=== PATIENT | male | born 1940 | race Caucasian/White ===

== ENCOUNTER → 2018-04-11 11:00 | Outpatient (CLI) | payer MEDICARE, MEDICAID, SELFPAY ==
[2018-04-11 12:51] LABS: Anion Gap 7 (5-15); BUN 15 mg/dL (7-18); BUN/Creat Ratio 15.1 RATIO (10-20); Calcium,Total 8.6 mg/dL (8.5-10.1); Chloride 108 mmol/L (98-107); Cholesterol 126 mg/dL (200); EST Glomerular Filtration Rate 78 mL/min (>60); Est Glom Filt Rate - Afr Amer 94 mL/min (>60); Glucose 84 mg/dL (74-106); High Density Lipoprotein 56 mg/dL; Potassium 4.3 mmol/L (3.5-5.1); Sodium Level 142 mmol/L (136-145); Triglycerides 62 mg/dL; Very Low Density Lipoprotein 12 mg/dL (5-40)
== END ==
PROVIDERS: Family Provider Family Medicine; PCP Family Medicine; Visit Provider Family Medicine
DX: E78.5 Hyperlipidemia, unspecified (principal)
CPT/HCPCS: 36415; 80048; 80061

== ENCOUNTER 2018-06-04 06:25 | Day surgery (SDC) | payer MEDICARE, MEDICAID, SELFPAY ==
[2018-05-08 08:59] VITALS: BMI 29.0
[2018-05-17 10:41] VITALS: BP 176/83; PULSE 53; RESP 16; TEMP 36.8; O2SAT 97; BMI 29.6
--- NOTE | 2018-06-03 17:28 | HP.PCM_ITS ---
History and Physical Date of Admission: 06/04/18 HISTORY OF PRESENT ILLNESS 78 year old man presents for evaluation for TBSE. He has concerns about a lesion on his nasal glabella that has increased in size over the last several months and has become more raised in configuration and has developed irregular borders. It intermittently scabs over and bleeds. 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 He denies any trauma. He denies any fever. He presents at this time for further evaluation and treatment. PAST MEDICAL HISTORY Diabetes mellitus type II, controlled Hyperlipidemia Stable angina Encounter for long-term current use of high risk medication Acute NH, subendocardial, subsequent episode of care Essential (primary) hypertension Atherosclerosis of coronary artery bypass graft(s) without angina pectoris Bradycardia Chest discomfort Dizziness and giddiness GERD (gastroesophageal reflux disease) Shortness of breath PAST SURGICAL HISTORY CABG Inguinal hernia percutaneous transluminal coronary angioplasty tonsillectomy ALLERGIES No Known Allergies MEDICATIONS isosorbide lisinopril amlodipine aspirin atorvastatin cascara sagrada nitroglycerin ascorbic acid (vitamin C) clopidogrel famotidine FAMILY HISTORY Brother - CAD (coronary artery disease) Brother - Hypertension Mother - Hypertension Father - Heart disease SOCIAL HISTORY Smoking Status: Never smoker alcohol intake: never substance use type: does not use REVIEW OF SYSTEMS General - Denies fever, fatigue, and weight loss. Eyes - Denies cataracts and glaucoma. ENT - Denies nasal congestion and sore throat. Endocrine - Denies excessive thirst and urination. Has diabetes mellitus. Skin - Has enlarging lesion nasal glabella. Had previous excision basal cell carcinoma right occipital scalp in 2012. Musculoskeletal - Denies joint pain, joint stiffness, weakness of muscles and joints, back pain, and arthritis. Neuro - Denies headaches. Cardiovascular - Denies chest pain, fatigue, and shortness of breath with exertion. Has CAD with CABG. Psych - Denies anxiety and depression. Respiratory - Denies chronic cough and shortness of breath. Gastrointestinal - Denies nausea, vomiting, diarrhea, and constipation. Hematologic - Denies abnormal bruising and bleeding. Genitourinary - Denies hematuria and urinary frequency. PHYSICAL EXAMINATION General - Alert and Oriented. HEENT - PERRL. EOMI. Throat is clear. On the nasal glabella is a lesion that is erythematous and measures 11 mm. Is raised in configuration with nodularity. Has irregular borders. Some scabbing. No ulceration. Lesion is nontender. Skin graft right occipital scalp well healed. Neck - Supple and nontender. No cervical adenopathy. No suspicious lesions noted. Lungs - Clear to auscultation. Heart - Regular rate and rhythm. Abdomen - Soft and nondistended. Extremities - FROM. No axillary adenopathy. Radial pulses are palpable. No suspicious lesions noted. Neuro - CN II-XII grossly intact. Psych - Normal mood and affect. ASSESSMENT 1. 11 mm lesion nasal glabella. 2. Personal history of skin cancer. PLAN The lesion nasal glabella is clinically consistent with a basal cell carcinoma. Recommend excision of this lesion and send it to Pathology for analysis to rule out carcinoma. If carcinoma is present, then further excision will be necessary with skin flap or skin graft reconstruction. Surgery can be done on an outpatient basis under local anesthesia and IV sedation. Patient was informed of the risks and complications of the procedure including alternatives to surgery. These were discussed with the patient personally. Patient voices understanding and wishes to proceed. Some of the risks and complications were included in a form from the [employer].
--- NOTE | 2018-06-04 | LES_PTH ---
PATIENT: HANANE DIGGS LOC: [facility] [place][id number] AGE/SX: 78/M ROOM: RE06/04/[address]: Dr. Tavares Mary MD : 1940 BED: DIS: 06/04/2018 SPEC #: [id number] RECD: 06/04/18 08:28 STATUS: DEEPAK MEAGHAN #: [id number] CECY: 06/04/18 00:[address]: Tavares Mary DEPT: SURGICAL PATHOLOGY RECD BY: Alicia Ariza ENTERED: 06/04/18 09:09 SP TYPE: Lesion OTHR DR: Dr. Zack Ceballos MD Tissues: A - Skin of nose, NOS B - Skin of nose, NOS Procedures: Frozen Section (charge) Surgery Specimen Level IV HEADER OPERATION: Excision lesion, skin flap, nasal glabella, frozen section PRE-OP DIAGNOSIS: 11 mm lesion nasal glabella TISSUE SUBMITTED: A - 11 mm lesion nasal glabella, frozen section, B - Basal cell CA of nasal glabella - suture at 12 o'clock, sent for permanent FROZEN SECTION DIAGNOSIS A. 11 mm lesion nasal glabella, shave biopsy: Basal cell carcinoma. MIUGEL:rohan 06/04/18 MICROSCOPIC DIAGNOSIS A. 11 mm lesion, nasal glabella, shave biopsy: Basal cell carcinoma with focal ulceration and associated inflammation (0.3 cm in greatest dimension). Solar elastosis. B. Basal cell carcinoma, nose, excisional biopsy: Negative for carcinoma. Focal ulceration, consistent with site of specimen A. Solar elastosis. MIGUEL:rohan 06/05/18 MICROSCOPIC DESCRIPTION Slides are reviewed. GROSS DESCRIPTION A - Received fresh for frozen section diagnosis labeled with the patient's name is a specimen designated 11 mm lesion nasal glabella. The specimen consists of a round piece of tran-white skin measuring 0.5 x 0.5 x 0.2 cm. The specimen is inked, bisected and submitted entirely for frozen section diagnosis in one cassette. / MIGUEL:rohan 06/04/18 B - Received in fixative is one container labeled with the patient's name and designated basal cell carcinoma, suture at 12 o'clock, nose. The specimen consists of a round piece of tran-white skin measuring 1 x 1 cm and up to 0.4 cm in thickness. A focal area of ulceration is noted measuring 0.6 x 0.6 cm consistent with site of specimen A. A suture is noted identifying 12 o'clock position. The specimen is inked as follows: 12 to 3 o'clock - black, 3 to 6 o'clock - blue, 6 to 9 o'clock - green and 9 to 12 o'clock - yellow. The specimen is serially sectioned and submitted entirely in two cassettes. Cassette 1 contains the 3 and 9 o'clock position. / MIGUEL:rohan 06/04/18 TC:0 CPT: 67603 x2, 60683
[2018-06-04 07:28] VITALS: BP 157/72; PULSE 52; RESP 16; TEMP 36.3; O2SAT 100; BMI 28.3
[2018-06-04] MEDS: Mupirocin Ointment 22gm Tube 1 APPLIC (08:42)
--- NOTE | 2018-06-04 09:25 | OP.PCM_ITS ---
Report of Operation Date of Procedure: 06/04/18 Pre-Operative Diagnosis: 1. 11 mm lesion nasal glabella. 2. Personal history of skin cancer. Post-Operative Diagnosis: 1. 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 2. Personal history of skin cancer. Surgery/Procedure Performed:: Excision 11 mm ulcerated basal cell carcinoma nasal glabella with forehead transposition skin flap reconstruction (8.8 cm2). Description of Surgical Findings:: 78 year old man presents for evaluation for TBSE. He has concerns about a lesion on his nasal glabella that has increased in size over the last several months and has become more raised in configuration and has developed irregular borders. It intermittently scabs over and bleeds. He had a previous basal cell carcinoma excised from his right occipital scalp in 2011. He denies any trauma. He denies any fever. Patient was informed of the risks and complications of the procedure including alternatives to surgery. These were discussed with the patient personally. Patient voices understanding and wishes to proceed. Some of the risks and complications were included in a form from the [employer]. Frozen section nasal glabella - ulcerated basal cell carcinoma. 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 Lesion nasal glabella to Pathology as a frozen section. 2. Ulcerated basal cell carcinoma nasal glabella to Pathology. Drains: None. Estimated Blood Loss (mL): 5 ml. Description of Procedure: Patient was taken to OR in supine position and was placed under general anesthesia. The face was prepped and draped in the usual fashion. SCD's were placed for DVT prophylaxis. Perioperative antibiotics were given intravenously. Using xylocaine with epinephrine, the lesion nasal glabella was infiltrated. After waiting 5 minutes for the anesthetic to take effect, the lesion nasal glabella was excised in an intradermal fashion and sent to Pathology as a frozen section. Frozen section .showed an ulcerated basal cell carcinoma. So further excision was done with a full thickness excision in a circular fashion with a 5 mm margin in all directions thus fashioning a 2.1 cm excision. A suture was marked at 12 oclock position for pathology orientation. The lesion was sent to Pathology for analysis to rule out carcinoma at the margins. Hemostasis was obtained with electrocautery. I designed a mini forehead flap in the central forehead and infiltrated the markings with xylocaine with epinephrine. Incisions were made and the flap was elevated on a subcutaneous pedicle at the level of the underlying muscle. It was easily transposed into the nasal glabellar defect with minimal tension and minimal distortion. Hemostasis was obtained with electrocautery. The flap was then transposed into the defect and closed in a layered fashion with 5-0 Monocryl interrupted sutures for the deep dermis and subcutaneous tissue. The skin was approximated with 6-0 Prolene simple interrupted sutures. Steri-strips were applied followed by antibiotic ointment. The size of the defect and the size of the flap needed to close the defect was 8.8 cm2. Patient tolerated the procedure well and was sent to PACU in satisfactory condition. Patient will be sent home on antibiotics and pain medication. He will keep his head elevated during the initial postop period. Patient will followup in a week for a wound check and for discussion of the pathology report and for removal of the sutures. Grafts/Implants Used: None. - Complications None. - Admit VTE Documentation VTE Present on Admission: No VTE Mechan Device Prophylaxis: SCD's VTE Pharm Prophylaxis ordered?: No Code Visit Surgery Charges CPT - 80320 ICD-10 - C44.311, Z85.828
[2018-06-04 09:28] VITALS: BP 150/73; BP 157/72; PULSE 57; RESP 16; TEMP 36.2; O2SAT 94
[2018-06-04 09:30] VITALS: BP 145/72; BP 157/72; PULSE 57; RESP 16; O2SAT 96
--- NOTE | 2018-06-04 09:37 | PCM.DC ---
You will use the following diet at home:: No restrictions Discharge Activity: May not drive while taking narcotic pain medications., May Shower - in two days., - - keep head elevated. no heavy lifting. May shower in (days): 2 May resume sexual activity in: No Restrictions Ice area for (Minutes): 5 - as needed for facial swelling. Weight Bearing Status: Weight bearing as tolerated Lifting Restrictions: 20 lbs. Keep extremity elevated above heart level: - - elevate head. Call your doctor if your incision/area has: Continuous Slow Oozing, Sudden Increased Bleeding, Increased Pain/ Swelling, Increased Redness, Foul Smelling Discharge, Swelling at the incision site Call your doctor if you observe: Fever of 101 or Higher, Coldness, Increased Pain, Shortness of breath, Chest pain, Calf discomfort Suture Line Care: - - apply antibiotic ointment to suture line daily. Cleanse incision/area with: - - may get incision wet in the shower in two days. Additional Instructions: May resume the Plavix tomorrow 06/05/18. Allergies/Adverse Reactions: Allergies No Known Allergies Allergy (Verified 06/04/18 07:23) Medications to take at Discharge isosorbide mononitrate ER 30 mg tablet,extended release 24 hr 30 mg PO QAM #90 tab 04/05/17 lisinopril 20 mg tablet 20 mg PO QDAY #90 tab 04/05/17 amlodipine 10 mg tablet 10 mg PO QDAY #90 tab 05/22/17 aspirin 81 mg tablet,delayed release 81 mg PO QDAY 06/21/17 atorvastatin 80 mg tablet 80 mg PO QHS 06/21/17 cascara sagrada 450 mg capsule 450 mg PO .QOD cap 06/21/17 nitroglycerin 0.4 mg sublingual tablet 0.4 mg SUBLINGUAL Q5M PRN 06/21/17 ascorbic acid (vitamin C) 500 mg capsule 500 mg PO QHS cap 06/26/17 clopidogrel 75 mg tablet 75 mg PO QDAY #90 tab 03/04/18 famotidine 20 mg tablet 20 mg PO QDAY #90 tab 03/07/18 Clindamycin HCl [Cleocin] 300 mg PO TID #12 cap 06/04/18 Lactobacillus Acidophilus [Acidophilus Probiotic] 0.5 mg PO BID #10 tab 06/04/18 Oxycodone HCl/Acetaminophen [Percocet 5/325] 1 tab PO 4X/DAY PRN PRN 5 Days #20 tab 06/04/18 The following prescriptions were given: Oxycodone HCl/Acetaminophen [Percocet 5/325] 1 tab PO 4X/DAY PRN PRN 5 Days #20 tab PRN Reason: Pain Lactobacillus Acidophilus [Acidophilus Probiotic] 0.5 mg PO BID #10 tab Clindamycin HCl [Cleocin] 300 mg PO TID #12 cap Primary Care Physician: Zack Ceballos MD [Primary Care Provider] - Test Results: Test results from this visit will be discussed in further detail at your follow-up appointment, if applicable. Please Follow Up With: Tavares Mary MD When: one week. call [phone] for appt. Proposed Discharge Date: 06/04/18
--- NOTE | 2018-06-04 09:40 | DCINST_ITS ---
You will use the following diet at home:: No restrictions Discharge Activity: May not drive while taking narcotic pain medications., May Shower - in two days., - - keep head elevated. no heavy lifting. May shower in (days): 2 May resume sexual activity in: No Restrictions Ice area for (Minutes): 5 - as needed for facial swelling. Weight Bearing Status: Weight bearing as tolerated Lifting Restrictions: 20 lbs. Keep extremity elevated above heart level: - - elevate head. Call your doctor if your incision/area has: Continuous Slow Oozing, Sudden Increased Bleeding, Increased Pain/ Swelling, Increased Redness, Foul Smelling Discharge, Swelling at the incision site Call your doctor if you observe: Fever of 101 or Higher, Coldness, Increased Pain, Shortness of breath, Chest pain, Calf discomfort Suture Line Care: - - apply antibiotic ointment to suture line daily. Cleanse incision/area with: - - may get incision wet in the shower in two days. Additional Instructions: May resume the Plavix tomorrow 06/05/18. Allergies/Adverse Reactions: Allergies No Known Allergies Allergy (Verified 06/04/18 07:23) Medications to take at Discharge isosorbide mononitrate ER 30 mg tablet,extended release 24 hr 30 mg PO QAM #90 tab 04/05/17 lisinopril 20 mg tablet 20 mg PO QDAY #90 tab 04/05/17 amlodipine 10 mg tablet 10 mg PO QDAY #90 tab 05/22/17 aspirin 81 mg tablet,delayed release 81 mg PO QDAY 06/21/17 atorvastatin 80 mg tablet 80 mg PO QHS 06/21/17 cascara sagrada 450 mg capsule 450 mg PO .QOD cap 06/21/17 nitroglycerin 0.4 mg sublingual tablet 0.4 mg SUBLINGUAL Q5M PRN 06/21/17 ascorbic acid (vitamin C) 500 mg capsule 500 mg PO QHS cap 06/26/17 clopidogrel 75 mg tablet 75 mg PO QDAY #90 tab 03/04/18 famotidine 20 mg tablet 20 mg PO QDAY #90 tab 03/07/18 Clindamycin HCl [Cleocin] 300 mg PO TID #12 cap 06/04/18 Lactobacillus Acidophilus [Acidophilus Probiotic] 0.5 mg PO BID #10 tab 06/04/18 Oxycodone HCl/Acetaminophen [Percocet 5/325] 1 tab PO 4X/DAY PRN PRN 5 Days #20 tab 06/04/18 The following prescriptions were given: Oxycodone HCl/Acetaminophen [Percocet 5/325] 1 tab PO 4X/DAY PRN PRN 5 Days #20 tab PRN Reason: Pain Lactobacillus Acidophilus [Acidophilus Probiotic] 0.5 mg PO BID #10 tab Clindamycin HCl [Cleocin] 300 mg PO TID #12 cap Primary Care Physician: Zack Ceballos MD [Primary Care Provider] - Test Results: Test results from this visit will be discussed in further detail at your follow- up appointment, if applicable. Please Follow Up With: Tavares Mary MD When: one week. call [phone] for appt. Proposed Discharge Date: 06/04/18
[2018-06-04 09:45] VITALS: BP 148/79; BP 157/72; PULSE 55; RESP 16; O2SAT 97
[2018-06-04 09:58] VITALS: BP 135/75; BP 157/72; PULSE 54; RESP 16; TEMP 36.5; O2SAT 95
[2018-06-04 11:10] VITALS: BP 138/62; BP 157/72; PULSE 56; RESP 16; TEMP 36.4; O2SAT 98
== END 2018-06-04 11:30 | disposition home or self-care (01) ==
LOC: SDC 06:26 → AC 06:29
PROVIDERS: Family Provider Family Medicine; PCP Family Medicine; Referring Provider Surgery; Visit Provider Surgery
PROC: (CPT 14060; principal; 2018-06-04 07:45)
DX: C44.311 Basal cell carcinoma of skin of nose (principal); L57.8 Other skin changes due to chronic exposure to nonionizing radiation; W89.9XXA Exposure to unspecified man-made visible and ultraviolet light, initial encounter; Y93.9 Activity, unspecified; Y92.9 Unspecified place or not applicable; Y99.9 Unspecified external cause status; I25.10 Atherosclerotic heart disease of native coronary artery without angina pectoris; E11.9 Type 2 diabetes mellitus without complications; I10 Essential (primary) hypertension; E78.00 Pure hypercholesterolemia, unspecified; E78.5 Hyperlipidemia, unspecified; K21.9 Gastro-esophageal reflux disease without esophagitis; I25.2 Old myocardial infarction; Z79.02 Long term (current) use of antithrombotics/antiplatelets; Z79.82 Long term (current) use of aspirin; Z79.899 Other long term (current) drug therapy; Z86.718 Personal history of other venous thrombosis and embolism; Z85.828 Personal history of other malignant neoplasm of skin; Z95.1 Presence of aortocoronary bypass graft
CPT/HCPCS: 00300; 14060; 88305; 88331; J7120

== ENCOUNTER → 2018-10-10 10:49 | Outpatient (CLI) | payer MEDICARE, MEDICAID, SELFPAY ==
[2018-07-01 11:45] VITALS: BMI 29.0
[2018-10-10 12:48] LABS: Anion Gap 7 (5-15); BUN 23 mg/dL (7-18); BUN/Creat Ratio 19.8 RATIO (10-20); Calcium,Total 9.1 mg/dL (8.5-10.1); Chloride 110 mmol/L (98-107); Creatinine, Serum 1.16 mg/dL (0.70-1.30); EST Glomerular Filtration Rate 65 mL/min (>60); Est Glom Filt Rate - Afr Amer 79 mL/min (>60); Glucose 84 mg/dL (74-106); Sodium Level 141 mmol/L (136-145)
== END ==
PROVIDERS: Family Provider Family Medicine; PCP Family Medicine; Referring Provider Family Medicine; Visit Provider Family Medicine
DX: I10 Essential (primary) hypertension (principal)
CPT/HCPCS: 36415; 80048

== ENCOUNTER → 2019-02-27 11:05 | Outpatient (CLI) | payer MEDICARE, MEDICAID, SELFPAY ==
[2018-07-01 11:45] VITALS: BMI 29.0
== END ==
PROVIDERS: Family Provider Family Medicine; PCP Family Medicine; Visit Provider Family Medicine
DX: N52.9 Male erectile dysfunction, unspecified (principal)
CPT/HCPCS: 36415; 84403

== ENCOUNTER → 2019-10-13 11:37 | Outpatient (CLI) | payer OTHER, SELFPAY ==
[2019-07-07 12:39] VITALS: BMI 26.5
[2019-10-13 15:04] LABS: Anion Gap 6 (5-15); BUN 20 mg/dL (7-18); BUN/Creat Ratio 17.4 RATIO (10-20); Calcium,Total 8.8 mg/dL (8.5-10.1); Chloride 108 mmol/L (98-107); Creatinine, Serum 1.15 mg/dL (0.70-1.30); EST Glomerular Filtration Rate 65 mL/min (>60); Est Glom Filt Rate - Afr Amer 79 mL/min (>60); Glucose 84 mg/dL (74-106); Potassium 4.3 mmol/L (3.5-5.1); Sodium Level 142 mmol/L (136-145)
[2019-10-13 15:08] LABS: Hemoglobin A1c 5.2 % (3.8-5.6)
== END ==
PROVIDERS: PCP Family Medicine; Visit Provider Family Medicine
DX: E11.9 Type 2 diabetes mellitus without complications (principal)
CPT/HCPCS: 36415; 80048; 83036

== ENCOUNTER → 2020-09-15 10:57 | Outpatient (CLI) | payer MEDICARE, SELFPAY ==
[2020-09-15 12:17] LABS: ALB/GLOB Ratio 1.4 RATIO (0.9-2.4); AST(SGOT) 24 U/L (15-37); Alanine Aminotransfer ALT/SGPT 29 U/L (16-61); Albumin, Serum 4.1 g/dL (3.2-5.0); Alkaline Phosphatase 83 U/L (45-117); Anion Gap 6 (5-15); BUN 22 mg/dL (7-18); BUN/Creat Ratio 16.8 RATIO (10-20); Calcium,Total 8.7 mg/dL (8.5-10.1); Chloride 109 mmol/L (98-107); Cholesterol 142 mg/dL (200); Creatinine, Serum 1.31 mg/dL (0.70-1.30); EST Glomerular Filtration Rate 56 mL/min (>60); Est Glom Filt Rate - Afr Amer 68 mL/min (>60); Glucose 91 mg/dL (74-106); High Density Lipoprotein 54 mg/dL; Potassium 4.5 mmol/L (3.5-5.1); Protein, Total 7.1 g/dL (6.4-8.2); Sodium Level 141 mmol/L (136-145); Triglycerides 66 mg/dL; Very Low Density Lipoprotein 13 mg/dL (5-40)
== END ==
PROVIDERS: PCP Family Medicine; Visit Provider Nurse Practitioner Gerontology
DX: E78.00 Pure hypercholesterolemia, unspecified (principal); I10 Essential (primary) hypertension
CPT/HCPCS: 36415; 80053; 80061

== ENCOUNTER → 2020-09-22 10:54 | Outpatient (CLI) | payer MEDICARE, SELFPAY ==
--- NOTE | 2020-09-22 10:55 | ECHOCS_ITS ---
Reason For Study: DYSPNEA/SOB Procedure This was a 2D Doppler, Color Flow transthoracic echocardiogram. The study was technically difficult. Contrast injection was performed. Exam performed in department. Left Ventricle Normal LV size. Segmental dysfunction with preserved ejection fraction (see wall motion). The estimated ejection fraction is 60 %. No evidence for diastolic dysfunction. Infero-Basal: Hypokinetic. Right Ventricle Normal RV size. Normal systolic function. Atria The left atrium is mildly enlarged. Normal right atrium. No doppler evidence for ASD. Mitral Valve There is no mitral annular calcification. Normal mitral valve. Trivial mitral valve insufficiency. Tricuspid Valve Normal tricuspid valve. Mild to moderate (1-2+) tricuspid valve insufficiency. Right ventricular systolic pressure estimated to be 39 mmHg. Aortic Valve Trisinus/trileaflet aortic valve. Mild diffuse aortic valve thickening. Mild focal aortic valve calcification. Mild aortic stenosis. Pulmonic Valve The pulmonic valve is not well visualized. Mild (1+) pulmonic valve insufficiency. Great Vessels Normal sized aortic root. Calcified aortic root. Pericardium/Pleural No pericardial effusion. Medication 22 gauge I.V. with prn adaptor inserted into right arm. Diluted definity 3ml given slow IV push to enhance endocardial definition. MMode/2D Measurements & Calculations LVIDd: 5.0 cm IVSd: 0.92 cm LVOT diam: 2.0 cm LVIDs: 3.3 cm LVPWd: 0.96 cm RVDd: 3.9 cm FS: 34.3 % LVOT area: 3.2 cm2 Ao root diam: 3.2 cm LAV(MOD-bp): 48.5 ml LVAd ap4: 30.9 cm2 LAV(MOD-bp) Indexed: 26.9 ml/m2 LVLd ap4: 8.2 cm LAV(MOD-sp2): 45.7 ml EDV(MOD-sp4): 96.2 ml LAV(MOD-sp4): 51.2 ml EDV(sp4-el): 98.1 ml LVAs ap4: 17.5 cm2 LVLs ap4: 7.0 cm ESV(MOD-sp4): 36.1 ml ESV(sp4-el): 37.0 ml EF(MOD-sp4): 62.5 % EF(sp4-el): 62.3 % SV(MOD-sp4): 60.1 ml SV(sp4-el): 61.1 ml LA A4 area: 18.8 cm2 LA dimension(2D): 4.4 cm RA A4 area: 16.5 cm2 Time Measurements MV dec time: 0.24 sec Doppler Measurements & Calculations MV E max renato: 93.4 cm/sec Lat Peak E' Renato: 12.2 cm/sec Med Peak E' Renato: 7.8 cm/sec MV A max renato: 95.0 cm/sec E/E' lat: 7.7 E/E' med: 12.0 MV E/A: 0.98 Ao V2 max: 188.1 cm/sec AI max renato: 443.4 cm/sec LV V1 max: 97.7 cm/sec Ao max P.2 mmHg AI max P.6 mmHg LV V1 max P.8 mmHg DIXIE(V,D): 1.7 cm2 AI dec slope: 165.7 cm/sec2 AI P1/2t: 783.7 msec PA V2 max: 113.4 cm/sec PI end-d renato: 119.7 cm/sec TR max renato: 298.8 cm/sec TR max P.7 mmHg ECHO/Echo Complete W/ Contrast Interpretation Summary The study was technically difficult. Contrast injection was performed. Segmental dysfunction with preserved ejection fraction (see wall motion). The estimated ejection fraction is 60 %. The left atrium is mildly enlarged. Trivial mitral valve insufficiency. Mild to moderate (1-2+) tricuspid valve insufficiency. Mild diffuse aortic valve thickening. Mild focal aortic valve calcification. Mild aortic stenosis. Mild (1+) pulmonic valve insufficiency. Calcified aortic root. Right ventricular systolic pressure estimated to be 39 mmHg. No evidence for diastolic dysfunction. Ordering Physician: AMY NAGY/DR BEACH Referring Physician: ZACK SIMMONS Performed By: Isa Martínez, BAR
== END ==
PROVIDERS: PCP Family Medicine; Referring Provider Nurse Practitioner Gerontology; Visit Provider Nurse Practitioner Gerontology
DX: I25.810 Atherosclerosis of coronary artery bypass graft(s) without angina pectoris (principal)
CPT/HCPCS: 93306; Q9957; A4216; C8929; J3490

== ENCOUNTER → 2020-10-12 10:27 | Outpatient (CLI) | payer MEDICARE, SELFPAY | PROVIDERS: PCP Family Medicine; Referring Provider Physician Assistant Medical; Visit Provider Physician Assistant Medical | DX: I49.9 Cardiac arrhythmia, unspecified (principal); R42 Dizziness and giddiness | CPT/HCPCS: 93225; 93226 ==

== ENCOUNTER 2021-01-14 15:40 | Emergency (ER) | payer MEDICARE, SELFPAY ==
[2021-01-14 15:42] VITALS: BP 146/81; PULSE 58; RESP 16; TEMP 35.8; O2SAT 99; BMI 26.9
--- NOTE | 2021-01-14 16:21 | CT_ITS ---
EXAM: CT CERVICAL SPINE WITHOUT INTRAVENOUS CONTRAST : 1940 CLINICAL INDICATION: trauma TECHNIQUE: Helically acquired images were obtained of the cervical spine without intravenous contrast. 2D reformatted images were reviewed. This CT exam was performed using one or more of the following dose reduction techniques: automated exposure control, adjustment of the mA and/or kV according to patient size, and/or use of iterative reconstruction technique. This report was created using [employer] report generation technology. COMPARISON: None. FINDINGS: VERTEBRAE: Unremarkable. No fracture. No traumatic subluxation. No discrete lytic or blastic abnormality. Normal alignment. Normal craniocervical junction and cervicothoracic junction. DISCS/SPINAL CANAL/NEURAL FORAMINA: Multilevel disc degeneration and facet arthropathy. Neural foraminal narrowing noted bilaterally at C4-5, C5-6 and C6-7. SOFT TISSUES: Posterior soft tissue calcification noted related to remote trauma. No prevertebral soft tissue swelling. LYMPH NODES: Unremarkable. No cervical adenopathy. LUNG APICES: Unremarkable as visualized. Clear. CT/Spine Cervical without Contras IMPRESSION: 1. No acute fracture or subluxation. 2. Diffuse spondylosis. Individualized dose optimization techniques were used for this CT. at 1653 Reported and signed by: Miles Mcnair MD Electronically Signed: Miles Mcnair MD at 16:52 EST Tel , Service support ,
--- NOTE | 2021-01-14 16:21 | CT_ITS ---
EXAM: CT HEAD WITHOUT INTRAVENOUS CONTRAST : 1940 CLINICAL INDICATION: trauma TECHNIQUE: Multiple axial images were obtained of the head without intravenous contrast. This CT exam was performed using one or more of the following dose reduction techniques: automated exposure control, adjustment of the mA and/or kV according to patient size, and/or use of iterative reconstruction technique. This report was created using [employer] report generation technology. COMPARISON: November 06, 2013 FINDINGS: BRAIN AND EXTRA-AXIAL SPACES: Diminished white matter density cosistent with chronic microvascular disese. No intra- or extra-axial hemorrhage. No evidence of acute infarct. No intracranial mass or mass effect. There is preservation of the campos/white matter interface. Posterior fossa structures are unremarkable. Ventricles are appropriate for age. No hydrocephalus. Basal cisterns are patent. BONES/JOINTS: Unremarkable. No discrete lytic or blastic abnormalities. SOFT TISSUES: Right periorbital soft tissue swelling. SINUSES: Mucosal thickening noted within the paranasal sinuses. MASTOID AIR CELLS: Unremarkable. Clear. ORBITS: Visualized globes, extraocular muscles, optic nerves and retrobulbar fat appear unremarkable. CT/Brain/Head without Contrast IMPRESSION: 1. No acute intracranial abnormality. 2. Stable mild senescent changes. Individualized dose optimization techniques were used for this CT. at 1651 Reported and signed by: Miles Mcnair MD Electronically Signed: Miles Mcnair MD at 16:49 EST Tel , Service support ,
--- NOTE | 2021-01-14 17:22 | EX.ED.GENINJ ---
HPI History of Present Illness Chief Complaint: Head Injury Informant: patient Narrative Narrative: 80-year-old male on Plavix fell into a ditch when the wind caught his trash can. He struck his right forehead on a rock. No loss of consciousness. He denies any lacerations. No arm or leg complaints. Denies any back pain. 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, 2nd degree Bradycardia Chest discomfort Diabetes mellitus type II, controlled Dizziness Dizziness and giddiness Encounter for long-term current use of high risk medication Essential (primary) hypertension GERD (gastroesophageal reflux disease) Hyperlipidemia Presence of stent in coronary artery (~10/08/09) Pure hypercholesterolemia Shortness of breath Sinus bradycardia Stable angina Home Medications aspirin 81 mg tablet,delayed release 81 mg PO QDAY 06/21/17 [History Last Taken Unknown] atorvastatin 80 mg tablet 80 mg PO QHS 06/21/17 [History Last Taken Unknown] ascorbic acid (vitamin C) 500 mg capsule 500 mg PO QHS cap 06/26/17 [History Last Taken Unknown] famotidine 20 mg tablet 20 mg PO QDAY #90 tab 03/17/20 [Rx Last Taken Unknown] amlodipine 10 mg tablet 10 mg PO QDAY #90 tab 05/19/20 [Rx Last Taken Unknown] clopidogrel 75 mg tablet 75 mg PO QDAY #90 tab 05/19/20 [Rx Last Taken Unknown] lisinopril 20 mg tablet 20 mg PO QDAY #90 tab 07/12/20 [Rx Last Taken Unknown] nitroglycerin 0.4 mg sublingual tablet 0.4 mg SUBLINGUAL Q5M PRN #25 tab 09/15/20 [Rx Last Taken Unknown] cholecalciferol (vitamin D3) 25 mcg (1,000 unit) tablet 25 mcg PO DAILY 10/19/20 [History Last Taken Unknown] isosorbide mononitrate 30 mg tablet,extended release 24 hr 30 mg PO QAM #90 tab 11/22/20 [Rx Last Taken Unknown] Allergy/AdvReac Type Severity Reaction Status Date / Time No Known Allergies Allergy Verified 01/14/21 15:41 Family History Brother CAD (coronary artery disease) Brother Hypertension Mother Hypertension Father Heart disease Surgical History H/O percutaneous transluminal coronary angioplasty History of coronary artery bypass graft x 3 (~07/29/09) History of tonsillectomy Hx of CABG Inguinal hernia Presence of coronary angioplasty implant and graft (~10/08/09) Social History Smoking Status: Never smoker alcohol intake: never substance use type: does not use caffeine: Yes eating out: rarely or never what type of physical activity do you participate in: other seatbelt use: always do you feel safe at home: Yes ROS ROS ED Constitutional Constitutional ED: Denies chills, fever(s) or weight loss Eyes Eyes: Denies change in vision or diplopia ENT ENT ED: Denies ear pain, rhinorrhea or sore throat Cardiovascular Cardiovascular: Denies chest pain, orthopnea, palpitations or racing heartbeat Respiratory/Chest Respiratory/Chest: Denies cough, dyspnea or orthopnea Gastrointestinal Gastrointestinal: Denies abdominal pain, diarrhea, nausea or vomiting Genitourinary Genitourinary ED: Denies dysuria, hematuria or urinary frequency Musculoskeletal Musculoskeletal: Denies arthralgias or myalgias Integumentary Reports other Details: Hematoma right forehead ; Denies abscess or rash Neurologic Neurologic: Reports headache(s); Denies weakness Psychiatric Psychiatric: Denies anxiety, depression, suicidal ideation or suicidal thoughts Endocrine Endocrinology: Denies polydipsia, polyphagia or polyuria Allergic/Immunologic Allergic/Immunologic ED: Denies mouth swelling, tongue swelling or urticaria EXAM Physical Exam Const Vital Signs: 01/14/21 15:42 01/14/21 17:10 Temperature 96.5 F L Temperature Source Temporal Pulse Rate 58 L Respiratory Rate 16 Respiratory Effort Normal Respiratory Depth Normal Respiratory Pattern Normal Blood Pressure 146/81 H Blood Pressure Mean 102 Pulse Ox 99 Oxygen Delivery Method Room Air Positive well nourished and well developed General Appearance ED: well developed HEENT Reports normocephalic, head/scalp atraumatic, TM's clear and moist mucous membranes HEENT Narrative: There is a large right forehead hematoma beginning at the level of the eyebrow. There is not appear to be any eye injury. Midface is stable. No intraoral injuries noted trauma Tympanic Membrane ED: Yes TM's clear Eyes PERRL and EOMs intact bilaterally Neck full ROM, no lymphadenopathy, supple and no JVD General: Negative for tenderness Resp normal respiratory effort and clear to auscultation bilaterally Cardio regular rate, regular rhythm and no murmurs Rate: regular rate GI normal to inspection, nondistended, normoactive bowel sounds and non-tender Palpation: soft Back/Spine no CVA tenderness and normal ROM Extremity normal to inspection General Extremety ED: Negative for edema General Extremity: Negative for edema Neuro oriented x3 and CN's II-XII intact bilaterally Sensorium / Orientation: alert Motor Exam: strength 5/5 throughout Psych mental status grossly normal Mood & Affect: Negative for depressed or tearful Skin no rashes or lesions noted and no wounds MDM MDM MDM Narrative Medical decision making narrative: CT of the brain and cervical spine were negative for acute injury. Patient will be discharged home with supportive care. He understands return instructions and we talked about the potential of delayed bleeding. Radiography Diagnostic Testing: Clinical Impression(s) from Imaging Studies Brain CT 01/14/21 16:21 IMPRESSION: 1. No acute intracranial abnormality. 2. Stable mild senescent changes. Individualized dose optimization techniques were used for this CT. at 1651 Reported and signed by: Miles Mcnair MD Electronically Signed: Miles Mcnair MD at 16:49 EST Tel , Service support , Cervical Spine CT 01/14/21 16:21 IMPRESSION: 1. No acute fracture or subluxation. 2. Diffuse spondylosis. Individualized dose optimization techniques were used for this CT. at 1653 Reported and signed by: Miles Mcnair MD Electronically Signed: Miles Mcnair MD at 16:52 EST Tel , Service support , Discharge Plan Triage Chief Complaint: Head Injury ED Provider: Ramón Verdugo Dx/Rx/DC Orders Clinical Impression: Traumatic hematoma of forehead Instructions: ED Head Injury (Adult) Prescriptions: No Action ascorbic acid (vitamin C) 500 mg capsule 500 mg PO QHS RF: 0 aspirin [Adult Low Dose Aspirin] 81 mg tablet,delayed release (DR/EC) 81 mg PO QDAY RF: 0 atorvastatin 80 mg tablet 80 mg PO QHS RF: 0 nitroglycerin [Nitrostat] 0.4 mg tablet, sublingual 0.4 mg SUBLINGUAL Q5M PRN (Reason: CHEST PAIN) Qty: 25 RF: 3 cholecalciferol (vitamin D3) 25 mcg (1,000 unit) tablet 25 mcg PO DAILY RF: 0 famotidine 20 mg tablet 20 mg PO QDAY Qty: 90 RF: 3 amlodipine [Norvasc] 10 mg tablet 10 mg PO QDAY Qty: 90 RF: 4 clopidogrel [Plavix] 75 mg tablet 75 mg PO QDAY Qty: 90 RF: 4 lisinopril 20 mg tablet 20 mg PO QDAY Qty: 90 RF: 3 isosorbide mononitrate 30 mg tablet extended release 24 hr 30 mg PO QAM Qty: 90 RF: 3 Primary Care Provider: Zack Ceballos Referrals: Zack Ceballos MD [Primary Care Provider] - As Needed Disposition Disposition: Home, Self Care
== END 2021-01-14 17:25 | disposition home or self-care (01) ==
PROVIDERS: Emergency Provider Emergency Medicine; PCP Family Medicine
DX: S00.83XA Contusion of other part of head, initial encounter (principal); W17.2XXA Fall into hole, initial encounter; Y93.89 Activity, other specified; Y92.9 Unspecified place or not applicable; Y99.8 Other external cause status; I25.708 Atherosclerosis of coronary artery bypass graft(s), unspecified, with other forms of angina pectoris; I10 Essential (primary) hypertension; I25.2 Old myocardial infarction; E78.00 Pure hypercholesterolemia, unspecified; Z95.1 Presence of aortocoronary bypass graft; Z95.5 Presence of coronary angioplasty implant and graft; Z79.82 Long term (current) use of aspirin; Z79.02 Long term (current) use of antithrombotics/antiplatelets; Z79.899 Other long term (current) drug therapy
CPT/HCPCS: 70450; 72125; 99282

== ENCOUNTER → 2021-02-22 10:40 | Outpatient (CLI) | payer MEDICARE, SELFPAY ==
--- NOTE | 2021-02-22 10:50 | STEWCON_ITS ---
Reason For Study: Arrhythmia Stress Results Protocol: Wayne Protocol WITH DEFINITY Maximum Predicted HR: 142 bpm Target HR: 121 bpm % Maximum Predicted HR: 64 % DurationHeart Rate Stage (mm:ss) (bpm) BP Comment Baseline 46 124/62No Chest Pain; 4 ML Diluted Definity Wayne Protocol Stage I 3:00 65 122/60No Chest Pain Wayne Protocol Stage II 3:00 75 118/62No Chest Pain Wayne Protocol Stage III 2:00 91 112/64No Chest Pain Recovery 70 118/66No Chest Pain; BP 104/62 Two Min After Exercise Stress Duration: 8:00 mm:ss Maximum Stress HR: 91 bpm METS: 9 Baseline Echocardiogram Findings Stress Echo Wall motion Data Resting WM Intermediate WM Stress WM Resting Wall Motion Wall Motion Stress Anterio-Basal: Normal. Anterio-Basal: Hyperkinetic. Lateral-Basal: Normal. Lateral-Basal: Hyperkinetic. Posterior-Basal: Normal. Posterior-Basal: Hyperkinetic. Infero-Basal: Normal. Infero-Basal: Hyperkinetic. Basal inferoseptal: Normal. Basal inferoseptal: Hyperkinetic. Basal anteroseptal: Normal. Basal anteroseptal: Hyperkinetic. Mid-Anterior : Normal. Mid-Anterior : Hyperkinetic. Mid-Lateral : Normal. Mid-Lateral : Hyperkinetic. Mid-Posterior: Normal. Mid-Posterior: Hyperkinetic. Mid-Inferior: Normal. Mid-Inferior: Hyperkinetic. Mid-inferoseptal : Hypokinetic. Mid-inferoseptal : Hypokinetic. Mid-anteroseptal : Hypokinetic. Mid-anteroseptal : Hypokinetic. Anterior [place] : Normal. Anterior [place] : Hyperkinetic. Inferior [place] : Normal. Inferior [place] : Hyperkinetic. Lateral [place] : Normal. Lateral [place] : Hyperkinetic. Septall [place] : Normal. Septall [place] : Hyperkinetic. Ejection Fraction 55 %. Ejection Fraction 65 %. Stress Results Heart rate response: Inadequate Blood pressure response: Normal resting blood pressure-hypotensive response Arrhythmias: Pretest: Sinus rhythm with accelerated idioventricular rhythm; exercise: Sinus rhythm with occasional PVCs; recovery: Sinus rhythm with occasional PVCs; of note: The patient has been noted to have findings compatible with sinus rhythm with second-degree AV block Mob[place] 1 Functional capacity: Good Stopped secondary to: Decreased blood pressure. EKG Data Baseline ECG: Sinus bradycardia. Peak exercise ECG: Somatic/motion artifact with the appearance of underlying sinus rhythm with occasional PVCs. Symptoms with Stress No complaint of chest discomfort during exercise or recovery. ECHO/Stress Test Echo W/Contrast Interpretation Summary Contrast injection performed Abnormal (technically inadequate: Percent predicted maximal heart rate less renzo n 85%) stress echocardiogram A:. Heart rate response: Concerning for chronotropic incompetence B: Blood pressure response: Abnormal C: Occasional PVCs D: Accelerated idioventricular rhythm E: Left ventricular wall motion noting hypokinesis of the mid inferior septal a nd mid anteroseptal segments at rest and with stress potentially compatible with an area of previou s myocardial injury/infarction Ordering Physician: Zack Welch Referring Physician: Zack Ceballos Performed By: Hiral Melgar, RDCS, RVT
== END ==
PROVIDERS: PCP Family Medicine; Referring Provider Internal Medicine Cardiovascular Disease; Visit Provider Internal Medicine Cardiovascular Disease
DX: R42 Dizziness and giddiness (principal); R00.1 Bradycardia, unspecified; I44.1 Atrioventricular block, second degree; I25.810 Atherosclerosis of coronary artery bypass graft(s) without angina pectoris; I10 Essential (primary) hypertension; E78.00 Pure hypercholesterolemia, unspecified; Z95.1 Presence of aortocoronary bypass graft; Z95.5 Presence of coronary angioplasty implant and graft
CPT/HCPCS: 93017; 93350; Q9957; A4216; C8928

== ENCOUNTER 2021-03-10 13:41 | Outpatient (CLI) | payer MEDICARE, SELFPAY ==
[2021-03-10 15:48] LABS: Absolute Lymphocyte Count 1.08 X10^3/uL (0.83-4.51); Absolute Neutrophil Count 2.5 X10^3/uL (2.0-7.7); Basophil# 0.04 X10^3/uL; Eosinophil# 0.08 X10^3/uL; Eosinophils% 1.9 % (0-5); Hematocrit 35.3 % (40-54); Lymphocyte # 1.08 X10^3/ul (0.83-4.51); Lymphocyte % 25.8 % (19-41); Mean Corpuscular Hgb 31.1 pg (27.0-32.0); Mean Corpuscular Volume 91.5 fL (80-94); Mean Platelet Vol. 10.3 fl (6.2-12.0); Monocyte# 0.51 X10^3/uL; Monocyte% 12.2 % (0-10); NRBC Flagged by Analyzer 0 % (0-5); Neutrophil # 2.46 X10^3/uL (2.7-7.7); Neutrophil % 58.9 % (47-70); Platelet Count 188 K/mm3 (150-450); RBC Distribution Width CV 14.7 % (11.6-14.6); RBC Distribution Width SD 49.7 fl (35.1-43.9); Red Blood Count 3.86 M/mm3 (4.6-6.2); White Blood Count 4.2 K/mm3 (4.4-11.0)
[2021-03-10 16:02] LABS: International Normalized Ratio 1.1; Prothrombin Time (Protime)PT. 13.7 SECONDS (11.7-14.9)
[2021-03-10 16:14] LABS: AST(SGOT) 27 U/L (15-37); Alanine Aminotransfer ALT/SGPT 38 U/L (16-61); Alkaline Phosphatase 99 U/L (45-117); Bilirubin, Direct 0.14 mg/dL (0.00-0.30); Cholesterol 105 mg/dL (200); High Density Lipoprotein 56 mg/dL; Triglycerides 68 mg/dL; Very Low Density Lipoprotein 14 mg/dL (5-40)
[2021-03-10 16:15] LABS: Anion Gap 7 (5-15); BUN 24 mg/dL (7-18); BUN/Creat Ratio 24.1 RATIO (10-20); Calcium,Total 9.5 mg/dL (8.5-10.1); Chloride 111 mmol/L (98-107); EST Glomerular Filtration Rate 77 mL/min (>60); Est Glom Filt Rate - Afr Amer 93 mL/min (>60); Glucose 96 mg/dL (74-106); Potassium 3.6 mmol/L (3.5-5.1); Sodium Level 143 mmol/L (136-145)
== END 2021-03-10 23:59 | disposition short-term general hospital (02) ==
PROVIDERS: Nurse Practitioner Gerontology; PCP Family Medicine; Referring Provider Physician Assistant Medical; Visit Provider Physician Assistant Medical
DX: R94.39 Abnormal result of other cardiovascular function study (principal); I44.1 Atrioventricular block, second degree; I25.810 Atherosclerosis of coronary artery bypass graft(s) without angina pectoris; I25.2 Old myocardial infarction; E78.00 Pure hypercholesterolemia, unspecified
CPT/HCPCS: 36415; 80048; 80061; 80076; 85025; 85610; 85730

== ENCOUNTER 2021-03-23 06:50 | Day surgery (SDC) | payer MEDICARE, SELFPAY ==
--- NOTE | 2021-03-10 14:07 | RAD_ITS ---
STUDY: X-RAY CHEST REASON FOR EXAM: Male, 81 years old. Fro PPM implant with Dr. Osuna TECHNIQUE: Frontal and lateral views COMPARISON: 11/06/2013 FINDINGS: Stable sternotomy wires. The lungs are clear and expanded. There is no demonstrated pleural abnormality. Normal size heart. Normal mediastinum and yohana. Normal visualized pulmonary arteries. Normal visualized aortic arch and descending thoracic aorta. Normal visualized thoracic spine. Normal visualized ribs, clavicles, and shoulders. There is no demonstrated abnormality of the visualized soft tissue structures of the upper abdomen. RAD/Chest PA and Lateral IMPRESSION: Normal x-ray examination of the chest. Electronically Signed: Kwame Villar DO at 17:01 EST Tel [phone], Service support ,
[2021-03-22 08:10] VITALS: BMI 26.9
--- NOTE | 2021-03-22 14:44 | PCM.HP.BLA ---
History and Physical Date of Admission: 03/23/21 [facility] [id number] [place], [place] [phone] OFFICE VISITDate of Service: 03/10/21 MR#:[id number]: HANANE DIGGS #:[id number]:1940 Provider: SUSANNAH Welch/Sex: 81/M [facility] HPI History of Present Illness Surgical H&P: Yes Details: This is a 81-year-old gentleman that presents here today for an updated HPI for an upcoming heart catheterization for an abnormal stress test. He does have a history of marked sinus bradycardia but concerns of second-degree AV block Mobitz 1 with associated dizziness, superimposed upon his history of underlying CAD, previous PCI, previous CABG, hyperlipidemia, and hypertension. During an OV in September he was noted to have lightheadedness/dizziness. He was agreeable to proceed with a stress test, however the day he presented he was noted marked sinus bradycardia with sinus arrhythmia but also evidence of what appeared to be an underlying marked second-degree AV block Mobitz 1 with associated symptoms of being dizzy and lightheaded. He did not proceed with the stress echocardiogram at that time. He subsequently underwent evaluation with a 24-hour Holter monitor which demonstrated his sinus rhythm/sinus bradycardia with an average heart rate of approximately 44 bpm as well as evidence of what appeared to be a second-degree AV block Mobitz 1. He did have associated dizziness during his Holter monitor. He was asked to consider further evaluation of his cardiovascular status and the possibility of a permanent pacemaker based upon his aforementioned findings. He wanted to wait and think about the possibility of a permanent pacemaker. Pt was agreeable to proceed with a stress echo again, however he was hospitalized at [facility] with COVID and a bowel blockage. He did require surgery for his bowel blockage. He underwent surgery without issues. He underwent a stress echocardiogram in February which was abnormal. He is here today to further discuss a heart catheterization that is scheduled for March 23, 2021. He does occasionally have chest twinges. These do not last long. He does occasionally have dizziness, he has not had any recently. He does not have any worsening SOB. He is able to walk almost a mile daily with out issues. He has not had any syncopal events. He does not have any edema. He does not have a current list but sts nothing changed. Intake Vital Signs 03/10/21 13:26 Height 5 ft 3 in Weight: 152 lb BMI 26.9 BP 136/62 H Pulse 48 L Intake Visit Reasons: UPDATE H & P Allergies No Known Allergies Allergy (Verified 01/14/21 15:41) Medications aspirin 81 mg tablet,delayed release 81 mg PO QDAY 06/21/17 [History Confirmed 03/10/21] atorvastatin 80 mg tablet 80 mg PO QHS 06/21/17 [History Confirmed 03/10/21] ascorbic acid (vitamin C) 500 mg capsule 500 mg PO QHS cap 06/26/17 [History Confirmed 03/10/21] famotidine 20 mg tablet 20 mg PO QDAY #90 tab 03/17/20 [Rx Confirmed 03/10/21] amlodipine 10 mg tablet 10 mg PO QDAY #90 tab 05/19/20 [Rx Confirmed 03/10/21] clopidogrel 75 mg tablet 75 mg PO QDAY #90 tab 05/19/20 [Rx Confirmed 03/10/21] lisinopril 20 mg tablet 20 mg PO QDAY #90 tab 07/12/20 [Rx Confirmed 03/10/21] nitroglycerin 0.4 mg sublingual tablet 0.4 mg SUBLINGUAL Q5M PRN #25 tab 09/15/20 [Rx Confirmed 03/10/21] cholecalciferol (vitamin D3) 25 mcg (1,000 unit) tablet 25 mcg PO DAILY 10/19/20 [History Confirmed 03/10/21] isosorbide mononitrate 30 mg tablet,extended release 24 hr 30 mg PO QAM #90 tab 11/22/20 [Rx Confirmed 03/10/21] saw palmetto 160 mg capsule 160 mg PO BID 03/10/21 [History Confirmed 03/10/21] zinc acetate 25 mg (zinc) capsule 25 mg PO DAILY 03/10/21 [History Confirmed 03/10/21] [facility] Medical History Acute NM, subendocardial, subsequent episode of care Atherosclerosis of coronary artery bypass graft(s) without angina pectoris AV block, 2nd degree Bradycardia Chest discomfort Diabetes mellitus type II, controlled Dizziness Dizziness and giddiness Encounter for long-term current use of high risk medication Essential (primary) hypertension GERD (gastroesophageal reflux disease) Hyperlipidemia Presence of stent in coronary artery (~10/08/09) Pure hypercholesterolemia Shortness of breath Sinus bradycardia Stable angina Surgical History H/O percutaneous transluminal coronary angioplasty History of coronary artery bypass graft x 3 (~07/29/09) History of tonsillectomy Hx of CABG Inguinal hernia Presence of coronary angioplasty implant and graft (~10/08/09) Family History Brother CAD (coronary artery disease) Brother Hypertension Mother Hypertension Father Heart disease Social History Smoking Status: Never smoker alcohol intake: never substance use type: does not use caffeine: Yes eating out: rarely or never what type of physical activity do you participate in: other seatbelt use: always do you feel safe at home: Yes ROS Const Const: Negative for fatigue, weakness, headache(s), frequent falls, excessive sweating, weight gain or weight loss Eyes Eyes: Negative for blind spots, loss of peripheral vision, transient loss of vision, blurry vision, change in vision or double vision ENT ENT: Negative for headache(s), dizziness, tinnitus, Nosebleed/epistaxis or balance problems Cardio Chest Pain: No Palpitations: No Edema: None Muscle aches with walking: None Resp Respiratory: Negative for SOB with activity, SOB at rest, SOB orthopnea\SOB lying down or Cough GI GI: Negative nausea, vomiting, heartburn, bloating, vomiting blood/hematemesis, bright, red blood in stools or black,tarry stools : Negative for hematuria Musc Musc: Negative for muscle aches/ myalgia, muscle weakness, joint pain or balance problems Skin Skin: Negative rash or wounds Neuro Neuro: Negative for dizziness, lightheadedness, near syncope, syncope, orthostatic symptoms, frequent falls, headache(s), weakness, confusion, memory loss, restless legs, blurry vision or double vision [place] Hematologic/Lymphatic: Negative for easy bleeding or easy bruising Endo Endo: Negative for fatigue, cold intolerance, heat intolerance or excessive sweating Psych Psych: Negative for anxiety or depression Allergy Allergy/Immunology: Negative for rash Cardiology Exam Const Appearance: cooperative, healthy appearing, comfortable, no acute distress, well developed and well groomed Nutritional Appearance: overweight Orientation: alert, awake and oriented x3 Head Head: normal to inspection, normocephalic and atraumatic Ears: hearing grossly normal bilaterally Nose: external nose normal Face and Sinus: face symmetric Eyes Eyelids: eyelids normal Conjunctivae: conjunctivae normal Pupils: PERRL EOM: EOM intact bilaterally Neck Neck: normal visual inspection and full ROM Carotids: normal carotid upstroke Chest Chest inspection: normal inspection of the chest, symmetric chest movement and normal respiratory effort Auscultation: Bilateral: Clear to Auscultation Cardio Palpation: normal PMI Rate: bradycardic Rhythm: regular rhythm and ectopic beats Heart sounds: S1 normal and S2 normal GI GI: normal to inspection, soft and bowel sounds present Neuro General: patient alert, patient awake, patient oriented x3 and moves all extremities Skin Skin: no rashes or lesions noted Extremities Pulses: Normal: Right Radial Pulse and Left Radial Pulse Psych Psychological: normal affect Supplemental Info Supplemental Information Stress echo 02/2021: Abnormal (technically inadequate: Percent predicted maximal heart rate less than 85%) stress echocardiogram A:. Heart rate response: Concerning for chronotropic incompetence B: Blood pressure response: Abnormal C: Occasional PVCs D: Accelerated idioventricular rhythm E: Left ventricular wall motion noting hypokinesis of the mid inferior septal and mid anteroseptal segments at rest and with stress potentially compatible with an area of previous myocardial injury/infarction Transthoracic echocardiogram: 08-02-12 Interpretation Summary The study was technically difficult. Segmental dysfunction with preserved ejection fraction (see wall motion). The estimated ejection fraction is 60 %. Trivial mitral valve insufficiency. Mild to moderate (1-2+) eccentric tricuspid valve insufficiency. Mild focal aortic valve thickening. Trivial aortic valve insufficiency. Right ventricular systolic pressure estimated to be 33 mmHg. Echocardiogram: 09/22/2020 Interpretation Summary The study was technically difficult. Contrast injection was performed. Segmental dysfunction with preserved ejection fraction (see wall motion). The estimated ejection fraction is 60 %. The left atrium is mildly enlarged. Trivial mitral valve insufficiency. Mild to moderate (1-2+) tricuspid valve insufficiency. Mild diffuse aortic valve thickening. Mild focal aortic valve calcification. Mild aortic stenosis. Mild (1+) pulmonic valve insufficiency. Calcified aortic root. Right ventricular systolic pressure estimated to be 39 mmHg. No evidence for diastolic dysfunction. Stress test: 05-22-14 The patient exercised on a Wayne protocol for 9 minutes and 15 seconds completing stage 3 and 15 seconds of stage 4 achieving a peak heart rate of 127 beats per minute (85% predicted maximum heart rate) with a peak blood pressure of 164/72 mmHg and a peak MET capacity of 10 METS. The baseline ECG demonstrated sinus bradycardia. The peak exercise ECG demonstrated no obvious ECG changes. There was an occasional PVC during exercise. There was intermittent ventricular bigeminy during exercise. There was an occasional PAC during recovery and an isolated ventricular couplet during recovery. The functional capacity was considered good. The patient had no complaint of chest discomfort during exercise or recovery. The examination was discontinued secondary to dyspnea. IMPRESSION: 1. Technically adequate (percent predicted maximum heart rate greater than 85%) exercise tolerance test. 2. Peak exercise ECG no obvious ECG changes. 3. Occasional PVC during exercise. 4. Intermittent ventricular bigeminy during exercise. 5. Occasional PAC during recovery and an isolated ventricular couplet during recovery. 6. Nuclear images pending. MYOCARDIAL PERFUSION IMAGING STUDY: TECHNIQUE: The patient was injected with 11.1 mCi of Tc99m Cardiolite and subsequently rest SPECT Cardiolite nuclear imaging was obtained in the horizontal long, vertical long, and short axes views. The patient exercised on a Wayne protocol for 9 minutes and 15 seconds achieving a peak heart rate of 127 beats per minute (85% predicted maximum heart rate) with a peak blood pressure of 164/72 mmHg and a peak MET capacity of 10 METS. The patient was injected with 31.4 mCi of Tc99m Cardiolite and subsequently stress SPECT Cardiolite nuclear imaging was obtained in the horizontal long, vertical long, and short axes views. A gated Cardiolite study at peak stress was obtained. INTERPRETATION: Rest SPECT Cardiolite nuclear imaging demonstrates extracardiac/hepatic and gastrointestinal tracer uptake near the inferior segments, which is not well appreciated following stress. At rest there is notation of diminished tracer uptake in portions of the basal inferoseptal and basal inferior segments, which appears to be improved following stress. Otherwise there appears to be relative uniform tracer uptake. There are similar type changes on the resting and stress polar map images. There is end systolic thickening and brightening. The gated Cardiolite study demonstrates myocardial thickening and inward wall motion. The reported LVEF was 61%. The aforementioned changes appear compatible with shifting soft tissue/diaphragmatic attenuation being more prominent at rest as opposed to stress and/or the effects of gastrointestinal tracer uptake/ detraction at rest as opposed to stress with no myocardial perfusion changes considered diagnostic for stress induced myocardial ischemia or previous myocardial injury/infarction. IMPRESSION: 1. Rest and stress SPECT Cardiolite nuclear imaging demonstrate myocardial perfusion changes appearing compatible with the effects of shifting soft tissue attenuation/artifact and/or gastrointestinal tracer uptake/detraction being more prominent at rest as opposed to stress with no myocardial perfusion changes considered diagnostic for stress induced myocardial ischemia or previous myocardial injury/infarction. 2. The gated Cardiolite study reports an LVEF of 61%. Cardiac catheterization: 10-07-09: [facility] Severe three vessel coronary artery disease, 70% stenosis of the left anterior descending artery distal to the graft insertion site.. 60% stenosis of the first obtuse marginal artery distal to the graft insertion site.. 85% stenosis of the first diagonal artery of the LAD distal to the graft insertion site.. Occluded mid LAD. 80% stenosis of the proximal LAD. 90% stenosis of the mid first diagonal artery. Occluded proximal first obtuse marginal artery. 60% stenosis of the mid LCx. 70% stenosis of the mid posterior descending artery. 95% stenosis of the mid first obtuse marginal artery. 80% stenosis of the proximal first acute marginal artery. Normal left ventricular size and contractility. The left ventricular ejection fraction was> 60%. PCI: 10-08-09: [facility] Successful angioplasty and successful stenting of the 70% stenosis of the distal LAD. Successful angioplasty and successful stenting of the 85% stenosis of the mid/distal first diagonal artery. Holter monitor: 11-11-2013 THIS IS A 24 HOUR HOLTER SCAN. SINUS RHYTHM, MINIMUM HEART RATE 42 8PM AT 4:08 AM. AVERAGE HEART RATE 608PM. MAXIMUM HEART RATE 95 8PM AT 3:44 PM. PT. REPORTS WALKING JUST PRIOR TO THIS APPROXIMATE TIME IN HIS DIARY. RARE PREMATURE ATRIAL COMPLEXES. 9 ATRIAL COUPLETS. 3 BEATS IN ATRIAL TRIGEMINY. ONE 4 BEAT RUN OF ECTOPIC ATRIAL TACHYCARDIA, 101 8PM AT 9:58 PM. OCCASIONAL PREMATURE VENTRICULAR COMPLEXES. ONE VENTRICULAR COUPLET. 976 BEATS IN VENTRICULAR BIGEMINY. NO RUNS. NO SYMPTOMS RECORDED IN PT. DIARY. CAB07-24-09: [facility] HUANG to the LAD SVG to the diagonal branch SVG to the LCx/OM Labs: LDL Cholesterol 75 mg/dL (0-130) HDL Cholesterol 54 mg/dL (40-) Triglycerides 66 mg/dL (-199) VLDL Cholesterol 13 mg/dL (5-40) Diagnostics: Echocardiogram Stress Echocardiogram Pulmonary: No Data to Display Assessment and Plan Assessment and Plan (1) Abnormal stress echo: Status: Acute Orders: Orders: Left Heart Cath w/Grafts Today Basic Metabolic Profile (BMP) Today Partial Thromboplast Time Today Prothrombin Time w/INR Today CBC W/Diff, Automated Today Chest PA and Lateral Today Plan: With patient's abnormal stress test with his arrhythmias would like to pursue a diagnostic heart catheterization. Patient is agreeable to pursue this. Instructions were given to patient. Patient Instructions: Nothing to eat or drink after midnight You need a mobile lounge driver In the morning take all of your morning medications with a small sip of water Your heart cath is 03/23 at 0830, you need to arrive at 0700 (2) AV block, 2nd degree: Status: Acute Orders: Orders: Left Heart Cath w/Grafts Today Basic Metabolic Profile (BMP) Today Partial Thromboplast Time Today Prothrombin Time w/INR Today CBC W/Diff, Automated Today Chest PA and Lateral Today Plan: Based on findings on heart catheterization patient may need to be considered for a pacemaker placement. Currently he is not symptomatic. (3) Atherosclerosis of coronary artery bypass graft(s) without angina pectoris: Status: Chronic Qualifiers: [place] vs. transplanted heart: [place] heart Qualified Code(s): I25.810 - Atherosclerosis of coronary artery bypass graft(s) without angina pectoris Comment: S/P CABG x3 with HUANG to LAD, SVG to diagonal, and SVG to OM branch of LCx in July 2009; drug-eluting stent to LAD and diagonal branch in October 2009; Orders: Orders: Left Heart Cath w/Grafts Today Basic Metabolic Profile (BMP) Today Partial Thromboplast Time Today Prothrombin Time w/INR Today CBC W/Diff, Automated Today Chest PA and Lateral Today Plan: Patient does have an abnormal stress test. He will be undergoing heart catheterization in the near future. He will continue with current aggressive medical management. (4) Essential (primary) hypertension: Status: Chronic Plan: Blood pressure is well controlled on current medications, we do not recommend any changes at this time. (5) Sinus bradycardia: Status: Chronic Plan: Patient is not on any rate limiting medication.He is not symptomatic. (6) Pure hypercholesterolemia: Status: Chronic Plan: Patient will continue with his high intensity statin. Plan Details Other Orders: Orders: Partial Thromboplast Time Today I21.4 Follow Up: 03/10/21 (keep as is) COVID (Procedure Consent) Procedure Criteria Procedure Criteria: Yes Elective The surgeon/proceduralist and patient have discussed in detail the risk of exposure to and/or potential harm posed by the COVID-19 virus with having a surgery/procedure at this time versus the risk of delaying the surgery/procedure. It is not possible to know either the risk of delaying the surgery or procedure or chance of getting an infection with perfect accuracy, but a joint decision was made between the patient and the surgeon/proceduralist to proceed at this time with the scheduled surgery/procedure as indicated on the consent form. Coding Level of Care Code Off vis,est,level 3 Diagnoses Abnormal stress echo R94.39 AV block, 2nd degree I44.1 Atherosclerosis of coronary artery bypass graft(s) without angina pectoris I25.810 [place] vs. transplanted heart: [place] heart Essential (primary) hypertension I10 Sinus bradycardia R00.1 Pure hypercholesterolemia E78.00 Coding Level of Care Code Off vis,est,level 3 Diagnoses Abnormal stress echo R94.39 AV block, 2nd degree I44.1 Atherosclerosis of coronary artery bypass graft(s) without angina pectoris I25.810 [place] vs. transplanted heart: [place] heart Essential (primary) hypertension I10 Sinus bradycardia R00.1 Pure hypercholesterolemia E78.00 03/10/21 1341<Electronically signed by Stephanie DAVALOS>Date Stephanie DAVALOS Cosigner Signature:Date (if applicable) CC: Dr. Zack Ceballos MD ~ Assessment & Plan Addt'l Comments I have re-examined the patient. There are no clinical changes since date of exam
--- NOTE | 2021-03-23 10:28 | CL.D_ITS ---
Patient Name: HANANE DIGGS Study Date: 03/23/2021 Performing: Zack Welch MD Ht: 62.99 inches 160 cm : 1940 Wt: 152.12 lbs 69 kg Age: 81 Gender: male BSA: 1.72 PROCEDURE(S) PERFORMED [id number])LHC/COR/CABG CLINICAL PROFILE AND INDICATIONS Indications: Cardiac Arrythmia, Suspected CAD Heart Failure: None Stress/Imaging Date: 02/22/2022tress Echocardiogram: Positive Intermediate Risk Angina Classification Anginal Classification w/in 2 Weeks: CCS II CAD Presentations: Other: dizziness; chest discomfort CONCLUSIONS [place] Multivessel CAD HUANG to LAD: patent SVG to DX1: patent SVG to OM1: patent Abdominal aorta / iliac artery system / femoral artery system: Tortuous: Atherosclerotic/calcified ap pearing RECOMMENDATIONS Risk factor modification Medical therapy Comment: If the patient requires future diagnostic cardiac cath would consider attempting the procedu re via the left upper extremity approach Case discussed / reviewed with Dr. Devries of Interventional Cardiology DESCRIPTION OF PROCEDURE The patient arrived to the procedure lab. The risks and benefits of the procedure as well as a full d escription of our services here and current unavailability of surgical backup were fully explained to the patient and/or their significant other prior to the catheterization. The Timeout was completed, verifying the correct patient and procedure. The patient's procedural site was prepped and draped in the usual fashion. Local anesthetic was given subcutaneously to right groin region with Lidocaine 2%. Using a modified Seldinger technique, arterial access was obtained via the right femoral artery, a 4 Fr sheath was inserted Saphenous Vein graft to the DIAG 1 selective angiography was performed in mul tiple views using a 4 Fr. 3DRC catheter. Saphenous Vein graft to the OM 1 selective angiography was p erformed in multiple views using a 4 Fr. 3DRC catheter. Right Coronary Artery selective angiography w as then performed in multiple views using a 4 Fr. 3DRC catheter. Left internal mammary artery graft to the LAD selective angiography was performed in multiple views using a 4 Fr. IM cathet er. Left Coronary Artery selective angiography was performed in multiple views using a 4 Fr. JL5 cath eter.The arterial sheath was pulled and manual compression applied until hemostasis is achieved. CORONARY ANGIOGRAPHY DOMINANCE: Left Dominant LEFT HEART ASSESSMENT Left Ventricular Ejection Fraction: Not assessed LEFT MAIN: Angiographically normal LEFT ANTERIOR DESCENDING ARTERY: PROX LAD: to mid: subtotally occluded with the mid to distal LAD filling from antegrade flow but pred ominantly from HUANG graft flow with no angiographically significant disease distal to the graft attac hment DIAGONAL 1: Proximal - is occluded with the remainder of the vessel filling from the SVG graft with n o angiographically significant appearing disease distal to the graft attachment CIRCUMFLEX ARTERY: diffuse: eccentric: 25 % Stenosis OM 1: Proximal - fills from the SVG graft: distal to the graft there is 50 - 75 % stenosis RIGHT AV SEGMENT: small caliber vessel: proximal - mid: somewhat lon % Stenosis GRAFTS: HUANG graft to the Mid LAD is patent Saphenous Vein graft to the 1st Diagonal is patent Saphenous Vein graft to the 1st OM is patent COMPLICATIONS No Complications PROCEDURE MEDICATIONS Versed 1 mg IV Oxygen: 2 L/min via nasal cannula SUMMARY OF HEMODYNAMIC DATA Time AIR REST ECG 07:19:39 ECG 08:12:01 Art 139/52 (79) 08:33:31 AO 136/67 (95) SA 09:20:06 Signed By Zack Welch MD On 03/23/2021 10:27:02 Zack Welch MD
== END 2021-03-23 23:59 | disposition home or self-care (01) ==
LOC: CLSP 06:53
PROVIDERS: PCP Family Medicine; Referring Provider Internal Medicine Cardiovascular Disease; Visit Provider Internal Medicine Cardiovascular Disease
DX: I25.10 Atherosclerotic heart disease of native coronary artery without angina pectoris (principal); I47.1 Supraventricular tachycardia; E11.9 Type 2 diabetes mellitus without complications; I25.810 Atherosclerosis of coronary artery bypass graft(s) without angina pectoris; E78.00 Pure hypercholesterolemia, unspecified; I44.1 Atrioventricular block, second degree; I10 Essential (primary) hypertension; E66.3 Overweight; I25.2 Old myocardial infarction; K21.9 Gastro-esophageal reflux disease without esophagitis; R94.39 Abnormal result of other cardiovascular function study; Z68.26 Body mass index [BMI] 26.0-26.9, adult; Z95.1 Presence of aortocoronary bypass graft; Z95.5 Presence of coronary angioplasty implant and graft; Z79.02 Long term (current) use of antithrombotics/antiplatelets; Z79.82 Long term (current) use of aspirin; Z79.899 Other long term (current) drug therapy
CPT/HCPCS: 71046; 93455; 99152; 99153; J7040; Q9967; C1769; C1894

== ENCOUNTER 2021-04-11 14:03 | Observation (INO) | payer MEDICARE, SELFPAY ==
[2021-03-28 11:18] LABS: Bacteria 0 SEEN /hpf (None Seen); Mucous, Urine 0 SEEN /hpf (<or=2+); Squamous Epithelial Cells - UA 0 SEEN /hpf (0-5)
[2021-03-28 11:48] LABS: Color, Urine Yellow (Yellow); Glucose, Dipstick Normal (Normal); Ketone-Dipstick Negative (Negative); Leukocyte Esterase-Dipstick 500 /ul (Negative); Nitrite-Dipstick Negative (Negative); Occult Blood-Urine 250 /ul (Negative); Protein-Dipstick 100 mg/dl (Negative); Specific Gravity, Urine 1.025 (1.002-1.030); Urine Bilirubin Dipstick Negative (Negative); Urine Clarity Sl. Cloudy (Clear); Urine Urobilinogen Normal (Normal)
[2021-03-28 11:54] LABS: Calcium Oxalate Crystals Ur 2+ /hpf (<or=2+); Red Blood Cells-Urine 50-100 SEEN /hpf (0-5); White Blood Cells 5-10 SEEN /hpf (0-5)
[2021-03-28 11:57] LABS: International Normalized Ratio 1.1; Prothrombin Time (Protime)PT. 13.3 SECONDS (11.7-14.9)
[2021-03-28 12:01] LABS: Hematocrit 37.5 % (40-54); Hemoglobin 12.9 g/dL (13.0-16.5); Mean Corp Hgb Conc 34.4 g/dL (32-36); Mean Corpuscular Hgb 31.9 pg (27.0-32.0); Mean Corpuscular Volume 92.6 fL (80-94); Mean Platelet Vol. 10.4 fl (6.2-12.0); Platelet Count 207 K/mm3 (150-450); RBC Distribution Width CV 14.6 % (11.6-14.6); RBC Distribution Width SD 50.2 fl (35.1-43.9); Red Blood Count 4.05 M/mm3 (4.6-6.2); White Blood Count 4.1 K/mm3 (4.4-11.0)
[2021-03-28 12:33] LABS: Anion Gap 4 (5-15); BUN 21 mg/dL (7-18); BUN/Creat Ratio 21.5 RATIO (10-20); Calcium,Total 9.3 mg/dL (8.5-10.1); Chloride 112 mmol/L (98-107); Creatinine, Serum 0.98 mg/dL (0.70-1.30); EST Glomerular Filtration Rate 79 mL/min (>60); Est Glom Filt Rate - Afr Amer 95 mL/min (>60); Glucose 92 mg/dL (74-106); Potassium 3.9 mmol/L (3.5-5.1); Sodium Level 143 mmol/L (136-145)
[2021-04-08 08:49] VITALS: BMI 26.9
[2021-04-11] VITALS (10 sets, daily range): BP systolic 141–161; BP diastolic 65–113; PULSE 50–55; RESP 14–16; TEMP 36.5–36.9; O2SAT 97–99
--- NOTE | 2021-04-11 14:00 | CL.IE_ITS ---
Patient: HANANE DIGGS Study Date: 04/11/2021 Performing: Irving Osuna MD : 1940 Age: 81 Gender: male PROCEDURES PERFORMED LP04-([id number])INITIAL PACER INSERT+DUAL LEADS INDICATIONS Other second degree AV block PROCEDURE DETAILS The patient was brought to the Catheterization Lab in the postabsorptive nonsedated state. Infor med consent was obtained prior to the procedure. Local anesthetic was given subcutaneously to the le ft upper chest area with Lidocaine 2%. Access was achieved and a guidewire was advanced into the left subclavian vein. Incision was made to the left subclavicular area. A peel-away sheath was inserted i nto the left subclavian vein. PPM ventricular lead was inserted / positioned to right ventricular sep arti wall. PPM ventricular lead testing performed. PPM ventricular lead testing performed. PPM atrial lead testing performed. Device pocket was irrigated with antibiotic. PPM generator was attached to th e lead(s) and inserted into the pocket. PPM generator was then interrogated by the lead java programmer. The PP M generator was sutured in place with 2-0 Silk. Subcutaneous closure was completed with 3-0 Vicryl. S kin closure was completed with 4-0 Vicryl. Steri-strips applied to Lt chest area. Pressure dressing applied to left chest. Instrument, sponge, and needle counts were noted to be normal. The pa tient tolerated the procedure well. 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: [employer], Model # [id number]-58 , Serial # [id number] PPM Atrial lead - Pole Peeling Machine Operator Helper: [employer], Model # [id number]-52 , Serial # [id number] PPM Generator - Pole Peeling Machine Operator Helper: [employer], Model # [id number] , Serial # [id number] DEVICE PARAMETERS ATRIAL LEAD PARAMETERS: P wave- 2 (mV) Current- 1.8 (mA) threshold- 0.7 (V) impedence- 484 (OHMS) VENTRICULAR LEAD PARAMETERS: R wave- 16 (mV) Current- 0.8 (mA) threshold- 0.5 (V) impedence- 606 (OHMS) DEVICE PARAMETERS: Mode- ddd Lower rate- 50 Upper rate- 120 CONCLUSIONS / RECOMMENDATIONS Device Conclusions: Successful implantation of a dual chamber pacemaker Device Recommendations: Follow up with Primary Care Physician PROCEDURE MEDICATIONS Fentanyl 50 mcg IV Versed 1 mg IV Versed 1 mg IV Oxygen: 2 L/min via nasal cannula Antibiotic given in appropriate timeframe. Ancef 2 Gm IV @ 04/11/2021 12:46:03 Signed By Irving Osuna MD On 04/11/2021 13:59:10 Irving Osuna MD
[2021-04-11] MEDS: Acetaminophen 325 MG Tablet PO ×2 (16:30→22:31)
[2021-04-11] MEDS: Ascorbic Acid 500 MG Tablet PO (22:31)
[2021-04-11] MEDS: Atorvastatin Calcium 80 MG Tablet PO (22:31)
[2021-04-12] VITALS (13 sets, daily range): BP systolic 76–154; BP diastolic 62–77; PULSE 50–57; RESP 12–18; TEMP 36–36.8; O2SAT 98–99
[2021-04-12] MEDS: Acetaminophen 325 MG Tablet PO ×2 (04:30→11:41)
--- NOTE | 2021-04-12 05:55 | RAD_ITS ---
EXAM: XR CHEST, 3 VIEWS : 1940 CLINICAL INDICATION: Post permanant ICD/Pacemaker -- inspiration/expiration. Arms Down. Wet read to MD TECHNIQUE: Inspiration and expiration AP views and a lateral view of the chest are provided. This report was created using [employer] report generation technology. COMPARISON: None. FINDINGS: LUNGS AND PLEURAL SPACES: Unremarkable. No consolidation or edema. No pneumothorax. No effusion. HEART: Status post CABG. MEDIASTINUM: Central airways and mediastinal contour are unremarkable. BONES/JOINTS: Degenerative changes of the spine. SOFT TISSUES: Unremarkable. TUBES, LINES AND DEVICES: Left chest pacer with leads in the right atrium and right ventricle. RAD/Chest 3 View IMPRESSION: Left chest pacer with leads in the right atrium and right ventricle. No pneumothorax or other complication. at 0524 Reported and signed by: Gaudencio Hitchcock MD Electronically Signed: Gaudencio Hitchcock MD at 5:23 EST ,
--- NOTE | 2021-04-12 08:26 | PN.CARD_ITS ---
Subjective Subjective Patient seen and evaluated. Appears to be doing well. Objective Data Vital Signs: Vital Signs Temp Pulse Resp BP Pulse Ox 98.2 F 50 L 18 138/74 H 98 04/12/21 04:11 04/12/21 07:00 04/12/21 04:11 04/12/21 04:11 04/12/21 04:11 Oxygen Delivery Method Room Air Weight: 152 lb Body Mass Index (BMI) 26.9 Intake & Output: Intake and Output for Last 24 Hours 04/10/21 04/11/21 04/12/21 23:59 23:59 23:59 Intake Total 420 / 545 365 / 365 Output Total 275 / 275 Balance 420 / 270 90 / 90 Lab / Micro Data Result Diagrams: 03/28/21 11:17 03/28/21 11:17 Cardiology Labs/Tests Rhythm: EKG: ECHO: Stress Test: Cardiac Cath: PCI: CT Surgery: Holter monitor: EPS: PPM: CXR: Chest CT Scan: Radiography Diagnostic Testing: Radiology Impression Chest X-Ray 04/12/21 05:55 IMPRESSION: Left chest pacer with leads in the right atrium and right ventricle. No pneumothorax or other complication. at 0524 Reported and signed by: Gaudencio Hitchcock MD Electronically Signed: Guadencio Hitchcock MD at 5:23 EST , Physical Exam Const alert, oriented x3 and no apparent distress General Appearance: cooperative HEENT hearing grossly normal bilaterally Head and Scalp: atraumatic Eyes EOMs intact bilaterally Neck General: normal visual inspection Chest inspection of chest normal and palpation of chest normal Resp normal respiratory effort Auscultation: clear to auscultation bilaterally Cardio regular rate, regular rhythm, S1 normal heart sound and S2 normal heart sound Jugular Venous Distention: JVD GI normal to inspection, nondistended, normoactive bowel sounds Extremity normal capillary refill and no pedal edema Peripheral Pulses: Yes pulses 2+ throughout and femoral pulses present Skin no rashes or lesions noted Neuro oriented x3 and CN's II-XII intact bilaterally Psych Appearance: grossly normal and appropriate Assessment & Plan Assessment/Plan (1) Presence of permanent cardiac pacemaker: PLAN: Patient is status post permanent pacemaker implantation. Chest x- ray does not demonstrate any abnormalities. Wound site is stable. Pacer check is noted to be adequate. Will arange follow up.
--- NOTE | 2021-04-12 08:43 | PCM.DC ---
Discharge Instructions Diet Discharge Diet: No restrictions (as you feel able. No excessive stretching. No lifting your arm over your head (keep elbow below shoulder level) until seen for your pacemaker check. Do not lift your elbow away from your side until you are seen for your first visit. Keep the arm sling on if it helps remind you not to lift your arm.) Activity Discharge Activity: May Not Drive Dressing / Incision Call your doctor if your incision/area has: Continuous Slow Oozing, Sudden Increased Bleeding, Increased Pain/ Swelling, Increased Redness, Foul Smelling Discharge and Swelling at the incision site Call your doctor if you observe: Fever of 101 or Higher, Shortness of breath, Dizziness, Fainting spells, Swelling in the ankles, Chest pain, Prolonged hiccupping and Increased palpitations (irregular heartbeat) Additional Dressing/Incision Instructions:: When dressing is removed, wash and dry incision. Keep covered with a light bandage if it is rubbing against your clothing. Do not cover the incision with an airtight bandage. Change the bandage daily. Do not remove steri strips. The strips will fall off on their own. Follow Up Care Please Follow Up With: Irving Osuna MD When: Call [phone] for follow up. Patient is to follow-up in the pacer clinic on April 18 at 10:30 AM Test Results: Test results from this visit will be discussed in further detail at your follow-up appointment, if applicable. Discharge Plan Admission Admit Date/Time: 04/11/21 14:03 Attending Provider: Irving Osuna Primary Care Provider: Zack Ceballos Discharge Orders/Prescriptions Prescriptions: Continued ascorbic acid (vitamin C) 500 mg capsule 500 mg PO QHS RF: 0 aspirin [Adult Low Dose Aspirin] 81 mg tablet,delayed release (DR/EC) 81 mg PO QDAY RF: 0 atorvastatin 80 mg tablet 80 mg PO QHS RF: 0 nitroglycerin [Nitrostat] 0.4 mg tablet, sublingual 0.4 mg SUBLINGUAL Q5M PRN (Reason: CHEST PAIN) Qty: 25 RF: 3 cholecalciferol (vitamin D3) 25 mcg (1,000 unit) tablet 25 mcg PO DAILY RF: 0 saw palmetto 160 mg capsule 160 mg PO BID RF: 0 Galzin 25 mg (zinc) capsule 25 mg PO DAILY RF: 0 famotidine 20 mg tablet 20 mg PO QDAY Qty: 90 RF: 3 amlodipine [Norvasc] 10 mg tablet 10 mg PO QDAY Qty: 90 RF: 4 lisinopril 20 mg tablet 20 mg PO QDAY Qty: 90 RF: 3 isosorbide mononitrate 30 mg tablet extended release 24 hr 30 mg PO QAM Qty: 90 RF: 3 Referrals / Follow Up: Zack Ceballos MD [Primary Care Provider] - Disposition Disposition (needs filled in before D/C Order can be placed): Home, Self Care
[2021-04-12] MEDS: amLODIPine 10 MG Tablet PO (10:07)
[2021-04-12] MEDS: Famotidine 20 MG Tablet PO (10:07)
[2021-04-12] MEDS: Isosorbide Mononitrate 30 MG Tablet PO (10:07)
[2021-04-12] MEDS: Lisinopril 20 MG Tablet PO (10:07)
[2021-04-12] MEDS: Aspirin E.C. 81 MG Tablet PO (10:07)
[2021-04-12] MEDS: Cholecalciferol (VIT D3) 25 MCG TABLET (1,000 UNITS) PO (10:07)
--- NOTE | 2021-04-12 11:28 | NURSING ---
This RN into room to give pt prn pain medication prior to pt discharge. Observed pt sitting on side of bed, diaphoretic, pale, and c/o dizziness. Pt also c/o pain in armpit. Pt laid down in bed, states dizziness is going away. Dr Osuna notified. Walked pt per Dr Osuna recommendation, pt dizzy with ambulation. Assisted back to bed, advised pt to not get up without help from staff. See charted VS.
== END 2021-04-12 08:42 | disposition home or self-care (01) ==
LOC: PCU 16:42
PROVIDERS: Internal Medicine Cardiovascular Disease; Admitting Provider Internal Medicine Cardiovascular Disease; PCP Family Medicine; Referring Provider Internal Medicine Cardiovascular Disease; Visit Provider Internal Medicine Cardiovascular Disease
DX: I44.1 Atrioventricular block, second degree (principal); E11.9 Type 2 diabetes mellitus without complications; R00.1 Bradycardia, unspecified; R42 Dizziness and giddiness; Z79.82 Long term (current) use of aspirin; Z79.02 Long term (current) use of antithrombotics/antiplatelets; Z79.899 Other long term (current) drug therapy; I25.2 Old myocardial infarction; I25.10 Atherosclerotic heart disease of native coronary artery without angina pectoris; K21.9 Gastro-esophageal reflux disease without esophagitis; E78.5 Hyperlipidemia, unspecified; Z95.1 Presence of aortocoronary bypass graft; I10 Essential (primary) hypertension; Z82.49 Family history of ischemic heart disease and other diseases of the circulatory system; R94.39 Abnormal result of other cardiovascular function study
CPT/HCPCS: 33208; 36415; 71047; 80048; 81001; 85027; 85610; 96360; 99152; 99153; 99218; J7040; J7050; Q9967; A4216; C1894; G0378

== ENCOUNTER → 2022-08-31 | Outpatient (CLI) | payer MEDICARE, SELFPAY ==
[2022-08-31 12:54] LABS: Anion Gap 5 (5-15); BUN 26 mg/dL (7-18); BUN/Creat Ratio 19.5 RATIO (10-20); Calcium,Total 9.2 mg/dL (8.5-10.1); Chloride 111 mmol/L (98-107); Cholesterol 116 mg/dL (200); Creatinine, Serum 1.33 mg/dL (0.70-1.30); EST Glomerular Filtration Rate 55 mL/min (>60); Est Glom Filt Rate - Afr Amer 66 mL/min (>60); Glucose 91 mg/dL (74-106); High Density Lipoprotein 59 mg/dL; Potassium 4.2 mmol/L (3.5-5.1); Sodium Level 142 mmol/L (136-145); Triglycerides 51 mg/dL; Very Low Density Lipoprotein 10 mg/dL (5-40)
== END | disposition home or self-care (01) ==
LOC: MFPLAB 09:49
PROVIDERS: PCP Family Medicine; Visit Provider Family Medicine
DX: Z00.00 Encounter for general adult medical examination without abnormal findings (principal); Z12.5 Encounter for screening for malignant neoplasm of prostate; Z13.6 Encounter for screening for cardiovascular disorders
CPT/HCPCS: 36415; 80048; 80061; 84153; G0103

== ENCOUNTER → 2023-01-01 | Outpatient (CLI) | payer MEDICARE, SELFPAY ==
--- NOTE | 2023-01-01 13:02 | ECHOD_ITS ---
Reason For Study: ASHD Procedure This was a 2D Doppler, Color Flow transthoracic echocardiogram. Exam performed in department. Left Ventricle Normal LV size. The estimated ejection fraction is 60 %. Mild segmental systolic dysfunction (see wall motion). Stage 1 diastolic dysfunction. Infero-Basal: Akinetic. The rest of the wall segments are normal. Right Ventricle Normal RV size. ICD or pacer leads identified within the right ventricle. Normal systolic function. Atria Normal left atrium. Normal right atrium. Mitral Valve Normal mitral valve. Tricuspid Valve Normal tricuspid valve. Mild (1+) tricuspid valve insufficiency. Pulmonary artery systolic pressure is 33 mmHg. Aortic Valve Normal aortic valve. Trisinus/trileaflet aortic valve. Pulmonic Valve Normal pulmonic valve. Great Vessels Normal aortic root. The pulmonary artery is normal size. Normal inferior vena cava. Pericardium/Pleural No pericardial effusion. MMode/2D Measurements & Calculations LVIDd: 5.3 cm IVSd: 1.1 cm LVOT diam: 2.2 cm LVIDs: 4.0 cm LVPWd: 1.0 cm LVOT area: 3.8 cm2 FS: 25.4 % LAV(MOD-bp): 61.8 ml LVAd ap4: 33.2 cm2 SV(MOD-sp4): 63.7 ml LAV(MOD-bp) Indexed: 36.1 ml/m2 LVLd ap4: 8.8 cm LAV(MOD-sp2): 62.9 ml EDV(MOD-sp4): 103.3 ml LAV(MOD-sp4): 55.9 ml EDV(sp4-el): 106.5 ml LVAs ap4: 19.1 cm2 LVLs ap4: 7.6 cm ESV(MOD-sp4): 39.5 ml ESV(sp4-el): 40.8 ml EF(MOD-sp4): 61.7 % EF(sp4-el): 61.7 % SV(sp4-el): 65.7 ml LA A4 area: 19.5 cm2 LA dimension(2D): 4.0 cm RA A4 area: 17.0 cm2 TAPSE: 1.9 cm Time Measurements MV dec time: 0.38 sec Doppler Measurements & Calculations MV E max renato: 67.6 cm/sec Lat Peak E' Renato: 10.6 cm/sec Med Peak E' Renato: 5.3 cm/sec MV A max renato: 85.3 cm/sec E/E' lat: 6.4 E/E' med: 12.8 MV E/A: 0.79 MV V2 max: 93.3 cm/sec Ao V2 max: 154.6 cm/sec MV max P.5 mmHg MV dec slope: 196.5 cm/sec2 Ao max P.6 mmHg MV V2 mean: 59.8 cm/sec Ao V2 mean: 99.5 cm/sec MV mean P.6 mmHg Ao mean P.7 mmHg MV V2 VTI: 50.2 cm Ao V2 VTI: 33.6 cm AV (velocity ratio): 0.77 MVA(VTI): 2.0 cm2 DIXIE(I,D): 2.9 cm2 DIXIE(V,D): 3.0 cm2 LV V1 max: 121.9 cm/sec SV(LVOT): 98.7 ml PA V2 max: 106.0 cm/sec LV V1 max P.9 mmHg PA V2 mean: 70.8 cm/sec LV V1 mean P.3 mmHg LV V1 mean: 85.1 cm/sec LV V1 VTI: 25.9 cm TR max renato: 269.7 cm/sec TR max P.1 mmHg ECHO/Echo Complete Interpretation Summary Normal LV size. The estimated ejection fraction is 60 %. Infero-Basal: Akinetic. Mild segmental systolic dysfunction (see wall motion). Pulmonary artery systolic pressure is 33 mmHg. Stage 1 diastolic dysfunction. ICD or pacer leads identified within the right ventricle. Ordering Physician: Stephanie Rivera Referring Physician: Stephanie Rivera Performed By: Dominique Chavez RCS
== END | disposition home or self-care (01) ==
LOC: CVS 13:00
PROVIDERS: PCP Family Medicine; Referring Provider Physician Assistant Medical; Visit Provider Physician Assistant Medical
DX: I25.810 Atherosclerosis of coronary artery bypass graft(s) without angina pectoris (principal)
CPT/HCPCS: 93306

== ENCOUNTER → 2023-04-13 | Outpatient (CLI) | payer MEDICARE, SELFPAY ==
[2023-04-13 12:57] LABS: Anion Gap 6 (5-15); BUN 21 mg/dL (7-18); BUN/Creat Ratio 18.1 RATIO (10-20); Calcium,Total 9.5 mg/dL (8.5-10.1); Chloride 111 mmol/L (98-107); Cholesterol 126 mg/dL (200); Creatinine, Serum 1.16 mg/dL (0.70-1.30); EST Glomerular Filtration Rate 64 mL/min (>60); Est Glom Filt Rate - Afr Amer 78 mL/min (>60); Glucose 93 mg/dL (74-106); High Density Lipoprotein 59 mg/dL; Potassium 4.1 mmol/L (3.5-5.1); Sodium Level 143 mmol/L (136-145); Triglycerides 70 mg/dL; Very Low Density Lipoprotein 14 mg/dL (5-40)
== END | disposition home or self-care (01) ==
LOC: MFPLAB 09:38
PROVIDERS: PCP Family Medicine; Visit Provider Family Medicine
DX: I10 Essential (primary) hypertension (principal)
CPT/HCPCS: 36415; 80048; 80061

== ENCOUNTER 2023-07-24 23:00 | Emergency (ER) | payer MEDICARE, SELFPAY ==
[2023-07-24 23:00] VITALS: BP 144/79; PULSE 63; RESP 16; TEMP 36.1; O2SAT 99; BMI 27.6
--- NOTE | 2023-07-25 00:05 | EDS_ITS ---
HPI History of Present Illness Chief Complaint: Upper Extremity Injury Informant: patient Narrative Narrative: Spontaneous pain, swelling left index finger around the nail over the past few days. He states it started getting worse so yesterday he took a razor and heated it over a fire and then use it to try to abraham the area at the radial aspect of the fingertip but did not get any pus just some blood, and now it is worse. He has an appointment in 2 days with his PCP but did not feel like he should wait. He has had no spontaneous drainage. He has not bit his nails, no injury that he knows of but when asked if he had a piece of skin he tore off a hangnail, etc., he said maybe, but I do not remember if I did. He denies any systemic symptoms or fevers. He is right-hand dominant. [facility] Medical History Dizziness AV block, 2nd degree Pure hypercholesterolemia Sinus bradycardia Presence of stent in coronary artery (~10/08/09) GERD (gastroesophageal reflux disease) Dizziness and giddiness Shortness of breath Chest discomfort Diabetes mellitus type II, controlled Hyperlipidemia Stable angina Encounter for long-term current use of high risk medication Acute CT, subendocardial, subsequent episode of care Essential (primary) hypertension Atherosclerosis of coronary artery bypass graft(s) without angina pectoris Bradycardia Home Medications ?Medication ?Instructions ?Recorded ?Last Taken ?Type aspirin 81 mg tablet,delayed 81 mg PO QDAY 06/21/17 03/23/21 History release (Adult Low Dose Aspirin) atorvastatin 80 mg tablet 80 mg PO QHS 06/21/17 Unknown History ascorbic acid (vitamin C) 500 mg 500 mg PO QHS 06/26/17 Unknown History capsule nitroglycerin 0.4 mg sublingual 0.4 mg sublingual Q5M PRN CHEST 09/15/20 Unknown Rx tablet (Nitrostat) PAIN #25 tabs cholecalciferol (vitamin D3) 25 25 mcg PO DAILY 10/19/20 Unknown History mcg (1,000 unit) tablet saw palmetto 160 mg capsule 160 mg PO BID 03/10/21 Unknown History zinc acetate 25 mg (zinc) capsule 25 mg PO DAILY 03/10/21 Unknown History (Galzin) famotidine 20 mg tablet 20 mg PO QDAY #90 tabs 04/18/22 Unknown Rx lisinopril 20 mg tablet See Rx Instructions .Route 08/03/22 Unknown Rx .COMPLEX #90 tabs amlodipine 10 mg tablet See Rx Instructions .Route 09/04/22 Unknown Rx .COMPLEX #90 tabs isosorbide mononitrate 30 mg 30 mg PO QAM #90 tabs 04/04/23 Unknown Rx tablet,extended release 24 hr apixaban 5 mg tablet (Eliquis) 5 mg PO BID #60 tabs 06/29/23 Unknown Rx cephalexin 500 mg capsule 500 mg PO Q6 #28 CAPSULES 07/25/23 Unknown Rx hydrocodone-acetaminophen 5-325mg 1 tab PO Q6H PRN PRN Pain 2 days 07/25/23 Unknown Rx 5mg-325mg #6 TABLETS Allergy/AdvReac Type Severity Reaction Status Date / Time No Known Allergies Allergy Verified 07/24/23 23:02 Family History Brother CAD (coronary artery disease) Brother Hypertension Mother Hypertension Father Heart disease Surgical History Presence of permanent cardiac pacemaker (~04/11/21) History of left heart catheterization (LHC) (~03/23/21) Presence of coronary angioplasty implant and graft (~10/08/09) History of coronary artery bypass graft x 3 (~07/29/09) Hx of CABG History of tonsillectomy Inguinal hernia H/O percutaneous transluminal coronary angioplasty Social History Smoking Status: Never smoker alcohol intake: never substance use type: does not use caffeine: Yes eating out: rarely or never what type of physical activity do you participate in: other seatbelt use: always do you feel safe at home: Yes ROS ROS ED Constitutional Constitutional ED: Denies chills or fever(s) Musculoskeletal Musculoskeletal: Reports extremity pain; Denies neck pain Integumentary Denies Abrasions, rash or wounds Neurologic Neurologic: Denies paresthesias or weakness EXAM Physical Exam Const Vital Signs: 07/24/23 23:00 Temperature 97 F L Temperature Source Temporal Pulse Rate 63 Respiratory Rate 16 Blood Pressure 144/79 H Blood Pressure Mean 100 Pulse Ox 99 Positive well nourished and well developed General Appearance ED: well developed and NAD Neck full ROM and supple Back/Spine normal ROM and normal to inspection Extremity Extremity Narrative: Appears to have a paronychia around the base of the nail on the left index fing er. The whole area is very tender and diffusely swollen, it may be a little worse on the ulnar aspect but hard to tell. The sides where it looks like he has a healing wound from where he tried to incise it are less swollen and tender. The pad of the finger is mildly tender but soft and fairly benign, much less tender than the dorsal aspect. The nail is normal and not loosened or from its bed. Able to range at the DIPJ but limited. Neuro oriented x3, no focal motor deficits and no sensory deficits noted Sensorium / Orientation: alert Psych mental status grossly normal and thought process normal Skin no wounds Rashes: no rashes MDM MDM MDM Narrative Medical decision making narrative: I think putting him on antibiotics for this is reasonable, however it is fairly swollen and I advised trying to do a needle aspiration/drainage but near the base of the nail in an area where it would be more likely to be successful. See the procedure note this was not successful, there is no pus. Placed him on cephalexin advised to follow-up with his doctor as scheduled. Procedures Other Procedures Procedure(s): Incision and drainage left index finger paronychia: After sterile prep with Betadine swab, and local partial anesthesia with freeze spray, I used a 21-gauge needle to enter the ulnar aspect of the dorsum of the base of the nail, and probed toward the radial aspect, there is no purulent discharge in any of this and I did try to aspirate some but was unsuccessful, just a small mount of bleeding. He is on apixaban this was well-controlled with topical treatment. Tolerated well no complications. Discharge Plan Triage Chief Complaint: Upper Extremity Injury ED Provider: Benjamin Salmeron Dx/Rx/DC Orders Clinical Impression: Paronychia of left index finger Instructions: ED Paronychia of the Finger or Toe Prescriptions: New cephalexin 500 mg capsule 500 mg PO Q6 Qty: 28 0RF hydrocodone-acetaminophen 5-325 mg tablet 1 tab PO Q6H PRN PRN (Reason: Pain) 2 Days Qty: 6 0RF No Action ascorbic acid (vitamin C) 500 mg capsule 500 mg PO QHS aspirin [Adult Low Dose Aspirin] 81 mg tablet,delayed release (DR/EC) 81 mg PO QDAY atorvastatin 80 mg tablet 80 mg PO QHS nitroglycerin [Nitrostat] 0.4 mg tablet, sublingual 0.4 mg SUBLINGUAL Q5M PRN (Reason: CHEST PAIN) Qty: 25 3RF cholecalciferol (vitamin D3) 25 mcg (1,000 unit) tablet 25 mcg PO DAILY saw palmetto 160 mg capsule 160 mg PO BID Rx Instructions: give with meal/snack Galzin 25 mg (zinc) capsule 25 mg PO DAILY famotidine 20 mg tablet 20 mg PO QDAY Qty: 90 3RF lisinopril 20 mg tablet See Rx Instructions .ROUTE .COMPLEX Qty: 90 3RF Dose Instruction: Take 1 tablet by mouth once daily Rx Instructions: Take 1 tablet by mouth once daily amlodipine 10 mg tablet See Rx Instructions .ROUTE .COMPLEX Qty: 90 3RF Dose Instruction: Take 1 tablet by mouth once daily Rx Instructions: Take 1 tablet by mouth once daily isosorbide mononitrate 30 mg tablet extended release 24 hr 30 mg PO QAM Qty: 90 3RF Rx Instructions: swallow whole with glass of water; do not crush/chew /dissolve /cut/break Eliquis 5 mg tablet 5 mg PO BID Qty: 60 11RF Primary Care Provider: Zack Ceballos Referrals: Zack Ceballos MD [Primary Care Provider] - Keep [place] appointment Print Language: Bulgarian Disposition Disposition: Home, Self Care
[2023-07-25] MEDS: HYDROcodone Bitartrate/Apap 5/325 Tablet PO (00:39)
[2023-07-25] MEDS: Cephalexin 250 MG Capsule 500 MG PO (01:07)
--- NOTE | 2023-07-25 02:15 | EX.ED.UPPERE ---
HPI History of Present Illness Chief Complaint: Upper Extremity Injury [facility] Medical History Dizziness AV block, 2nd degree Pure hypercholesterolemia Sinus bradycardia Presence of stent in coronary artery (~10/08/09) GERD (gastroesophageal reflux disease) Dizziness and giddiness Shortness of breath Chest discomfort Diabetes mellitus type II, controlled Hyperlipidemia Stable angina Encounter for long-term current use of high risk medication Acute NM, subendocardial, subsequent episode of care Essential (primary) hypertension Atherosclerosis of coronary artery bypass graft(s) without angina pectoris Bradycardia Home Medications ?Medication ?Instructions ?Recorded ?Last Taken ?Type aspirin 81 mg tablet,delayed 81 mg PO QDAY 06/21/17 03/23/21 History release (Adult Low Dose Aspirin) atorvastatin 80 mg tablet 80 mg PO QHS 06/21/17 Unknown History ascorbic acid (vitamin C) 500 mg 500 mg PO QHS 06/26/17 Unknown History capsule nitroglycerin 0.4 mg sublingual 0.4 mg sublingual Q5M PRN CHEST 09/15/20 Unknown Rx tablet (Nitrostat) PAIN #25 tabs cholecalciferol (vitamin D3) 25 25 mcg PO DAILY 10/19/20 Unknown History mcg (1,000 unit) tablet saw palmetto 160 mg capsule 160 mg PO BID 03/10/21 Unknown History zinc acetate 25 mg (zinc) capsule 25 mg PO DAILY 03/10/21 Unknown History (Galzin) famotidine 20 mg tablet 20 mg PO QDAY #90 tabs 04/18/22 Unknown Rx lisinopril 20 mg tablet See Rx Instructions .Route 08/03/22 Unknown Rx .COMPLEX #90 tabs amlodipine 10 mg tablet See Rx Instructions .Route 09/04/22 Unknown Rx .COMPLEX #90 tabs isosorbide mononitrate 30 mg 30 mg PO QAM #90 tabs 04/04/23 Unknown Rx tablet,extended release 24 hr apixaban 5 mg tablet (Eliquis) 5 mg PO BID #60 tabs 06/29/23 Unknown Rx cephalexin 500 mg capsule 500 mg PO Q6 #28 CAPSULES 07/25/23 Unknown Rx hydrocodone-acetaminophen 5-325mg 1 tab PO Q6H PRN PRN Pain 2 days 07/25/23 Unknown Rx 5mg-325mg #6 TABLETS Allergy/AdvReac Type Severity Reaction Status Date / Time No Known Allergies Allergy Verified 07/24/23 23:02 Family History Brother CAD (coronary artery disease) Brother Hypertension Mother Hypertension Father Heart disease Surgical History Presence of permanent cardiac pacemaker (~04/11/21) History of left heart catheterization (LHC) (~03/23/21) Presence of coronary angioplasty implant and graft (~10/08/09) History of coronary artery bypass graft x 3 (~07/29/09) Hx of CABG History of tonsillectomy Inguinal hernia H/O percutaneous transluminal coronary angioplasty Social History Smoking Status: Never smoker alcohol intake: never substance use type: does not use caffeine: Yes eating out: rarely or never what type of physical activity do you participate in: other seatbelt use: always do you feel safe at home: Yes EXAM Physical Exam Const Vital Signs: 07/24/23 23:00 Temperature 97 F L Temperature Source Temporal Pulse Rate 63 Respiratory Rate 16 Blood Pressure 144/79 H Blood Pressure Mean 100 Pulse Ox 99 Discharge Plan Triage Chief Complaint: Upper Extremity Injury ED Provider: Benjamin Salmeron Dx/Rx/DC Orders Clinical Impression: Paronychia of left index finger Instructions: ED Paronychia of the Finger or Toe Prescriptions: New cephalexin 500 mg capsule 500 mg PO Q6 Qty: 28 0RF hydrocodone-acetaminophen 5-325 mg tablet 1 tab PO Q6H PRN PRN (Reason: Pain) 2 Days Qty: 6 0RF No Action ascorbic acid (vitamin C) 500 mg capsule 500 mg PO QHS aspirin [Adult Low Dose Aspirin] 81 mg tablet,delayed release (DR/EC) 81 mg PO QDAY atorvastatin 80 mg tablet 80 mg PO QHS nitroglycerin [Nitrostat] 0.4 mg tablet, sublingual 0.4 mg SUBLINGUAL Q5M PRN (Reason: CHEST PAIN) Qty: 25 3RF cholecalciferol (vitamin D3) 25 mcg (1,000 unit) tablet 25 mcg PO DAILY saw palmetto 160 mg capsule 160 mg PO BID Rx Instructions: give with meal/snack Galzin 25 mg (zinc) capsule 25 mg PO DAILY famotidine 20 mg tablet 20 mg PO QDAY Qty: 90 3RF lisinopril 20 mg tablet See Rx Instructions .ROUTE .COMPLEX Qty: 90 3RF Dose Instruction: Take 1 tablet by mouth once daily Rx Instructions: Take 1 tablet by mouth once daily amlodipine 10 mg tablet See Rx Instructions .ROUTE .COMPLEX Qty: 90 3RF Dose Instruction: Take 1 tablet by mouth once daily Rx Instructions: Take 1 tablet by mouth once daily isosorbide mononitrate 30 mg tablet extended release 24 hr 30 mg PO QAM Qty: 90 3RF Rx Instructions: swallow whole with glass of water; do not crush/chew /dissolve /cut/break Eliquis 5 mg tablet 5 mg PO BID Qty: 60 11RF Primary Care Provider: Zack Ceballos Referrals: Zack Ceballos MD [Primary Care Provider] - Keep [place] appointment Print Language: Malian Disposition Disposition: Home, Self Care Discharge Date/Time: 07/25/23 00:43
== END 2023-07-25 00:43 | disposition home or self-care (01) ==
LOC: ED 07-25 00:21
PROVIDERS: Emergency Provider Emergency Medicine; PCP Family Medicine; Visit Provider Emergency Medicine
DX: L03.012 Cellulitis of left finger (principal); I25.2 Old myocardial infarction; Z95.5 Presence of coronary angioplasty implant and graft; Z95.0 Presence of cardiac pacemaker; Z95.1 Presence of aortocoronary bypass graft
CPT/HCPCS: 99282

== ENCOUNTER → 2023-09-04 | Outpatient (CLI) | payer MEDICARE, SELFPAY ==
--- NOTE | 2023-09-04 10:54 | RAD_ITS ---
STUDY: X-RAY - LEFT HAND, ATTENTION SECOND FINGER REASON FOR EXAM: Male, 83 years old. Swelling, redness. TECHNIQUE: 3 views of the left second finger were obtained. COMPARISON: None. FINDINGS: There is soft tissue swelling of the second digit. There is tiny calcific density adjacent to the distal tuft of the second distal phalanx, which could be due to infection versus post trauma. There is a 2 mm erosion along the dorsomedial condyle of the second middle phalanx. Normal metacarpal head. Normal metacarpophalangeal joint. Normal second proximal phalanx. Normal proximal interphalangeal joint of the second finger. RAD/Finger(s) Min 2 Views IMPRESSION: Soft tissue swelling of the second digit. Tiny calcific density adjacent to the distal tuft of the second distal phalanx, which could be due to infection versus post trauma. 2 mm erosion along the dorsomedial condyle of the second middle phalanx. Electronically Signed: Anival Randhawa MD at 14:03 EDT ,
== END | disposition home or self-care (01) ==
LOC: MTRAD 10:54
PROVIDERS: PCP Family Medicine; Referring Provider Family Medicine; Visit Provider Family Medicine
DX: L08.9 Local infection of the skin and subcutaneous tissue, unspecified (principal)
CPT/HCPCS: 73140

== ENCOUNTER 2023-12-08 05:24 | Emergency (ER) | payer MEDICARE, SELFPAY ==
[2023-12-08 05:25] VITALS: BP 157/77; PULSE 66; RESP 20; TEMP 37; O2SAT 99
--- NOTE | 2023-12-08 06:08 | EDS_ITS ---
HPI History of Present Illness Chief Complaint: Complaint Narrative Narrative: Chief complaint and HPI: Urinary retention and dysuria. 83-year-old male with history of BPH on saw palmetto presents for evaluation of urinary retention and dysuria. Patient states that he has known BPH in which he follows with Dr. Lara, urology. He states he had an elevated PSA and received an MRI. At that time it was inconclusive of whether he had prostate cancer. Patient did not want further workup. PSA has been downtrending. Patient states this morning he woke up with suprapubic pain. He states he could not urinate. He states he took his saw palmetto without any improvement. On arrival to the ED, patient was able to urinate. No blood. His pain has resolved. He states he does have some mild dysuria. Denies any fever, chills, nausea, vomiting, abdominal pain, back pain, rectal pain. Review of systems: See HPI Medications: As listed on the chart Allergies: As listed on the chart PFSH: Per chart Vital signs: As listed on the chart. Reviewed. Physical exam: Gen: A&O x3, NAD Head: Normocephalic, atraumatic Eyes: No sclera icterus, conjunctiva clear ENT: Moist mucous membranes Neck: Trachea midline, No JVD CV: RRR, no murmurs, no peripheral edema Resp: Lungs CTA BL, no w/r/c GI: Abd soft, non-distended, non-tender, no r/r/g Musc: Full ROM, no deformity Skin: Warm, dry Neuro: Alert, oriented, grossly intact, sensation intact Psych: Cooperative, appropriate mood and affect [facility] Medical History (Updated 12/08/23 @ 07:[address] Lion Vega, DO) Cellulitis of left index finger Dizziness AV block, 2nd degree Pure hypercholesterolemia Sinus bradycardia Presence of stent in coronary artery (~10/08/09) GERD (gastroesophageal reflux disease) Dizziness and giddiness Shortness of breath Chest discomfort Diabetes mellitus type II, controlled Hyperlipidemia Stable angina Encounter for long-term current use of high risk medication Acute MO, subendocardial, subsequent episode of care Essential (primary) hypertension Atherosclerosis of coronary artery bypass graft(s) without angina pectoris Bradycardia Home Medications ?Medication ?Instructions ?Recorded ?Last Taken ?Type aspirin 81 mg tablet,delayed 81 mg PO QDAY 06/21/17 03/23/21 History release (Adult Low Dose Aspirin) atorvastatin 80 mg tablet 80 mg PO QHS 06/21/17 Unknown History cholecalciferol (vitamin D3) 25 25 mcg PO DAILY 10/19/20 Unknown History mcg (1,000 unit) tablet saw palmetto 160 mg capsule 160 mg PO BID 03/10/21 Unknown History isosorbide mononitrate 30 mg 30 mg PO QAM #90 tabs 04/04/23 Unknown Rx tablet,extended release 24 hr apixaban 5 mg tablet (Eliquis) 5 mg PO BID #60 tabs 06/29/23 Unknown Rx omega 8-rea-ufo-fish oil 300 1 cap PO DAILY 09/11/23 Unknown History mg-1,000 mg capsule (Fish Oil) pyridoxine (vitamin B6) 100 mg 100 mg PO BID 09/11/23 Unknown History tablet amlodipine 10 mg tablet 10 mg PO DAILY #90 TABLETS 10/16/23 Unknown Rx lisinopril 20 mg tablet See Rx Instructions .Route 10/16/23 Unknown Rx .COMPLEX #90 tabs Allergy/AdvReac Type Severity Reaction Status Date / Time No Known Allergies Allergy Verified 12/08/23 05:30 Family History Brother CAD (coronary artery disease) Brother Hypertension Mother Hypertension Father Heart disease Surgical History Presence of permanent cardiac pacemaker (~04/11/21) History of left heart catheterization (LHC) (~03/23/21) Presence of coronary angioplasty implant and graft (~10/08/09) History of coronary artery bypass graft x 3 (~07/29/09) Hx of CABG History of tonsillectomy Inguinal hernia H/O percutaneous transluminal coronary angioplasty Social History Smoking Status: Never smoker alcohol intake: never substance use type: does not use caffeine: Yes eating out: rarely or never what type of physical activity do you participate in: other seatbelt use: always do you feel safe at home: Yes EXAM Physical Exam Const Vital Signs: 12/08/23 05:25 12/08/23 06:58 Temperature 98.6 F 97.7 F L Temperature Source Oral Oral Pulse Rate 66 55 L Respiratory Rate 20 H 16 Blood Pressure 157/77 H 161/71 H Blood Pressure Mean 103 101 Pulse Ox 99 98 Oxygen Delivery Method Room Air Room Air MDM MDM MDM Narrative Medical decision making narrative: 83-year-old male with history of BPH presents for evaluation of urinary retention and mild dysuria. Patient states he woke up this morning with urinary retention. He endorses suprapubic abdominal pain. On presentation to the emergency department patient was able to urinate. He states his abdominal pain has resolved. His urine is clear without gross hematuria. He still endorses some mild dysuria. Differential diagnosis includes but is not limited to urinary retention from BPH, UTI. Patient was bladder scanned and is not retaining. He has urinated 2 other times in the emergency department. UA obtained and negative for UTI. Patient does have blood in his urine however this has been seen on previous urine specimens. At this point in time, I suspect that his urinary retention was secondary to BPH. He was told to follow- up with his PCP and urologist. He is stable to discharge home. He was educated that if this happens again he needs to return back to the ED for likely catheter placement. He confirmed understanding. Is made aware that he has blood in his urine but he agrees that he has been told this before by his urologist. Impression: 1. Urinary retention, resolved 2. History of BPH Lab Data Labs: Laboratory Results - last 24 hr 12/08/23 06:15 Urine Color Straw Urine Clarity Clear Urine pH 7.0 Ur Specific [place] 1.010 Urine Protein 30 H Urine Glucose (UA) Normal Urine Ketones Negative Urine Occult Blood 50 H Urine Nitrite Negative Urine Bilirubin Negative Urine Urobilinogen Normal Ur Leukocyte Esterase Negative Urine RBC 5-10 SEEN Urine WBC 0-5 SEEN Ur Squamous Epith Cells 0-5 SEEN Urine Bacteria RARE Urine Mucus 0 SEEN Discharge Plan Triage Chief Complaint: Complaint ED Provider: Lion Vega Dx/Rx/DC Orders Clinical Impression: Acute urinary retention Instructions: ED Urinary Retention, Male Prescriptions: No Action aspirin [Adult Low Dose Aspirin] 81 mg tablet,delayed release (DR/EC) 81 mg PO QDAY atorvastatin 80 mg tablet 80 mg PO QHS cholecalciferol (vitamin D3) 25 mcg (1,000 unit) tablet 25 mcg PO DAILY saw palmetto 160 mg capsule 160 mg PO BID Rx Instructions: give with meal/snack pyridoxine (vitamin B6) 100 mg tablet 100 mg PO BID omega [id number]-fish oil [Fish Oil] 300-1,000 mg capsule 1 cap PO DAILY isosorbide mononitrate 30 mg tablet extended release 24 hr 30 mg PO QAM Qty: 90 3RF Rx Instructions: swallow whole with glass of water; do not crush/chew /dissolve /cut/break Eliquis 5 mg tablet 5 mg PO BID Qty: 60 11RF lisinopril 20 mg tablet See Rx Instructions .ROUTE .COMPLEX Qty: 90 3RF Dose Instruction: Take 1 tablet by mouth once daily Rx Instructions: Take 1 tablet by mouth once daily amlodipine 10 mg tablet 10 mg PO DAILY Qty: 90 3RF Primary Care Provider: Zack Ceballos Referrals: Zack Ceballos MD [Primary Care Provider] - 3-5 Days Activity Restrictions/Additional Instructions: Follow-up with your urologist. Return back to the ED if symptoms recur or change. Print Language: Scottish Disposition Disposition: Home, Self Care Discharge Date/Time: 12/08/23 07:39
[2023-12-08 06:23] LABS: Mucous, Urine 0 SEEN /hpf (<or=2+)
[2023-12-08 06:24] LABS: Color, Urine Straw (Yellow); Glucose, Dipstick Normal (Normal); Ketone-Dipstick Negative (Negative); Leukocyte Esterase-Dipstick Negative /ul (Negative); Nitrite-Dipstick Negative (Negative); Occult Blood-Urine 50 /ul (Negative); Protein-Dipstick 30 mg/dl (Negative); Urine Bilirubin Dipstick Negative (Negative); Urine Clarity Clear (Clear); Urine Urobilinogen Normal (Normal)
[2023-12-08 06:58] VITALS: BP 161/71; PULSE 55; RESP 16; TEMP 36.5; O2SAT 98
[2023-12-08 07:22] VITALS: BMI 25.6
[2023-12-08 07:23] LABS: Bacteria RARE /hpf (None Seen); Red Blood Cells-Urine 5-10 SEEN /hpf (0-5); Squamous Epithelial Cells - UA 0-5 SEEN /hpf (0-5); White Blood Cells 0-5 SEEN /hpf (0-5)
== END 2023-12-08 07:39 | disposition home or self-care (01) ==
PROVIDERS: Emergency Provider Surgery; PCP Family Medicine; Visit Provider Surgery
DX: N40.1 Benign prostatic hyperplasia with lower urinary tract symptoms (principal); R33.8 Other retention of urine; I25.10 Atherosclerotic heart disease of native coronary artery without angina pectoris; I25.2 Old myocardial infarction; I10 Essential (primary) hypertension; E78.00 Pure hypercholesterolemia, unspecified; Z95.1 Presence of aortocoronary bypass graft; Z95.5 Presence of coronary angioplasty implant and graft; Z79.01 Long term (current) use of anticoagulants; Z79.82 Long term (current) use of aspirin; Z79.899 Other long term (current) drug therapy
CPT/HCPCS: 81001; 99282

== ENCOUNTER → 2024-01-11 | Outpatient (CLI) | payer MEDICARE, SELFPAY ==
[2024-01-11 13:16] LABS: ALB/GLOB Ratio 1.4 RATIO (0.9-2.4); AST(SGOT) 28 U/L (15-37); Alanine Aminotransfer ALT/SGPT 31 U/L (16-61); Albumin, Serum 4.1 g/dL (3.2-5.0); Alkaline Phosphatase 88 U/L (45-117); Anion Gap 4 (5-15); BUN 18 mg/dL (7-18); BUN/Creat Ratio 15.3 RATIO (10-20); Calcium,Total 9.1 mg/dL (8.5-10.1); Chloride 112 mmol/L (98-107); Cholesterol 110 mg/dL (200); Creatinine, Serum 1.18 mg/dL (0.70-1.30); EST Glomerular Filtration Rate 63 mL/min (>60); Est Glom Filt Rate - Afr Amer 76 mL/min (>60); Glucose 93 mg/dL (74-106); High Density Lipoprotein 67 mg/dL; Potassium 3.8 mmol/L (3.5-5.1); Protein, Total 7.1 g/dL (6.4-8.2); Sodium Level 141 mmol/L (136-145); Triglycerides 50 mg/dL; Very Low Density Lipoprotein 10 mg/dL (5-40)
== END | disposition home or self-care (01) ==
LOC: MFPLAB 09:48
PROVIDERS: PCP Family Medicine; Visit Provider Family Medicine
DX: E78.5 Hyperlipidemia, unspecified (principal)
CPT/HCPCS: 36415; 80053; 80061

== ENCOUNTER → 2024-09-25 | Outpatient (CLI) | payer MEDICARE, SELFPAY ==
[2024-09-25 10:09] LABS: Hematocrit 32.9 % (40-54); Hemoglobin 11.7 g/dL (13.0-16.5); Immature Granulocytes Count 0.020 X10^3/uL (0.0-0.0); Mean Corp Hgb Conc 35.6 g/dL (32-36); Mean Corpuscular Volume 100.6 fL (80-94); Mean Platelet Vol. 10.3 fl (6.2-12.0); NRBC Flagged by Analyzer 0 % (0-5); POSITIVE DIFFERENTIAL YES; Platelet Count 152 K/mm3 (150-450); RBC Distribution Width CV 14.3 % (11.6-14.6); RBC Distribution Width SD 52.9 fl (35.1-43.9); Red Blood Count 3.27 M/mm3 (4.6-6.2); White Blood Count 2.4 K/mm3 (4.4-11.0)
[2024-09-25 10:14] LABS: Differential Indicated SCAN CRITERIA MET
[2024-09-25 11:36] LABS: AST(SGOT) 24 U/L (<=37); Alanine Aminotransfer ALT/SGPT 16 U/L (<=46); Albumin, Serum 4.2 g/dL (3.4-4.8); Alkaline Phosphatase 130 U/L (40-129); Anion Gap 10 (5-15); BUN 23 mg/dL (4-19); BUN/Creat Ratio 17.7 RATIO (10-20); Calcium,Total 9.4 mg/dL (7.6-11.0); Carbon Dioxide 23.9 mmol/L (21.0-32.0); Chloride 108 mmol/L (98-108); Globulin 2.4 g/dL (2.2-4.2); Glucose 100 mg/dL (70-99); Magnesium 2.2 mg/dL (1.5-2.2); Potassium 4.0 mmol/L (3.3-5.1)
== END | disposition home or self-care (01) ==
LOC: LAB 09:31
PROVIDERS: PCP Family Medicine; Referring Provider Nurse Practitioner Family; Visit Provider Nurse Practitioner Family
DX: I25.810 Atherosclerosis of coronary artery bypass graft(s) without angina pectoris (principal); E11.9 Type 2 diabetes mellitus without complications; I10 Essential (primary) hypertension; Z95.1 Presence of aortocoronary bypass graft; Z95.5 Presence of coronary angioplasty implant and graft
CPT/HCPCS: 36415; 80053; 83735; 84443; 85025

== ENCOUNTER → 2024-10-22 | Outpatient (CLI) | payer MEDICARE, SELFPAY ==
--- OUTSIDE RECORDS SUMMARY | 2024-10-22 06:53 | XMS RPT_ITS | CCD ---
Author Organization [facility] Care Team Providers Care Glove Pairer Name Role Phone Fabi Price Unavailable Unavailable Fabi Price Unavailable Unavailable Zack Welch MD Unavailable [phone] Fabi Price Unavailable Unavailable ZACK MEDINA Primary Care Unavailable OJ, DR HANANE Cerna Attending Unavailcelestine MCWILLIAMS, DR HANANE Cerna Consulting Unavailcelestine MCWILLIAMS, DR HANANE Cerna Admitting UnavailRICO Douglas Consulting Unavailable KAYKAY INTERIANO PA-C Consulting Unavaila DAILY Torrez DO Consulting Unavailable Samartine [phone], Sam [phone] Consulting Unavailable Ahdoot [phone], Destiny [phone] Cons ulting Unavailable ZACK MEDINA Consulting Unavailable OJ, DR HANANE Cerna Admitting UnavailZACK Babin Primary Care Unavailable AFSHAN MEDINA V Attending Reji SALVADOR M.D. Consulting Unavailable Boone [phone], Lance [phone] Consu lting Unavailable Daniel [phone], Judd [phone] Consul ting Unavailable Rangel [phone], Vinaya [phone] Cons ulting Unavailable SALMA CARRERA Consulting Unavailable ONDINA BARTLETT APRN Consulting Unavailable ROSSY VILLALOBOS Consulting Unavailable AFSHAN MEDINA V Consulting Unavailable OJ, DR AHNANE Cerna Consulting UnavailRICO Douglas Consulting Unavailable KAYKAY INTERIANO PA-C Consulting Unavaila DAILY Torrez DO Consulting Unavailable María Elena [phone], Rico [phone] C onsulting Unavailable Samartine [phone], Sam [phone] Consulting Unavailable Ahdoot [phone], Destiny [phone] Cons stefania Unavailable DAFNE CASAS, KEAGAN Flowers Consulting Unavailcelestine e SUNITA DO, POONAM L Consulting Unavailable Schsandeep [phone], Esteban [phone] Co nsulting Unavailable AGUDELO ABDIEL SALGADO Consulting Unavailable Filippdanna [phone], Zack [phone] Consulting ZACK Luke Consulting Unavailable Dr. Zack Ceballos Primary Care Provider [phone] Zack Ceballos Referring Provider Renata Waite Attending Provider Unavailable Lin CASAS, Zack Natarajan Primary Care Provider [phone] ZACK CEBALLOS Primary Care Unavailable KAYKAY DO Attending Unavailable KAYKAY DO Referring Unavailable LIN, ZACK NATARAJAN Primary Care Unavailable KAYKAY DO Attending Unavailable LUKAS SALVADOR Referring Unavailable Lin, Dr. Dixon Primary Care Provider Dr. Zack Ceballos Referring Provider 1([facility])[phone] Miguel DAVALOS, PA Stephanie Levy Attending Provider Dr. Irving Osuna Attending Provider Dr. Zack Ceballos Primary Care Provider Dr. Irving Osuna Attending Provider ZACK CEBALLOS Primary Care Unavailable ZACK CEBALLOS Primary Care Unavailable KAYKAY DO Referring Unavailable LIN, ZACK NATARAJAN Primary Care Unavailable LIN, ZACK NATARAJAN Primary Care Unavailable LIN, ZACK NATARAJAN Primary Care Unavailable KAYKAY DO Attending Unavailable Dr. Zack Ceballos MD Primary Care Provider [phone] Dr. Irving Osuna MD Attending Provider Dr. Zack Ceballos MD Referring Provider Amish PATTERN WEAVER-C, Alden Etienne Attending Provider Roof PATTERN WEAVER-C, Alden Etienne Referring Provider Zack Ceballos Referring Unavailable Roof PATTERN WEAVER, Alden Etienne Attending Unavailable Lin, Zack Primary Care Unavailable Roof PATTERN WEAVER, Alden Etienne Referring Unavailable Roof PATTERN WEAVER, Alden Etienne Attending Unavailable Lin, Zack Primary Care Unavailable Lin, Zack Attending Unavailable Lin, Zack Primary Care Unavailable Roof PATTERN WEAVER, Alden Etienne Referring Unavailable Roof PATTERN WEAVER, Alden Etienne Attending Unavailable Ceballos, Zack Primary Care Unavailable Ceballso, Zack Primary Care Unavailable Lion Vega Attending Unavailabl e Thao, [place] Attending Unavailable Ceballos, Zack Primary Care Unavailable Thao, Irving Attending Unavailable Ceballos, Zack Primary Care Unavailable Thao, Irving Attending Unavailable Ceballos, Zack Primary Care Unavailable Thao, [place] Attending Unavailable Ceballos, Zack Primary Care Unavailable Ceballos, Zack Referring Unavailable Ceballos, Zack Primary Care Unavailable Thao, [place] Attending Unavailable Ceballos, Zack Referring Unavailable Ceballos, Zack Primary Care Unavailable Stephanie Delgadillo Attending Unavail able Ceballos, Zack Primary Care Unavailable Thao, Irving Attending Unavailable Ceballos, Zack Primary Care Unavailable Thao, Irving Attending Unavailable Ceballos, Zack Primary Care Unavailable Thao, Irving Attending Unavailable Medications Current Medications Medication Drug Class(es) Dates Sig (Normalized) Sig (Original) aspirin 81 mg delayed release oral tablet (20 sources) Platelet Aggregation Inhibitor, Nonsteroidal Anti-inflammatory Drug Start: 02-09-2016 Aspirin (Adult Low Dose Aspirin) 81 mg tablet,delayed release (DR/EC) Active 81 mg PO daily June 21, 2017 12:00am take 1 tablet by mouth once [place] ASPIRIN 81 MG TABS One tablet by mouth daily ASPIRIN [id number] Irma Cabrera take 1 tablet by mouth once [place] ASPIRIN 81 MG TABS One tablet by mouth daily ASPIRIN [id number] Irma Cabrera atorvastatin 40 mg oral tablet (20 sources) HMG-CoA Reductase Inhibitor Start: 09-25-2024 take 1 tablet by mouth once daily Atorvastatin 40 mg tablet Active 40 mg PO daily September 25, 2024 12:00am Start: 03-04-2024 End: 09-25-2024 Atorvastatin 80 mg tablet Discontinued 40 mg PO AT BEDTIME March 04, 2024 10:01am September 25, 2024 8:46am Start: 06-21-2017 End: 03-04-2024 take 1 tablet by mouth at bedtime Atorvastatin 80 mg tablet Discontinued 80 mg PO AT BEDTIME June 21, 2017 12:00am March 04, 2024 10:02am Start: 10-11-2009 End: 10-11-2009 take 1 tablet by mouth once daily LIPITOR 80 MG TABS One tablet by mouth daily. ATORVASTATIN CALCIUM [id number] Zack Welch MD cholecalciferol 0.025 mg oral tablet (12 sources) Vitamin D Start: 10-19-2020 cholecalcifero l, vitamin D3, 1,000 unit tablet Take 25 mcg by mouth . 10/19/2020 Active Start: 10-19-2020 take 1 tablet by tori once daily Cholecalciferol (Vitamin D3) 25 mcg (1,000 unit) tablet Active 25 ug PO DAILY October 19, 2020 12:00am [place] 4-Olu-Jnr-Fish Oil (4 sources) Start: 09-11-2023 [place] 5-Xxa-Tuc-Fish Oil (Fish Oil) 300-1,000 mg capsule Active 1 NMA PO DAILY September 11, 2023 12:00am Garlic (3 sources) Non-Standardized Food Allergenic Extract Start: 09-25-2024 take 1 capsule by mouth once daily Garlic 500 mg capsule Active 500 mg PO daily September 25, 2024 12:00am levOCARNitine (5 sources) Carnitine Analog levocarnitine tartrate (CARNITINE, TARTRATE, ORAL) Take by mouth . Active levocarnitine ta rtrate (CARNITINE, TARTRATE, ORAL) Take by mouth . 0 Active min17/nettle/pumpkin/saw pal me (PROSTATE THERAPY ORAL) (5 sources) min17/nettle/pum pkin/saw palme (PROSTATE THERAPY ORAL) Take by mouth . Active min17/nettle/pum pkin/saw palme (PROSTATE THERAPY ORAL) Take by mouth . 0 Active saw palmetto 160 mg cap (5 sources) Start: 03-10-2021 saw palmetto 1 60 mg cap Take 160 mg by mouth . 03/10/2021 Active Start: 03-10-2021 saw palmetto 1 60 mg cap Take 160 mg by mouth . 0 03/10/2021 Active Saw [place] (7 sources) Start: 03-10-2021 take 1 capsule by mo uth twice daily [place] 160 mg capsule Active 160 mg PO TWICE A DAY March 10, 2021 1:00am give with meal/snack Start: 03-10-2021 take 160 mg by mouth twice daily [place] Active 160 MG PO TWICE A DAY March 10, 2021 12:00am give with meal/snack Start: 03-10-2021 take 160 mg by mouth twice daily Christiano Gill Active 160 MG PO TWICE A DAY March 10, 2021 1:00am give with meal/snack ubidecarenone 200 mg oral capsule (5 sources) take 10 capsules by mouth once daily coenzyme Q10 200 mg capsule Take 200 mg by mouth daily . Active vitamin b6 100 mg oral tablet (9 sources) Start: 09-11-2023 take 1 tablet by mouth twice daily Pyridoxine (Vitamin B6) 100 mg tablet Active 100 mg PO TWICE A DAY September 11, 2023 12:00am take 1 tablet by mouth once [place] pyridoxine, vitamin B6, (vitamin B-6) 100 MG tablet Take 1 (one) tablet (100 mg total) by mouth daily . Active zinc gluconate 50 mg oral tablet (3 sources) Start: 09-25-2024 take 1 tablet by mouth once daily Zinc Gluconate 50 mg tablet Active 50 mg PO daily September 25, 2024 12:00am Completed/Discontinued Medications Medication Drug Class(es) Dates Sig (Normalized) Sig (Original) acetaminophen 325 mg / HYDROcodone bitartrate 5 mg oral tablet (12 sources) Opioid Agonist Start: 07-25-2023 End: 09-11-2023 Hydrocodone-Acetami nophen 5-325 mg tablet Discontinued 1 {tbl} PO EVERY 6 HOURS NEEDED as needed for Pain 6 2 0 July 25, 2023 September 11, 2023 8:26am Paronychia of left index finger Cellulitis of left finger Start: 04-26-2011 End: 05-30-2011 take 1-2 tablets by mouth four times daily as needed for pain VICODIN 5-500 MG TABS one to two tablets by mouth four times daily as needed for pain HYDROCODONE-ACETAMINOPHEN [id number] Tavares Mary MD Start: 04-26-2011 take 1-2 tablets by mouth four times daily as needed for pain VICODIN 5-500 MG TABS one to two tablets by mouth four times daily as needed for pain HYDROCODONE-ACETAMINOPHEN [id number] Tavares Mary MD acetaminophen 325 mg / oxyCODONE hydrochloride 5 mg oral tablet (7 sources) Opioid Agonist Start: 06-04-2018 End: 06-09-2018 Oxycodone-Acetaminophen 1 TABLET tablet Discontinued 1 {tbl} PO 4 TIMES DAILY NEEDED as needed for Pain 20 5 0 June 04, 2018 9:34am June 08, 2018 12:00am June 09, 2018 12:08am Other acute postprocedural pain 20 tabs (twenty) Start: 06-04-2018 End: 06-09-2018 take 1 tablet by mouth four times daily as needed Oxycodone-Acetaminophen Discontinued 1 TABLET PO 4 TIMES DAILY NEEDED 20 5 June 04, 2018 8:34am June 08, 2018 11:08pm 20 tabs (twenty) amiodarone hydrochloride 200 mg oral tablet (8 sources) Antiarrhythmic End: 11-29-2009 take 1 tablet by mouth once daily AMIODARONE HCL 200 MG TABS One tablet by mouth daily AMIODARONE HCL [id number] Irmanick Cabrera amLODIPine 10 mg oral tablet (20 sources) Dihydropyridine Calcium Channel Alejandra Start: 04-05-2017 End: 08-21-2024 take 1 tablet by mouth once daily Amlodipine 10 mg tablet Discontinued 10 mg PO DAILY 90 October 16, 2023 12:09pm August 21, 2024 9:54am Start: 05-16-2011 take 1 tablet by tori th once daily NORVASC 10 MG TABS One tablet by mouth daily AMLODIPINE BESYLATE [id number] Zack Welch MD Start: 03-15-2010 take 1 tablet by tori th once daily NORVASC 5 MG TABS One tablet by mouth daily. AMLODIPINE BESYLATE [id number] Nga Brown RN Start: 11-29-2009 End: 03-15-2010 take 1 tablet by mouth once daily NORVASC 2.5 MG TABS One tablet by mouth daily. AMLODIPINE BESYLATE [id number] Kwabena York MD apixaban 5 mg oral tablet (20 sources) Factor Xa Inhibitor Start: 11-22-2021 End: 03-06-2024 take 1 tablet by mouth twice daily Apixaban (Eliquis) 5 mg tablet Discontinued 5 mg PO TWICE A DAY 60 June 29, 2023 10:37am March 06, 2024 3:42pm ascorbic acid 500 mg oral capsule (16 sources) Vitamin C Start: 01-18-2012 End: 09-11-2023 take 1 capsule by mouth at bedtime Ascorbic Acid (Vitamin C) 500 mg capsule Discontinued 500 mg PO AT BEDTIME 0 June 26, 2017 12:00am September 11, 2023 8:24am Start: 01-18-2012 take 1 tablet by tori th once daily VITAMIN C 500 MG TABS One tablet by mouth daily ASCORBIC ACID [id number] Zack Welch MD cascara sagrada 450 mg oral capsule (19 sources) Start: 06-21-2017 End: 11-29-2020 take 1 capsule by mouth every other day Cascara Sagr[place] 450 mg capsule Discontinued 450 mg PO .QOD 0 June 21, 2017 12:00am November 29, 2020 3:21pm Start: 01-18-2012 take 1 tablet by tori th every other day CASCARA SAGRADA 450 MG CAPS One tablet by mouth every other day CASCARA SAGRADA [id number] Zack Welch MD Start: 01-18-2012 take 1 tablet by tori th once daily CASCARA SAGRADA 450 MG CAPS One tablet by mouth daily CASCARA SAGRADA [id number] Zack Welch MD cephalexin 500 mg oral capsule (4 sources) Cephalosporin Antibacterial Start: 07-25-2023 End: 09-11-2023 take 1 capsule by mouth every six hours Cephalexin 500 mg capsule Discontinued 500 mg PO EVERY 6 HOURS July 25, 2023 12:00am September 11, 2023 8:25am clindamycin 300 mg oral capsule (15 sources) Lincosamide Antibacterial Start: 06-04-2018 End: 07-01-2018 take 1 capsule by mouth three times daily Clindamycin Hcl 300 MG capsule Discontinued 300 mg PO THREE TIMES A DAY 12 June 04, 2018 12:00am July 01, 2018 11:46am Start: 04-26-2011 End: 05-30-2011 take 1 tablet by mouth three times daily CLEOCIN 300 MG CAPS One tablet by mouth three times daily CLINDAMYCIN HCL [id number] Tavares Mary MD clopidogrel 75 mg oral tablet (20 sources) [id number] Platelet Inhibitor Start: 04-18-2021 End: 11-22-2021 take 1 tablet by mouth once daily Clopidogrel (Plavix) 75 mg tablet Discontinued 75 mg PO daily 90 4 May 24, 2021 9:21am November 22, 2021 9:29am Start: 04-05-2017 End: 03-23-2021 take 1 tablet by mouth once daily Clopidogrel (Plavix) 75 mg tablet Discontinued 75 mg PO daily 90 4 May 19, 2020 9:57am March 23, 2021 1:53pm Start: 11-29-2009 take 1 tablet by tori th once daily PLAVIX 75 MG TABS One tablet by mouth daily. CLOPIDOGREL BISULFATE [id number] Zack Welch MD Coenzyme Q10 (H2q Coq10) 200 mg/gram powder (4 sources) Start: 09-11-2023 End: 12-08-2023 take 1 mg by mouth once Coenzyme Q10 (H2q Coq10) 200 mg/gram powder Discontinued mg PO September 11, 2023 12:00am December 08, 2023 5:31am famotidine 20 mg oral tablet (20 sources) Histamine-2 Receptor Antagonist Start: 03-17-2020 End: 09-11-2023 take 1 tablet by mouth once daily Famotidine 20 mg tablet Discontinued 20 mg PO daily 90 3 April 18, 2022 1:37pm September 11, 2023 8:26am Start: 04-05-2017 End: 07-07-2019 take 1 tablet by mouth once daily Famotidine 20 mg tablet Discontinued 20 mg PO daily 90 3 February 24, 2019 12:08pm July 07, 2019 3:06pm Start: 11-29-2009 take 1 tablet by tori th once daily PEPCID 20 MG TABS One tablet by mouth daily. FAMOTIDINE [id number] Irving Osuna MD furosemide 40 mg oral tablet (8 sources) Loop Diuretic End: 11-29-2009 take 1 tablet by mouth once daily LASIX 40 MG TABS One tablet by mouth daily FUROSEMIDE [id number] Irma Cabrera glimepiride 1 mg oral tablet (8 sources) Sulfonylurea End: 11-29-2009 take 1 tablet by mouth once daily AMARYL 1 MG TABS One tablet by mouth daily GLIMEPIRIDE [id number] Kwabena York MD GLUCOSE TEST STRIPS (1 source) Start: 03-24-2010 GLUCOSE TEST STRIPS to check blood glucose once a day before breakfast GLUCOSE TEST STRIPS Kwabena York MD hydrALAZINE hydrochloride 25 mg oral tablet (8 sources) Arteriolar Vasodilator End: 11-29-2009 HYDRALAZINE HCL 25 MG TABS bid HYDRALAZINE HCL [id number] Kwabena York MD 24 hr isosorbide mononitrate 30 mg extended release oral tablet (20 sources) Nitrate Vasodilator Start: 06-16-2019 End: 02-11-2024 take 1 tablet by mouth once daily in the morning, then take 1 tablet by mouth every twenty-four hours Isosorbide Mononitrate 30 mg tablet extended release 24 hr Discontinued 30 mg PO EVERY MORNING 90 3 April 04, 2023 12:14pm February 11, 2024 10:45am swallow whole with glass of water; do not crush/chew /dissolve /cut/break Start: 04-05-2017 End: 03-25-2019 take 1 tablet by mouth once daily in the morning, then take 1 tablet by mouth every twenty-four hours Isosorbide Mononitrate 30 mg tablet extended release 24 hr Discontinued 30 mg PO EVERY MORNING 90 3 June 05, 2018 4:22pm March 25, 2019 3:20pm swallow whole with glass of water; do not crush/chew /dissolve /cut/break Start: 11-29-2009 take 1 tablet by mouth once da dmitri ISOSORBIDE MONONITRATE ER 30 MG [id number] One tablet by mouth daily ISOSORBIDE MONONITRATE [id number] Zack Welch MD Start: 11-29-2009 take 1 tablet by mouth once da dmitri IMDUR 30 MG [id number] One tablet by mouth daily. ISOSORBIDE MONONITRATE Zack Welch MD lactobacillus acidophilus 1 mg oral tablet (7 sources) Start: 06-04-2018 End: 07-01-2018 take 1 tablet by mouth twice daily Lactobacillus Acidophilus 0.5 MG tablet Discontinued 0.5 mg PO TWICE A DAY 10 June 04, 2018 12:00am July 01, 2018 11:47am lisinopril 20 mg oral tablet (20 sources) Angiotensin Converting Enzyme Inhibitor Start: 06-16-2019 End: 09-25-2024 take 1 tablet by mouth once daily Lisinopril 20 mg tablet Discontinued 0 .ROUTE .COMPLEX 90 3 October 16, 2023 8:04am September 25, 2024 8:48am Take 1 tablet by mouth once daily Start: 04-03-2019 End: 06-16-2019 take 1 tablet by mouth once daily Lisinopril 10 mg tablet Discontinued 10 mg PO daily 30 April 03, 2019 12:41pm June 16, 2019 2:16pm Start: 04-05-2017 End: 04-03-2019 take 1 tablet by mouth once daily Lisinopril 20 mg tablet Discontinued 20 mg PO daily 90 June 05, 2018 4:22pm April 03, 2019 12:42pm Start: 04-10-2011 take 1 tablet by tori th once daily LISINOPRIL 20 MG TABS One tablet by mouth daily LISINOPRIL [id number] Zack Welch MD Start: 11-29-2009 End: 05-15-2011 take 1 tablet by mouth once daily LISINOPRIL 10 MG TABS One tablet by mouth daily. LISINOPRIL [id number] Kwabena York MD meclizine hydrochloride 25 mg oral tablet (7 sources) Antiemetic Start: 11-06-2013 End: 06-26-2017 take 1 tablet by mouth every eight hours as needed Meclizine 25 MG tablet Discontinued 25 mg PO EVERY 8 HOURS NEEDED as needed for Vertigo 20 0 November 06, 2013 12:00am June 26, 2017 11:38am metFORMIN hydrochloride 500 mg oral tablet (12 sources) Biguanide Start: 06-29-2010 End: 01-18-2012 METFORMIN HCL 500 MG TABS One half tablet by mouth twice daily METFORMIN HCL [id number] Kwabena York MD 24 hr metoprolol succinate 25 mg extended release oral tablet (16 sources) beta-Adrenergic Alejandra Start: 06-29-2010 End: 11-06-2013 METOPROLOL SUCCINATE ER 25 MG [id number] One half tablet by mouth daily METOPROLOL SUCCINATE [id number] Nga Brown RN MISC. DEVICES (1 source) Start: 09-17-2009 BD ASSURE BPM/AUTO ARM [facility] [place] [facility] [place]. DEVICES [id number] Kwabena York MD [facility] [place]. DEVICES (3 sources) Start: 09-17-2009 BD ASSURE BPM/AUTO ARM [facility] [place] [facility] [place]. DEVICES [id number] Kwabena York MD nitroglycerin 0.4 mg sublingual tablet (20 sources) Nitrate Vasodilator Start: 06-21-2017 End: 09-11-2023 Nitroglycerin (Nitrostat) 0.4 mg tablet, sublingual Discontinued 0.4 mg SL Q5M as needed for CHEST PAIN 27 05September 15, 2020 10:43am September 11, 2023 8:26am Start: 06-21-2017 End: 09-15-2020 Nitroglycerin (Nitrostat) 0. 4 mg tablet, sublingual Discontinued 0.4 MG SL Q5M July 07, 2019 2:08pm September 15, 2020 9:44am Start: 03-06-2014 NITROSTAT 0.4 MG SUBL 1 tablet under the tongue every 5 minutes times 3 as needed for chest pain. NITROGLYCERIN [id number] Stephanie Smallwood RN NITROSTAT 0.4 MG SUBL 1 spray under tongue q 5 min up to 3 x NITROGLYCERIN [id number] Stephanie Rivera PANadjaC potassium chloride 20 meq extended release oral tablet (8 sources) End: 11-29-2009 take 1 tablet by mouth once daily POTASSIUM CHLORIDE LELE ER 20 MEQ CR-TABS 1 tab po qd POTASSIUM CHLORIDE LELE CR [id number] Kwabena York MD sildenafil 50 mg oral tablet (7 sources) Phosphodiesterase 5 Inhibitor Start: 03-25-2019 End: 06-16-2019 Sildenafil 50 mg tablet Discontinued 50 mg PO DAILY as needed for sexual activity March 25, 2019 1:00am June 16, 2019 2:17pm administer 30 minutes to 4 hours before activity SITagliptin 50 mg oral tablet (8 sources) Dipeptidyl Peptidase 4 Inhibitor End: 09-09-2009 take 1 tablet by mouth once daily JANUVIA 50 MG TABS One tablet by mouth daily SITAGLIPTIN PHOSPHATE [id number] Irma Cabrera zinc acetate 25 mg oral capsule (12 sources) Start: 03-10-2021 End: 09-11-2023 take 1 capsule by mouth once daily Zinc Acetate (Galzin) 25 mg (zinc) capsule Discontinued 25 mg PO DAILY March 10, 2021 1:00am September 11, 2023 8:27am Problems Active Problems Problem Classification Problem Date Documented Date Episodic/Chronic Abdominal hernia (12 sources) Inguinal hernia; Translations: [Unilateral inguinal hernia, without obstruction or gangrene, not specified as recurrent] Onset: 10-19-2022 06-06-2018 Episodic Acute myocardial infarction (16 sources) Non-ST elevation (NSTEMI) myocardial infarction; Translations: [Acute subendocardial infarction] Onset: 06-29-2010 06-29-2010 Chronic Cardiac dysrhythmias (20 sources) Bradycardia; Translations: [Atrial flutter] Onset: 12-11-2014 12-11-2014 Chronic Cardiac dysrhythmias (20 sources) Sinus bradycardia; Translations: [Bradycardia, unspecified] Onset: 12-11-2014 07-07-2019 Episodic Complication of device; implant or graft (20 sources) Arteriosclerosis of coronary artery bypass graft; Translations: [Atherosclerosis of coronary artery bypass graft(s) without angina pectoris] Onset: 06-29-2010 Resolved: 11-29-2009 08-25-2009 Chronic Comment on above: S/P CABG x3 with ETIENNE A to LAD, SVG to diagonal, and SVG to OM branch of LCx in July 2009; drug-eluting stent to LAD and diagonal branch in October 2009; Conditions associated with dizziness or vertigo (11 sources) Dizziness and giddiness; Translations: [Dizziness] Onset: 09-07-2011 09-07-2011 Episodic Conduction disorders (20 sources) Cardiac pacemaker in situ; Translations: [Presence of cardiac pacemaker] Onset: 04-05-2021 11-21-2021 Chronic Comment on above: PPM Ventricular lead - Travel Assistant: [employer], Model # 2088TC- 58 , Serial # [id number] Atrial lead - Travel Assistant: [employer], Model # 2088TC-52 , Serial # [id number] Generator - Travel Assistant: [employer], Model # [id number] , Serial # [id number] Coronary atherosclerosis and other heart disease (20 sources) Coronary arteriosclerosis; Translations: [Stable angina] Onset: 11-29-2009 06-29-2010 Chronic Coronary atherosclerosis and other heart disease (18 sources) Coronary angioplasty status; Translations: [Stented coronary artery] Onset: 10-03-2009 06-29-2010 Episodic Comment on above: PTCA/JANET to distal L AD and Diag 1 10/08/09 Diabetes mellitus without complication (16 sources) Type 2 diabetes mellitus well controlled; Translations: [Type 2 diabetes mellitus] Onset: 08-03-2009 08-25-2009 Chronic Disorders of lipid metabolism (20 sources) Hyperlipidemia; Translations: [Pure hypercholesterolemia] Onset: 08-03-2009 08-25-2009 Chronic Essential hypertension (20 sources) Hypertensive disorder; Translations: [Essential hypertension] Onset: 08-03-2009 08-25-2009 Chronic Genitourinary symptoms and ill-defined conditions (9 sources) Urge incontinence of urine; Translations: [Urge incontinence] Onset: 06-25-2023 10-19-2022 Chronic Genitourinary symptoms and ill-defined conditions (20 sources) Urgent desire to urinate; Translations: [Urgency of urination] Onset: 06-25-2023 10-19-2022 Episodic Hyperplasia of prostate (10 sources) Benign prostatic hypertrophy with outflow obstruction; Translations: [Benign prostatic hyperplasia with lower urinary tract symptoms] Onset: 06-25-2023 10-19-2022 Chronic Intestinal obstruction without hernia (2 sources) Unspecified intestinal obstruction, unspecified as to partial versus complete obstruction; Translations: [UNS INTEST OBS UNS PART VS CMPL OBS] Onset: 10-26-2020 Episodic Neoplasms of unspecified nature or uncertain behavior (15 sources) Neoplasm of unspecified behavior of bone, soft tissue, and skin; Translations: [Neoplasm of skin of nose] Onset: 09-12-2010 10-13-2010 Episodic Comment on above: 11 mm lesion nasal g labella Other aftercare (3 sources) Patient encounter status; Translations: [Other [facility] (current) drug therapy] 06-06-2018 Episodic Other aftercare (4 sources) Long-term current use of drug therapy; Translations: [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 inspector (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) drug therapy] 06-26-2017 Episodic Other diseases of kidney and ureters (2 sources) Other obstructive and reflux uropathy; Translations: [Other obstructive and reflux uropathy] Onset: 06-25-2023 Episodic Other injuries and conditions due to external causes (2 sources) Foreign body on external eye, part unspecified, unspecified eye, initial encounter; Translations: [Foreign body on external eye, part unspecified, unspecified eye, initial encounter] Onset: 12-12-2022 Episodic Other lower respiratory disease (12 sources) Dyspnea on exertion; Translations: [Shortness of breath] Onset: 07-26-2012 09-15-2020 Episodic Other non-epithelial cancer of skin (20 sources) Malignant neoplasm of skin; Translations: [Basal cell carcinoma of skin of scalp and neck] Onset: 09-12-2010 09-12-2010 Episodic Comment on above: 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 Other nutritional; endocrine; and metabolic disorders (10 sources) Body mass index (BMI) 32.0-32.9, adult; Translations: [Body mass index (BMI) 31.0-31.9, adult] Onset: 09-03-2013 Resolved: 12-11-2014 11-19-2013 Chronic Other nutritional; endocrine; and metabolic disorders (6 sources) Body mass index (BMI) 31.0-31.9, adult; Translations: [Body mass index (BMI) 31.0-31.9, adult] Onset: 09-03-2013 09-03-2013 Chronic Other screening for suspected conditions (not mental disorders or infectious disease) (20 sources) Echocardiogram abnormal; Translations: [Abnormal result of other cardiovascular function study] Onset: 10-19-2022 03-10-2021 Episodic Skin and subcutaneous tissue infections (8 sources) Cellulitis of left finger; Translations: [Cellulitis of left index finger] 09-11-2023 Episodic Superficial injury; contusion (12 sources) Injury of forehead; Translations: [Contusion of other part of head, initial encounter] Onset: 10-19-2022 01-22-2021 Episodic Unclassified (1 source) Coronary artery bypass graft; Translations: [Presence of coronary angioplasty implant and graft] 08-25-2009 Unclassified (3 sources) Long-term drug therapy; Translations: [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 inspector (current) drug therapy] Onset: 06-29-2010 06-29-2010 Urinary tract infections (6 sources) Acute cystitis; Translations: [Acute cystitis with hematuria] Onset: 07-01-2024 10-19-2022 Episodic Past or Other Problems Problem Classification Problem Date Documented Da te Episodic/Chronic Nonspecific chest pain (9 sources) Chest discomfort; Translations: [Other chest pain] Onset: 07-26-2012 07-26-2012 Episodic Other aftercare (1 source) Other mcfp (current) drug therapy; Translations: [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 inspector (current) drug therapy] Onset: 06-29-2010 06-29-2010 Episodic Other lower respiratory disease (4 sources) Dyspnea; Translations: [Shortness of breath] Onset: 07-26-2012 07-26-2012 Episodic Residual codes; unclassified (4 sources) FH: Hypertension; Translations: [Family history of ischemic heart disease and other diseases of the circulatory system] 03-06-2014 Episodic Results Test Name Value Interpretation Reference Range Facility Absolute lymphocyte countOrd ered By: Alden Wellington on 09-25-2024 Lymphocytes Auto (Unsp spec) [#/Vol] 0.52 10*3/uL Low 0.83-4.51 [facility] Absolute neutrophil countOrd ered By: Alden Wellington on 09-25-2024 Neutrophils (Bld) [#/Vol] 1.5 10*3/uL Low 2.0-7.7 [facility] Anion gap in Serum or Plasma Ordered By: Alden Wellington on 09-25-2024 Anion gap [Moles/Vol] 10 mmol/L 5-15 [facility] Automated lymphocyte count a s percentage of total leukocytesOrdered By: Alden Wellington on 09-25-2024 Lymphocytes/100 WBC Auto (Unsp spec) 21.4 % 19-41 [facility] BUN/creatinine ratioOrdered By: Alden Wellington on 09-25-2024 Urea nitrogen/Creatinine [Mass ratio] 17.7 mg/mg 10-20 [facility] Basophil percentageOrdered B y: Alden Wellington on 09-25-2024 Basophils/100 WBC (Bld) 2.5 % High 0-1 [facility] Bilirubin, totalOrdered By: Alden Wellington on 09-25-2024 Bilirubin [Mass/Vol] 0.69 mg/dL 0.00-1.30 [facility] CBC W/Diff, Automatedon 09-03 PLT EST A Normal ADEQ [facility] Comment on above: Performed By: #### L 100.0100, L501.9520, L500.4050, L501.5200 #### [facility] Laboratory [address] [place], [address] Carbon dioxide, total [Moles /volume] in Central venous bloodOrdered By: Alden Wellington on 09-25-2024 CO2 [Moles/Vol] 23.9 mmol/L 21.0-32.0 [facility] Cardiology Visit Reporton Cardiology Visit Report [facility] [address] [place], [place] [id number] OFFICE VISIT Date of Service: 09/25/24 MR#: [id number] Acct: [id number] Name: HANANE DIGGS Rep #: [id number] : 1940 Provider: KAT flanagan Age/Sex: 84/M [place] [facility] [place] Status: Signed HPI HPI History of Present Illness Details: Hanane Diggs is an 84-year-old gentleman who presents here today for a cardiovascular follow-up. He does have a history of marked sinus bradycardia with concerns of second-degree AV block Mobitz 1 with associated dizziness, superimposed upon his history of underlying CAD, previous PCI, previous CABG, hyperlipidemia, and hypertension. In September 2020 patient was agreeable to proceed with a stress test for lightheadedness and dizziness however the day of his stress test he presented with marked sinus bradycardia, sinus arrhythmia with second-degree AV block Mobitz type I. Stress test was not proceeded with. He did undergo a 24-hour Holter monitor which demonstrated sinus rhythm/sinus bradycardia with an average heart rate of approximately 44 bpm as well as evidence of what appeared to be a second-degree AV block Mobitz 1. He did have associated dizziness during his Holter monitor. It was recommended that he undergo a pacemaker placement however patient wished to think about this for a while. He did undergo a stress echocardiogram in February 2021 which was abnormal. He then underwent a diagnostic heart catheterization in March 2021. Results are noted below. He did not require any interventions at that time. He did undergo a pacemaker placement on April 13, 2021. He denies chest, arm, jaw, or neck discomfort. He states occasional palpitations during times of stress that he describes as a fast. He denies bilateral lower extremity edema. He denies claudication. He denies shortness of breath with activity, shortness of breath at rest, orthopnea, or PND. He denies chronic cough. He denies significant, sudden weight gain. He acknowledges occasional lightheadedness. He denies dizziness, near-syncope, or syncope. He denies blood in urine, blood in stool, or epistaxis. He denies fever with chills. He denies myalgia. He denies fatigue. His exercise level has remained stable. 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 Accompanied by: Is patient in pain?: No Allergies No Known Allergies Allergy (Verified 09/25/24 08:45) Medications ???Medication ???Instructions ???Recorded ???Confirmed ???Type aspirin 81 mg tablet,delayed 81 mg PO QDAY 06/21/17 09/25/24 Hi story release (Adult Low Dose Aspirin) cholecalciferol (vitamin D3) 25 25 mcg PO DAILY 10/19/20 09/25/24 History mcg (1,000 unit) tablet saw palmetto 160 mg capsule 160 mg PO BID 03/10/21 09/25/24 Hi story omega 9-jxx-osd-fish oil 300 1 cap PO DAILY 09/11/23 09/25/24 H istory mg-1,000 mg capsule (Fish Oil) pyridoxine (vitamin B6) 100 mg 100 mg PO BID 09/11/23 09/25/24 Hi story tablet isosorbide mononitrate 30 mg 30 mg PO QAM #90 tabs 02/11/24 Rx tablet,extended release 24 hr apixaban 5 mg tablet (Eliquis) 5 mg PO BID #180 tabs 03/06/24 Rx amlodipine 10 mg tablet 10 mg PO DAILY #90 TABLETS 5 09/25/24 Rx atorvastatin 40 mg tablet 40 mg PO QDAY 09/25/24 09/25/24 Hi story garlic 500 mg capsule 500 mg PO QDAY 09/25/24 09/25/24 H istory lisinopril 20 mg tablet 20 mg PO QDAY 09/25/24 09/25/24 Hi story zinc gluconate 50 mg tablet 50 mg PO QDAY 09/25/24 09/25/24 Hi story Ejection fraction %: 60 Have you fallen in the past year?: No PFSH Medical History Cellulitis of left index finger Dizziness AV block, 2nd degree Pure hypercholesterolemia Sinus bradycardia Presence of stent in coronary artery ( 10/08/09) GERD (gastroesophageal reflux disease) Dizziness and giddiness Shortness of breath Chest discomfort Diabetes mellitus type II, controlled Hyperlipidemia Stable angina Encounter for long-term current use of high risk medication Acute ID, subendocardial, subsequent episode of care Essential (primary) hypertension Atherosclerosis of coronary artery bypass graft(s) without angina pectoris Bradycardia Surgical History 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) History of left heart catheterization (LHC) ( 03/23/21) Presence of coronary angioplasty implant and graft ( 10/08/09) History of coronary artery bypass gra (more content not included)... Normal [facility] Chloride assayOrdered By: Florinda Wellington on 09-25-2024 Chloride [Moles/Vol] 108 mmol/L 98-108 [facility] Comprehensive Metabolic Prof ilon 09-25-2024 Albumin [Mass/Vol] 4.2 g/dL Normal 3.4-4.8 [facility] Comment on above: Performed By: #### L 100.0100, L501.9520, L500.4050, L501.5200 #### [facility] [address] [place], [address] Albumin/Globulin [Mass ratio] 1.7 {ratio} Normal 0.9-2.4 [facility] Comment on above: Performed By: #### L 100.0100, L501.9520, L500.4050, L501.5200 #### [facility] [address] [place], [address] ALK PHOS 130 U/L High 40-129 [facility] Comment on above: Performed By: #### L 100.0100, L501.9520, L500.4050, L501.5200 #### [facility] [address], [address] ALT [Catalytic activity/Vol] 16 U/L Normal <=46 [facility] Comment on above: Performed By: #### L 100.0100, L501.9520, L500.4050, L501.5200 #### [facility] [address] [place], [address] AST [Catalytic activity/Vol] 24 U/L Normal <=37 [facility] Comment on above: Performed By: #### L 100.0100, L501.9520, L500.4050, L501.5200 #### [facility] [address] [place], [address] Bilirubin [Mass/Vol] 0.69 mg/dL Normal 0.00-1.30 [facility] Comment on above: Performed By: #### L 100.0100, L501.9520, L500.4050, L501.5200 #### [facility] [address] [place], [address] BUN/CRE 17.7 RATIO Normal 10-20 [facility] Comment on above: Performed By: #### L 100.0100, L501.9520, L500.4050, L501.5200 #### [facility] [address] [place], [address] Calcium [Mass/Vol] 9.4 mg/dL Normal 7.6-11.0 [facility] Comment on above: Performed By: #### L 100.0100, L501.9520, L500.4050, L501.5200 #### [facility] [address] [place], [address] Chloride [Moles/Vol] 108 mmol/L Normal 98-108 [facility] Comment on above: Performed By: #### L 100.0100, L501.9520, L500.4050, L501.5200 #### [facility] [address] [place], [address] CO2 [Moles/Vol] 23.9 mmol/L Normal 21.0-32.0 [facility] Comment on above: Performed By: #### L 100.0100, L501.9520, L500.4050, L501.5200 #### [facility] [address] [place], [address] Creatinine [Mass/Vol] 1.28 mg/dL High 0.70-1.20 [facility] Comment on above: Performed By: #### L 100.0100, L501.9520, L500.4050, L501.5200 #### [facility] [address] [place], [address] GAP 10 Normal 5-15 [facility] Comment on above: Performed By: #### L 100.0100, L501.9520, L500.4050, L501.5200 #### [facility] [address] [place], [address] GFR/1.73 sq M.predicted among non-blacks MDRD (S/P/Bld) [Vol rate/Area] 56 mL/min/{1.73_m2} Low >60 [facility] Comment on above: Result Comment: mL/m in/1.73m2 CKD-EPI Creatinine Equation (2020) Performed By: #### L 100.0100, L501.9520, L500.4050, L501.5200 #### [facility] [address] [place], [address] Globulin (S) [Mass/Vol] 2.4 g/dL Normal 2.2-4.2 [facility] Comment on above: Performed By: #### L 100.0100, L501.9520, L500.4050, L501.5200 #### [facility] [address] [place], [address] Glucose [Mass/Vol] 100 mg/dL High 70-99 [facility] Comment on above: Performed By: #### L 100.0100, L501.9520, L500.4050, L501.5200 #### [facility] [address] [place], [address] Potassium [Moles/Vol] 4.0 mmol/L Normal 3.3-5.1 [facility] Comment on above: Performed By: #### L 100.0100, L501.9520, L500.4050, L501.5200 #### [facility] [address] [place], [address] Sodium [Moles/Vol] 141 mmol/L Normal 133-145 [facility] Comment on above: Performed By: #### L 100.0100, L501.9520, L500.4050, L501.5200 #### [facility] [address] [place], [address] T PROT 6.7 g/dL Normal 5.9-8.4 [facility] Comment on above: Performed By: #### L 100.0100, L501.9520, L500.4050, L501.5200 #### [facility] [address] [place], [address] Urea nitrogen [Mass/Vol] 23 mg/dL High 4-19 [facility] Comment on above: Performed By: #### L 100.0100, L501.9520, L500.4050, L501.5200 #### [facility] [place], [address] Eosinophil percentageOrdered By: Alden Wellington on 09-25-2024 Eosinophils/100 WBC (Bld) 4.5 % 0-5 [facility] Erythrocyte distribution wid th ratioOrdered By: Alden Wellington on 09-25-2024 Erythrocyte distribution width (RBC) [Ratio] 14.3 % 11.6-14.6 [facility] Erythrocyte distribution wid th standard deviationOrdered By: Alden Wellington on 09-25-2024 Erythrocyte distribution width (RBC) [Ratio] 52.9 fl High 35.1-43.9 [facility] Glomerular filtration rate ( GFR) estimation/1.73 sq m using serum, plasma, or whole bOrdered By: Alden Wellington on 09-25-2024 GFR/1.73 sq M.predicted among non-blacks MDRD (S/P/Bld) [Vol rate/Area] 56 mL/min/{1.73_m2} Low >60 [facility] Comment on above: mL/min/1.73m2 CKD-EP I Creatinine Equation (2020) Hematocrit Auto (Bld) [Volum e fraction]Ordered By: Alden Wellington on 09-25-2024 Hematocrit (Bld) [Volume fraction] 32.9 % Low 40-54 [facility] Hemoglobin measurementOrdere d By: Alden Wellington on 09-25-2024 Hemoglobin (Bld) [Mass/Vol] 11.7 g/dL Low 13.0-16.5 [facility] Immature granulocytes/100 WB C Auto (Bld)Ordered By: Alden Wellington on 09-25-2024 Immature granulocytes/100 WBC (Bld) 0.800 % 0.0-0.9 [facility] Comment on above: IG% - Immature Granu locytes (promyelocytes, myelocytes and metamyelocytes) > 1% indicates that a LEFT SHIFT is Present. Laboratory - Chemistry and C hemistry - challengeOrdered By: Alden Wellington on 09-25-2024 AST [Catalytic activity/Vol] 24 U/L <38 [facility] MCV (mean corpuscular volume ) determinationOrdered By: Alden Wellington on 09-25-2024 MCV (RBC) [Entitic vol] 100.6 fL High 80-94 [facility] Magnesiumon 09-25-2024 Magnesium [Mass/Vol] 2.2 mg/dL Normal 1.5-2.2 [facility] Comment on above: Performed By: #### L 100.0100, L501.9520, L500.4050, L501.5200 #### [facility] [address] [place], [address] Magnesium measurement (mass/ volume)Ordered By: Alden Wellington on 09-25-2024 Magnesium (Unsp spec) [Mass/Vol] 2.2 mg/dL 1.5-2.2 [facility] Mean corpuscular hemoglobin (MCH) determinationOrdered By: Alden Wellington on 09-25-2024 MCH (RBC) [Entitic mass] 35.8 pg High 27.0-32.0 [facility] Mean corpuscular hemoglobin concentration (MCHC) determinationOrdered By: Alden Wellington on 09-25-2024 MCHC (RBC) [Mass/Vol] 35.6 g/dL 32-36 [facility] Mean platelet volume determi nationOrdered By: Alden Wellington on 09-25-2024 Platelet mean volume (Bld) [Entitic vol] 10.3 fL 6.2-12.0 [facility] Monocyte percentageOrdered B y: Alden Wellington on 09-25-2024 Monocytes/100 WBC (Bld) 11.1 % High 0-10 [facility] Neutrophil percentageOrdered By: Alden Wellington on 09-25-2024 Neutrophils/100 WBC (Bld) 59.7 % 47-70 [facility] Nucleated red blood cell per centageOrdered By: Alden Wellington on 09-25-2024 Nucleated RBC/100 WBC (Bld) [Ratio] 0 % 0-5 [facility] Platelet countOrdered By: Florinda Wellington on 09-25-2024 Platelets (Bld) [#/Vol] 152 10*3/uL 150-450 [facility] Platelet estimateOrdered By: Alden Wellington on 09-25-2024 Platelets LM Ql (Bld) A ADEQ [facility] Potassium measurement (mass/ volume)Ordered By: Alden Wellington on 09-25-2024 Potassium (Unsp spec) [Mass/Vol] 4.0 mmol/L 3.3-5.1 [facility] RBC Auto (Bld) [#/Vol]Ordere d By: Alden Wellington on 09-25-2024 RBC (Bld) [#/Vol] 3.27 10*6/uL Low 4.6-6.2 [facility] Serum creatinine measurement (mass/volume)Ordered By: Alden Wellington on 09-25-2024 Creatinine [Mass/Vol] 1.28 mg/dL High 0.70-1.20 [facility] Serum globulin measurementOr dered By: Alden Wellington on 09-25-2024 Globulin (S) [Mass/Vol] 2.4 g/dL 2.2-4.2 [facility] Serum glucose measurement (m ass/volume)Ordered By: Alden Wellington on 09-25-2024 Glucose [Mass/Vol] 100 mg/dL High 70-99 [facility] Serum or plasma alanine dunbar otransferase (ALT) measurementOrdered By: Alden Wellington on 09-25-2024 ALT [Catalytic activity/Vol] 16 U/L <47 [facility] Serum or plasma albumin roro urement (mass/volume)Ordered By: Alden Wellington on 09-25-2024 Albumin [Mass/Vol] 4.2 g/dL 3.4-4.8 [facility] Serum or plasma albumin/glob ulin mass ratioOrdered By: Alden Wellington on 09-25-2024 Albumin/Globulin [Mass ratio] 1.7 {ratio} 0.9-2.4 [facility] Serum or plasma alkaline jerry sphatase measurementOrdered By: Alden Wellington on 09-25-2024 ALP [Catalytic activity/Vol] 130 U/L High 40-129 [facility] Serum or plasma calcium roro urement (mass/volume)Ordered By: Alden Wellington on 09-25-2024 Calcium [Mass/Vol] 9.4 mg/dL 7.6-11.0 [facility] Serum or plasma urea nitroge n measurement (mass/volume)Ordered By: Alden Wellington on 09-25-2024 Urea nitrogen [Mass/Vol] 23 mg/dL High 4-19 [facility] Sodium levelOrdered By: Alden Wellington on 09-25-2024 Sodium [Moles/Vol] 141 mmol/L 133-145 [facility] TSH DL <= 0.005 mIU/L QnOrde red By: Alden Wellington on 09-25-2024 TSH Qn 4.750 uIU/mL High 0.300-4.20 0 [facility] Thyroid Stim Hormone (TSH)on 09-25-2024 TSH 4.750 uIU/mL High 0.300-4.20 0 [facility] Comment on above: Performed By: #### L 100.0100, L501.9520, L500.4050, L501.5200 #### [facility] [address] [place], [address] Total proteinOrdered By: Moris Wellington on 09-25-2024 Protein [Mass/Vol] 6.7 g/dL 5.9-8.4 [facility] White blood cell (WBC) count Ordered By: Alden Wellington on 09-25-2024 WBC (Bld) [#/Vol] 2.4 10*3/uL Low 4.4-11.0 [facility] Bacteria identified Aer cx N om (Unsp spec)on 07-03-2024 Bacteria identified Cx Nom (U) SEE NOTE [facility] Comment on above: CULTURE, URINE, ROUTINE Micro Number: [id number] Test Status: Final Specimen Source: Urine Specimen Quality: Adequate Result: No Growth [facility] CULTURE, URINE, ROUTINEon CULTURE, URINE, ROUTINE SEE NOTE Normal [facility] Comment on above: Result Comment: CULTURE, URINE, ROUTINE Micro Number: [id number] Test Status: Final Specimen Source: Urine Specimen Quality: Adequate Result: No Growth Performed By: #### 3 95 #### [facility] [address], [address] [place] [address] Medical Technologist Microbiology: Shade Kinney MD Measure post void residualon 07-01-2024 Interpretation and review of laboratory results Normal [facility] Measure Post Void Residual 0 [facility] POC Urinalysis Dipstick, Aut oOrdered By: Marshall Juarez on 07-01-2024 Bilirubin Ql (U) Negative Negative [facility] Glucose Ql (U) Negative Normal, Negative mg/dL [facility] Hemoglobin Ql (U) Moderate Abnormal Negative [facility] Interpretation and review of laboratory results Abnormal [facility] Ketones Ql (U) Trace Abnormal Negative mg/dL [facility] Leukocyte esterase Test strip Ql (U) Trace Abnormal Negative [facility] Nitrite Ql (U) Negative Negative [facility] pH (U) 5.5 [pH] 5.0 - 7.0 [facility] Protein Ql (U) 100 mg/dL Abnormal Negative [facility] Specific gravity (U) [Rel density] 1.025 1.005 - 1.025 [facility] Urobilinogen Qn (U) 0.2 mg/dL <2.0, 0. 2, Normal, Negative, 1.0, 2.0, <1.0 [facility] URINE AEROBIC CULTUREon 06-04 URINE AEROBIC CULTURE EXT HECTOR - CULTU RE, URINE, ROUTINE SEE NOTE CULTURE, URINE, ROUTINE Micro Number: [id number] Test Status: Final Specimen Source: Urine Specimen Quality: Adequate Result: No Growth Normal [facility] Ambulatory Pacemaker Checkon 04-03-2024 Pacemaker Check [facility] [place] [address] Pacemaker Check Date of Service: 04/03/24 160 MR#: [id number] Acct: [id number] Name: HANANE DIGGS Rep #: [id number] : 1940 From: Renata Waite Age/Sex: 84/M [place] [facility] [place]: Signed Billing Codes PM Device Codes: 73534 PM Dev Prog Eval, Dual Assessment and Plan Assessment and Plan (1) Presence of permanent cardiac pacemaker: Status: Chronic Comment: PPM Ventricular lead - Travel Assistant: [employer], Model # 2088TC-58 , Serial # [id number] PPM Atrial lead - Travel Assistant: [employer], Model # 2088TC-52 , Serial # [id number] PPM Generator - Travel Assistant: [employer], Model # [id number] , Serial # [id number] (2) Atrial flutter: Status: Acute (3) AV block, 2nd degree: Status: Acute 04/03/24 1604 Date Renata Courtney Signature: Date (if applicable) CC: Normal [facility] Cardiology Visit Reporton Cardiology Visit Report [facility] [address] [place] [address] OFFICE VISIT Date of Service: 03/04/24 MR#: [id number] Acct: [id number] Name: HANANE DIGGS Rep #: [id number] : 1940 Provider: SUSANNAH Alonzo Age/Sex: 84/M [place] [facility] [place]: Signed HPI HPI History of Present Illness Details: Hanane Diggs is an 84-year-old gentleman who presents here today for a cardiovascular follow-up. He does have a history of marked sinus bradycardia with concerns of second-degree AV block Mobitz 1 with associated dizziness, superimposed upon his history of underlying CAD, previous PCI, previous CABG, hyperlipidemia, and hypertension. In September 2020 patient was agreeable to proceed with a stress test for lightheadedness and dizziness however the day of his stress test he presented with marked sinus bradycardia, sinus arrhythmia with second-degree AV block Mobitz type I. Stress test was not proceeded with. He did undergo a 24-hour Holter monitor which demonstrated sinus rhythm/sinus bradycardia with an average heart rate of approximately 44 bpm as well as evidence of what appeared to be a second-degree AV block Mobitz 1. He did have associated dizziness during his Holter monitor. It was recommended that he undergo a pacemaker placement however patient wished to think about this for a while. He did undergo a stress echocardiogram in February 2021 which was abnormal. He then underwent a diagnostic heart catheterization in March 2021. Results are noted below. He did not require any interventions at that time. He did undergo a pacemaker placement on April 13, 2021. From a cardiac standpoint, patient is doing well. He does not have any chest discomfort/heaviness/tight ness. His exercise tolerance is stable for his age. He does not have any worsening symptoms of shortness of breath. He denies any PND. He does not have any orthopnea. He does not have any symptoms of congestive heart failure. He does not have any palpitations that he is aware of. He does not have any lightheadedness or dizziness. He does not have any near-syncope or syncope. He does not have any lower extremity edema. He does not have any symptoms of claudication. He is having issues at times with bruising. Intake Vital Signs 12/08/23 05:25 03/04/24 08:58 Height 5 ft 4 in 5 ft 4 in Weight: 140 lb BMI 24.0 BP 125/70 H Blood Pressure Location Lt brachial Position Sitting Respiration 18 Pulse 74 Pulse Source Monitor Pulse Oximetry (%) 99 Intake Visit Reasons: 1 Y FU/PREV PFM [employer] Required: No Allergies No Known Allergies Allergy (Verified 03/04/24 09:01) Medications ???Medication ???Instructions ???Recorded ???Confirmed ???Type aspirin 81 mg tablet,delayed 81 mg PO QDAY 06/21/17 03/04/24 History release (Adult Low Dose Aspirin) cholecalciferol (vitamin D3) 25 25 mcg PO DAILY 10/19/20 03/04/24 History mcg (1,000 unit) tablet saw palmetto 160 mg capsule 160 mg PO BID 03/10/21 03/04/24 History apixaban 5 mg tablet (Eliquis) 5 mg PO BID #60 tabs 06/29/23 03/04/24 Rx omega 3-fnq-jml-fish oil 300 1 cap PO DAILY 09/11/23 03/04/24 History mg-1,000 mg capsule (Fish Oil) pyridoxine (vitamin B6) 100 mg 100 mg PO BID 09/11/23 03/04/24 History tablet amlodipine 10 mg tablet 10 mg PO DAILY #90 TABLETS 10/16/23 03/04/24 Rx lisinopril 20 mg tablet See Rx Instructions .Route 10/16/23 03/04/24 Rx .COMPLEX #90 tabs isosorbide mononitrate 30 mg 30 mg PO QAM #90 tabs 02/11/24 03/04/24 Rx tablet,extended release 24 hr atorvastatin 80 mg tablet 40 mg PO QHS 03/04/24 03/04/24 History Have you fallen in the past year?: No [facility] Medical History Cellulitis of left index finger Dizziness AV block, 2nd degree Pure hypercholesterolemia Sinus bradycardia Presence of stent in coronary artery ( 10/08/09) GERD (gastroesophageal reflux disease) Dizziness and giddiness Shortness of breath Chest discomfort Diabetes mellitus type II, controlled Hyperlipidemia Stable angina Encounter for long-term current use of high risk medication Acute ID, subendocardial, subsequent episode of care Essential (primary) hypertension Atherosclerosis of coronary artery bypass graft(s) without angina pectoris Bradycardia Surgical History 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) History of left heart catheterization (LHC) ( 03/23/21) Presence of coronary angioplasty implant and graft ( 10/08/09) History of coronary artery bypass graft x 3 ( 07/29/09) Hx of CABG History of tonsillectomy Inguinal hernia H/O percutaneous transluminal coronary angioplasty Family History (Reviewed 03/04/24 @ 09:19 (more content not included)... Normal [facility] Comprehensive Metabolic Prof ilon 01-11-2024 Albumin [Mass/Vol] 4.1 g/dL Normal 3.2-5.0 [facility] Comment on above: Performed By: #### L 500.4050, L500.4100 #### [facility] [address] [place], [address] Albumin/Globulin [Mass ratio] 1.4 {ratio} Normal 0.9-2.4 [facility] Comment on above: Performed By: #### L 500.4050, L500.4100 #### [facility] [address] [place], [address] ALK P 88 U/L Normal 45-117 [facility] Comment on above: Performed By: #### L 500.4050, L500.4100 #### [facility] [address] [place], [address] ALT [Catalytic activity/Vol] 31 U/L Normal 16-61 [facility] Comment on above: Performed By: #### L 500.4050, L500.4100 #### [facility] [address] [place], [address] AST [Catalytic activity/Vol] 28 U/L Normal 15-37 [facility] Comment on above: Performed By: #### L 500.4050, L500.4100 #### [facility] [address] [place], [address] Bilirubin [Mass/Vol] 0.90 mg/dL Normal 0.20-1.00 [facility] Comment on above: Result Comment: For patients on eltrombopag therapy, use of Dimension [place] TBIL is not recommended. Performed By: #### L 500.4050, L500.4100 #### [facility] [address] [place], [address] BUN/CRE 15.3 RATIO Normal 10-20 [facility] Comment on above: Performed By: #### L 500.4050, L500.4100 #### [facility] [address] [place], [address] CA,Total 9.1 mg/dL Normal 8.5-10.1 [facility] Comment on above: Performed By: #### L 500.4050, L500.4100 #### [facility] [address] [place], [address] Chloride [Moles/Vol] 112 mmol/L High 98-107 [facility] Comment on above: Performed By: #### L 500.4050, L500.4100 #### [facility] [address] [place], [address] CO2 [Moles/Vol] 25.0 mmol/L Normal 21.0-32.0 [facility] Comment on above: Performed By: #### L [id number], L500.4100 #### [facility] [address] [place], [address] Creatinine [Mass/Vol] 1.18 mg/dL Normal 0.70-1.30 [facility] Comment on above: Result Comment: The validity of the calculated GFR GFRAA in patients over 70 years has not been determined. Clinical correlation is essential. Performed By: #### L 500.4050, L500.4100 #### [facility] [address] [place], [address] EST GFR - AA 76 mL/min Normal >60 [facility] Comment on above: Result Comment: Afri can [facility] GFR Calc Performed By: #### L 500.4050, L500.4100 #### [facility] [address] [place], [address] GAP 4 Low 5-15 [facility] Comment on above: Performed By: #### L 500.4050, L500.4100 #### [facility] [address] [place], [address] GFR/1.73 sq M.predicted among non-blacks MDRD (S/P/Bld) [Vol rate/Area] 63 mL/min/{1.73_m2} Normal >60 [facility] Comment on above: Result Comment: Non- GFR Calc Performed By: #### L 500.4050, L500.4100 #### [facility] [address] [place], [address] Globulin (S) [Mass/Vol] 3.0 g/dL Normal 2.2-4.2 [facility] Comment on above: Performed By: #### L 500.4050, L500.4100 #### [facility] [address] [place], [address] Glucose [Mass/Vol] 93 mg/dL Normal 74-106 [facility] Comment on above: Performed By: #### L 500.4050, L500.4100 #### [facility] [address] [place], [address] Potassium [Moles/Vol] 3.8 mmol/L Normal 3.5-5.1 [facility] Comment on above: Performed By: #### L 500.4050, L500.4100 #### [facility] [address] [place], [address] Sodium [Moles/Vol] 141 mmol/L Normal 136-145 [facility] Comment on above: Performed By: #### L 500.4050, L500.4100 #### [facility] [address] [place], [address] T PROT 7.1 g/dL Normal 6.4-8.2 [facility] Comment on above: Performed By: #### L 500.4050, L500.4100 #### [facility] [address] [place], [address] Urea nitrogen [Mass/Vol] 18 mg/dL Normal 7-18 [facility] Comment on above: Performed By: #### L 500.4050, L500.4100 #### [facility] [address] [place], [address] Lipid Profileon 01-11-2024 Cholesterol [Mass/Vol] 110 mg/dL Normal 200 [facility] Comment on above: Result Comment: <200 mg/dL Desirable 200-240 mg/dL Borderline >240 mg/dL High Risk Performed By: #### L 500.4050, L500.4100 #### [facility] [address] [place], [address] Cholesterol in HDL [Mass/Vol] 67 mg/dL Normal [facility] Comment on above: Result Comment: The drugs N-Acetylcysteine and Metamizole may falsely depress this assay. Reference Range HDL <40 mg/dL Low HDL Cholesterol HDL >or= 60 mg/dL High HDL Cholesterol Performed By: #### L 500.4050, L500.4100 #### [facility] [address] [place], [address] Cholesterol in LDL [Mass/Vol] 33 mg/dL Normal 0-130 [facility] Comment on above: Performed By: #### L 500.4050, L500.4100 #### [facility] [address] [place], [address] Cholesterol in VLDL [Mass/Vol] 10 mg/dL Normal 5-40 [facility] Comment on above: Performed By: #### L 500.4050, L500.4100 #### [facility] [address] [place], [address] Triglyceride [Mass/Vol] 50 mg/dL Normal [facility] Comment on above: Result Comment: The drugs N-Acetylcysteine and Metamizole may falsely depress this assay. Serum Triglycerides Reference Interval Normal <150 mg/dL Borderline high 150 - 199 mg/dL High 200 - 499 mg/dL Very High > or = 500 mg/dL Performed By: #### L 500.4050, L500.4100 #### [facility] [address] [place], [address] Emergency Department Summary on 12-08-2023 Emergency Department Summary [facility] Medical Records Department [address] [facility] [place] [address] Emergency Department Summary 12/08/23 MR#: [id number] Acct: [id number] Name: HANANE DIGGS Rep #: [id number] : 1940 83 From: Lion Vega DO PCP: Dr. Zack Ceballos MD Status:DEP ER Location: ED HPI History of Present Illness Chief Complaint: Complaint Narrative Narrative: Chief complaint and HPI: Urinary retention and dysuria. 83-year-old male [facility] for evaluation of urinary retention and dysuria. Patient states that he has known BPH in which he follows with Dr. Lara, urology. He states he had an elevated PSA and received an MRI. At that time it was inconclusive of whether he had prostate cancer. Patient did not want further workup. PSA has been downtrending. Patient states this morning he woke up with suprapubic pain. He states he could not urinate. He states he took his saw palmetto without any improvement. On arrival to the ED, patient was able to urinate. No blood. His pain has resolved. He states he does have some mild dysuria. Denies any fever, chills, nausea, vomiting, abdominal pain, back pain, rectal pain. Review of systems: See HPI Medications: As listed on the chart Allergies: As listed on the chart PFSH: Per chart Vital signs: As listed on the chart. Reviewed. Physical exam: Gen: A O x3, NAD Head: Normocephalic, atraumatic Eyes: No sclera icterus, conjunctiva clear ENT: Moist mucous membranes Neck: Trachea midline, No JVD CV: RRR, no murmurs, no peripheral edema Resp: Lungs CTA BL, no w/r/c GI: Abd soft, non-distended, non-tender, no r/r/g Musc: Full ROM, no deformity Skin: Warm, dry Neuro: Alert, oriented, grossly intact, sensation intact Psych: Cooperative, appropriate mood and affect [facility] Medical History (Updated 12/08/23 @ 07:[address] Lion Vega, DO) Cellulitis of left index finger Dizziness AV block, 2nd degree Pure hypercholesterolemia Sinus bradycardia Presence of stent in coronary artery ( 10/08/09) GERD (gastroesophageal reflux disease) Dizziness and giddiness Shortness of breath Chest discomfort Diabetes mellitus type II, controlled Hyperlipidemia Stable angina Encounter for long-term current use of high risk medication Acute ID, subendocardial, subsequent episode of care Essential (primary) hypertension Atherosclerosis of coronary artery bypass graft(s) without angina pectoris Bradycardia Home Medications ???Medication ???Instructions ???Recorded ???Last Taken ???Type aspirin 81 mg tablet,delayed 81 mg PO QDAY 06/21/17 03/23/21 History release (Adult Low Dose Aspirin) atorvastatin 80 mg tablet 80 mg PO QHS 06/21/17 Unknown History cholecalciferol (vitamin D3) 25 25 mcg PO DAILY 10/19/20 Unknown History mcg (1,000 unit) tablet saw palmetto 160 mg capsule 160 mg PO BID 03/10/21 Unknown History isosorbide mononitrate 30 mg 30 mg PO QAM #90 tabs 04/04/23 Unknown Rx tablet,extended release 24 hr apixaban 5 mg tablet (Eliquis) 5 mg PO BID #60 tabs 06/29/23 Unknown Rx omega 3-vaf-nwa-fish oil 300 1 cap PO DAILY 09/11/23 Unknown History mg-1,000 mg capsule (Fish Oil) pyridoxine (vitamin B6) 100 mg 100 mg PO BID 09/11/23 Unknown History tablet amlodipine 10 mg tablet 10 mg PO DAILY #90 TABLETS 10/16/23 Unknown Rx lisinopril 20 mg tablet See Rx Instructions .Route 10/16/23 Unknown Rx .COMPLEX #90 tabs Allergy/AdvReac Type Severity Reaction Status Date / Time No Known Allergies Allergy Verified 12/08/23 05:30 Family History Brother CAD (coronary artery disease) Brother Hypertension Mother Hypertension Father Heart disease Surgical History 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) History of left heart catheterization (LHC) ( 03/23/21) Presence of coronary angioplasty implant and graft ( 10/08/09) History of coronary artery bypass graft x 3 ( 07/29/09) Hx of CABG History of tonsillectomy Inguinal hernia H/O percutaneous transluminal coronary angioplasty Social History Smoking Status: Never smoker alcohol intake: never substance use type: does not use caffeine: Yes eating out: rarely or never what type of physical activity do you participate in: other seatbelt use: always do you feel safe at home: Yes EXAM Physical Exam Const Vital Signs: 12/08/23 05:25 12/08/23 06:58 Temperature 98.6 F 97.7 F L Temperature Source Oral Oral Pulse Rate 66 55 L Respiratory Rate 20 H 16 Blood Pressure 157/77 H 161/71 H Blood Pressure Mean 103 101 Pulse Ox 99 98 Oxygen Delivery Method Room Air Room Air (more content not included)... Normal [facility] Urinalysis, Completeon 10-05 -2024 BACTERIA RARE Normal None Seen [facility] Comment on above: Order Comment: CLEAN CATCH Performed By: #### L 400.0001 #### [facility] [address] [place], [address] EPI,SQUAMOUS 0-5 SEEN Normal 0-5 [facility] Comment on above: Order Comment: CLEAN CATCH Performed By: #### L 400.0001 #### [facility] [address] [place], [address] RBC 5-10 SEEN Normal 0-5 [facility] Comment on above: Order Comment: CLEAN CATCH Performed By: #### L 400.0001 #### [facility] [address] [place], [address] WBC 0-5 SEEN Normal 0-5 [facility] Comment on above: Order Comment: CLEAN CATCH Performed By: #### L 400.0001 #### [facility] [address] [place], [address] Mucus Ql (Urine sed) 0 SEEN Normal [facility] Comment on above: Order Comment: CLEAN CATCH Performed By: #### L 400.0001 #### [facility] [address] [place], [address] PSA Monitoron 09-19-2023 Prostate specific Ag [Mass/Vol] 8.24 ng/mL High 0.00 - 3.00 ng/mL [facility] Comment on above: Per the National [facility] prehensive Cancer Network (NCCN) Guidelines: . PSA> 3.0 ng/ml is positive regardless of age . PSA normal values are based upon a patient with a normal Digital Rectal Exam (TADEO). A TADEO suspicious for cancer at any PSA level is an indication for biopsy. . Any serum PSA level in a patient previously treated for prostate cancer should be interpreted with caution. Assay performed by [facility], Electrochemiluminescence Immunoassay. Patient results determined by assays using different instrumentation may not be comparable. Prostate specific Ag [Mass/V ol]on 09-19-2023 Interpretation and review of laboratory results Abnormal [facility] Measure post void residualon 06-25-2023 Interpretation and review of laboratory results Abnormal [facility] Measure Post Void Residual 12 [facility] Urinalysis macro (dipstick) panel (U)on 06-25-2023 Bilirubin Ql (U) Negative Negative [facility] Glucose Ql (U) Negative Normal, Negative mg/dL [facility] Hemoglobin Ql (U) Small Abnormal Negative [facility] Interpretation and review of laboratory results Abnormal [facility] Ketones Ql (U) Negative Negative mg/dL [facility] Leukocyte esterase Test strip Ql (U) Small Abnormal Negative [facility] Nitrite Ql (U) Negative Negative [facility] pH (U) 5.5 [pH] 5.0 - 7.0 [facility] Protein Ql (U) 100 mg/dL Abnormal Negative [facility] Specific gravity (U) [Rel density] 1.03 Abnormal 1.005 - 1.025 [facility] Urobilinogen Qn (U) 0.2 mg/dL <2.0, 0. 2, Normal, Negative, 1.0, 2.0, <1.0 [facility] Basophil percentageOrdered B y: Zack Ceballos on 04-13-2023 Chloride [Moles/Vol] 111 mmol/L 98-107 [facility] Cholesterol [Mass/Vol] 126 mg/dL <200 [facility] Comment on above: <200 mg/dL Desirable 200-240 mg/dL Borderline >240 mg/dL High Risk Glucose [Mass/Vol] 93 mg/dL 74-106 [facility] Potassium [Moles/Vol] 4.1 mmol/L 3.5-5.1 [facility] Sodium [Moles/Vol] 143 mmol/L 136-145 [facility] Triglyceride [Mass/Vol] 70 mg/dL <199 [facility] Comment on above: The drugs N-Acetylcy steine and Metamizole may falsely depress this assay.Serum Triglycerides Reference Interval Normal <150 mg/dL Borderline high 150 - 199 mg/dL High 200 - 499 mg/dL Very High > or = 500 mg/dL Laboratory - Chemistry and C hemistry - challengeOrdered By: Zack Ceballos on 04-13-2023 Cholesterol in HDL [Mass/Vol] 59 mg/dL >40 [facility] Comment on above: The drugs N-Acetylcy steine and Metamizole may falsely depress this assay. Reference Range HDL <40 mg/dL Low HDL Cholesterol HDL >or= 60 mg/dL High HDL Cholesterol Cholesterol in LDL [Mass/Vol] 53 mg/dL 0-130 [facility] CO2 [Moles/Vol] 26.0 mmol/L 21.0-32.0 [facility] Urea nitrogen/Creatinine [Mass ratio] 18.1 mg/mg 10-20 [facility] No Panel InformationOrdered By: Zack Ceballos on 04-13-2023 Estimated GFR (MDRD) Amer 78 mL/min >60 [facility] Comment on above: GFR Calc Estimated GFR (MDRD) Non-Af Amer 64 mL/min >60 [facility] Comment on above: Non- GFR Calc VLDL Cholesterol 14 mg/dL 5-40 [facility] Serum or plasma calcium roro urement (mass/volume)Ordered By: Zack Ceballos on 04-13-2023 Calcium [Mass/Vol] 9.5 mg/dL 8.5-10.1 [facility] Serum or plasma creatinine m easurement (mass/volume)Ordered By: Zack Ceballos on 04-13-2023 Creatinine [Mass/Vol] 1.16 mg/dL 0.70-1.30 [facility] Comment on above: The validity of the calculated GFR & GFRAA in patients over 70 years has not been determined. Clinical correlation is essential. Serum or plasma urea nitroge n measurement (mass/volume)Ordered By: Zack Ceballos on 04-13-2023 Urea nitrogen [Mass/Vol] 21 mg/dL 7-18 [facility] Thin prep Papanicolaou smear with manual screeningOrdered By: Zack Ceballos on 04-13-2023 Thin prep Papanicolaou smear with manual screening 6 5-15 [facility] Bacteria identified Aer cx N om (Unsp spec)Ordered By: Nargis Li on 12-27-2022 [facility] Urine Aerobic CultureOrdered By: Nargis Li on 12-27-2022 Bacteria identified Aer cx Nom (Unsp spec) No Growth (<1,000 CFU/mL) [facility] Measure post void residualon 12-25-2022 Interpretation and review of laboratory results Normal [facility] Measure Post Void Residual 0 [facility] POC Urinalysis Dipstick, Aut oon 12-25-2022 Bilirubin Ql (U) Negative Negative [facility] Glucose Ql (U) Negative Normal, Negative mg/dL [facility] Hemoglobin Ql (U) Trace-intact Abnormal Negative [facility] ealt Interpretation and review of laboratory results Abnormal [facility] Ketones Ql (U) Trace Abnormal Negative mg/dL [facility] Leukocyte esterase Test strip Ql (U) Large Abnormal Negative [facility] Nitrite Ql (U) Negative Negative [facility] pH (U) 5.5 [pH] 5.0 - 7.0 [facility] Protein Ql (U) 100 mg/dL Abnormal Negative [facility] Specific gravity (U) [Rel density] 1.030 Abnormal 1.005 - 1.025 [facility] Urobilinogen Qn (U) 0.2 mg/dL <2.0, 0. 2, Normal, Negative, 1.0, 2.0, <1.0 [facility] UrinalysisOrdered By: Suma Rossi on 12-25-2022 Bacteria Auto Ql (U) Rare Abnormal None Se en /hpf [facility] Bilirubin Ql (U) Negative Negative [facility] Clarity Refractometry automated (U) Clear Clear [facility] Color (U) Yellow Colorless, Yellow [facility] Glucose Auto test strip (U) [Mass/Vol] Negative Negative mg/dL [facility] Hemoglobin Auto test strip Ql (U) Negative Negative [facility] Interpretation and review of laboratory results Abnormal [facility] Ketones (U) [Mass/Vol] Negative Negat kristen mg/dL [facility] Leukocyte esterase Auto test strip Ql (U) Small Abnormal Negative [facility] Mucus Auto (Urine sed) [#/Area] Rare None Seen, Rare /lpf [facility] Nitrite Auto test strip Ql (U) Negative Negative [facility] pH (U) 6.0 [pH] 5.0 - 7.0 [facility] Protein (U) [Mass/Vol] 30 mg/dL Abnormal Negative [facility] Comment on above: False positive resul ts may occur in urines with large amounts of hemoglobin, pH greater than 8.0, contrast medium, or disinfectants including ammonium compounds. RBC Auto (Urine sed) [#/Area] 23 High [facility] Specific gravity (U) [Rel density] 1.020 1.005 - 1.025 [facility] Urobilinogen (U) [Mass/Vol] mg/dL NINF - 2.0 mg/dL [facility] WBC Auto (Urine sed) [#/Area] 11 High [facility] Microscopic examinat ion is performed on all urinalysis samples and only positive findings are reported. The test for blood on the chemical analytic portion of urinalysis may also be positive due to hemoglobinuria and myoglobinuria and if red blood cells are present they are quantified by microscopic examination. [facility] MR PROSTATE WITH AND WITHOUT CONTRASTon 12-12-2022 MR PROSTATE WITH AND WITHOUT CONTRAST EXAMINATION: MR PROSTATE WITH AND WITHOUT CONTRAST HISTORY: ORDERING SYSTEM PROVIDED HISTORY: MRI for prostate fusion biopsy - 3T magnet with dynacad, TECHNOLOGIST PROVIDED HISTORY: Illness/Other Reason for exam: MRI for prostate fusion biopsy - 3T magnet with dynacad Encounter Type: Ongoing Additional signs and symptoms: none ORDERING SYSTEM PROVIDED DIAGNOSIS CODES: R97.20 Elevated PSA COMPARISON: None TECHNIQUE: Multiplanar T2 weighted sequences, axial T1 weighted sequence, diffusion-weighted imaging with ADC map, and dynamic contrast enhanced imaging was included for evaluation of the prostate. CONTRAST: GADOTERATE MEGLUMINE 0.5 MMOL/ML (376.9 MG/ML) INTRAVENOUS SOLUTION - 14 mL, FINDINGS: Prostate measures 5.4 x 5.9 x 6.9 cm (ap x tr x cc). There are multiple circumscribed encapsulated nodules within the enlarged transition zone consistent with benign prostatic hyperplasia (PI-RADS 2). Lesion 1 Location: Left paramedian anterior transition zone of the prostate mid gland (series 5001, image 15, series 4001, image 12, series 18189, image 14). T2: Mild hypointensity, not cysts completely circumscribed, up to 7 mm (3/5) DWI: Moderate diffusion restriction (4/5) Enhancement: + PI-RADS: 3 Lesion 2 Location: Extreme prostate base at the midline (series 5001, image 3) T2: Mild hypointensity, not circumscribed, up to 1.1 cm (3/5) DWI: Moderate diffusion restriction (4/5) Enhancement: + PI-RADS: 3 Lesion 3 Location: Right transition zone of the prostate mid gland (series 5001, image 19, series 9001, image 17) T2: 1.1 cm mild hypointensity, not completely circumscribed (3/5) DWI: Moderate diffusion restriction (4/5) Enhancement: + PI-RADS: 3 Lesion 4: Location: Left posteromedial peripheral zone of the prostate mid gland (series 5001, image 16) T2: Mild hypointensity, 4 mm (4/5) DWI: Mild diffusion restriction (3/5) Enhancement: - PI-RADS: 4 No seminal vesicle mass. Normal urinary bladder. No suspicious pelvic or inguinal adenopathy. No suspicious osseous lesions. IMPRESSION: PIRADS 4 lesion in the left posteromedial peripheral zone of the prostate mid gland. Three PIRADS 3 lesions in the transition zone. Benign prostatic hyperplasia (PI-RADS 2). Workstation ID: [id number] Dictated by: GRACIA YORK on SunDec 12, 2022 12:35:00 PM EDT Transcribed by: GRACIA YORK on SunDec 12, 2022 12:35:00 PM EDT Finalized by: GRACIA YORK on SunDec 12, 2022 12:35:00 PM EDT 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 Chest x-ray performed for pacemaker identification purposes. Lungs are grossly clear. PD/sjk Workstation ID: [id number] Dictated by: LIZ GOMEZ on SunDec 12, 2022 10:05:57 AM EDT Transcribed by: BOYD ESPINOZA on SunDec 12, 2022 10:14:11 AM EDT Finalized by: LIZ GOMEZ on SunDec 12, 2022 1:00:21 PM EDT [facility] Comment on above: Order Comment: AP ch est, orbits for hx of metal in eyes Injury/Trauma or Illness?:Illness/Other How long have you had these symptoms (acute/chronic)?:Acute Reason for exam?:Cardiac pacemaker, Foreign body, eye History of cancer?: Surgeries, chemotherapy, or radiation?: Type of Exam?:Subsequent/Follow-up Additional signs and symptoms?: Bacteria identified Aer cx N om (Unsp spec)Ordered By: Nargis Li on 10-21-2022 [facility] Urine Aerobic CultureOrdered By: Nargis Li on 10-21-2022 Bacteria identified Aer cx Nom (Unsp spec) No Growth (<1,000 CFU/mL) [facility] Measure post void residualon 10-19-2022 Interpretation and review of laboratory results Abnormal [facility] Measure Post Void Residual 28 [facility] POC Urinalysis Dipstick, Aut oon 10-19-2022 Bilirubin Ql (U) Negative Negative [facility] Glucose Ql (U) Negative Normal, Negative mg/dL [facility] Hemoglobin Ql (U) Trace-intact Abnormal Negative [facility]alth Interpretation and review of laboratory results Abnormal [facility] Ketones Ql (U) Negative Negative mg/dL [facility] Leukocyte esterase Test strip Ql (U) Trace Abnormal Negative [facility] Nitrite Ql (U) Negative Negative [facility] pH (U) 6.0 [pH] 5.0 - 7.0 [facility] Protein Ql (U) 100 mg/dL Abnormal Negative [facility] Specific gravity (U) [Rel density] 1.030 Abnormal 1.005 - 1.025 [facility] Urobilinogen Qn (U) 0.2 mg/dL <2.0, 0. 2, Normal, Negative, 1.0, 2.0, <1.0 [facility] PSA Monitoron 10-19-2022 Prostate specific Ag [Mass/Vol] 10.40 ng/mL High 0.00 - 3.00 ng/mL [facility] Prostate specific Ag [Mass/V ol]on 10-19-2022 Interpretation and review of laboratory results Abnormal [facility] Basophil percentageOrdered B y: Zack Ceballos on 08-31-2022 Chloride [Moles/Vol] 111 mmol/L 98-107 [facility] Cholesterol [Mass/Vol] 116 mg/dL <200 [facility] Comment on above: <200 mg/dL Desirable 200-240 mg/dL Borderline >240 mg/dL High Risk Glucose [Mass/Vol] 91 mg/dL 74-106 [facility] Potassium [Moles/Vol] 4.2 mmol/L 3.5-5.1 [facility] Sodium [Moles/Vol] 142 mmol/L 136-145 [facility] Triglyceride [Mass/Vol] 51 mg/dL <199 [facility] Comment on above: The drugs N-Acetylcy steine and Metamizole may falsely depress this assay.Serum Triglycerides Reference Interval Normal <150 mg/dL Borderline high 150 - 199 mg/dL High 200 - 499 mg/dL Very High > or = 500 mg/dL Laboratory - Chemistry and C hemistry - challengeOrdered By: Zack Ceballos on 08-31-2022 CO2 [Moles/Vol] 26.0 mmol/L 21.0-32.0 [facility] Urea nitrogen/Creatinine [Mass ratio] 19.5 mg/mg 10-20 [facility] No Panel InformationOrdered By: Zack Ceballos on 08-31-2022 Estimated GFR (MDRD) Amer 66 mL/min >60 [facility] Comment on above: GFR Calc Estimated GFR (MDRD) Non-Af Amer 55 mL/min >60 [facility] Comment on above: Non- GFR Calc Prostate Specific Antigen Screen 10.60 ng/mL 0.00-4.00 [facility] Comment on above: This test was perfor med using the TPSA assay method for thePeechoDISKOVRe chemistry system. Values obtained with differentassay methods cannot be used interchangably.When changing PSA assays in the course of monitoring apatient, additional sequential testing should be carriedout to confirm baseline values. Serum or plasma calcium roro urement (mass/volume)Ordered By: Zack Ceballos on 08-31-2022 Calcium [Mass/Vol] 9.2 mg/dL 8.5-10.1 [facility] Serum or plasma cholesterol in HDL measurement (mass/volume)Ordered By: Zack Ceballos on 08-31-2022 Cholesterol in HDL [Mass/Vol] 59 mg/dL >40 [facility] Comment on above: The drugs N-Acetylcy steine and Metamizole may falsely depress this assay. Reference Range HDL <40 mg/dL Low HDL Cholesterol HDL >or= 60 mg/dL High HDL Cholesterol Serum or plasma cholesterol in VLDL measurement (mass/volume)Ordered By: Zack Ceballos on 08-31-2022 Cholesterol in VLDL [Mass/Vol] 10 mg/dL 5-40 [facility] Serum or plasma creatinine m easurement (mass/volume)Ordered By: Zack Ceballos on 08-31-2022 Creatinine [Mass/Vol] 1.33 mg/dL 0.70-1.30 [facility] Comment on above: The validity of the calculated GFR & GFRAA in patients over 70 years has not been determined. Clinical correlation is essential. Serum or plasma low density lipoprotein (LDL) cholesterol measurement (mass/volume)Ordered By: Zack Ceballos on 08-31-2022 Cholesterol in LDL [Mass/Vol] 47 mg/dL 0-130 [facility] Serum or plasma urea nitroge n measurement (mass/volume)Ordered By: Zack Ceballos on 08-31-2022 Urea nitrogen [Mass/Vol] 26 mg/dL 7-18 [facility] Thin prep Papanicolaou smear with manual screeningOrdered By: Zack Ceballos on 08-31-2022 Thin prep Papanicolaou smear with manual screening 5 5-15 [facility] ABDOMEN ACUTE SERIESon 11-01 ABDOMEN ACUTE SERIES EXAM: Acute abdomen series: HISTORY: Pain. COMPARISON STUDY: 10/27/2020 FINDINGS: The upright frontal view of the chest shows clear and well-inflated lungs. The heart and mediastinum are stable in appearance, with stable median sternotomy wires. Flat and upright views of the abdomen and pelvis show persistent gas-filled distended loops of small bowel in the upper abdomen. There is a small amount of gas scattered in the colon. The NG tube loops up into the fundus of the stomach. There is a mild amount of stool in the colon. No abnormal calcifications are seen. Osseous structures are normal. IMPRESSION: Grossly stable appearance of small bowel ileus versus partial obstruction. The NG tube loops up into the fundus of the stomach. Normal [facility] Basic metabolic 2000 panelon 11-01-2020 Anion gap [Moles/Vol] 4.0 mmol/L Normal <=15.0 [facility] Comment on above: Performed By: #### H IVRAP #### [facility] [address] [place] [address] Medical Technologist Microbiology - Desiree GARCIAIA [id number] Calcium [Mass/Vol] 8.0 mg/dL Low 8.5-10.1 [facility] Comment on above: Performed By: #### H IVRAP #### [facility] [address] [place] [address] Medical Technologist Microbiology - Desiree Malik CLIA [id number] Chloride [Moles/Vol] 115 mmol/L High 98-107 [facility] Comment on above: Performed By: #### H IVRAP #### [facility] [address] [place] [address] Medical Technologist Microbiology - Desiree GARCIAIA [id number] CO2 [Moles/Vol] 24 mmol/L Normal 21-32 [facility] Comment on above: Performed By: #### H IVRAP #### [facility] [address] [place] [address] Medical Technologist Microbiology - Desiree GARCIAIA [id number] Creatinine [Mass/Vol] 0.86 mg/dL Normal 0.67-1.17 [facility] Comment on above: Performed By: #### H IVRAP #### [facility] [address] [place] [address] Medical Technologist Microbiology - Desiree GARCIAIA [id number] GFR/1.73 sq M.predicted MDRD (S/P/Bld) [Vol rate/Area] mL/min/{1.73_m2} Normal >=59 [facility] Comment on above: Performed By: #### H IVRAP #### [facility] [address] [place] [address] Medical Technologist Microbiology - Desiree Malik CLIA [id number] Glucose [Mass/Vol] 132 mg/dL High 74-106 [facility] Comment on above: Performed By: #### H IVRAP #### [facility] [address] [place] [address] Medical Technologist Microbiology - Desiree Malik CLIA [id number] HGFR GLOMERULAR FILTRATIO N RATE INTERPRETATION~The eGFR is calculated using the MDRD equation.~This equation has been validated in patients with chronic kidney disease;~however, it underestimates the GFR in healthy patients with GFR's over 60 mL/min.~The equation is not valid in children under the age of 18.~NOTE: Criteria for Chronic Kidney Disease:~ ~1. Kidney damage for at least three months, as defined~by structural or functional abnormalities of the kidney,~with or without decreased glomerular filtration rate, manifested by either:~* Pathological abnormalities or~* Markers of Kidney damage, including abnormalities in~the composition of the blood or urine or abnormalities in imaging tests.~ ~2. GFR <60 mL/min/1.73 m squared for at least three months, with or without kidney damage.~ Normal [facility] Comment on above: Performed By: #### H IVRAP #### [facility] [address] [facility]. [place] [address] Medical Technologist Microbiology - DesireeBryce HospitalMalikfroilan MARCUM [id number] Potassium [Moles/Vol] 3.9 mmol/L Normal 3.5-5.1 [facility] Comment on above: Performed By: #### H IVRAP #### [place] [address] [place] [address] Medical Technologist Microbiology [facility] [id number] Sodium [Moles/Vol] 143 mmol/L Normal 136-145 [facility] Comment on above: Performed By: #### H IVRAP #### [facility] [address] [facility] [place] [address] Medical Technologist Microbiology - [facility] [id number] Urea nitrogen [Mass/Vol] 25 mg/dL High 9-20 [facility] Comment on above: Performed By: #### H IVRAP #### [facility] [address] [facility] [place] [address] Medical Technologist Microbiology - [facility] [id number] CBC W Reflex Manual Differen tial panel (Bld)on 11-01-2020 ACANTHROCYTES Normal NONE SEEN [facility] Comment on above: Performed By: #### H IVRAP #### [facility] [address] [facility] [place] [address] Medical Technologist Microbiology - Desiree GARCIAIA [id number] ANISOCYTES Normal NONE SEEN [facility] Comment on above: Performed By: #### H IVRAP #### [facility] [address] [place] [address] Medical Technologist Microbiology - Desiree GARCIAIA [id number] ATYPICAL LYMPHOCYTES Normal NONE SEEN [facility] Comment on above: Performed By: #### H IVRAP #### [facility] [address] [place] [address] Medical Technologist Microbiology - Desiree AGRCIAIA [id number] ZANA RODS Normal NONE SEEN [facility] Comment on above: Performed By: #### H IVRAP #### [facility] [address] [place] [address] Medical Technologist Microbiology - Desiree GARCIAIA [id number] Band form neutrophils/100 WBC (Bld) 0 % Normal <=10 [facility] Comment on above: Performed By: #### H IVRAP #### [facility] [address] [place] [address] Medical Technologist Microbiology - Desiree GARCIAIA [id number] BASO STIPPLING Normal NONE SEEN [facility] Comment on above: Performed By: #### H IVRAP #### [facility] [address] [place] [address] Medical Technologist Microbiology - Desiree GARCIAIA [id number] Basophils (Bld) [#/Vol] 0.0 10*3/uL Normal 0.0-0.7 [facility] Comment on above: Performed By: #### H IVRAP #### [facility] [address] [place] [address] Medical Technologist Microbiology - Desiree Malik CLIA [id number] Basophils/100 WBC (Bld) 0 % Normal 0-2 [facility] Comment on above: Performed By: #### H IVRAP #### [facility] [address] [place] [address] Medical Technologist Microbiology - Desiree Malik CLIA [id number] Blasts/100 WBC (Bld) Normal <=1 [facility] Comment on above: Performed By: #### H IVRAP #### [facility] [address] [place] [address] Medical Technologist Microbiology - Desiree MARCUM [id number] THOM CELLS Normal NONE SEEN [facility] Comment on above: Performed By: #### H IVRAP #### [facility] [address] [place] [address] Medical Technologist Microbiology - Desiree MARCUM [id number] CABOT RINGS Normal NONE SEEN [facility] Comment on above: Performed By: #### H IVRAP #### [facility] [address] [place] [address] Rd. [place] [address] Medical Technologist Microbiology - Desiree MARCUM [id number] DOHLE BODIES Normal NONE SEEN [facility] Comment on above: Performed By: #### H IVRAP #### [address] [place] [address] Medical Technologist Microbiology - Desiree MARCUM [id number] Eosinophils (Bld) [#/Vol] 0.0 10*3/uL Normal 0.0-0.7 [facility] Comment on above: Performed By: #### H IVRAP #### [facility] [address] [place] [address] Medical Technologist Microbiology - Desiree MARCUM [id number] Eosinophils/100 WBC (Bld) 0 % Normal 0-10 [facility] Comment on above: Performed By: #### H IVRAP #### [place] [address] [place] [address] Medical Technologist Microbiology - Desiree MARCUM [id number] Erythrocyte distribution width (RBC) [Entitic vol] 43.7 fL Normal 35.1-43.9 [facility] Comment on above: Performed By: #### H IVRAP #### [facility] [address] [place], [place] [address] [place] [address] Medical Technologist Microbiology - Desiree MARCUM [id number] GIANT PLATELETS Normal NONE SEEN [facility] Comment on above: Performed By: #### H IVRAP #### [facility] [address] [place] [address] Medical Technologist Microbiology - Desiree MARCUM [id number] HDIFF MANUAL DIFFERENTIAL Normal [facility] Comment on above: Performed By: #### H IVRAP #### [facility] [address] [place] [address] Medical Technologist Microbiology - Desiree MARCUM [id number] CLAUDIO BODIES Normal NONE SEEN [facility] Comment on above: Performed By: #### H IVRAP #### [facility] [address] [place] [address] Medical Technologist Microbiology - Desiree MARCUM [id number] Hematocrit (Bld) [Volume fraction] 38.6 % Low 40.0-54.0 [facility] Comment on above: Performed By: #### H IVRAP #### [facility] [address] [place] [address] Medical Technologist Microbiology - Desiree MARCUM [id number] Hemoglobin (Bld) [Mass/Vol] 13.5 g/dL Low 14.0-18.0 [facility] Comment on above: Performed By: #### H IVRAP #### [facility] [address] [place] [address] Medical Technologist Microbiology - Desiree MARCUM [id number] CHOPRA JOLLY BODIES Normal NONE SEEN [facility] Comment on above: Performed By: #### H IVRAP #### [facility] [address] [place] [address] Medical Technologist Microbiology - Desiree MARCUM [id number] HSCAN RBC MORPHOLOGY SCAN Normal [facility] Comment on above: Performed By: #### H IVRAP #### [facility] [address] [place] [address] Medical Technologist Microbiology - Desiree MARCUM [id number] HYPERSEGMENTED NEUT Normal NONE SEEN [facility] Comment on above: Performed By: #### H IVRAP #### [facility] [address] [place] [address] Medical Technologist Microbiology - Desiree GARCIAIA [id number] HYPOCHROMASIA Normal NONE SEEN [facility] Comment on above: Performed By: #### H IVRAP #### [place] [address] [place] [address] Medical Technologist Microbiology - Desiree GARCIAIA [id number] Immature granulocytes (Bld) [#/Vol] 0.00 10*3/uL Normal <=0.10 [facility] Comment on above: Performed By: #### H IVRAP #### [address] [place] [address] Medical Technologist Microbiology - Desiree GARCIAIA [id number] Lymphocytes (Bld) [#/Vol] 0.5 10*3/uL Low 1.2-3.4 [facility] Comment on above: Performed By: #### H IVRAP #### [address] [place] [address] Medical Technologist Microbiology - Desiree GARCIAIA [id number] Lymphocytes/100 WBC (Bld) 9 % Low 20-40 [facility] Comment on above: Performed By: #### H IVRAP #### [address] [place] [address] Medical Technologist Microbiology - Desiree GARCIAIA [id number] MACROCYTES Normal NONE SEEN [facility] Comment on above: Performed By: #### H IVRAP #### [address] [place] [address] Medical Technologist Microbiology - Desiree GARCIAIA [id number] MCH (RBC) [Entitic mass] 31.2 pg High 27.0-31.0 [facility] Comment on above: Performed By: #### H IVRAP #### [address] [place] [address] Medical Technologist Microbiology - Desiree GARCIAIA [id number] MCHC (RBC) [Mass/Vol] 35.0 g/dL Normal 32.0-36.0 [facility] Comment on above: Performed By: #### H IVRAP #### [address] [place] [address] Medical Technologist Microbiology - Desiree GARCIAIA [id number] MCV (RBC) [Entitic vol] 89.1 fL Normal 80.0-100.0 [facility] Comment on above: Performed By: #### H IVRAP #### [facility] [address] [place] [address] Medical Technologist Microbiology - Desiree Malik CLIA [id number] Metamyelocytes/100 WBC (Bld) 0 % Normal 0-1 [facility] Comment on above: Performed By: #### H IVRAP #### [address] [place] [address] Medical Technologist Microbiology - Desiree AGRCIAIA [id number] MICROCYTES Normal NONE SEEN [facility] Comment on above: Performed By: #### H IVRAP #### [address] [place] [address] Medical Technologist Microbiology - Desiree Malik CLIA [id number] Monocytes (Bld) [#/Vol] 0.4 10*3/uL Normal 0.1-0.6 [facility] Comment on above: Performed By: #### H IVRAP #### [place] [address] [place] [address] Medical Technologist Microbiology - Desiree Malik CLIA [id number] Monocytes/100 WBC (Bld) 8 % Normal 0-8 [facility] Comment on above: Performed By: #### H IVRAP #### [place] [address] [place] [address] Medical Technologist Microbiology - Desiree Malik CLIA [id number] Myelocytes/100 WBC (Bld) 0 % Normal [facility] Comment on above: Performed By: #### H IVRAP #### [place] [address] [place] [address] Medical Technologist Microbiology - Desiree Malik CLIA [id number] Neutrophils (Bld) [#/Vol] 4.2 10*3/uL Normal 1.4-6.5 [facility] Comment on above: Performed By: #### H IVRAP #### [facility] [address] [place] [address] Medical Technologist Microbiology - Desiree MARCUM [id number] Nucleated RBC/100 WBC (Bld) [Ratio] Normal 0-5 [facility] Comment on above: Performed By: #### H IVRAP #### [facility] [address] [place] [address] Medical Technologist Microbiology - Desiree GARCIAIA [id number] OVALOCYTES Normal NONE SEEN [facility] Comment on above: Performed By: #### H IVRAP #### [facility] [address] [place] [address] Medical Technologist Microbiology - Desiree GARCIAIA [id number] PAPPENHEIMER BODIES Normal NONE SEEN [facility] Comment on above: Performed By: #### H IVRAP #### [facility] [address] [place] [address] Medical Technologist Microbiology - Desiree MARCUM [id number] PLASMA CELLS Normal NONE SEEN [facility] Comment on above: Performed By: #### H IVRAP #### [facility] [address] [place] [address] Medical Technologist Microbiology - Desiree MARCUM [id number] PLATELET CLUMPS Normal NONE SEEN [facility] Comment on above: Performed By: #### H IVRAP #### [facility] [address] [place] [address] Medical Technologist Microbiology - Desiree GARCIAIA [id number] Platelet mean volume (Bld) [Entitic vol] 10.5 fL Normal 9.0-13.0 [facility] Comment on above: Performed By: #### H IVRAP #### [facility] [address] [place] [address] Medical Technologist Microbiology - Desiree MARCUM [id number] PLATELET SATELLISM Normal NONE SEEN [facility] Comment on above: Performed By: #### H IVRAP #### [facility] [address] [place] [address] Medical Technologist Microbiology - Desiree MARCUM [id number] Platelets (Bld) [#/Vol] 184 10*3/uL Normal 130-400 [facility] Comment on above: Performed By: #### H IVRAP #### [facility] [address] [place] [address] Medical Technologist Microbiology - Desiree GARCIAIA [id number] POLYCHROMASIA Normal NONE SEEN [facility] Comment on above: Performed By: #### H IVRAP #### [facility] [address] [place] [address] Medical Technologist Microbiology - Desiree GARCIAIA [id number] Promyelocytes/100 WBC (Bld) 0 % Normal [facility] Comment on above: Performed By: #### H IVRAP #### [facility] [address] [place] [address] Medical Technologist Microbiology - Desiree GARCIAIA [id number] RBC (Bld) [#/Vol] 4.33 10*6/uL Normal 4.00-6.30 [facility] Comment on above: Performed By: #### H IVRAP #### [facility] [address] [place] [address] Medical Technologist Microbiology - Desiree GARCIAIA [id number] ROULEAUX Normal NONE SEEN [facility] Comment on above: Performed By: #### H IVRAP #### [facility] [address] [place] [address] Medical Technologist Microbiology - Desiree GARCIAIA [id number] SCHISTOCYTES Normal NONE SEEN [facility] Comment on above: Performed By: #### H IVRAP #### [facility] [address] [place] [address] Medical Technologist Microbiology - Desiree GARCIAIA [id number] Segmented neutrophils/100 WBC (Bld) 83 % High 50-70 [facility] Comment on above: Performed By: #### H IVRAP #### [facility] [address] [place] [address] Medical Technologist Microbiology - Desiree GARCIAIA [id number] SICKLE CELLS Normal NONE SEEN [facility] Comment on above: Performed By: #### H IVRAP #### [facility] [address] [place] [address] Medical Technologist Microbiology - Desiree MARCUM [id number] SMUDGE CELLS Normal NONE SEEN [facility] Comment on above: Performed By: #### H IVRAP #### [facility] [address] [place] [address] Medical Technologist Microbiology - Desiree MARCUM [id number] SPHEROCYTES Normal NONE SEEN [facility] Comment on above: Performed By: #### H IVRAP #### [facility] [address] [place] [address] Medical Technologist Microbiology - Desiree MARCUM [id number] STOMATOCYTES Normal NONE SEEN [facility] Comment on above: Performed By: #### H IVRAP #### [facility] [address] [place] [address] Medical Technologist Microbiology - Desiree MARCUM [id number] TARGET CELLS Normal NONE SEEN [facility] Comment on above: Performed By: #### H IVRAP #### [facility] [address] [place] [address] Medical Technologist Microbiology - Desiree MARCUM [id number] TEAR DROP CELLS Normal NONE SEEN [facility] Comment on above: Performed By: #### H IVRAP #### [facility] [address] [place] [address] Medical Technologist Microbiology - Desiree MARCUM [id number] TOXIC GRANULATION Normal NONE SEEN [facility] Comment on above: Performed By: #### H IVRAP #### [facility] [address] [place] [address] Medical Technologist Microbiology - Desiree MARCUM [id number] VACUOLES Normal NONE SEEN [facility] Comment on above: Performed By: #### H IVRAP #### [facility] [address] [place] [address] Medical Technologist Microbiology - Desiree MARCUM [id number] WBC (Bld) [#/Vol] 5.10 10*3/uL Normal 4.80-10.80 [facility] Comment on above: Performed By: #### H IVRAP #### [facility] [address] [place] [address] Medical Technologist Microbiology - Desiree MARCUM [id number] CULTURE BLOODon 11-01-2020 Bacteria identified Cx Nom (Bld) NO GROWTH OBSERVED AFTER 5 DAYS Normal [facility] Comment on above: Performed By: #### 2 4321-2 #### [facility] [address] [place] [address] Medical Technologist Microbiology - Desiree MARCUM [id number] Fibrin D-dimer Qn (PPP)on Fibrin D-dimer DDU (PPP) [Mass/Vol] 2.20 mg/L Critically high 0.19-0.50 [facility] Comment on above: Performed By: #### H IVRAP #### [place] [address] [place] [address] Medical Technologist Microbiology - Desiree MARCUM [id number] HDIMER DIMER UNIT CONVERSIO N Effective October 31, 2013 [facility] has changed their unit of measure for D-Dimer testing from ng/mL to mg/L. To convert to ng/mL multiply result by 1000. Normal [facility] Comment on above: Performed By: #### H IVRAP #### [facility] [address] [place] [address] Medical Technologist Microbiology - Desiree MARCUM [id number] GLUCOSE BY METERon 1 Glucose [Mass/Vol] 117 mg/dL High 70-110 [facility] Comment on above: Performed By: #### G LUM #### [facility] [address] [place] [address] Medical Technologist Microbiology - Desiree MARCUM [id number] Hepatic function 2000 panelo n 11-01-2020 Albumin [Mass/Vol] 2.5 g/dL Low 3.4-5.0 [facility] Comment on above: Performed By: #### H IVRAP #### [facility] [address] [place] [address] Medical Technologist Microbiology - Desiree MARCUM [id number] Albumin/Globulin [Mass ratio] 0.8 {ratio} Low 1.0-2.2 [facility] Comment on above: Performed By: #### H IVRAP #### [facility] [address] [place] [address] Medical Technologist Microbiology - Desiree GARCIAIA [id number] ALP [Catalytic activity/Vol] 56 U/L Normal 50-136 [facility] Comment on above: Performed By: #### H IVRAP #### [place] [address] [place] [address] Medical Technologist Microbiology - Desiree Malik CLIA [id number] ALT [Catalytic activity/Vol] 62 U/L Normal 16-63 [facility] Comment on above: Performed By: #### H IVRAP #### [address] [place] [address] Medical Technologist Microbiology - Desiree Malik CLIA [id number] AST [Catalytic activity/Vol] 70 U/L High 15-37 [facility] Comment on above: Performed By: #### H IVRAP #### [place] [address] [place] [address] Medical Technologist Microbiology - Desiree Malik CLIA [id number] Bilirubin [Mass/Vol] 0.7 mg/dL Normal 0.2-1.0 [facility] Comment on above: Performed By: #### H IVRAP #### [place] [address] [place] [address] Medical Technologist Microbiology - Desiree Malik CLIA [id number] Bilirubin.conjugated [Mass/Vol] 0.3 mg/dL High <=0.2 [facility] Comment on above: Performed By: #### H IVRAP #### [address] [place] [address] Medical Technologist Microbiology - Desiree Malik CLIA [id number] Globulin (S) [Mass/Vol] 3.0 g/dL Normal 2.4-3.8 [facility] Comment on above: Performed By: #### H IVRAP #### [address] [place] [address] Medical Technologist Microbiology - Desiree MARCUM [id number] Protein [Mass/Vol] 5.5 g/dL Low 6.4-8.2 [facility] Comment on above: Performed By: #### H IVRAP #### [facility] [address] [place] [address] Medical Technologist Microbiology - Desiree MARCUM [id number] MAGNESIUMon 11-01-2020 Magnesium [Mass/Vol] 2.2 mg/dL Normal 1.6-2.6 [facility] Comment on above: Performed By: #### H IVRAP #### [place] [address] [place] [address] Medical Technologist Microbiology - Desiree MARCUM [id number] OSMOLALITY BLOODon Osmolality [Osmolality] 283 mOs/Kg Normal 280-300 [facility] Comment on above: Performed By: #### H IVRAP #### [place] [address] [place] [address] Medical Technologist Microbiology - Desiree MARCUM [id number] PHOSPHORUSon 11-01-2020 Phosphate [Mass/Vol] 3.0 mg/dL Normal 2.5-4.9 [facility] Comment on above: Performed By: #### H IVRAP #### [place] [address] [place] [address] Medical Technologist Microbiology - Desiree MARCUM [id number] PREALBUMINon 11-01-2020 Prealbumin [Mass/Vol] 11.1 mg/dL Low 20.0-40.0 [facility] Comment on above: Performed By: #### H IVRAP #### [facility] [address] [place] [address] Medical Technologist Microbiology - Desiree MARCUM [id number] PT Coag (PPP) [Time]on 11-01 HPTINR INR REFERENCE RANGE INTERPRETATION Patients on Coumadin 2.0 - 3.0 Patients with mechanical heart valves 2.5 - 3.5 Normal [facility] Comment on above: Performed By: #### 1 4979-9, 5902-2, 7799-0 #### [facility] [address] [place] [address] Medical Technologist Microbiology - Desiree MARCUM [id number] INR Coag (PPP) [Relative time] 1.2 {INR} High 0.8-1.1 [facility] Comment on above: Performed By: #### 1 4979-9, 5902-2, 7799-0 #### [facility] [address] [place] [address] Medical Technologist Microbiology - Desiree MARCUM [id number] PT with INRon 11-01-2020 PT Coag (PPP) [Time] 12.4 s High 9.3-11.5 [facility] Comment on above: Performed By: #### 1 4979-9, 5901-2, 7799-0 #### [facility] [address] [place] [address] Medical Technologist Microbiology - Desiree MARCUM [id number] PTTon 11-01-2020 aPTT Coag (PPP) [Time] 27.6 s Normal 23.5-31.3 [facility] Comment on above: Performed By: #### H IVRAP #### [facility] [address] [place] [address] Medical Technologist Microbiology - Desiree MARCUM [id number] TRIGLYCERIDESon 11-01-2020 Triglyceride [Mass/Vol] 81 mg/dL Normal <=150 [facility] Comment on above: Performed By: #### H IVRAP #### [facility] [address] [place] [address] Medical Technologist Microbiology - Desiree MARCUM [id number] Triglyceride [Mass/Vol]on HTRIG TRIGLYCERIDES INTERPRETATION Normal <150 Borderline High 150-199 High 200-499 Very High >500 Normal [facility] Comment on above: Performed By: #### H IVRAP #### [facility] [address] [place] [address] Medical Technologist Microbiology - Desiree MARCUM [id number] ABDOMEN KUB PORTABLEon 10-31 ABDOMEN KUB PORTABLE EXAM: ABDOMEN KUB P ORTABLE 10/31/2020. COMPARISON STUDY: Supine abdomen from the same day performed earlier at 12:09 AM. HISTORY: UNSPECIFIED ABDOMINAL PAIN FINDINGS: Small volume of radiopaque oral contrast material is noted within the colon from the cecum to the sigmoid segment with distal migration to the rectum since prior study. Gas-filled mildly dilated small bowel segments about the abdomen persist. Vertically oriented skin closure staple row is noted. Prior median sternotomy is identified. There are numerous pelvic phleboliths again identified. The osseous structures are grossly stable. IMPRESSION: 1. There is persistent mild dilatation of small bowel segments presumably from postoperative ileus. 2. Retained contrast material within the colon to the rectum now identified. Normal [facility] ABDOMEN KUB PORTABLE EXAM: ABDOMEN KUB P ORTABLE HISTORY: The patient is a 80-year-old male. Check NG tube placement. COMPARISON: 10/28/2020. FINDINGS: I do not identify a nasogastric tube on this single view of the abdomen. Contrast material are seen within the colon. There are several air-filled loops of small bowel within the left hemiabdomen. IMPRESSION: No nasogastric tube is seen. Normal [facility] Basic metabolic 2000 panelon 10-31-2020 Anion gap [Moles/Vol] 4.0 mmol/L Normal <=15.0 [facility] Comment on above: Performed By: #### 2 4321-2, , 2776-03 #### [facility] [address] [place] [address] Medical Technologist Microbiology - Desiree MARCUM [id number] Calcium [Mass/Vol] 8.1 mg/dL Low 8.5-10.1 [facility] Comment on above: Performed By: #### 2 4321-2, , 2776-03 #### [facility] [address] [place], [place] [address] Medical Technologist Microbiology - Desiree MARCUM [id number] Chloride [Moles/Vol] 117 mmol/L High 98-107 [facility] Comment on above: Performed By: #### 2 4321-2, , 2776-03 #### [facility] [address] [place] [address] Medical Technologist Microbiology - Desiree MARCUM [id number] CO2 [Moles/Vol] 24 mmol/L Normal 21-32 [facility] Comment on above: Performed By: #### 2 4321-2, , 2776-03 #### [facility] [address] [place] [address] Medical Technologist Microbiology - Desiree MARCUM [id number] Creatinine [Mass/Vol] 0.88 mg/dL Normal 0.67-1.17 [facility] Comment on above: Performed By: #### 2 4321-2, , 2776-03 #### [facility] [address] [place] [address] Medical Technologist Microbiology - Desiree MARCUM [id number] GFR/1.73 sq M.predicted MDRD (S/P/Bld) [Vol rate/Area] mL/min/{1.73_m2} Normal >=59 [facility] Comment on above: Performed By: #### 2 4321-2, , 2776-03 #### [facility] [address] [place] [address] Medical Technologist Microbiology - Desiree MARCUM [id number] Glucose [Mass/Vol] 136 mg/dL High 74-106 [facility] Comment on above: Performed By: #### 2 4321-2, , 2776-03 #### [facility] [address] [place] [address] Medical Technologist Microbiology - Desiree MARCUM [id number] HGFR GLOMERULAR FILTRATIO N RATE INTERPRETATION~The eGFR is calculated using the MDRD equation.~This equation has been validated in patients with chronic kidney disease;~however, it underestimates the GFR in healthy patients with GFR's over 60 mL/min.~The equation is not valid in children under the age of 18.~NOTE: Criteria for Chronic Kidney Disease:~ ~1. Kidney damage for at least three months, as defined~by structural or functional abnormalities of the kidney,~with or without decreased glomerular filtration rate, manifested by either:~* Pathological abnormalities or~* Markers of Kidney damage, including abnormalities in~the composition of the blood or urine or abnormalities in imaging tests.~ ~2. GFR <60 mL/min/1.73 m squared for at least three months, with or without kidney damage.~ Normal [facility] Comment on above: Performed By: #### 2 1-2, , 2776-03 #### [facility] [address] [place] [address] Medical Technologist Microbiology - Desiree GARCIAIA [id number] Potassium [Moles/Vol] 3.6 mmol/L Normal 3.5-5.1 [facility] Comment on above: Performed By: #### 2 1-2, , 2776-03 #### [facility] [address] [place] [address] Medical Technologist Microbiology - Desiree GARCIAIA [id number] Sodium [Moles/Vol] 145 mmol/L Normal 136-145 [facility] Comment on above: Performed By: #### 2 1-2, , 2776-03 #### [facility] [address] [place] [address] Medical Technologist Microbiology - Desiree MARCUM [id number] Urea nitrogen [Mass/Vol] 29 mg/dL High 9-20 [facility] Comment on above: Performed By: #### 2 4320-2, , 2776-03 #### [facility] [address] [place] [address] Medical Technologist Microbiology - Desiree GARCIAIA [id number] C REACTIVE PROTEINon 021 CRP [Mass/Vol] 59 mg/L High <=10 [facility] Comment on above: Performed By: #### 2 1-2, , 2776-03 #### [facility] [address] [place] [address] Medical Technologist Microbiology - Desiree MARCUM [id number] CBC W Reflex Manual Differen tial panel (Bld)on 10-31-2020 ACANTHROCYTES Normal NONE SEEN [facility] Comment on above: Performed By: #### 2 4321-2, , 2776-03 #### [facility] [address] [place] [address] Medical Technologist Microbiology - Desiree MARCUM [id number] ANISOCYTES Normal NONE SEEN [facility] Comment on above: Performed By: #### 2 4321-2, , 2776-03 #### [facility] [address] [place] [address] Medical Technologist Microbiology - Desiree MARCUM [id number] ATYPICAL LYMPHOCYTES Normal NONE SEEN [facility] Comment on above: Performed By: #### 2 4321-2, , 2776-03 #### [facility] [address] [place] [address] Medical Technologist Microbiology - Desiree MARCUM [id number] ZANA RODS Normal NONE SEEN [facility] Comment on above: Performed By: #### 2 4321-2, , 2776-03 #### [facility] [address] [place] [address] Medical Technologist Microbiology - Desiree MARCUM [id number] Band form neutrophils/100 WBC (Bld) 1 % Normal <=10 [facility] Comment on above: Performed By: #### 2 4321-2, , 2776-03 #### [facility] [address] [place] [address] Medical Technologist Microbiology - Desiree MARCUM [id number] BASO STIPPLING Normal NONE SEEN [facility] Comment on above: Performed By: #### 2 4321-2, , 2776-03 #### [facility] [address] [place] [address] Medical Technologist Microbiology - Desiree MARCUM [id number] Basophils (Bld) [#/Vol] 0.0 10*3/uL Normal 0.0-0.7 [facility] Comment on above: Performed By: #### 2 4321-2, , 2777-1 #### [facility] [address] [place] [address] Medical Technologist Microbiology - Desiree GARCIAIA [id number] Basophils/100 WBC (Bld) 0 % Normal 0-2 [facility] Comment on above: Performed By: #### 2 4321-2, , 2776-03 #### [facility] [address] [place] [address] Medical Technologist Microbiology - Desiree GARCIAIA [id number] Blasts/100 WBC (Bld) Normal <=1 [facility] Comment on above: Performed By: #### 2 4320-2, , 2776-03 #### [facility] [address] [place] [address] Medical Technologist Microbiology - Desiree GARCIAIA [id number] THOM CELLS Normal NONE SEEN [facility] Comment on above: Performed By: #### 2 1-2, , 2776-03 #### [facility] [address] [place] [address] Medical Technologist Microbiology - Desiree GARCIAIA [id number] CABOT RINGS Normal NONE SEEN [facility] Comment on above: Performed By: #### 2 4320-2, , 2776-03 #### [facility] [address] [place] [address] Medical Technologist Microbiology - Desiree GARCIAIA [id number] DOHLE BODIES Normal NONE SEEN [facility] Comment on above: Performed By: #### 2 432-2, , 2776-03 #### [facility] [address] [place] [address] Medical Technologist Microbiology - Desiree MARCUM [id number] Eosinophils (Bld) [#/Vol] 0.0 10*3/uL Normal 0.0-0.7 [facility] Comment on above: Performed By: #### 2 4320-2, , 2776-03 #### [facility] [address] [place] [address] Medical Technologist Microbiology - Desiree MARCUM [id number] Eosinophils/100 WBC (Bld) 0 % Normal 0-10 [facility] Comment on above: Performed By: #### 2 1-2, , 2776-03 #### [facility] [address] [place] [address] Medical Technologist Microbiology - Desiree MARCUM [id number] Erythrocyte distribution width (RBC) [Entitic vol] 44.7 fL High 35.1-43.9 [facility] Comment on above: Performed By: #### 2 4320-2, , 2776-03 #### [facility] [address] [place] [address] Medical Technologist Microbiology - Desiree MARCUM [id number] GIANT PLATELETS Normal NONE SEEN [facility] Comment on above: Performed By: #### 2 4320-2, , 2776-03 #### [facility] [address] [place] [address] Medical Technologist Microbiology - Desiree MARCUM [id number] HDIFF MANUAL DIFFERENTIAL Normal [facility] Comment on above: Performed By: #### 2 4320-2, , 2776-03 #### [facility] [address] [place] [address] Medical Technologist Microbiology - Desiree MARCUM [id number] CLAUDIO BODIES Normal NONE SEEN [facility] Comment on above: Performed By: #### 2 1-2, , 2776-03 #### [facility] [address] [place] [address] Medical Technologist Microbiology - Desiree MARCUM [id number] Hematocrit (Bld) [Volume fraction] 40.7 % Normal 40.0-54.0 [facility] Comment on above: Performed By: #### 2 4320-2, , 2776-03 #### [facility] [address] [place] [address] Medical Technologist Microbiology - Desiree MARCUM [id number] Hemoglobin (Bld) [Mass/Vol] 14.3 g/dL Normal 14.0-18.0 [facility] Comment on above: Performed By: #### 2 4321-2, , 2776-03 #### [facility] [address] [place] [address] Medical Technologist Microbiology - Desiree MARCUM [id number] CHOPRA JOLLY BODIES Normal NONE SEEN [facility] Comment on above: Performed By: #### 2 4321-2, , 2776-03 #### [facility] [facility] [address] [place] [address] Medical Technologist Microbiology - Desiree MARCUM [id number] HSCAN RBC MORPHOLOGY SCAN Normal [facility] Comment on above: Performed By: #### 2 4321-2, , 2776-03 #### [facility] [address] [place] [address] Medical Technologist Microbiology - Desiree MARCUM [id number] HYPERSEGMENTED NEUT Normal NONE SEEN [facility] Comment on above: Performed By: #### 2 4321-2, , 2776-03 #### [facility] [address] [place] [address] Medical Technologist Microbiology - Desiree MARCUM [id number] HYPOCHROMASIA Normal NONE SEEN [facility] Comment on above: Performed By: #### 2 4321-2, , 2776-03 #### [facility] [address] [place] [address] Medical Technologist Microbiology - Desiree MARCUM [id number] Immature granulocytes (Bld) [#/Vol] 0.00 10*3/uL Normal <=0.10 [facility] Comment on above: Performed By: #### 2 4321-2, , 2776-03 #### [facility] [address] [place] [address] Medical Technologist Microbiology - Desiree MARCUM [id number] Lymphocytes (Bld) [#/Vol] 0.4 10*3/uL Low 1.2-3.4 [facility] Comment on above: Performed By: #### 2 1-2, , 2776-03 #### [facility] [address] [place] [address] Medical Technologist Microbiology - Desiree MARCUM [id number] Lymphocytes/100 WBC (Bld) 7 % Low 20-40 [facility] Comment on above: Performed By: #### 2 1-2, , 2776-03 #### [facility] [address] [place] [address] Medical Technologist Microbiology - Desiree MARCUM [id number] MACROCYTES Normal NONE SEEN [facility] Comment on above: Performed By: #### 2 1-2, , 2776-03 #### [facility] [address] [place] [address] Medical Technologist Microbiology - Desiree GARCIAIA [id number] MCH (RBC) [Entitic mass] 31.5 pg High 27.0-31.0 [facility] Comment on above: Performed By: #### 2 4320-2, , 2776-03 #### [facility] [address] [place] [address] Medical Technologist Microbiology - Desiree MARCUM [id number] MCHC (RBC) [Mass/Vol] 35.1 g/dL Normal 32.0-36.0 [facility] Comment on above: Performed By: #### 2 1-2, , 2776-03 #### [facility] [address] [place] [address] Medical Technologist Microbiology - Desiree MARCUM [id number] MCV (RBC) [Entitic vol] 89.6 fL Normal 80.0-100.0 [facility] Comment on above: Performed By: #### 2 1-2, , 2776-03 #### [facility] [address] [place] [address] Medical Technologist Microbiology - Desiree GARCIAIA [id number] Metamyelocytes/100 WBC (Bld) 0 % Normal 0-1 [facility] Comment on above: Performed By: #### 2 1-2, , 2776-03 #### [facility] [address] [place] [address] Medical Technologist Microbiology - Desiree MARCUM [id number] MICROCYTES Normal NONE SEEN [facility] Comment on above: Performed By: #### 2 1-2, , 2776-03 #### [facility] [address] [place] [address] Medical Technologist Microbiology - Desiree MARCUM [id number] Monocytes (Bld) [#/Vol] 0.5 10*3/uL Normal 0.1-0.6 [facility] Comment on above: Performed By: #### 2 4320-2, , 2776-03 #### [facility] [address] [place] [address] Medical Technologist Microbiology - Desiree GARCIAIA [id number] Monocytes/100 WBC (Bld) 9 % High 0-8 [facility] Comment on above: Performed By: #### 2 4320-2, , 2776-03 #### [facility] [address] [place] [address] Medical Technologist Microbiology - Desiree MARCUM [id number] Myelocytes/100 WBC (Bld) 0 % Normal [facility] Comment on above: Performed By: #### 2 1-2, , 2776-03 #### [facility] [address] [place] [address] Medical Technologist Microbiology - Desiree MARCUM [id number] Neutrophils (Bld) [#/Vol] 5.1 10*3/uL Normal 1.4-6.5 [facility] Comment on above: Performed By: #### 2 1-2, , 2776-03 #### [facility] [address] [place] [address] Medical Technologist Microbiology - Desiree GARCIAIA [id number] Nucleated RBC/100 WBC (Bld) [Ratio] Normal 0-5 [facility] Comment on above: Performed By: #### 2 4321-2, , 2776-03 #### [facility] [address] [place] [address] Medical Technologist Microbiology - Desiree MARCUM [id number] OVALOCYTES Normal NONE SEEN [facility] Comment on above: Performed By: #### 2 4321-2, , 2776-03 #### [facility] [address] [place] [address] Medical Technologist Microbiology - Desiree GARCIAIA [id number] PAPPENHEIMER BODIES Normal NONE SEEN [facility] Comment on above: Performed By: #### 2 4321-2, , 2776-03 #### [facility] [address] [place] [address] Medical Technologist Microbiology - Desiree GARCIAIA [id number] PLASMA CELLS Normal NONE SEEN [facility] Comment on above: Performed By: #### 2 4321-2, , 2776-03 #### [facility] [address] [place] [address] Medical Technologist Microbiology - Desiree MARCUM [id number] PLATELET CLUMPS Normal NONE SEEN [facility] Comment on above: Performed By: #### 2 4321-2, , 2776-03 #### [facility] [address] [place] [address] Medical Technologist Microbiology - Desiree MARCUM [id number] Platelet mean volume (Bld) [Entitic vol] 10.9 fL Normal 9.0-13.0 [facility] Comment on above: Performed By: #### 2 4321-2, , 2776-03 #### [facility] [address] [place] [address] Medical Technologist Microbiology - Desiree MARCUM [id number] PLATELET SATELLISM Normal NONE SEEN [facility] Comment on above: Performed By: #### 2 4321-2, , 2776-03 #### [facility] [address] [place] [address] Medical Technologist Microbiology - Desiree MARCUM [id number] Platelets (Bld) [#/Vol] 165 10*3/uL Normal 130-400 [facility] Comment on above: Performed By: #### 2 4321-2, , 2776-03 #### [facility] [address] [place] [address] Medical Technologist Microbiology - Desiree GARCIAIA [id number] POLYCHROMASIA Normal NONE SEEN [facility] Comment on above: Performed By: #### 2 4320-2, , 2776-03 #### [facility] [address] [place] [address] Medical Technologist Microbiology - Desiree MARCUM [id number] Promyelocytes/100 WBC (Bld) 0 % Normal [facility] Comment on above: Performed By: #### 2 4320-2, , 2776-03 #### [facility] [address] [place] [address] Medical Technologist Microbiology - Desiree MARCUM [id number] RBC (Bld) [#/Vol] 4.54 10*6/uL Normal 4.00-6.30 [facility] Comment on above: Performed By: #### 2 4320-2, , 2776-03 #### [facility] [address] [place] [address] Medical Technologist Microbiology - Desiree MARCUM [id number] ROULEAUX Normal NONE SEEN [facility] Comment on above: Performed By: #### 2 4321-2, , 2776-03 #### [facility] [address] [place] [address] Medical Technologist Microbiology - Desiree GARCIAIA [id number] SCHISTOCYTES Normal NONE SEEN [facility] Comment on above: Performed By: #### 2 4321-2, , 2776-03 #### [facility] [address] [place] [address] Medical Technologist Microbiology - Desiree GARCIAIA [id number] Segmented neutrophils/100 WBC (Bld) 83 % High 50-70 [facility] Comment on above: Performed By: #### 2 4321-2, , 2776-03 #### [facility] [address] [place] [address] Medical Technologist Microbiology - Desiree MARCUM [id number] SICKLE CELLS Normal NONE SEEN [facility] Comment on above: Performed By: #### 2 4321-2, , 2776-03 #### [facility] [address] [place] [address] Medical Technologist Microbiology - Desiree MARCUM [id number] SMUDGE CELLS Normal NONE SEEN [facility] Comment on above: Performed By: #### 2 4321-2, , 2776-03 #### [facility] [address] [place] [address] Medical Technologist Microbiology - Desiree MARCUM [id number] SPHEROCYTES Normal NONE SEEN [facility] Comment on above: Performed By: #### 2 4321-2, , 2776-03 #### [facility] [address] [place] [address] Medical Technologist Microbiology - Desiree MARCUM [id number] STOMATOCYTES Normal NONE SEEN [facility] Comment on above: Performed By: #### 2 4321-2, , 2776-03 #### [facility] [address] [place] [address] Medical Technologist Microbiology - Desiree MARCUM [id number] TARGET CELLS Normal NONE SEEN [facility] Comment on above: Performed By: #### 2 4321-2, , 2776-03 #### [facility] [address] [place] [address] Medical Technologist Microbiology - Desiree MARCUM [id number] TEAR DROP CELLS Normal NONE SEEN [facility] Comment on above: Performed By: #### 2 4321-2, , 2776-03 #### [facility] [address] [place] [address] Medical Technologist Microbiology - Desiree MARCUM [id number] TOXIC GRANULATION Normal NONE SEEN [facility] Comment on above: Performed By: #### 2 4321-2, , 2776-03 #### [facility] [address] [place] [address] Medical Technologist Microbiology - Desiree MARCUM [id number] VACUOLES Normal NONE SEEN [facility] Comment on above: Performed By: #### 2 1-2, , 2776-03 #### [facility] [address] [place] [address] Medical Technologist Microbiology - Desiree MARCUM [id number] WBC (Bld) [#/Vol] 6.10 10*3/uL Normal 4.80-10.80 [facility] Comment on above: Performed By: #### 2 4320-2, , 2776-03 #### [facility] [address] [place] [address] Medical Technologist Microbiology - Desiree MARCUM [id number] CRP [Mass/Vol]on 10-31-2020 HCRP CRP INTERPRETATION A single CRP determination is of limited diagnostic value while serial determinations help in establishing the trend of an ongoing inflammatory process. CRP values must be interpreted together with other clinical symptoms. Normal values should only be used as a guide. Normal [facility] Comment on above: Performed By: #### 2 4320-2, , 2776-03 #### [facility] [address] [place] [address] Medical Technologist Microbiology - Desiree MARCUM [id number] Fibrin D-dimer Qn (PPP)on Fibrin D-dimer DDU (PPP) [Mass/Vol] 4.01 mg/L Critically high 0.19-0.50 [facility] Comment on above: Performed By: #### 7 799-0 #### [facility] [address] [place] [address] Medical Technologist Microbiology - Desiree MARCUM [id number] HDIMER DIMER UNIT CONVERSIO N Effective October 31, 2013 [facility] has changed their unit of measure for D-Dimer testing from ng/mL to mg/L. To convert to ng/mL multiply result by 1000. Normal [facility] Comment on above: Performed By: #### 7 799-0 #### [facility] [address] [place] [address] Medical Technologist Microbiology - Desiree MARCUM [id number] MAGNESIUMon 10-31-2020 Magnesium [Mass/Vol] 2.2 mg/dL Normal 1.6-2.6 [facility] Comment on above: Performed By: #### 2 4321-2, , 2776-03 #### [facility] [address] [place] [address] Medical Technologist Microbiology - Desiree MARCUM [id number] PHOSPHORUSon 10-31-2020 Phosphate [Mass/Vol] 2.0 mg/dL Low 2.5-4.9 [facility] Comment on above: Performed By: #### 2 4321-2, , 2776-03 #### [facility] [address] [place] [address] Medical Technologist Microbiology - Desiree GARCIAIA [id number] Basic metabolic 2000 panelon 10-30-2020 Anion gap [Moles/Vol] 0.0 mmol/L Normal <=15.0 [facility] Comment on above: Performed By: #### 2 4321-2, , 2776-03 #### [facility] [address] [place] [address] Medical Technologist Microbiology - Desireeannette GARCIAIA [id number] Calcium [Mass/Vol] 7.9 mg/dL Low 8.5-10.1 [facility] Comment on above: Performed By: #### 2 4321-2, , 2776-03 #### [facility] [address] [place] [address] Medical Technologist Microbiology - Desireeannette GARCIAIA [id number] Chloride [Moles/Vol] 120 mmol/L High 98-107 [facility] Comment on above: Performed By: #### 2 4321-2, , 2776-03 #### [facility] [address] [place] [address] Medical Technologist Microbiology - Desiree MARCUM [id number] CO2 [Moles/Vol] 28 mmol/L Normal 21-32 [facility] Comment on above: Performed By: #### 2 4320-2, , 2776-03 #### [facility] [address] [place] [address] Medical Technologist Microbiology - Desiree MARCUM [id number] Creatinine [Mass/Vol] 1.06 mg/dL Normal 0.67-1.17 [facility] Comment on above: Performed By: #### 2 4320-2, , 2776-03 #### [facility] [address] [place] [address] Medical Technologist Microbiology - Desiree MARCUM [id number] GFR/1.73 sq M.predicted MDRD (S/P/Bld) [Vol rate/Area] mL/min/{1.73_m2} Normal >=59 [facility] Comment on above: Performed By: #### 2 4320-2, , 2776-03 #### [facility] [address] [place] [address] Medical Technologist Microbiology - Desiree MARCUM [id number] Glucose [Mass/Vol] 121 mg/dL High 74-106 [facility] Comment on above: Performed By: #### 2 1-2, , 2776-03 #### [facility] [address] [place] [address] Medical Technologist Microbiology - Desiree MARCUM [id number] HGFR GLOMERULAR FILTRATIO N RATE INTERPRETATION~The eGFR is calculated using the MDRD equation.~This equation has been validated in patients with chronic kidney disease;~however, it underestimates the GFR in healthy patients with GFR's over 60 mL/min.~The equation is not valid in children under the age of 18.~NOTE: Criteria for Chronic Kidney Disease:~ ~1. Kidney damage for at least three months, as defined~by structural or functional abnormalities of the kidney,~with or without decreased glomerular filtration rate, manifested by either:~* Pathological abnormalities or~* Markers of Kidney damage, including abnormalities in~the composition of the blood or urine or abnormalities in imaging tests.~ ~2. GFR <60 mL/min/1.73 m squared for at least three months, with or without kidney damage.~ Normal [facility] Comment on above: Performed By: #### 2 1-2, , 2776-03 #### [facility] [address] [place] [address] Medical Technologist Microbiology - Desiree MARCUM [id number] Potassium [Moles/Vol] 4.1 mmol/L Normal 3.5-5.1 [facility] Comment on above: Performed By: #### 2 4320-2, , 2776-03 #### [facility] [address] [place] [address] Medical Technologist Microbiology - Desiree GARCIAIA [id number] Sodium [Moles/Vol] 148 mmol/L High 136-145 [facility] Comment on above: Performed By: #### 2 4320-2, , 2776-03 #### [facility] [address] [place] [address] Medical Technologist Microbiology - Desiree GARCIAIA [id number] Urea nitrogen [Mass/Vol] 34 mg/dL High 9-20 [facility] Comment on above: Performed By: #### 2 4320-2, , 2776-03 #### [facility] [address] [place] [address] Medical Technologist Microbiology - Desiree MARCUM [id number] CBC W Reflex Manual Differen tial panel (Bld)on 10-30-2020 ACANTHROCYTES Normal NONE SEEN [facility] Comment on above: Performed By: #### G LUM #### [facility] [address] [place] [address] Medical Technologist Microbiology - Desiree GARCIAIA [id number] ANISOCYTES Normal NONE SEEN [facility] Comment on above: Performed By: #### G LUM #### [facility] [address] [place] [address] Medical Technologist Microbiology - Desiree Malik CLIA [id number] ATYPICAL LYMPHOCYTES Normal NONE SEEN [facility] Comment on above: Performed By: #### G LUM #### [facility] [address] [place] [address] Medical Technologist Microbiology - Desiree Malik CLIA [id number] ZANA RODS Normal NONE SEEN [facility] Comment on above: Performed By: #### G LUM #### [facility] [address] [place] [address] Medical Technologist Microbiology - Desiree Malik CLIA [id number] Band form neutrophils/100 WBC (Bld) 0 % Normal <=10 [facility] Comment on above: Performed By: #### G LUM #### [facility] [address] [place] [address] Medical Technologist Microbiology - Desiree Malik CLIA [id number] BASO STIPPLING Normal NONE SEEN [facility] Comment on above: Performed By: #### G LUM #### [facility] [address] [place] [address] Medical Technologist Microbiology - Desiree Malik CLIA [id number] Basophils (Bld) [#/Vol] 0.0 10*3/uL Normal 0.0-0.7 [facility] Comment on above: Performed By: #### G LUM #### [facility] [address] [place] [address] Medical Technologist Microbiology - Desiree Cheekrell CLIA [id number] Basophils/100 WBC (Bld) 0 % Normal 0-2 [facility] Comment on above: Performed By: #### G LUM #### [facility] [address] [place] [address] Medical Technologist Microbiology - Desireeannette CheekMalik CLIA [id number] Blasts/100 WBC (Bld) Normal <=1 [facility] Comment on above: Performed By: #### G LUM #### [facility] [address] [place] [address] Medical Technologist Microbiology - Desiree Cheekrell CLIA [id number] THOM CELLS Normal NONE SEEN [facility] Comment on above: Performed By: #### G LUM #### [facility] [address] [place] [address] Medical Technologist Microbiology - Desiree MARCUM [id number] CABOT RINGS Normal NONE SEEN [facility] Comment on above: Performed By: #### G LUM #### [facility] [address] [place] [address] Medical Technologist Microbiology - Desiree MARCUM [id number] DOHLE BODIES Normal NONE SEEN [facility] Comment on above: Performed By: #### G LUM #### [facility] [address] [place] [address] Medical Technologist Microbiology - Desiree MARCUM [id number] Eosinophils (Bld) [#/Vol] 0.0 10*3/uL Normal 0.0-0.7 [facility] Comment on above: Performed By: #### G LUM #### [facility] [address] [place] [address] Medical Technologist Microbiology - Desiree MARCUM [id number] Eosinophils/100 WBC (Bld) 0 % Normal 0-10 [facility] Comment on above: Performed By: #### G LUM #### [facility] [address] [place] [address] Medical Technologist Microbiology - Desiree MARCUM [id number] Erythrocyte distribution width (RBC) [Entitic vol] 47.3 fL High 35.1-43.9 [facility] Comment on above: Performed By: #### G LUM #### [facility] [address] [place] [address] Medical Technologist Microbiology - Desiree MARCUM [id number] GIANT PLATELETS Normal NONE SEEN [facility] Comment on above: Performed By: #### G LUM #### [facility] [address] [place] [address] Medical Technologist Microbiology - Desiree MARCUM [id number] HDIFF MANUAL DIFFERENTIAL Normal [facility] Comment on above: Performed By: #### G LUM #### [facility] [address] [place] [address] Medical Technologist Microbiology - Desiree GARCIAIA [id number] CLAUDIO BODIES Normal NONE SEEN [facility] Comment on above: Performed By: #### G LUM #### [facility] [address] [place] [address] Medical Technologist Microbiology - Desiree GARCIAIA [id number] Hematocrit (Bld) [Volume fraction] 41.6 % Normal 40.0-54.0 [facility] Comment on above: Performed By: #### G LUM #### [facility] [address] [place] [address] Medical Technologist Microbiology - Desiree GARCIAIA [id number] Hemoglobin (Bld) [Mass/Vol] 14.4 g/dL Normal 14.0-18.0 [facility] Comment on above: Performed By: #### G LUM #### [facility] [address] [place] [address] Medical Technologist Microbiology - Desiree GARCIAIA [id number] CHOPRA JOLLY BODIES Normal NONE SEEN [facility] Comment on above: Performed By: #### G LUM #### [facility] [address] [place] [address] Medical Technologist Microbiology - Desiree GARCIAIA [id number] HSCAN RBC MORPHOLOGY SCAN Normal [facility] Comment on above: Performed By: #### G LUM #### [facility] [address] [place] [address] Medical Technologist Microbiology - Desiree Malik CLIA [id number] HYPERSEGMENTED NEUT Normal NONE SEEN [facility] Comment on above: Performed By: #### G LUM #### [facility] [address] [place] [address] Medical Technologist Microbiology - Desiree Malik CLIA [id number] HYPOCHROMASIA Normal NONE SEEN [facility] Comment on above: Performed By: #### G LUM #### [facility] [address] [place] [address] Medical Technologist Microbiology - Desiree GARCIAIA [id number] Immature granulocytes (Bld) [#/Vol] 0.00 10*3/uL Normal <=0.10 [facility] Comment on above: Performed By: #### G LUM #### [facility] [address] [place] [address] Medical Technologist Microbiology - Desiree GARCIAIA [id number] Lymphocytes (Bld) [#/Vol] 0.4 10*3/uL Low 1.2-3.4 [facility] Comment on above: Performed By: #### G LUM #### [place] [address] [place] [address] Medical Technologist Microbiology - Desiree GARCIAIA [id number] Lymphocytes/100 WBC (Bld) 6 % Low 20-40 [facility] Comment on above: Performed By: #### G LUM #### [address] [place] [address] Medical Technologist Microbiology - Desiree Malik CLIA [id number] MACROCYTES Normal NONE SEEN [facility] Comment on above: Performed By: #### G LUM #### [place] [address] [place] [address] Medical Technologist Microbiology - Desiree Malik CLIA [id number] MCH (RBC) [Entitic mass] 31.6 pg High 27.0-31.0 [facility] Comment on above: Performed By: #### G LUM #### [address] [place] [address] Medical Technologist Microbiology - Desiree GARCIAIA [id number] MCHC (RBC) [Mass/Vol] 34.6 g/dL Normal 32.0-36.0 [facility] Comment on above: Performed By: #### G LUM #### [place] [address] [place] [address] Medical Technologist Microbiology - Desiree Malik CLIA [id number] MCV (RBC) [Entitic vol] 91.2 fL Normal 80.0-100.0 [facility] Comment on above: Performed By: #### G LUM #### [address] [place] [address] Medical Technologist Microbiology - Desiree Malik CLIA [id number] Metamyelocytes/100 WBC (Bld) 0 % Normal 0-1 [facility] Comment on above: Performed By: #### G LUM #### [facility] [address] [place] [address] Medical Technologist Microbiology - Desiree Malik CLIA [id number] MICROCYTES Normal NONE SEEN [facility] Comment on above: Performed By: #### G LUM #### [facility] [address] [place] [address] Medical Technologist Microbiology - Desiree Cheekrell CLIA [id number] Monocytes (Bld) [#/Vol] 1.1 10*3/uL High 0.1-0.6 [facility] Comment on above: Performed By: #### G LUM #### [facility] [address] [place] [address] Medical Technologist Microbiology - Desiree Malik CLIA [id number] Monocytes/100 WBC (Bld) 15 % High 0-8 [facility] Comment on above: Performed By: #### G LUM #### [facility] [address] [place] [address] Medical Technologist Microbiology - Desiree Malik CLIA [id number] Myelocytes/100 WBC (Bld) 0 % Normal [facility] Comment on above: Performed By: #### G LUM #### [facility] [address] [place] [address] Medical Technologist Microbiology - Desiree Malik CLIA [id number] Neutrophils (Bld) [#/Vol] 5.9 10*3/uL Normal 1.4-6.5 [facility] Comment on above: Performed By: #### G LUM #### [facility] [address] [place] [address] Medical Technologist Microbiology - Desireeannette CheekMalik CLIA [id number] Nucleated RBC/100 WBC (Bld) [Ratio] 1 % Normal 0-5 [facility] Comment on above: Performed By: #### G LUM #### [facility] [address] [place] [address] Medical Technologist Microbiology - Desireeannette CheekMalik CLIA [id number] OVALOCYTES Normal NONE SEEN [facility] Comment on above: Performed By: #### G LUM #### [facility] [address] [place] [address] Medical Technologist Microbiology - DesireeVirtua MarltonIA [id number] PAPPENHEIMER BODIES Normal NONE SEEN [facility] Comment on above: Performed By: #### G LUM #### [facility] [address] [place] [address] Medical Technologist [facility] [id number] PLASMA CELLS Normal NONE SEEN [facility] Comment on above: Performed By: #### G LUM #### [facility] [address] [place] [address] Medical Technologist Microbiology [facility] [id number] PLATELET CLUMPS Normal NONE SEEN [facility] Comment on above: Performed By: #### G LUM #### [facility] [address] [place] [address] Medical Technologist Microbiology [facility] [id number] Platelet mean volume (Bld) [Entitic vol] 10.4 fL Normal 9.0-13.0 [facility] Comment on above: Performed By: #### G LUM #### [facility] [address] [place] [address] Medical Technologist Microbiology - [facility] [id number] PLATELET SATELLISM Normal NONE SEEN [facility] Comment on above: Performed By: #### G LUM #### [facility] [address] [place] [address] Medical Technologist Microbiology [facility] [id number] Platelets (Bld) [#/Vol] 156 10*3/uL Normal 130-400 [facility] Comment on above: Performed By: #### G LUM #### [facility] [address] [place] [address] Medical Technologist Microbiology - [facility] [id number] POLYCHROMASIA Normal NONE SEEN [facility] Comment on above: Performed By: #### G LUM #### [facility] [address] [place] [address] Medical Technologist Microbiology - [place] [id number] Promyelocytes/100 WBC (Bld) 0 % Normal [facility] Comment on above: Performed By: #### G LUM #### [facility] [address] [place] [address] Medical Technologist Microbiology - Desiree GARCIAIA [id number] RBC (Bld) [#/Vol] 4.56 10*6/uL Normal 4.00-6.30 [facility] Comment on above: Performed By: #### G LUM #### [facility] [address] [place] [address] Medical Technologist Microbiology - Desiree GARCIAIA [id number] ROULEAUX Normal NONE SEEN [facility] Comment on above: Performed By: #### G LUM #### [facility] [address] [place] [address] Medical Technologist Microbiology - Desiree GARCIAIA [id number] SCHISTOCYTES Normal NONE SEEN [facility] Comment on above: Performed By: #### G LUM #### [facility] [address] [place] [address] Medical Technologist Microbiology - Desiree GARCIAIA [id number] Segmented neutrophils/100 WBC (Bld) 79 % High 50-70 [facility] Comment on above: Performed By: #### G LUM #### [facility] [address] [place] [address] Medical Technologist Microbiology - Desiree GARCIAIA [id number] SICKLE CELLS Normal NONE SEEN [facility] Comment on above: Performed By: #### G LUM #### [facility] [address] [place] [address] Medical Technologist Microbiology - Desiree Malik CLIA [id number] SMUDGE CELLS Normal NONE SEEN [facility] Comment on above: Performed By: #### G LUM #### [facility] [address] [place] [address] Medical Technologist Microbiology - Desiree GARCIAIA [id number] SPHEROCYTES Normal NONE SEEN [facility] Comment on above: Performed By: #### G LUM #### [facility] [address] [address] Medical Technologist [facility] CL[facility] [id number] STOMATOCYTES Normal NONE SEEN [facility] Comment on above: Performed By: #### G LUM #### [place] [address] Medical Technologist Microbiology - Desiree Malik CLIA [id number] TARGET CELLS Normal NONE SEEN [facility] Comment on above: Performed By: #### G LUM #### [place] [address] Medical Technologist Microbiology - DesireeBryce HospitalMalik CLIA [id number] TEAR DROP CELLS Normal NONE SEEN [facility] Comment on above: Performed By: #### G LUM #### [place] [address] Medical Technologist [facility] CL[facility] [id number] TOXIC GRANULATION Normal NONE SEEN [facility] Comment on above: Performed By: #### G LUM #### [place] [address] Medical Technologist [facility] CLIA [id number] VACUOLES Normal NONE SEEN [facility] Comment on above: Performed By: #### G LUM #### [place] [address] Medical Technologist [facility] CLIA [id number] WBC (Bld) [#/Vol] 7.42 10*3/uL Normal 4.80-10.80 [facility] Comment on above: Performed By: #### G LUM #### [place] [address] Medical Technologist Microbiology [facility] [id number] CHEST AP PORTABLEon 10-31-19 SARS-CoV-2 (COVID-19) Ab IA Ql EXAM: CHEST AP PORTABLE HISTORY: COVID-19 Positive. COMPARISON: 10/28/2020 FINDINGS: There is an NG tube with its tip in the stomach. The proximal sideholes are at or above the GE junction and it should be advanced at least 5 cm. There is evidence of a previous median sternotomy with wires and clips. The heart and interstitium are mildly prominent. The cardiomediastinal silhouette, pulmonary vasculature, and bony thorax are otherwise unremarkable. There is no evidence of an acute infiltrate, effusion or pneumothorax. IMPRESSION: No evidence of an acute infiltrate or effusion. Normal [facility] GLUCOSE BY METERon Glucose [Mass/Vol] 116 mg/dL High 70-110 [facility] Comment on above: Performed By: #### G LUM #### [facility] [address] [place] [address] Medical Technologist Microbiology - [facility] CLIA [id number] Glucose [Mass/Vol] 135 mg/dL High 70-110 [facility] Comment on above: Performed By: #### G LUM #### [facility] [address] [place] [address] Medical Technologist Microbiology - [facility] CLIA [id number] Glucose [Mass/Vol] 122 mg/dL High 70-110 [facility] Comment on above: Performed By: #### 2 4321-2 #### [facility] [address] [place] [address] Medical Technologist Microbiology [facility] [id number] MAGNESIUMon 10-30-2020 Magnesium [Mass/Vol] 2.4 mg/dL Normal 1.6-2.6 [facility] Comment on above: Performed By: #### 2 4321-2, , [id number] #### [facility] [address] [place] [address] Medical Technologist Microbiology [facility] [id number] PHOSPHORUSon 10-30-2020 Phosphate [Mass/Vol] 2.7 mg/dL Normal 2.5-4.9 [facility] Comment on above: Performed By: #### 2 4321-2, , 2776- #### [facility] [address] [place] [address] Medical Technologist Microbiology - [facility] [id number] ALKALINE PHOSPHATASEon 10-29 ALP [Catalytic activity/Vol] 60 U/L Normal 50-136 [facility] Comment on above: Performed By: #### G LUM #### [facility] [address] [place] [address] Medical Technologist Microbiology - Desiree Malik CLIA [id number] Basic metabolic 2000 panelon 10-29-2020 Anion gap [Moles/Vol] 1.0 mmol/L Normal <=15.0 [facility] Comment on above: Performed By: #### G LUM #### [facility] [address] [place] [address] Medical Technologist Microbiology - Desiree Malik CLIA [id number] Calcium [Mass/Vol] 8.9 mg/dL Normal 8.5-10.1 [facility] Comment on above: Performed By: #### G LUM #### [facility] [address] [place] [address] Medical Technologist Microbiology - Desireeannette Malik CLIA [id number] Chloride [Moles/Vol] 116 mmol/L High 98-107 [facility] Comment on above: Performed By: #### G LUM #### [facility] [address] [place] [address] Medical Technologist Microbiology - Desireeannette Malik CLIA [id number] CO2 [Moles/Vol] 29 mmol/L Normal 21-32 [facility] Comment on above: Performed By: #### G LUM #### [facility] [address] [place] [address] Medical Technologist Microbiology - Desiree Malik CLIA [id number] Creatinine [Mass/Vol] 1.31 mg/dL High 0.67-1.17 [facility] Comment on above: Performed By: #### G LUM #### [facility] [address] [place] [address] Medical Technologist Microbiology - Desiree Malik CLIA [id number] GFR/1.73 sq M.predicted MDRD (S/P/Bld) [Vol rate/Area] 53 mL/min/{1.73_m2} Low >=59 [facility] Comment on above: Performed By: #### G LUM #### [facility] [address] [place] [address] Medical Technologist Microbiology - Desireeannette Malik CLIA [id number] Glucose [Mass/Vol] 129 mg/dL High 74-106 [facility] Comment on above: Performed By: #### G LUM #### [facility] [address] [place] [address] Medical Technologist Microbiology - [facility] [id number] HGFR GLOMERULAR FILTRATIO N RATE INTERPRETATION~The eGFR is calculated using the MDRD equation.~This equation has been validated in patients with chronic kidney disease;~however, it underestimates the GFR in healthy patients with GFR's over 60 mL/min.~The equation is not valid in children under the age of 18.~NOTE: Criteria for Chronic Kidney Disease:~ ~1. Kidney damage for at least three months, as defined~by structural or functional abnormalities of the kidney,~with or without decreased glomerular filtration rate, manifested by either:~* Pathological abnormalities or~* Markers of Kidney damage, including abnormalities in~the composition of the blood or urine or abnormalities in imaging tests.~ ~2. GFR <60 mL/min/1.73 m squared for at least three months, with or without kidney damage.~ Normal [facility] Comment on above: Performed By: #### G LUM #### [facility] [address] [place] [address] Medical Technologist Microbiology - [facility] [id number] Potassium [Moles/Vol] 4.1 mmol/L Normal 3.5-5.1 [facility] Comment on above: Performed By: #### G LUM #### [facility] [address] [place] [address] Medical Technologist Microbiology - [facility] [id number] Sodium [Moles/Vol] 146 mmol/L High 136-145 [facility] Comment on above: Performed By: #### G LUM #### [facility] [address] [place] [address] Medical Technologist Microbiology - [facility] [id number] Urea nitrogen [Mass/Vol] 42 mg/dL High 9-20 [facility] Comment on above: Performed By: #### G LUM #### [facility] [address] [place] [address] Medical Technologist Microbiology - Desiree Malik CLIA [id number] CBC W Reflex Manual Differen tial panel (Bld)on 10-29-2020 ACANTHROCYTES Normal NONE SEEN [facility] Comment on above: Performed By: #### G LUM #### [facility] [address] [facility]. [place] [address] Medical Technologist Microbiology - Deisree Malik CLIA [id number] ANISOCYTES Normal NONE SEEN [facility] Comment on above: Performed By: #### G LUM #### [facility] [address] [place] [address]. [place] [address] Medical Technologist Microbiology - Desiree Malik CLIA [id number] ATYPICAL LYMPHOCYTES Normal NONE SEEN [facility] Comment on above: Performed By: #### G LUM #### [facility] [address] [place] [address]. [place] [address] Medical Technologist Microbiology - Desiree Malik CLIA [id number] ZANA RODS Normal NONE SEEN [facility] Comment on above: Performed By: #### G LUM #### [facility] [address] [place] [address]. [place] [address] Medical Technologist Microbiology - Desiree Malik CLIA [id number] Band form neutrophils/100 WBC (Bld) 1 % Normal <=10 [facility] Comment on above: Performed By: #### G LUM #### [address] [place] [address] Medical Technologist Microbiology - Desiree Malik CLIA [id number] BASO STIPPLING Normal NONE SEEN [facility] Comment on above: Performed By: #### G LUM #### [facility] [address] [place] [address]. [place] [address] Medical Technologist Microbiology - Desiree Malik CLIA [id number] Basophils (Bld) [#/Vol] 0.0 10*3/uL Normal 0.0-0.7 [facility] Comment on above: Performed By: #### G LUM #### [facility] [address] [place] [address]. [place] [address] Medical Technologist Microbiology - Desiree Malik CLIA [id number] Basophils/100 WBC (Bld) 0 % Normal 0-2 [facility] Comment on above: Performed By: #### G LUM #### [facility] [address] [place] [address] Medical Technologist Microbiology [facility] [id number] Blasts/100 WBC (Bld) 0 % Normal <=1 [facility] Comment on above: Performed By: #### G LUM #### [facility] [address] [place] [address] Medical Technologist Microbiology [facility] [id number] THOM CELLS Normal NONE SEEN [facility] Comment on above: Performed By: #### G LUM #### [facility] [address] [place] [address] Medical Technologist Microbiology [facility] [id number] [place] Normal NONE SEEN [facility] Comment on above: Performed By: #### G LUM #### [facility] [address] [place] [address] Medical Technologist Microbiology [facility] [id number] DOHLE BODIES Normal NONE SEEN [facility] Comment on above: Performed By: #### G LUM #### [facility] [address] [place] [address] Medical Technologist Microbiology [facility] [id number] Eosinophils (Bld) [#/Vol] 0.0 10*3/uL Normal 0.0-0.7 [facility] Comment on above: Performed By: #### G LUM #### [facility] [address] [place] [address] Medical Technologist Microbiology [facility] [id number] Eosinophils/100 WBC (Bld) 0 % Normal 0-10 [facility] Comment on above: Performed By: #### G LUM #### [facility] [address] [place] [address] Medical Technologist Microbiology [facility] [id number] Erythrocyte distribution width (RBC) [Entitic vol] 47.3 fL High 35.1-43.9 [facility] Comment on above: Performed By: #### G LUM #### [facility] [address] [place] [address] Medical Technologist Microbiology - Desiree GARCIAIA [id number] GIANT PLATELETS Normal NONE SEEN [facility] Comment on above: Performed By: #### G LUM #### [facility] [address] [place] [address] Medical Technologist Microbiology - Desiree MARCUM [id number] HDIFF MANUAL DIFFERENTIAL Normal [facility] Comment on above: Performed By: #### G LUM #### [facility] [address] [place] [address] Medical Technologist Microbiology - Desiree GARCIAIA [id number] CLAUDIO BODIES Normal NONE SEEN [facility] Comment on above: Performed By: #### G LUM #### [facility] [address] [place] [address] Medical Technologist Microbiology - Desiree GARCIAIA [id number] Hematocrit (Bld) [Volume fraction] 42.7 % Normal 40.0-54.0 [facility] Comment on above: Performed By: #### G LUM #### [facility] [address] [place] [address] Medical Technologist Microbiology - Desiree GARCIAIA [id number] Hemoglobin (Bld) [Mass/Vol] 14.9 g/dL Normal 14.0-18.0 [facility] Comment on above: Performed By: #### G LUM #### [facility] [address] [place] [address] Medical Technologist Microbiology - Desiree GARCIAIA [id number] CHOPRA JOLLY BODIES Normal NONE SEEN [facility] Comment on above: Performed By: #### G LUM #### [facility] [address] [place] [address] Medical Technologist Microbiology - Desiree GARCIAIA [id number] HSCAN RBC MORPHOLOGY SCAN Normal [facility] Comment on above: Performed By: #### G LUM #### [facility] [address] [place] [address] Medical Technologist Microbiology - Desiree GARCIAIA [id number] HYPERSEGMENTED NEUT Normal NONE SEEN [facility] Comment on above: Performed By: #### G LUM #### [place] [address] [facility]. [place] [address] Medical Technologist Microbiology - Desiree Malik CLIA [id number] HYPOCHROMASIA Normal NONE SEEN [facility] Comment on above: Performed By: #### G LUM #### [place] [address] [facility]. [place] [address] Medical Technologist Microbiology - Desiree Malik CLIA [id number] Immature granulocytes (Bld) [#/Vol] 0.00 10*3/uL Normal <=0.10 [facility] Comment on above: Performed By: #### G LUM #### [place] [address] Medical Technologist Microbiology - Desiree Malik CLIA [id number] Lymphocytes (Bld) [#/Vol] 0.5 10*3/uL Low 1.2-3.4 [facility] Comment on above: Performed By: #### G LUM #### [place] [address] Medical Technologist Microbiology - Desiree Malik CLIA [id number] Lymphocytes/100 WBC (Bld) 9 % Low 20-40 [facility] Comment on above: Performed By: #### G LUM #### [place] [address] Medical Technologist Microbiology - Desiree Malik CLIA [id number] MACROCYTES Normal NONE SEEN [facility] Comment on above: Performed By: #### G LUM #### [place] [address] Medical Technologist Microbiology - Desiree Malik CLIA [id number] MCH (RBC) [Entitic mass] 31.8 pg High 27.0-31.0 [facility] Comment on above: Performed By: #### G LUM #### [place] [address] Medical Technologist Microbiology - Desiree Malik CLIA [id number] MCHC (RBC) [Mass/Vol] 34.9 g/dL Normal 32.0-36.0 [facility] Comment on above: Performed By: #### G LUM #### [facility] [address] [place] [address] Medical Technologist Microbiology - [facility] CLIA [id number] MCV (RBC) [Entitic vol] 91.0 fL Normal 80.0-100.0 [facility] Comment on above: Performed By: #### G LUM #### [address] [place] [address] Medical Technologist Microbiology - [facility] CLIA [id number] Metamyelocytes/100 WBC (Bld) 0 % Normal 0-1 [facility] Comment on above: Performed By: #### G LUM #### [address] [place] [address] Medical Technologist Microbiology - [facility] CLIA [id number] MICROCYTES Normal NONE SEEN [facility] Comment on above: Performed By: #### G LUM #### [address] [place] [address] Medical Technologist Microbiology - [facility] CLIA [id number] Monocytes (Bld) [#/Vol] 0.2 10*3/uL Normal 0.1-0.6 [facility] Comment on above: Performed By: #### G LUM #### [place] [address] [place] [address] Medical Technologist Microbiology - [facility] CLIA [id number] Monocytes/100 WBC (Bld) 3 % Normal 0-8 [facility] Comment on above: Performed By: #### G LUM #### [place] [address] [place] [address] Medical Technologist Microbiology - [facility] CLIA [id number] Myelocytes/100 WBC (Bld) 0 % Normal [facility] Comment on above: Performed By: #### G LUM #### [address] [place] [address] Medical Technologist Microbiology - [facility] CLIA [id number] Neutrophils (Bld) [#/Vol] 5.2 10*3/uL Normal 1.4-6.5 [facility] Comment on above: Performed By: #### G LUM #### [facility] [address] [place] [address] Medical Technologist Microbiology - Desiree GARCIAIA [id number] Nucleated RBC/100 WBC (Bld) [Ratio] Normal 0-5 [facility] Comment on above: Performed By: #### G LUM #### [facility] [address] [place] [address] Medical Technologist Microbiology - Desiree GARCIAIA [id number] OVALOCYTES Normal NONE SEEN [facility] Comment on above: Performed By: #### G LUM #### [facility] [address] [place] [address] Medical Technologist Microbiology - Desiree GARCIAIA [id number] PAPPENHEIMER BODIES Normal NONE SEEN [facility] Comment on above: Performed By: #### G LUM #### [facility] [address] [place] [address] Medical Technologist Microbiology - Desiree GARCIAIA [id number] PLASMA CELLS Normal NONE SEEN [facility] Comment on above: Performed By: #### G LUM #### [facility] [address] [place] [address] Medical Technologist Microbiology - Desiree GARCIAIA [id number] PLATELET CLUMPS Normal NONE SEEN [facility] Comment on above: Performed By: #### G LUM #### [facility] [address] [place] [address] Medical Technologist Microbiology - Desiree GARCIAIA [id number] Platelet mean volume (Bld) [Entitic vol] 10.5 fL Normal 9.0-13.0 [facility] Comment on above: Performed By: #### G LUM #### [facility] [address] [place] [address] Medical Technologist Microbiology - Desiree Malik CLIA [id number] PLATELET SATELLISM Normal NONE SEEN [facility] Comment on above: Performed By: #### G LUM #### [facility] [address] [place] [address] Medical Technologist Microbiology - Desiree GARCIAIA [id number] Platelets (Bld) [#/Vol] 150 10*3/uL Normal 130-400 [facility] Comment on above: Performed By: #### G LUM #### [facility] [address] [place] [address] Medical Technologist Microbiology - Desiree Malik CLIA [id number] POLYCHROMASIA Normal NONE SEEN [facility] Comment on above: Performed By: #### G LUM #### [facility] [address] [place] [address] Medical Technologist Microbiology [facility] CLIA [id number] Promyelocytes/100 WBC (Bld) 0 % Normal [facility] Comment on above: Performed By: #### G LUM #### [facility] [address] [place] [address] Medical Technologist Microbiology - [facility] Hospital[facility] CLIA [id number] RBC (Bld) [#/Vol] 4.69 10*6/uL Normal 4.00-6.30 [facility] Comment on above: Performed By: #### G LUM #### [facility] [address] [place] [address] Medical Technologist Microbiology - [facility] Hospital[facility] CLIA [id number] [place] Normal NONE SEEN [facility] Comment on above: Performed By: #### G LUM #### [facility] [address] [place] [address] Medical Technologist Microbiology - [facility] Hospital[facility] CLIA [id number] SCHISTOCYTES Normal NONE SEEN [facility] Comment on above: Performed By: #### G LUM #### [facility] [address] [place] [address] Medical Technologist Microbiology - [facility] Hospital[facility] CLIA [id number] Segmented neutrophils/100 WBC (Bld) 87 % High 50-70 [facility] Comment on above: Performed By: #### G LUM #### [facility] [address] [place] [address] Medical Technologist Microbiology - [facility] Hospital[facility] CLIA [id number] SICKLE CELLS Normal NONE SEEN [facility] Comment on above: Performed By: #### G LUM #### [facility] [address] [place] [address] Medical Technologist Microbiology [facility] [id number] SMUDGE CELLS Normal NONE SEEN [facility] Comment on above: Performed By: #### G LUM #### [facility] [address] [place] [address] Medical Technologist Microbiology [facility] [id number] SPHEROCYTES Normal NONE SEEN [facility] Comment on above: Performed By: #### G LUM #### [facility] [address] [place] [address] Medical Technologist Microbiology - [facility] [id number] STOMATOCYTES Normal NONE SEEN [facility] Comment on above: Performed By: #### G LUM #### [facility] [address] [place] [address] Medical Technologist Microbiology - [facility] [id number] TARGET CELLS Normal NONE SEEN [facility] Comment on above: Performed By: #### G LUM #### [facility] [address] [place] [address] Medical Technologist Microbiology [facility] [id number] TEAR DROP CELLS Normal NONE SEEN [facility] Comment on above: Performed By: #### G LUM #### [facility] [address] [place] [address] Medical Technologist Microbiology - [facility] [id number] TOXIC GRANULATION Normal NONE SEEN [facility] Comment on above: Performed By: #### G LUM #### [facility] [address] [place] [address] Medical Technologist Microbiology - [facility] [id number] VACUOLES Normal NONE SEEN [facility] Comment on above: Performed By: #### G LUM #### [facility] [address] [place] [address] Medical Technologist Microbiology - [facility] [id number] WBC (Bld) [#/Vol] 5.87 10*3/uL Normal 4.80-10.80 [facility] Comment on above: Performed By: #### G LUM #### [facility] [address] [place] [address] Medical Technologist Microbiology - [facility] CLIA [id number] ACANTHROCYTES Normal NONE SEEN [facility] Comment on above: Performed By: #### G LUM #### [facility] [address] [facility] [place] [address] Medical Technologist Microbiology - [facility] CLIA [id number] ANISOCYTES Normal NONE SEEN [facility] Comment on above: Performed By: #### G LUM #### [address] [place] [address] Medical Technologist Microbiology - [facility] [id number] ATYPICAL LYMPHOCYTES Normal NONE SEEN [facility] Comment on above: Performed By: #### G LUM #### [facility] [address] [place] [address]. [place] [address] Medical Technologist Microbiology - [facility] [id number] ZANA RODS Normal NONE SEEN [facility] Comment on above: Performed By: #### G LUM #### [address] [place] [address] Medical Technologist Microbiology - [facility] [id number] Band form neutrophils/100 WBC (Bld) 1 % Normal <=10 [facility] Comment on above: Performed By: #### G LUM #### [address] [place] [address] Medical Technologist Microbiology - [facility] [id number] BASO STIPPLING Normal NONE SEEN [facility] Comment on above: Performed By: #### G LUM #### [address] [place] [address] Medical Technologist Microbiology - [facility] CLIA [id number] Basophils (Bld) [#/Vol] 0.0 10*3/uL Normal 0.0-0.7 [facility] Comment on above: Performed By: #### G LUM #### [address] [place] [address] Medical Technologist Microbiology - [facility] CLIA [id number] Basophils/100 WBC (Bld) 0 % Normal 0-2 [facility] Comment on above: Performed By: #### G LUM #### [address] [place] [address] Medical Technologist Microbiology - Desiree GARCIAIA [id number] Blasts/100 WBC (Bld) 0 % Normal <=1 [facility] Comment on above: Performed By: #### G LUM #### [facility] [address] [place] [address] Medical Technologist Microbiology - Desiree GARCIAIA [id number] THOM CELLS Normal NONE SEEN [facility] Comment on above: Performed By: #### G LUM #### [facility] [address] [place] [address] Medical Technologist Microbiology - Desiree GARCIAIA [id number] [place] Normal NONE SEEN [facility] Comment on above: Performed By: #### G LUM #### [facility] [address] [place] [address] Medical Technologist Microbiology - Desiree GARCIAIA [id number] DOHLE BODIES Normal NONE SEEN [facility] Comment on above: Performed By: #### G LUM #### [facility] [address] [place] [address] Medical Technologist Microbiology - Desiree GARCIAIA [id number] Eosinophils (Bld) [#/Vol] 0.0 10*3/uL Normal 0.0-0.7 [facility] Comment on above: Performed By: #### G LUM #### [facility] [address] [place] [address] Medical Technologist Microbiology - Desiree GARCIAIA [id number] Eosinophils/100 WBC (Bld) 0 % Normal 0-10 [facility] Comment on above: Performed By: #### G LUM #### [facility] [address] [place] [address] Medical Technologist Microbiology - Desiree GARCIAIA [id number] Erythrocyte distribution width (RBC) [Entitic vol] 45.6 fL High 35.1-43.9 [facility] Comment on above: Performed By: #### G LUM #### [facility] [address] [place] [address] Medical Technologist Microbiology - Desiree GARCIAIA [id number] GIANT PLATELETS Normal NONE SEEN [facility] Comment on above: Performed By: #### G LUM #### [facility] [address] [place] [address] Medical Technologist Microbiology - Desiree MARCUM [id number] HDIFF MANUAL DIFFERENTIAL Normal [facility] Comment on above: Performed By: #### G LUM #### [facility] [address] [place] [address] Medical Technologist Microbiology - Desiree MARCUM [id number] CLAUDIO BODIES Normal NONE SEEN [facility] Comment on above: Performed By: #### G LUM #### [facility] [address] [place] [address] Medical Technologist Microbiology - Desiree MARCUM [id number] Hematocrit (Bld) [Volume fraction] 44.0 % Normal 40.0-54.0 [facility] Comment on above: Performed By: #### G LUM #### [facility] [address] [place] [address] Medical Technologist Microbiology - Desiree MARCUM [id number] Hemoglobin (Bld) [Mass/Vol] 15.2 g/dL Normal 14.0-18.0 [facility] Comment on above: Performed By: #### G LUM #### [facility] [address] [place] [address] Medical Technologist Microbiology - Desiree MARCUM [id number] CHOPRA JOLLY BODIES Normal NONE SEEN [facility] Comment on above: Performed By: #### G LUM #### [facility] [address] [place] [address] Medical Technologist Microbiology - Desiree MARCUM [id number] HSCAN RBC MORPHOLOGY SCAN Normal [facility] Comment on above: Performed By: #### G LUM #### [facility] [address] [place] [address] Medical Technologist Microbiology - Desiree MARCUM [id number] HYPERSEGMENTED NEUT Normal NONE SEEN [facility] Comment on above: Performed By: #### G LUM #### [facility] [address] [place] [address] Medical Technologist Microbiology - Desiree Malik CLIA [id number] HYPOCHROMASIA Normal NONE SEEN [facility] Comment on above: Performed By: #### G LUM #### [facility] [address] [place] [address] Medical Technologist Microbiology - Desiree Malik CLIA [id number] Immature granulocytes (Bld) [#/Vol] 0.00 10*3/uL Normal <=0.10 [facility] Comment on above: Performed By: #### G LUM #### [place] [address] [place] [address] Medical Technologist Microbiology - Desiree Malik CLIA [id number] Lymphocytes (Bld) [#/Vol] 0.6 10*3/uL Low 1.2-3.4 [facility] Comment on above: Performed By: #### G LUM #### [address] [place] [address] Medical Technologist Microbiology - Desiree Malik CLIA [id number] Lymphocytes/100 WBC (Bld) 14 % Low 20-40 [facility] Comment on above: Performed By: #### G LUM #### [address] [place] [address] Medical Technologist Microbiology - Desiree Malik CLIA [id number] MACROCYTES Normal NONE SEEN [facility] Comment on above: Performed By: #### G LUM #### [address] [place] [address] Medical Technologist Microbiology - Desiree Malik CLIA [id number] MCH (RBC) [Entitic mass] 31.1 pg High 27.0-31.0 [facility] Comment on above: Performed By: #### G LUM #### [address] [place] [address] Medical Technologist Micro[facility] CLIA [id number] MCHC (RBC) [Mass/Vol] 34.5 g/dL Normal 32.0-36.0 [facility] Comment on above: Performed By: #### G LUM #### [address] [place] [address] Medical Technologist Microbiology - Desiree Malik CLIA [id number] MCV (RBC) [Entitic vol] 90.2 fL Normal 80.0-100.0 [facility] Comment on above: Performed By: #### G LUM #### [facility] [address] [place] [address] Medical Technologist Microbiology - Desiree Malik CLIA [id number] Metamyelocytes/100 WBC (Bld) 0 % Normal 0-1 [facility] Comment on above: Performed By: #### G LUM #### [place] [address] [place] [address] Medical Technologist Microbiology - [facility] Hospital[facility] CLIA [id number] MICROCYTES Normal NONE SEEN [facility] Comment on above: Performed By: #### G LUM #### [address] [place] [address] Medical Technologist Microbiology - Desiree Malik CLIA [id number] Monocytes (Bld) [#/Vol] 0.4 10*3/uL Normal 0.1-0.6 [facility] Comment on above: Performed By: #### G LUM #### [place] [address] Medical Technologist Microbiology - Desiree Houghton CLIA [id number] Monocytes/100 WBC (Bld) 10 % High 0-8 [facility] Comment on above: Performed By: #### G LUM #### [place] [address] [place] [address] Medical Technologist Microbiology - [facility] CLIA [id number] Myelocytes/100 WBC (Bld) 0 % Normal [facility] Comment on above: Performed By: #### G LUM #### [place] [address] [place] [address] Medical Technologist Microbiology - [facility] CLIA [id number] Neutrophils (Bld) [#/Vol] 3.0 10*3/uL Normal 1.4-6.5 [facility] Comment on above: Performed By: #### G LUM #### [place] [address] [place] [address] Medical Technologist Microbiology - Desiree GARCIAIA [id number] Nucleated RBC/100 WBC (Bld) [Ratio] Normal 0-5 [facility] Comment on above: Performed By: #### G LUM #### [facility] [address] [place] [address] Medical Technologist Microbiology - Desiree Malik CLIA [id number] OVALOCYTES Normal NONE SEEN [facility] Comment on above: Performed By: #### G LUM #### [facility] [address] [place] [address] Medical Technologist Microbiology - Desiree GARCIAIA [id number] PAPPENHEIMER BODIES Normal NONE SEEN [facility] Comment on above: Performed By: #### G LUM #### [facility] [address] [place] [address] Medical Technologist Microbiology - Desiree GARCIAIA [id number] PLASMA CELLS Normal NONE SEEN [facility] Comment on above: Performed By: #### G LUM #### [facility] [address] [place] [address] Medical Technologist Microbiology - Desiree Malik CLIA [id number] PLATELET CLUMPS Normal NONE SEEN [facility] Comment on above: Performed By: #### G LUM #### [facility] [address] [place] [address] Medical Technologist Microbiology - Desiree Malik CLIA [id number] Platelet mean volume (Bld) [Entitic vol] 10.6 fL Normal 9.0-13.0 [facility] Comment on above: Performed By: #### G LUM #### [facility] [address] [place] [address] Medical Technologist Microbiology - Desiree Malik CLIA [id number] PLATELET SATELLISM Normal NONE SEEN [facility] Comment on above: Performed By: #### G LUM #### [facility] [address] [place] [address] Medical Technologist Microbiology - Desiree GARCIAIA [id number] Platelets (Bld) [#/Vol] 153 10*3/uL Normal 130-400 [facility] Comment on above: Performed By: #### G LUM #### [facility] [address] [place] [address] Medical Technologist Microbiology - Desiree Malik CLIA [id number] POLYCHROMASIA Normal NONE SEEN [facility] Comment on above: Performed By: #### G LUM #### [facility] [address] [place] [address] Medical Technologist Microbiology - Desiree Malik CLIA [id number] Promyelocytes/100 WBC (Bld) 0 % Normal [facility] Comment on above: Performed By: #### G LUM #### [facility] [address] [place] [address] Medical Technologist Microbiology - [facility] HospitalMal[facility] CLIA [id number] RBC (Bld) [#/Vol] 4.88 10*6/uL Normal 4.00-6.30 [facility] Comment on above: Performed By: #### G LUM #### [facility] [address] [place] [address] Medical Technologist Microbiology - [facility] HospitalMal[facility] CLIA [id number] [place] Normal NONE SEEN [facility] Comment on above: Performed By: #### G LUM #### [facility] [address] [place] [address] Medical Technologist Microbiology [facility] CLIA [id number] SCHISTOCYTES Normal NONE SEEN [facility] Comment on above: Performed By: #### G LUM #### [facility] [address] [place] [address] Medical Technologist Microbiology - [facility] HospitalMal[facility] CLIA [id number] Segmented neutrophils/100 WBC (Bld) 75 % High 50-70 [facility] Comment on above: Performed By: #### G LUM #### [facility] [address] [place] [address] Medical Technologist Microbiology - [facility] HospitalMal[facility] CLIA [id number] SICKLE CELLS Normal NONE SEEN [facility] Comment on above: Performed By: #### G LUM #### [facility] [address] [place] [address] Medical Technologist Microbiology - Desiree Malik CLIA [id number] SMUDGE CELLS Normal NONE SEEN [facility] Comment on above: Performed By: #### G LUM #### [facility] [address] [place] [address] Medical Technologist Microbiology - [facility] Hospital[facility] CLIA [id number] SPHEROCYTES Normal NONE SEEN [facility] Comment on above: Performed By: #### G LUM #### [facility] [address] [place] [address] Medical Technologist Microbiology - Desiree Malik CLIA [id number] STOMATOCYTES Normal NONE SEEN [facility] Comment on above: Performed By: #### G LUM #### [facility] [address] [place] [address] Medical Technologist Microbiology - [facility] Hospital[facility] CLIA [id number] TARGET CELLS Normal NONE SEEN [facility] Comment on above: Performed By: #### G LUM #### [facility] [address] [place] [address] Medical Technologist Microbiology - [facility] Hospital[facility] CLIA [id number] TEAR DROP CELLS Normal NONE SEEN [facility] Comment on above: Performed By: #### G LUM #### [facility] [address] [place] [address] Medical Technologist Microbiology - [facility] Hospital[facility] CLIA [id number] TOXIC GRANULATION Normal NONE SEEN [facility] Comment on above: Performed By: #### G LUM #### [facility] [address] [place] [address] Medical Technologist Microbiology - [facility] HospitalMal[facility] CLIA [id number] VACUOLES Normal NONE SEEN [facility] Comment on above: Performed By: #### G LUM #### [facility] [address] [place] [address] Medical Technologist Microbiology - DesireeBryce HospitalMalikfroilan MARCUM [id number] WBC (Bld) [#/Vol] 3.99 10*3/uL Low 4.80-10.80 [facility] Comment on above: Performed By: #### G LUM #### [facility] [address] [place] [address] Medical Technologist Microbiology - Desiree GARCIAIA [id number] MAGNESIUMon 10-29-2020 Magnesium [Mass/Vol] 2.4 mg/dL Normal 1.6-2.6 [facility] Comment on above: Performed By: #### G LUM #### [facility] [address] [place] [address] Medical Technologist Microbiology - Desiree MARCUM [id number] PREALBUMINon 10-29-2020 Prealbumin [Mass/Vol] 11.6 mg/dL Low 20.0-40.0 [facility] Comment on above: Performed By: #### 2 4321-2, 28406-7, 2777-1 #### [facility] [address] [place] [address] Medical Technologist Microbiology - Desiree MARCUM [id number] PT Coag (PPP) [Time]on 10-29 HPTINR INR REFERENCE RANGE INTERPRETATION Patients on Coumadin 2.0 - 3.0 Patients with mechanical heart valves 2.5 - 3.5 Normal [facility] Comment on above: Performed By: #### 2 4321-2 #### [facility] [address] [place] [address] Medical Technologist Microbiology - Desiree MARCUM [id number] INR Coag (PPP) [Relative time] 1.1 {INR} Normal 0.8-1.1 [facility] Comment on above: Performed By: #### 2 4321-2 #### [facility] [address] [place] [address] Medical Technologist Microbiology - Desiree MARCUM [id number] PT with INRon 10-29-2020 PT Coag (PPP) [Time] 12.3 s High 9.3-11.5 [facility] Comment on above: Performed By: #### 2 4321-2 #### [facility] [address] [place] [address] Medical Technologist Microbiology - Desiree MARCUM [id number] PTTon 10-29-2020 aPTT Coag (PPP) [Time] 27.2 s Normal 23.5-31.3 [facility] Comment on above: Performed By: #### 2 4321-2 #### [facility] [address] [place] [address] Medical Technologist Microbiology - Desiree GARCIAIA [id number] Renal function 199910-29-2020 Albumin [Mass/Vol] 2.8 g/dL Low 3.4-5.0 [facility] Comment on above: Performed By: #### 2 4321-2, , 2776-03 #### [facility] [address] [place] [address] Medical Technologist Microbiology - Desiree GARCIAIA [id number] Anion gap [Moles/Vol] 1.0 mmol/L Normal <=15.0 [facility] Comment on above: Performed By: #### 2 4321-2, , 2776-03 #### [facility] [address] [place] [address] Medical Technologist Microbiology - Desiree GARCIAIA [id number] BUN/CREATININE 33.9 Normal [facility] Comment on above: Performed By: #### 2 4321-2, , 2776-03 #### [facility] [address] [place] [address] Medical Technologist Microbiology - Desiree GARCIAIA [id number] Calcium [Mass/Vol] 7.8 mg/dL Low 8.5-10.1 [facility] Comment on above: Performed By: #### 2 1-2, , 2776-03 #### [facility] [address] [place] [address] Medical Technologist Microbiology - Desiree Malik CLIA [id number] Chloride [Moles/Vol] 122 mmol/L High 98-107 [facility] Comment on above: Performed By: #### 2 4321-2, , 2776-03 #### [facility] [address] [place] [address] Medical Technologist Microbiology - Desiree GARCIAIA [id number] CO2 [Moles/Vol] 27 mmol/L Normal 21-32 [facility] Comment on above: Performed By: #### 2 4321-2, , 2776-03 #### [facility] [address] [place] [address] Medical Technologist Microbiology - Desiree MARCUM [id number] Creatinine [Mass/Vol] 1.18 mg/dL High 0.67-1.17 [facility] Comment on above: Performed By: #### 2 4320-2, , 2776-03 #### [facility] [address] - [facility] JOSSUE [id number] GFR/1.73 sq M.predicted MDRD (S/P/Bld) [Vol rate/Area] mL/min/{1.73_m2} Normal >=59 [facility] Comment on above: Performed By: #### 2 4320-, , 2776-03 #### [facility] [address] - [facility] JOSSUE [id number] Glucose [Mass/Vol] 108 mg/dL High 74-106 [facility] Comment on above: Performed By: #### 2 4320-, , 2776-03 #### [facility] [address] [facility] JOSSUE [id number] HGFR GLOMERULAR FILTRATIO N RATE INTERPRETATION~The eGFR is calculated using the MDRD equation.~This equation has been validated in patients with chronic kidney disease;~however, it underestimates the GFR in healthy patients with GFR's over 60 mL/min.~The equation is not valid in children under the age of 18.~NOTE: Criteria for Chronic Kidney Disease:~ ~1. Kidney damage for at least three months, as defined~by structural or functional abnormalities of the kidney,~with or without decreased glomerular filtration rate, manifested by either:~* Pathological abnormalities or~* Markers of Kidney damage, including abnormalities in~the composition of the blood or urine or abnormalities in imaging tests.~ ~2. GFR <60 mL/min/1.73 m squared for at least three months, with or without kidney damage.~ Normal [facility] Comment on above: Performed By: #### 2 4321-2, , 2776-03 #### [facility] [address] [place] [address] Medical Technologist Microbiology - Desiree GARCIAIA [id number] Phosphate [Mass/Vol] 3.5 mg/dL Normal 2.5-4.9 [facility] Comment on above: Performed By: #### 2 4321-2, , 2776-03 #### [facility] [address] [place] [address] Medical Technologist Microbiology - Desiree GARCIAIA [id number] Potassium [Moles/Vol] 3.8 mmol/L Normal 3.5-5.1 [facility] Comment on above: Performed By: #### 2 4321-2, , 2776-03 #### [facility] [address] [place] [address] Medical Technologist Microbiology - Desiree GARCIAIA [id number] Sodium [Moles/Vol] 150 mmol/L High 136-145 [facility] Comment on above: Performed By: #### 2 4321-2, , 2776-03 #### [facility] [address] [place] [address] Medical Technologist Microbiology - Desiree GARCIAIA [id number] Urea nitrogen [Mass/Vol] 40 mg/dL High 9-20 [facility] Comment on above: Performed By: #### 2 4321-2, , 2776-03 #### [facility] [address] [place] [address] Medical Technologist Microbiology - Desiree GARCIAIA [id number] SURGICAL SERIES SM BOWEL W G ASTROGRAFINon 10-29-2020 SURGICAL SERIES SM BOWEL W GASTROGRAFIN SMALL BOWEL SERIES WITH GASTROGRAFIN, 10/28/2020: CLINICAL HISTORY: Probable small bowel obstruction on CT of the abdomen and pelvis. TECHNIQUE: Gastrografin was administered via the patient's indwelling nasogastric/orogastric tube and serial portable supine AP abdominal radiographs were obtained out to 12 hours post-administration of contrast. A total of 12 images have been submitted. COMPARISON: CT of the abdomen and pelvis, dated 10/26/2020, and abdominal radiographs from 10/28/2020. FINDINGS: The tip of the nasogastric tube/orogastric tube is curved within the gastric fundus. There is normal gastric emptying into a moderately dilated proximal small bowel. Contrast material propagates to the region of the distal jejunum, filling the moderately dilated gas-filled loops of small bowel seen on the previous radiographs. There is no propagation beyond this point out to 12 hours post-administration of contrast material. There is a paucity of distal small bowel gas and large bowel gas. There is excreted contrast material within the urinary bladder which is presumably due to resorption of some of the water-soluble contrast material which has then been excreted via the renal route. IMPRESSION: Findings are compatible with a high-grade mechanical small bowel obstruction in the region of the distal jejunum without passage of contrast material beyond this point by 12 hours. Normal [facility] TRIGLYCERIDESon 10-29-2020 Triglyceride [Mass/Vol] 60 mg/dL Normal <=150 [facility] Comment on above: Performed By: #### 2 4321-2, , 2776-03 #### [facility] [address] [place] [address] Medical Technologist Microbiology - Desiree MARCUM [id number] Triglyceride [Mass/Vol]on HTRIG TRIGLYCERIDES INTERPRETATION Normal <150 Borderline High 150-199 High 200-499 Very High >500 Normal [facility] Comment on above: Performed By: #### 2 4321-2, , 2776-03 #### [facility] [address] [place] [address] Medical Technologist Microbiology - Desiree MARCUM [id number] Basic metabolic 2000 panelon 10-28-2020 Anion gap [Moles/Vol] 4.0 mmol/L Normal <=15.0 [facility] Comment on above: Performed By: #### 2 4321-2 #### [facility] [address] [place] [address] Medical Technologist Microbiology - Desiree MARCUM [id number] Calcium [Mass/Vol] 8.1 mg/dL Low 8.5-10.1 [facility] Comment on above: Performed By: #### 2 4321-2 #### [facility] [address] [facility]. [place] [address] Medical Technologist Microbiology - Desiree GARCIAIA [id number] Chloride [Moles/Vol] 111 mmol/L High 98-107 [facility] Comment on above: Performed By: #### 2 4321-2 #### [address] [place] [address] Medical Technologist Microbiology - Desiree GARCIAIA [id number] CO2 [Moles/Vol] 27 mmol/L Normal 21-32 [facility] Comment on above: Performed By: #### 2 4321-2 #### [facility] [address] [place] [address]. [place] [address] Medical Technologist Microbiology - Desiree MARCUM [id number] Creatinine [Mass/Vol] 1.33 mg/dL High 0.67-1.17 [facility] Comment on above: Performed By: #### 2 4321-2 #### [facility] [address] [facility]. [place] [address] Medical Technologist Microbiology - Desiree MARCUM [id number] GFR/1.73 sq M.predicted MDRD (S/P/Bld) [Vol rate/Area] 52 mL/min/{1.73_m2} Low >=59 [facility] Comment on above: Performed By: #### 2 4321-2 #### [address] [place] [address] Medical Technologist Microbiology - Desiree GARCIAIA [id number] Glucose [Mass/Vol] 118 mg/dL High 74-106 [facility] Comment on above: Performed By: #### 2 4321-2 #### [address] [place] [address] Medical Technologist Microbiology - Desiree MARCUM [id number] HGFR GLOMERULAR FILTRATIO N RATE INTERPRETATION~The eGFR is calculated using the MDRD equation.~This equation has been validated in patients with chronic kidney disease;~however, it underestimates the GFR in healthy patients with GFR's over 60 mL/min.~The equation is not valid in children under the age of 18.~NOTE: Criteria for Chronic Kidney Disease:~ ~1. Kidney damage for at least three months, as defined~by structural or functional abnormalities of the kidney,~with or without decreased glomerular filtration rate, manifested by either:~* Pathological abnormalities or~* Markers of Kidney damage, including abnormalities in~the composition of the blood or urine or abnormalities in imaging tests.~ ~2. GFR <60 mL/min/1.73 m squared for at least three months, with or without kidney damage.~ Normal [facility] Comment on above: Performed By: #### 2 4321-2 #### [facility] [address] [facility]. [place] [address] Medical Technologist Microbiology - Desiree GARCIAIA [id number] Potassium [Moles/Vol] 4.3 mmol/L Normal 3.5-5.1 [facility] Comment on above: Performed By: #### 2 4321-2 #### [facility] [address] [place] [address] Medical Technologist Microbiology - Desiree GARCIAIA [id number] Sodium [Moles/Vol] 142 mmol/L Normal 136-145 [facility] Comment on above: Performed By: #### 2 4321-2 #### [facility] [address] [place] [address] Medical Technologist Microbiology - Desiree GARCIAIA [id number] Urea nitrogen [Mass/Vol] 33 mg/dL High 9-20 [facility] Comment on above: Performed By: #### 2 4321-2 #### [facility] [address] [place] [address] Medical Technologist Microbiology - Desiree GARCIAIA [id number] CBC W Reflex Manual Differen tial panel (Bld)on 10-28-2020 ACANTHROCYTES Normal NONE SEEN [facility] Comment on above: Performed By: #### G LUM #### [facility] [address] [place] [address] Medical Technologist Microbiology - Desiree GARCIAIA [id number] ANISOCYTES Normal NONE SEEN [facility] Comment on above: Performed By: #### G LUM #### [facility] [address] [place] [address] Medical Technologist Microbiology - Desiree Malik CLIA [id number] ATYPICAL LYMPHOCYTES Normal NONE SEEN [facility] Comment on above: Performed By: #### G LUM #### [facility] [address] [place] [address] Medical Technologist Microbiology - Desiree Malik CLIA [id number] ZANA RODS Normal NONE SEEN [facility] Comment on above: Performed By: #### G LUM #### [facility] [address] [place] [address] Medical Technologist Microbiology - Desiree Malik CLIA [id number] Band form neutrophils/100 WBC (Bld) 0 % Normal <=10 [facility] Comment on above: Performed By: #### G LUM #### [facility] [address] [place] [address] Medical Technologist Microbiology - Desiree Malik CLIA [id number] BASO STIPPLING Normal NONE SEEN [facility] Comment on above: Performed By: #### G LUM #### [facility] [address] [place] [address] Medical Technologist Microbiology - Desiree Malik CLIA [id number] Basophils (Bld) [#/Vol] 0.0 10*3/uL Normal 0.0-0.7 [facility] Comment on above: Performed By: #### G LUM #### [facility] [address] [place] [address] Medical Technologist Microbiology - Desiree Malik CLIA [id number] Basophils/100 WBC (Bld) 0 % Normal 0-2 [facility] Comment on above: Performed By: #### G LUM #### [facility] [address] [place] [address] Medical Technologist Microbiology [facility] CLIA [id number] Blasts/100 WBC (Bld) 0 % Normal <=1 [facility] Comment on above: Performed By: #### G LUM #### [facility] [address] [place] [address] Medical Technologist Microbiology - Desiree GARCIAIA [id number] THOM CELLS Normal NONE SEEN [facility] Comment on above: Performed By: #### G LUM #### [facility] [address] [place] [address] Medical Technologist Microbiology - Desiree GARCIAIA [id number] CABOT RINGS Normal NONE SEEN [facility] Comment on above: Performed By: #### G LUM #### [facility] [address] [place] [address] Medical Technologist Microbiology - Desiree GARCIAIA [id number] DOHLE BODIES Normal NONE SEEN [facility] Comment on above: Performed By: #### G LUM #### [facility] [address] [facility] [place] [address] Medical Technologist Microbiology - Desiree GARCIAIA [id number] Eosinophils (Bld) [#/Vol] 0.0 10*3/uL Normal 0.0-0.7 [facility] Comment on above: Performed By: #### G LUM #### [facility] [address] [facility] [place] [address] Medical Technologist Microbiology - Desiree Malikfroilan MARCUM [id number] Eosinophils/100 WBC (Bld) 0 % Normal 0-10 [facility] Comment on above: Performed By: #### G LUM #### [facility] [address] [facility] [place] [address] Medical Technologist Microbiology - Desiree GARCIAIA [id number] Erythrocyte distribution width (RBC) [Entitic vol] 44.0 fL High 35.1-43.9 [facility] Comment on above: Performed By: #### G LUM #### [facility] [address] [facility] [place] [address] Medical Technologist Microbiology - Desiree MARCUM [id number] GIANT PLATELETS Normal NONE SEEN [facility] Comment on above: Performed By: #### G LUM #### [facility] [address] [facility] [place] [address] Medical Technologist Microbiology - Desiree MARCUM [id number] HDIFF MANUAL DIFFERENTIAL Normal [facility] Comment on above: Performed By: #### G LUM #### [facility] [address] [place] [address] Medical Technologist Microbiology - [facility] [id number] CLAUDIO BODIES Normal NONE SEEN [facility] Comment on above: Performed By: #### G LUM #### [facility] [address] [place] [address] Medical Technologist Microbiology - [facility] [id number] Hematocrit (Bld) [Volume fraction] 42.9 % Normal 40.0-54.0 [facility] Comment on above: Performed By: #### G LUM #### [facility] [address] [place] [address] Medical Technologist Microbiology - [facility] [id number] Hemoglobin (Bld) [Mass/Vol] 14.9 g/dL Normal 14.0-18.0 [facility] Comment on above: Performed By: #### G LUM #### [facility] [address] [place] [address] Medical Technologist Microbiology [facility] [id number] CHOPRA JOLLY BODIES Normal NONE SEEN [facility] Comment on above: Performed By: #### G LUM #### [facility] [address] [place] [address] Medical Technologist Microbiology - [facility] [id number] HSCAN RBC MORPHOLOGY SCAN Normal [facility] Comment on above: Performed By: #### G LUM #### [facility] [address] [place] [address] Medical Technologist Microbiology - [facility] [id number] HYPERSEGMENTED NEUT Normal NONE SEEN [facility] Comment on above: Performed By: #### G LUM #### [facility] [address] [place] [address] Medical Technologist Microbiology - [facility] [id number] HYPOCHROMASIA Normal NONE SEEN [facility] Comment on above: Performed By: #### G LUM #### [facility] [address] [place] [address] Medical Technologist Microbiology [facility] [id number] Immature granulocytes (Bld) [#/Vol] 0.00 10*3/uL Normal <=0.10 [facility] Comment on above: Performed By: #### G LUM #### [place] [address] [place] [address] Medical Technologist Microbiology - Desiree GARCIAIA [id number] Lymphocytes (Bld) [#/Vol] 0.6 10*3/uL Low 1.2-3.4 [facility] Comment on above: Performed By: #### G LUM #### [address] [place] [address] Medical Technologist Microbiology - Desiree GARCIAIA [id number] Lymphocytes/100 WBC (Bld) 17 % Low 20-40 [facility] Comment on above: Performed By: #### G LUM #### [address] [place] [address] Medical Technologist Microbiology - Desiree Malik CLIA [id number] MACROCYTES Normal NONE SEEN [facility] Comment on above: Performed By: #### G LUM #### [address] [place] [address] Medical Technologist Microbiology - Desiree GARCIAIA [id number] MCH (RBC) [Entitic mass] 31.2 pg High 27.0-31.0 [facility] Comment on above: Performed By: #### G LUM #### [address] [place] [address] Medical Technologist Microbiology - Desiree Malik CLIA [id number] MCHC (RBC) [Mass/Vol] 34.7 g/dL Normal 32.0-36.0 [facility] Comment on above: Performed By: #### G LUM #### [address] [place] [address] Medical Technologist Microbiology - Desiree GARCIAIA [id number] MCV (RBC) [Entitic vol] 89.7 fL Normal 80.0-100.0 [facility] Comment on above: Performed By: #### G LUM #### [address] [place] [address] Medical Technologist Microbiology - Desiree Malik CLIA [id number] Metamyelocytes/100 WBC (Bld) 0 % Normal 0-1 [facility] Comment on above: Performed By: #### G LUM #### [facility] [address] [place] [address] Medical Technologist Microbiology - Desiree Malik CLIA [id number] MICROCYTES Normal NONE SEEN [facility] Comment on above: Performed By: #### G LUM #### [facility] [address] [place] [address] Medical Technologist Microbiology - Desiree Malik CLIA [id number] Monocytes (Bld) [#/Vol] 0.2 10*3/uL Normal 0.1-0.6 [facility] Comment on above: Performed By: #### G LUM #### [facility] [address] [place] [address] Medical Technologist Microbiology - Desiree Malik CLIA [id number] Monocytes/100 WBC (Bld) 6 % Normal 0-8 [facility] Comment on above: Performed By: #### G LUM #### [place] [address] [place] [address] Medical Technologist Microbiology [facility] CLIA [id number] Myelocytes/100 WBC (Bld) 0 % Normal [facility] Comment on above: Performed By: #### G LUM #### [place] [address] [place] [address] Medical Technologist Microbiology - Desiree Malik CLIA [id number] Neutrophils (Bld) [#/Vol] 2.7 10*3/uL Normal 1.4-6.5 [facility] Comment on above: Performed By: #### G LUM #### [place] [address] [place] [address] Medical Technologist Microbiology - Desiree Malik CLIA [id number] Nucleated RBC/100 WBC (Bld) [Ratio] Normal 0-5 [facility] Comment on above: Performed By: #### G LUM #### [place] [address] [place] [address] Medical Technologist Microbiology - Desiree Malik CLIA [id number] OVALOCYTES Normal NONE SEEN [facility] Comment on above: Performed By: #### G LUM #### [facility] [address] [place] [address] Medical Technologist Microbiology - Desiree MARCUM [id number] PAPPENHEIMER BODIES Normal NONE SEEN [facility] Comment on above: Performed By: #### G LUM #### [facility] [address] [place] [address] Medical Technologist Microbiology - Desiree MARCUM [id number] PLASMA CELLS Normal NONE SEEN [facility] Comment on above: Performed By: #### G LUM #### [facility] [address] [place] [address] Medical Technologist Microbiology - Desiree MARCUM [id number] PLATELET CLUMPS Normal NONE SEEN [facility] Comment on above: Performed By: #### G LUM #### [facility] [address] [place] [address] Medical Technologist Microbiology - Desiree MARCUM [id number] Platelet mean volume (Bld) [Entitic vol] 10.8 fL Normal 9.0-13.0 [facility] Comment on above: Performed By: #### G LUM #### [facility] [address] [place], [place] [address] [address] Medical Technologist Microbiology - Desiree MARCUM [id number] PLATELET SATELLISM Normal NONE SEEN [facility] Comment on above: Performed By: #### G LUM #### [facility] [address] [place] [address] Medical Technologist Microbiology - Desiree MARCUM [id number] Platelets (Bld) [#/Vol] 129 10*3/uL Low 130-400 [facility] Comment on above: Performed By: #### G LUM #### [facility] [address] [place], [place] [address] [place] [address] Medical Technologist Microbiology - Desiree MARCUM [id number] POLYCHROMASIA Normal NONE SEEN [facility] Comment on above: Performed By: #### G LUM #### [facility] [address] [place] [address] Medical Technologist Microbiology - Desiree GARCIAIA [id number] Promyelocytes/100 WBC (Bld) 0 % Normal [facility] Comment on above: Performed By: #### G LUM #### [facility] [address] [place] [address] Medical Technologist Microbiology - Desiree GARCIAIA [id number] RBC (Bld) [#/Vol] 4.78 10*6/uL Normal 4.00-6.30 [facility] Comment on above: Performed By: #### G LUM #### [facility] [address] [place] [address] Medical Technologist Microbiology - Desiree GARCIAIA [id number] ROULEAUX Normal NONE SEEN [facility] Comment on above: Performed By: #### G LUM #### [facility] [address] [place] [address] Medical Technologist Microbiology - Desiree Malik CLIA [id number] SCHISTOCYTES Normal NONE SEEN [facility] Comment on above: Performed By: #### G LUM #### [facility] [address] [place] [address] Medical Technologist Microbiology - Desiree GARCIAIA [id number] Segmented neutrophils/100 WBC (Bld) 77 % High 50-70 [facility] Comment on above: Performed By: #### G LUM #### [facility] [address] [place] [address] Medical Technologist Microbiology - Desiree Malik CLIA [id number] SICKLE CELLS Normal NONE SEEN [facility] Comment on above: Performed By: #### G LUM #### [facility] [address] [place] [address] Medical Technologist Microbiology - Desiree GARCIAIA [id number] SMUDGE CELLS Normal NONE SEEN [facility] Comment on above: Performed By: #### G LUM #### [facility] [address] [place] [address] Medical Technologist Microbiology - Desiree Malik CLIA [id number] SPHEROCYTES Normal NONE SEEN [facility] Comment on above: Performed By: #### G LUM #### [facility] [address] [place] [address] Medical Technologist Microbiology - Desiree GARCIAIA [id number] STOMATOCYTES Normal NONE SEEN [facility] Comment on above: Performed By: #### G LUM #### [facility] [address] [place] [address] Medical Technologist Microbiology - Desiree Malik CLIA [id number] TARGET CELLS Normal NONE SEEN [facility] Comment on above: Performed By: #### G LUM #### [facility] [address] [place] [address] Medical Technologist Microbiology - Desiree GARCIAIA [id number] TEAR DROP CELLS Normal NONE SEEN [facility] Comment on above: Performed By: #### G LUM #### [facility] [address] [place] [address] Medical Technologist Microbiology - Desiree GARCIAIA [id number] TOXIC GRANULATION Normal NONE SEEN [facility] Comment on above: Performed By: #### G LUM #### [facility] [address] [place] [address] Medical Technologist Microbiology - Desiree Malik CLIA [id number] VACUOLES Normal NONE SEEN [facility] Comment on above: Performed By: #### G LUM #### [facility] [address] [place] [address] Medical Technologist Microbiology - Desiree GARCIAIA [id number] WBC (Bld) [#/Vol] 3.48 10*3/uL Low 4.80-10.80 [facility] Comment on above: Performed By: #### G LUM #### [facility] [address] [place] [address] Medical Technologist Microbiology - Desiree GARCIAIA [id number] ABDOMEN KUB PORTABLEon 10-27 ABDOMEN KUB PORTABLE EXAMINATION: ABDOME N KUB PORTABLE HISTORY: Small bowel obstruction COMPARISON: CT abdomen and pelvis 10/26/2020, KUB 10/26/2020. FINDINGS: Single portable supine view is submitted. The upper abdomen is excluded. Enteric tube is partially imaged projecting in the region of the stomach. Dilated gas-filled small bowel loops in the upper abdomen are again shown measuring up to 4.5 cm. There is gas in the sigmoid colon and rectum. A 0.3 cm x 0.4 obstructing right UPJ stone is again shown as well. No mass or organomegaly. No pneumatosis or obvious portal venous gas. Gallstones are again noted in the right upper quadrant. No osseous lesions are identified. IMPRESSION: 1. Findings suggesting resolving small bowel obstruction with increased gas in the distal colon and rectum. Persistent dilated gas-filled small bowel loops measuring up to 4.5 cm. 2. Obstructing right 0.3 x 0.4 cm stone, stable. Normal [facility] Basic metabolic 2000 panelon 10-27-2020 Anion gap [Moles/Vol] 5.0 mmol/L Normal <=15.0 [facility] Comment on above: Performed By: #### 2 4325-3, 62319-9 #### [facility] [address] [facility]. [place] [address] Medical Technologist Microbiology - Desiree GARCIAIA [id number] Calcium [Mass/Vol] 8.1 mg/dL Low 8.5-10.1 [facility] Comment on above: Performed By: #### 2 5-3, 32608-6 #### [facility] [address] [facility]. [place] [address] Medical Technologist Microbiology - Desiree GARCIAIA [id number] Chloride [Moles/Vol] 109 mmol/L High 98-107 [facility] Comment on above: Performed By: #### 2 5-3, 27766-8 #### [facility] [address] [place] [address] Medical Technologist Microbiology - Desiree Malik CLIA [id number] CO2 [Moles/Vol] 25 mmol/L Normal 21-32 [facility] Comment on above: Performed By: #### 2 5-3, 22553-1 #### [facility] [address] [facility]. [place] [address] Medical Technologist Microbiology - Desiree GARCIAIA [id number] Creatinine [Mass/Vol] 1.15 mg/dL Normal 0.67-1.17 [facility] Comment on above: Performed By: #### 2 4325-3, 35559-6 #### [facility] [address] [place] [address] Medical Technologist Microbiology - Desiree MARCUM [id number] GFR/1.73 sq M.predicted MDRD (S/P/Bld) [Vol rate/Area] mL/min/{1.73_m2} Normal >=59 [facility] Comment on above: Performed By: #### 2 4324-3, 98289-7 #### [facility] [address] [place] [address] Medical Technologist Microbiology - Desiree MARCUM [id number] Glucose [Mass/Vol] 131 mg/dL High 74-106 [facility] Comment on above: Performed By: #### 2 4324-3, 24564-3 #### [facility] [address] [place] [address] Medical Technologist Microbiology - Desiree MARCUM [id number] HGFR GLOMERULAR FILTRATIO N RATE INTERPRETATION~The eGFR is calculated using the MDRD equation.~This equation has been validated in patients with chronic kidney disease;~however, it underestimates the GFR in healthy patients with GFR's over 60 mL/min.~The equation is not valid in children under the age of 18.~NOTE: Criteria for Chronic Kidney Disease:~ ~1. Kidney damage for at least three months, as defined~by structural or functional abnormalities of the kidney,~with or without decreased glomerular filtration rate, manifested by either:~* Pathological abnormalities or~* Markers of Kidney damage, including abnormalities in~the composition of the blood or urine or abnormalities in imaging tests.~ ~2. GFR <60 mL/min/1.73 m squared for at least three months, with or without kidney damage.~ Normal [facility] Comment on above: Performed By: #### 2 4324-3, 69637-9 #### [facility] [address] [place] [address] Medical Technologist Microbiology - Desiree MARCUM [id number] Potassium [Moles/Vol] 3.9 mmol/L Normal 3.5-5.1 [facility] Comment on above: Performed By: #### 2 4324-3, 87920-0 #### [facility] [address] [place] [address] Medical Technologist Microbiology - Desiree MARCUM [id number] Sodium [Moles/Vol] 139 mmol/L Normal 136-145 [facility] Comment on above: Performed By: #### 2 4325-3, 72984-0 #### [facility] [address] [place] [address] Medical Technologist Microbiology - Desiree MARCUM [id number] Urea nitrogen [Mass/Vol] 29 mg/dL High 9- [facility] Comment on above: Performed By: #### 2 4325-3, 75733-2 #### [facility] [address] [place] [address] Medical Technologist Microbiology - Desiree MARCUM [id number] CBC W Reflex Manual Differen tial panel (Bld)on 10-27-2020 ACANTHROCYTES Normal NONE SEEN [facility] Comment on above: Performed By: #### 5 7022-6 #### [facility] [address] [place] [address] Medical Technologist Microbiology - Desiree MARCUM [id number] Performed for [facility] [address] [place], [place] [address] ANISOCYTES Normal NONE SEEN [facility] Comment on above: Performed By: #### 5 7022-6 #### [facility] [address] [place] [address] Medical Technologist Microbiology - Desiree MARCUM [id number] Performed for [facility] [address] [place], [place] [address] ATYPICAL LYMPHOCYTES 1+ Abnormal NONE SEEN [facility] Comment on above: Performed By: #### 5 7022-6 #### [facility] [address] [place] [address] Medical Technologist Microbiology - Desiree MARCUM [id number] Performed for [facility] [address] [place], [place] [address] ZANA RODS Normal NONE SEEN [facility] Comment on above: Performed By: #### 5 7022-6 #### [facility] [address] [place], [place] [address] Medical Technologist Microbiology - Desiree MARCUM [id number] Performed for [facility] [address] [place], [place] [address] Band form neutrophils/100 WBC (Bld) 0 % Normal <=10 [facility] Comment on above: Performed By: #### 5 7022-6 #### [facility] [address] [place], [place] [address] Medical Technologist Microbiology - Desiree MARCUM [id number] Performed for [facility] [address] [place], [place] [address] BASO STIPPLING Normal NONE SEEN [facility] Comment on above: Performed By: #### 5 7022-6 #### [facility] [address] [place], [place] [address] Medical Technologist Microbiology - Desiree MARCUM [id number] Performed for [facility] [address] [place], [place] [address] Basophils (Bld) [#/Vol] 0.0 10*3/uL Normal 0.0-0.7 [facility] Comment on above: Performed By: #### 5 7022-6 #### [facility] [address] [place], [place] [address] Medical Technologist Microbiology - Desiree MARCUM [id number] Performed for [facility] [address] [place], [place] [address] Basophils/100 WBC (Bld) 0 % Normal 0-2 [facility] Comment on above: Performed By: #### 5 7022-6 #### [facility] [address] [place], [place] [address] Medical Technologist Microbiology - Desiree MARCUM [id number] Performed for [facility] [address] [place], [place] [address] Blasts/100 WBC (Bld) 0 % Normal <=1 [facility] Comment on above: Performed By: #### 5 7022-6 #### [facility] [address] [place], [place] [address] Medical Technologist Microbiology - Desiree MARCUM [id number] Performed for [facility] [address] [place], [place] [address] THOM CELLS Normal NONE SEEN [facility] Comment on above: Performed By: #### 5 7022-6 #### [facility] [address] [place], [place] [address] Medical Technologist Microbiology - Desiree MARCUM [id number] Performed for [facility] [address] [place], [place] [address] CABOT RINGS Normal NONE SEEN [facility] Comment on above: Performed By: #### 5 7022-6 #### [facility] [address] [place], [place] [address] Medical Technologist Microbiology - Desiree MARCUM [id number] Performed for [facility] [address] [place], [place] [address] DOHLE BODIES Normal NONE SEEN [facility] Comment on above: Performed By: #### 5 7022-6 #### [facility] [address] [place], [place] [address] Medical Technologist Microbiology - Desiree MARCUM [id number] Performed for [facility] [address] [place], [place] [address] Eosinophils (Bld) [#/Vol] 0.0 10*3/uL Normal 0.0-0.7 [facility] Comment on above: Performed By: #### 5 7022-6 #### [facility] [address] [place], [place] [address] Medical Technologist Microbiology - Desiree MARCUM [id number] Performed for [facility] [address] [place], [place] [address] Eosinophils/100 WBC (Bld) 0 % Normal 0-10 [facility] Comment on above: Performed By: #### 5 7022-6 #### [facility] [address] [place], [place] [address] Medical Technologist Microbiology - Desiree MARCUM [id number] Performed for [facility] [address] [place], [place] [address] Erythrocyte distribution width (RBC) [Entitic vol] 42.3 fL Normal 35.1-43.9 [facility] Comment on above: Performed By: #### 5 7022-6 #### [facility] [address] [place], [place] [address] Medical Technologist Microbiology - Desiree MARCUM [id number] Performed for [facility] [address] [place], [place] [address] GIANT PLATELETS Normal NONE SEEN [facility] Comment on above: Performed By: #### 5 7022-6 #### [facility] [address] [place], [place] [address] Medical Technologist Microbiology - Desiree MARCUM [id number] Performed for [facility] [address] [place], [place] [address] HDIFF MANUAL DIFFERENTIAL Normal [facility] Comment on above: Performed By: #### 5 7022-6 #### [facility] [address] [place], [place] [address] Medical Technologist Microbiology - Desiree MARCUM [id number] Performed for [facility] [address] [place], [place] [address] CLAUDIO BODIES Normal NONE SEEN [facility] Comment on above: Performed By: #### 5 7022-6 #### [facility] [address] [place], [place] [address] Medical Technologist Microbiology - Desiree MARCUM [id number] Performed for [facility] [address] [place], [place] [address] Hematocrit (Bld) [Volume fraction] 41.7 % Normal 40.0-54.0 [facility] Comment on above: Performed By: #### 5 7022-6 #### [facility] [address] [place], [place] [address] Medical Technologist Microbiology - Desiree MARCUM [id number] Performed for [facility] [address] [place], [place] [address] Hemoglobin (Bld) [Mass/Vol] 15.0 g/dL Normal 14.0-18.0 [facility] Comment on above: Performed By: #### 5 7022-6 #### [facility] [address] [place], [place] [address] Medical Technologist Microbiology - Desiree MARCUM [id number] Performed for [facility] [address] [place], [place] [address] CHOPRA JOLLY BODIES Normal NONE SEEN [facility] Comment on above: Performed By: #### 5 7022-6 #### [facility] [address] [place] [address] Medical Technologist Microbiology - Desiree MARCUM [id number] Performed for [facility] [address] [place], [place] [address] HSCAN RBC MORPHOLOGY SCAN Normal [facility] Comment on above: Performed By: #### 5 7022-6 #### [facility] [address] [place] [address] Medical Technologist Microbiology - Desiree MARCUM [id number] Performed for [facility] [address] [place] [address] HYPERSEGMENTED NEUT Normal NONE SEEN [facility] Comment on above: Performed By: #### 5 7022-6 #### [facility] [address] [place] [address] Medical Technologist Microbiology - Desiree MARCUM [id number] Performed for [facility] [address] [place] [address] HYPOCHROMASIA Normal NONE SEEN [facility] Comment on above: Performed By: #### 5 7022-6 #### [facility] [address] [place] [address] Medical Technologist Microbiology - Desiree MARCUM [id number] Performed for [facility] [address] [place], [place] [address] Immature granulocytes (Bld) [#/Vol] 0.00 10*3/uL Normal <=0.10 [facility] Comment on above: Performed By: #### 5 7022-6 #### [facility] [address] [place] [address] Medical Technologist Microbiology - Desiree MARCUM [id number] Performed for [facility] [address] [place], [place] [address] Lymphocytes (Bld) [#/Vol] 0.4 10*3/uL Low 1.2-3.4 [facility] Comment on above: Performed By: #### 5 7022-6 #### [facility] [address] [place], [place] [address] Medical Technologist Microbiology - Desiree MARCUM [id number] Performed for [facility] [address] [place], [place] [address] Lymphocytes/100 WBC (Bld) 23 % Normal 20-40 [facility] Comment on above: Performed By: #### 5 7022-6 #### [facility] [address] [place] [address] Medical Technologist Microbiology - Desiree MARCUM [id number] Performed for [facility] [address] [place], [place] [address] MACROCYTES Normal NONE SEEN [facility] Comment on above: Performed By: #### 5 7022-6 #### [facility] [address] [place] [address] Medical Technologist Microbiology - Desiree MARCUM [id number] Performed for [facility] [address] [place], [place] [address] MCH (RBC) [Entitic mass] 31.7 pg High 27.0-31.0 [facility] Comment on above: Performed By: #### 5 7022-6 #### [facility] [address] [place] [address] Medical Technologist Microbiology - Desiree MARCUM [id number] Performed for [facility] [address] [place], [place] [address] MCHC (RBC) [Mass/Vol] 36.0 g/dL Normal 32.0-36.0 [facility] Comment on above: Performed By: #### 5 7022-6 #### [facility] [address] [place] [address] Medical Technologist Microbiology - Desiree MARCUM [id number] Performed for [facility] [address] [place], [place] [address] MCV (RBC) [Entitic vol] 88.2 fL Normal 80.0-100.0 [facility] Comment on above: Performed By: #### 5 7022-6 #### [facility] [address] [place] [address] Medical Technologist Microbiology - Desiree MARCUM [id number] Performed for [facility] [address] [place], [place] [address] Metamyelocytes/100 WBC (Bld) 0 % Normal 0-1 [facility] Comment on above: Performed By: #### 5 7022-6 #### [facility] [address] [place], [place] [address] Medical Technologist Microbiology - Desiree MARCUM [id number] Performed for [facility] [address] [place], [place] [address] MICROCYTES Normal NONE SEEN [facility] Comment on above: Performed By: #### 5 7022-6 #### [facility] [address] [place], [place] [address] Medical Technologist Microbiology - Desiree MARCUM [id number] Performed for [facility] [address] [place], [place] [address] Monocytes (Bld) [#/Vol] 0.1 10*3/uL Normal 0.1-0.6 [facility] Comment on above: Performed By: #### 5 7022-6 #### [facility] [address] [place], [place] [address] Medical Technologist Microbiology - Desiree GARCIAIA [id number] Performed for [facility] [address] [place], [place] [address] Monocytes/100 WBC (Bld) 6 % Normal 0-8 [facility] Comment on above: Performed By: #### 5 7022-6 #### [facility] [address] [place], [place] [address] Medical Technologist Microbiology - Desiree GARCIAIA [id number] Performed for [facility] [address] [place], [place] [address] Myelocytes/100 WBC (Bld) 0 % Normal [facility] Comment on above: Performed By: #### 5 7022-6 #### [facility] [address] [place], [place] [address] Medical Technologist Microbiology - Desiree MARCUM [id number] Performed for [facility] [address] [place], [place] [address] Neutrophils (Bld) [#/Vol] 1.3 10*3/uL Low 1.4-6.5 [facility] Comment on above: Performed By: #### 5 7022-6 #### [facility] [address] [place], [place] [address] Medical Technologist Microbiology - Desiree MARCUM [id number] Performed for [facility] [address] [place], [place] [address] Nucleated RBC/100 WBC (Bld) [Ratio] Normal 0-5 [facility] Comment on above: Performed By: #### 5 7022-6 #### [facility] [address] [place], [place] [address] Medical Technologist Microbiology - Desiree GARCIAIA [id number] Performed for [facility] [address] [place], [place] [address] OVALOCYTES Normal NONE SEEN [facility] Comment on above: Performed By: #### 5 7022-6 #### [facility] [address] [place], [place] [address] Medical Technologist Microbiology - Desiree GARCIAIA [id number] Performed for [facility] [address] [place], [place] [address] PAPPENHEIMER BODIES Normal NONE SEEN [facility] Comment on above: Performed By: #### 5 7022-6 #### [facility] [address] [place], [place] [address] Medical Technologist Microbiology - Desiree GARCIAIA [id number] Performed for [facility] [address] [place], [place] [address] PLASMA CELLS Normal NONE SEEN [facility] Comment on above: Performed By: #### 5 7022-6 #### [facility] [address] [place], [place] [address] Medical Technologist Microbiology - Desiree GARCIAIA [id number] Performed for [facility] [address] [place], [place] [address] PLATELET CLUMPS Normal NONE SEEN [facility] Comment on above: Performed By: #### 5 7022-6 #### [facility] [address] [place], [place] [address] Medical Technologist Microbiology - Desiree MARCUM [id number] Performed for [facility] [address] [place], [place] [address] Platelet mean volume (Bld) [Entitic vol] 10.8 fL Normal 9.0-13.0 [facility] Comment on above: Performed By: #### 5 7022-6 #### [facility] [address] [place], [place] [address] Medical Technologist Microbiology - Desiree MARCUM [id number] Performed for [facility] [address] [place], [place] [address] PLATELET SATELLISM Normal NONE SEEN [facility] Comment on above: Performed By: #### 5 7022-6 #### [facility] [address] [place], [place] [address] Medical Technologist Microbiology - Desiree MARCUM [id number] Performed for [facility] [address] [place], [place] [address] Platelets (Bld) [#/Vol] 113 10*3/uL Low 130-400 [facility] Comment on above: Performed By: #### 5 7022-6 #### [facility] [address] [place] [address] Medical Technologist Microbiology - Desiree MARCUM [id number] Performed for [facility] [address] [place], [place] [address] POLYCHROMASIA Normal NONE SEEN [facility] Comment on above: Performed By: #### 5 7022-6 #### [facility] [address] [place], [place] [address] Medical Technologist Microbiology - Desiree MARCUM [id number] Performed for [facility] [address] [place], [place] [address] Promyelocytes/100 WBC (Bld) 0 % Normal [facility] Comment on above: Performed By: #### 5 7022-6 #### [facility] [address] [place], [place] [address] Medical Technologist Microbiology - Desiree MARCUM [id number] Performed for [facility] [address] [place], [place] [address] RBC (Bld) [#/Vol] 4.73 10*6/uL Normal 4.00-6.30 [facility] Comment on above: Performed By: #### 5 7022-6 #### [facility] [address] [place], [place] [address] Medical Technologist Microbiology - Desiree MARCUM [id number] Performed for [facility] [address] [place], [place] [address] ROULEAUX Normal NONE SEEN [facility] Comment on above: Performed By: #### 5 7022-6 #### [facility] [address] [place], [place] [address] Medical Technologist Microbiology - Desiree MARCUM [id number] Performed for [facility] [address] [place], [place] [address] SCHISTOCYTES Normal NONE SEEN [facility] Comment on above: Performed By: #### 5 7022-6 #### [facility] [address] [place], [place] [address] Medical Technologist Microbiology - Desiree MARCUM [id number] Performed for [facility] [address] [place], [place] [address] Segmented neutrophils/100 WBC (Bld) 71 % High 50-70 [facility] Comment on above: Performed By: #### 5 7022-6 #### [facility] [address] [place], [place] [address] Medical Technologist Microbiology - Desiree MARCUM [id number] Performed for [facility] [address] [place], [place] [address] SICKLE CELLS Normal NONE SEEN [facility] Comment on above: Performed By: #### 5 7022-6 #### [facility] [address] [place], [place] [address] Medical Technologist Microbiology - Desiree MARCUM [id number] Performed for [facility] [address] [place], [place] [address] SMUDGE CELLS Normal NONE SEEN [facility] Comment on above: Performed By: #### 5 7022-6 #### [facility] [address] [place], [place] [address] Medical Technologist Microbiology - Desiree MARCUM [id number] Performed for [facility] [address] [place], [place] [address] SPHEROCYTES Normal NONE SEEN [facility] Comment on above: Performed By: #### 5 7022-6 #### [facility] [address] [place], [place] [address] Medical Technologist Microbiology - Desiree MARCUM [id number] Performed for [facility] [address] [place], [place] [address] STOMATOCYTES Normal NONE SEEN [facility] Comment on above: Performed By: #### 5 7022-6 #### [facility] [address] [place], [place] [address] Medical Technologist Microbiology - Desiree MARCUM [id number] Performed for [facility] [address] [place], [place] [address] TARGET CELLS Normal NONE SEEN [facility] Comment on above: Performed By: #### 5 7022-6 #### [facility] [address] [place], [place] [address] Medical Technologist Microbiology - Desiree MARCUM [id number] Performed for [facility] [address] [place], [place] [address] TEAR DROP CELLS Normal NONE SEEN [facility] Comment on above: Performed By: #### 5 7022-6 #### [facility] [address] [place], [place] [address] Medical Technologist Microbiology - Desiree MARCUM [id number] Performed for [facility] [address] [place], [place] [address] TOXIC GRANULATION Normal NONE SEEN [facility] Comment on above: Performed By: #### 5 7022-6 #### [facility] [address] [place], [place] [address] Medical Technologist Microbiology - Desiree MARCUM [id number] Performed for [facility] [address] [place], [place] [address] VACUOLES Normal NONE SEEN [facility] Comment on above: Performed By: #### 5 7022-6 #### [facility] [address] [place], [place] [address] Medical Technologist Microbiology - Desiree MARCUM [id number] Performed for [facility] [address] [place], [place] [address] WBC (Bld) [#/Vol] 1.78 10*3/uL Critically low 4.80-10.80 [facility] Comment on above: Performed By: #### 5 7022-6 #### [facility] [address] [place] [address] Medical Technologist Microbiology - Desiree MARCUM [id number] Performed for [facility] [address] [place], [place] [address] FOLATE AND B12on 10-27-2020 Cobalamin (Vitamin B12) [Mass/Vol] 682 pg/mL Normal 254-1320 [facility] Comment on above: Performed By: #### 5 7698-3, FB12, 11593-9, 05140-1, 2777-1 ####[facility] [address]Medical Director - Desiree Bee [id number] Folate [Mass/Vol] 8.3 ng/mL Normal 3.1-17.5 [facility] Comment on above: Performed By: #### 5 7698-3, FB12, 05859-8, 73228-3, 2777-1 ####[facility] [address]Medical Director - Desiree Bee [id number] HIV RAPID W/CONFIRMATIONon 0 10-27-2020 IV INTERPRETATION OF RE SULTS A NON REACTIVE test result means that HIV-1 and HIV-2 antibodies and p24 antigen have not been detected in the specimen. A REACTIVE test result means that HIV-1 and HIV-2 antibodies and/or p24 antigen have been detected in the specimen. This HIV 1,2 and p24 antigen test is a rapid screen for the presence of HIV 1 and 2 antibodies and p24 antigen. All reactive test results will be followed up with confirmatory testing. Normal [facility] Comment on above: Performed By: #### H IVRAP #### [facility] [address] [place] [address] Medical Technologist Microbiology - Desiree MARCUM [id number] HIV 1+2 Ab Ql (S) Non-Reactive Normal NON REACTIVE [facility] Comment on above: Performed By: #### H IVRAP #### [facility] [address] [place] [address] Medical Technologist Microbiology - Desiree MARCUM [id number] Non-Reactive Normal NON REACTIVE [facility] Comment on above: Performed By: #### H IVRAP #### [facility] [address] [place] [address] Medical Technologist Microbiology - Desiree MARCUM [id number] HbA1c Calc (Bld) [Mass fract ion]on 10-27-2020 Average glucose Estimated from glycated hemoglobin (Bld) [Mass/Vol] 94 mg/dL Normal 68-125 [facility] Comment on above: Performed By: #### 1 7855-8 #### [facility] [address] [facility]. [place] [address] Medical Technologist Microbiology - Desiree MARCUM [id number] HA1C A1C INTERPRETATION % A1c (NGSP) Interpretation 3.8 - 6.4 Non-Diabetic Range 5.7 - 6.4 Prediabetic >6.5 Action Suggested The eAG (estimated average glucose) is an estimation of one?s average blood glucose level, calculated based on A1C test results, reported using the same units (mg/dL) seen on blood glucose meters. Normal [facility] Comment on above: Performed By: #### 1 7855-8 #### [facility] [address] [place] [address] Medical Technologist Microbiology - Desiree MARCUM [id number] HbA1c (Bld) [Mass fraction] 4.9 %A1C Normal 4.2-6.3 [facility] Comment on above: Performed By: #### 1 7855-8 #### [facility] [address] [place] [address] Medical Technologist Microbiology - Desiree MARCUM [id number] Hepatic function 2000 panelo n 10-27-2020 Albumin [Mass/Vol] 3.0 g/dL Low 3.4-5.0 [facility] Comment on above: Performed By: #### 2 4325-3, 45767-6 #### [facility] [address] [place] [address] Medical Technologist Microbiology - Desiree MARCUM [id number] Albumin/Globulin [Mass ratio] 0.9 {ratio} Low 1.0-2.2 [facility] Comment on above: Performed By: #### 2 5-3, 85242-5 #### [facility] [address] [place] [address] Medical Technologist Microbiology - Desiree Malik CLIA [id number] ALP [Catalytic activity/Vol] 70 U/L Normal 50-136 [facility] Comment on above: Performed By: #### 2 4324-3, 07584-4 #### [facility] [address] [place] [address] Medical Technologist Microbiology - Desiree Malik CLIA [id number] ALT [Catalytic activity/Vol] 24 U/L Normal 16-63 [facility] Comment on above: Performed By: #### 2 4324-3, 16021-8 #### [place] [address] [place] [address] Medical Technologist Microbiology - Desiree Malik CLIA [id number] AST [Catalytic activity/Vol] 29 U/L Normal 15-37 [facility] Comment on above: Performed By: #### 2 4324-3, 75417-1 #### [facility] [address] [place] [address] Medical Technologist Microbiology - Desiree Malik CLIA [id number] Bilirubin [Mass/Vol] 0.3 mg/dL Normal 0.2-1.0 [facility] Comment on above: Performed By: #### 2 4324-3, 79992-8 #### [facility] [address] [place] [address] Medical Technologist Microbiology - Desiree Malik CLIA [id number] Bilirubin.conjugated [Mass/Vol] 0.1 mg/dL Normal <=0.2 [facility] Comment on above: Performed By: #### 2 5-3, 09430-2 #### [facility] [address] [place] [address] Medical Technologist Microbiology - Desiree Malik CLIA [id number] Globulin (S) [Mass/Vol] 3.3 g/dL Normal 2.4-3.8 [facility] Comment on above: Performed By: #### 2 4325-3, 63665-5 #### [facility] [address] [place] [address] Medical Technologist Microbiology - Desiree MARCUM [id number] Protein [Mass/Vol] 6.3 g/dL Low 6.4-8.2 [facility] Comment on above: Performed By: #### 2 4325-3, 55905-1 #### [facility] [address] [place] [address] Medical Technologist Microbiology - Desiree GARCIAIA [id number] LACTATEon 10-27-2020 Lactate [Moles/Vol] 1.6 mmol/L Normal 0.4-2.0 [facility] Comment on above: Performed By: #### G LUM #### [facility] [address] [place] [address] Medical Technologist Microbiology - Desiree GARCIAIA [id number] Lipid panel with direct LDLo n 10-27-2020 Cholesterol [Mass/Vol] 88 mg/dL Normal <=200 [facility] Comment on above: Performed By: #### 5 7698-3, FB12, 40547-1, 64120-0, 2777-1 ####[facility] [address]Medical Director - Desiree Bee [id number] Cholesterol in HDL [Mass/Vol] 40 mg/dL Normal 40-59 [facility] Comment on above: Performed By: #### 5 7698-3, FB12, 12489-3, 68469-0, 2777-1 ####[facility], [place] [address]Srlvpvd Director - Desiree Bee [id number] Cholesterol in LDL [Mass/Vol] 38 mg/dL Normal 5-100 [facility] Comment on above: Performed By: #### 5 7698-3, FB12, 10123-4, 01629-0, 2777-1 ####[facility] [address]Medical Director - Desiree [id number] CHOLESTEROL/HDL 2.2 Normal [facility] Comment on above: Performed By: #### 5 7698-3, FB12, 18123-2, 98578-1, 2776-1 ####[facility], [place] [address]Tcbqnyh Director - Desiree Bee [id number] HCHOL CHOLESTEROL INTERPRE TATION Desirable <200 Borderline High 200-239 High >240 Normal [facility] Comment on above: Performed By: #### 5 7698-3, FB12, 95862-0, 71166-2, 2776- ####[facility] Director - Desiree Bee [id number] HLDL LDL INTERPRETATION Desirable <100 Near Optimal 100-129 Borderline High 130-159 High 160-190 Very High >190 Normal [facility] Comment on above: Performed By: #### 5 7698-3, FBSkylar, 41989-4, 17756-0, 2776- ####[facility], [place] [address]Wrchpwc Director - Desiree Bee [id number] HLIPID ATEROSCLEROSIS RISK FACTORS FOR LDL, HDL, AND CHOLESTEROL RISK FACTOR SEX LDL/HDL CHOL/HDL 1/2 Average M 1.00 3.43 F 1.47 3.27 Average M 3.55 4.97 F 3.22 4.44 2X Average M 6.25 9.55 F 5.03 7.05 3X Average M 7.99 23.39 F 6.14 11.04 Normal [facility] Comment on above: Performed By: #### 5 7698-3, FB12, 83605-7, 49208-2, 2776-1 ####[facility], [place] [address] [place] [address] [id number] HTRIG TRIGLYCERIDES INTERPRETATION Normal <150 Borderline High 150-199 High 200-499 Very High >500 Normal [facility] Comment on above: Performed By: #### 5 7698-3, FB12, 17295-5, 84037-1, 2777-1 ####[facility] [id number] LDL/HDL 1.0 Normal [facility] Comment on above: Performed By: #### 5 7698-3, FB12, 51648-7, 40485-5, 2777-1 ####[facility], [place] [address] [place] [address] [id number] Triglyceride [Mass/Vol] 45 mg/dL Normal <=150 [facility] Comment on above: Performed By: #### 5 7698-3, FB12, 68392-5, 00257-7, 2777-1 ####[facility] [id number] MRI ABDOMENon 10-27-2020 MRI ABDOMEN EXAM: MRI ABDOMEN HISTORY: Small bowel obstruction Bowel obstruction. Renal lesions on CT. COMPARISON: CT of the abdomen performed 10/26/2020. TECHNIQUE: MRI of the abdomen was performed using axial and coronal SSFP images, axial fast spin echo T2-weighted images, axial in and out of phase gradient echo T1-weighted images, axial diffusion-weighted images, axial pre and postcontrast T1-weighted images with fat saturation and coronal postcontrast T1-weighted images. Subtraction images were performed. Patient received 7 mL MultiHance IV. FINDINGS: The examination is limited by motion artifact. In the posterior upper pole of the left kidney there is a prominently T1 hyperintense lesion which also demonstrates prominent T2 hyperintensity and measures 3.9 cm on series 3 image 12. T1 hyperintensity is well shown on the precontrast T1-weighted images (series 700 image 43), and signal intensity is similar on postcontrast images, but evaluation is limited on subtraction images due to misregistration from respiratory motion. There is no definite evidence of internal enhancement within this lesion however. There are many bilateral renal cysts otherwise which demonstrate T2 bright and T2 dark fluid signal. A lesion in the lateral lower right kidney contains a dependent layering component of mildly increased T1 signal and T2 shading. This lesion measures 2.5 cm on series 3 image 25 and demonstrates no definite internal enhancement on subtraction images (series 83797 image 83). Most of the renal lesions are too small to characterize or cannot be characterized due to motion artifact obscuring detail. The adrenal glands are partially obscured by motion artifact. Mild adrenal thickening was suggested on CT. The liver demonstrates no definite evidence of significant steatosis. Evaluation of the liver is limited due to motion. There is a probable nonenhancing cyst in the left hepatic lobe measuring 17 mm for example on series 702 image 32, also shown on CT. Gallbladder contains gallstones and is partially collapsed. Spleen is normal in size. Pancreas is mildly atrophic and demonstrates no definite suspicious focal lesions although detail is significantly limited by motion. No biliary or pancreatic ductal dilatation is appreciated. There is a small sliding hiatus hernia. Abdominal aorta demonstrates moderate irregular atherosclerotic plaque without evidence of an abdominal aortic aneurysm. Heart appears moderately enlarged and there is evidence of prior median sternotomy. There is mild partial atelectasis in the lung bases. There is a lipoma noted in the left lumbar paraspinal musculature. There is severe dilatation of small bowel loops in the upper and mid abdomen, partially imaged. Air-fluid levels are noted. Degree of dilatation is similar or possibly mildly worsening since the comparison CT, measuring up to 4.1 cm for example on series 3 image 20. There is suspicion for an abrupt transition point in the mid abdomen shown for example on series 4 image 7 with abrupt cut off of a dilated small bowel loop, possibly due to adhesions or a volvulus. The dilated bowel loops in the left lower abdomen appeared edematous with mesenteric stranding on the comparison CT, not fully imaged currently. There is a small amount of peritoneal free fluid noted in the pelvis on series 4 image 17 as well as a minimal amount of perihepatic and perisplenic free fluid suggested on SSFP images. IMPRESSION: 1. Severe small intestinal dilatation with air-fluid levels, similar or possibly slightly increasing since the CT performed yesterday. There is evidence of a high-grade obstruction with an abrupt cut off of a dilated small bowel loop in the mid abdomen, possibly due to adhesions or a small intestinal volvulus. Edematous dilated loops were shown on the recent comparison CT, partially imaged on the current exam. A small amount of peritoneal free fluid is noted, likely due to bowel wall edema. 2. Numerous renal cysts, some of which are hemorrhagic. Most of the lesions cannot be definitively characterized due to their small size or extensive motion artifact. No overtly suspicious renal lesions. 3. Cholelithiasis. Small left hepatic cyst. 4. Small sliding hiatus hernia. 5. Atherosclerosis. Cardiomegaly and evidence of prior median sternotomy. Report called to Dr. Ceballos at time of dictation. Normal [facility] PHOSPHORUSon 10-27-2020 Phosphate [Mass/Vol] 3.8 mg/dL Normal 2.5-4.9 [facility] Comment on above: Performed By: #### 5 7698-3, FB12, 63515-6, 18729-6, 2777-1 ####[facility] Director - [facility] [id number] PREALBUMINon 10-27-2020 Prealbumin [Mass/Vol] 11.6 mg/dL Low 20.0-40.0 [facility] Comment on above: Performed By: #### 5 7698-3, FB12, 82270-5, 95058-4, 2777-1 ####[facility] Director - Desiree KingJOSUE [id number] PSA SCREENon 10-27-2020 Prostate specific Ag [Mass/Vol] 31.10 ng/mL High <=4.00 [facility] Comment on above: Performed By: #### 2 857-1 ####[facility] Director - [facility] [id number] TSH DL <= 0.05 mIU/L Qnon TSH Qn 1.850 uIU/mL Normal 0.358-3.74 0 [facility] Comment on above: Performed By: #### 5 7698-3, FB12, 43878-3, 52555-1, 2777-1 ####[facility] [address]Medical Director - Desiree Bee [id number] ABDOMEN KUB PORTABLEon 10-26 ABDOMEN KUB PORTABLE EXAM: ABDOMEN KUB P ORTABLE HISTORY: Nasogastric tube in situ COMPARISON: None. TECHNIQUE: Single portable supine view of the abdomen is submitted for review. FINDINGS: Nasogastric tube is seen in place with distal tip projecting over the expected location of the gastric body. Air-filled mildly distended loop of small bowel are seen in the left upper abdomen measuring up to 3.7 cm in diameter. IMPRESSION: Nasogastric tube is seen in place with distal tip projecting over the expected location of the gastric body. Normal [facility] BILIRUBIN DIRECTon Bilirubin.conjugated [Mass/Vol] 0.2 mg/dL Normal <=0.2 [facility] Comment on above: Performed By: #### 1 5152-2 #### [facility] [address] [place] [address] Medical Technologist Microbiology - Desiree MARCUM [id number] CBC W Reflex Manual Differen tial panel (Bld)on 10-26-2020 ACANTHROCYTES Normal NONE SEEN [facility] Comment on above: Performed By: #### 5 7022-6 ####[place] [address] [address]Medical Director - Desiree Bee [id number] for [place] [address], [place] [address] ANISOCYTES Normal NONE SEEN [facility] Comment on above: Performed By: #### 5 7022-6 ####[place] [address] [address]Medical Director - Desiree Bee [id number] for [place] [address] [address], [place] [address] ATYPICAL LYMPHOCYTES Normal NONE SEEN [facility] Comment on above: Performed By: #### 5 7022-6 ####[facility], [place] [address]Sdtpwgd Director - Desiree Bee [id number] for [facility] [place], [place] [address] ZANA RODS Normal NONE SEEN [facility] Comment on above: Performed By: #### 5 7022-6 ####[facility], [place] [address]Nswsrhj Director - Desiree Bee [id number] for [facility], [place] [address] Band form neutrophils/100 WBC (Bld) 0 % Normal <=10 [facility] Comment on above: Performed By: #### 5 7022-6 ####[place] [address], [place] [address]Vteewsa Director - Desiree Bee [id number] for [place] [address] [address], [place] [address] BASO STIPPLING Normal NONE SEEN [facility] Comment on above: Performed By: #### 5 7022-6 ####[place] [address], [place] [address]Uyuzohy Director - Desiree Bee [id number] for [place] [address] [address], [place] [address] Basophils (Bld) [#/Vol] 0.0 10*3/uL Normal 0.0-0.7 [facility] Comment on above: Performed By: #### 5 7022-6 ####[facility], [place] [address]Quvbnpz Director - Desiree Bee [id number] for [place] [address] [address], [place] [address] Basophils/100 WBC (Bld) 0 % Normal 0-2 [facility] Comment on above: Performed By: #### 5 7022-6 ####[place] [address], [place] [address]Nvtwvga Director - Desiree Bee [id number] for [facility] [place], [place] [address] Blasts/100 WBC (Bld) 0 % Normal <=1 [facility] Comment on above: Performed By: #### 5 7022-6 ####[facility], [place] [address]Jxjxjsv Director - Desiree Bee [id number] for [facility] [place], [place] [address] THOM CELLS Normal NONE SEEN [facility] Comment on above: Performed By: #### 5 7022-6 ####[facility], [place] [address]Zeewxvd Director - Desiree Bee [id number] for [facility] [place], [place] [address] CABOT RINGS Normal NONE SEEN [facility] Comment on above: Performed By: #### 5 7022-6 ####[facility], [place] [address]Lhzzmmq Director - Desiree Bee [id number] for [facility] [place], [place] [address] DOHLE BODIES Normal NONE SEEN [facility] Comment on above: Performed By: #### 5 7022-6 ####[facility], [place] [address]Pdxxqxj Director - Desiree Bee [id number] for [facility], [place] [address] Eosinophils (Bld) [#/Vol] 0.0 10*3/uL Normal 0.0-0.7 [facility] Comment on above: Performed By: #### 5 7022-6 ####[facility], [place] [address]Ntyssmp Director - Desiree Bee [id number] for [facility] [place], [place] [address] Eosinophils/100 WBC (Bld) 0 % Normal 0-10 [facility] Comment on above: Performed By: #### 5 7022-6 ####[facility], [place] [address]Tyzscji Director - Desiree Bee [id number] for [facility], [place] [address] Erythrocyte distribution width (RBC) [Entitic vol] 43.0 fL Normal 35.1-43.9 [facility] Comment on above: Performed By: #### 5 7022-6 ####[facility], [place] [address]Yfxajvp Director - Desiree Bee [id number] for [facility], [place] [address] GIANT PLATELETS Normal NONE SEEN [facility] Comment on above: Performed By: #### 5 7022-6 ####[facility], [place] [address]Uunarzs Director - Desiree Bee [id number] for [facility], [place] [address] HDIFF MANUAL DIFFERENTIAL Normal [facility] Comment on above: Performed By: #### 5 7022-6 ####[facility], [place] [address]Wvcpvwu Director - Desiree Bee [id number] for [facility], [place] [address] CLAUDIO BODIES Normal NONE SEEN [facility] Comment on above: Performed By: #### 5 7022-6 ####[facility], [place] [address]Mrnbxiu Director - Desiree Bee [id number] for [facility], [place] [address] Hematocrit (Bld) [Volume fraction] 45.4 % Normal 40.0-54.0 [facility] Comment on above: Performed By: #### 5 7022-6 ####[facility], [place] [address]Hmkrkjn Director - Desiree Bee [id number] for [facility] [place], [place] [address] Hemoglobin (Bld) [Mass/Vol] 16.2 g/dL Normal 14.0-18.0 [facility] Comment on above: Performed By: #### 5 7022-6 ####[facility]cal Director - Desiree Bee [id number] for [place] [address] [place], [place] [address] CHOPRA JOLLY BODIES Normal NONE SEEN [facility] Comment on above: Performed By: #### 5 7022-6 ####[place] [address]cal Director - Desiree Bee [id number] for [facility] [place], [place] [address] HSCAN RBC MORPHOLOGY SCAN Normal [facility] Comment on above: Performed By: #### 5 7022-6 ####[facility]cal Director - Desiree Bee [id number] for [facility], [place] [address] HYPERSEGMENTED NEUT Normal NONE SEEN [facility] Comment on above: Performed By: #### 5 7022-6 ####[facility] [address]Medical Director - Desiree Bee [id number] for [facility] [place], [place] [address] HYPOCHROMASIA Normal NONE SEEN [facility] Comment on above: Performed By: #### 5 7022-6 ####[facility]cal Director - Desiree Bee [id number] for [facility], [place] [address] Immature granulocytes (Bld) [#/Vol] 0.00 10*3/uL Normal <=0.10 [facility] Comment on above: Performed By: #### 5 7022-6 ####[place] [address], [place] [address]Ysvtenu Director - Desiree Bee [id number] for [place] [address], [place] [address] Lymphocytes (Bld) [#/Vol] 0.3 10*3/uL Low 1.2-3.4 [facility] Comment on above: Performed By: #### 5 7022-6 ####[place] [address]cal Director - Desiree Bee [id number] for [place] [address], [place] [address] Lymphocytes/100 WBC (Bld) 11 % Low 20-40 [facility] Comment on above: Performed By: #### 5 7022-6 ####[place] [address]cal Director - Desiree Bee [id number] for [place] [address], [place] [address] MACROCYTES Normal NONE SEEN [facility] Comment on above: Performed By: #### 5 7022-6 ####[place] [address]cal Director - Desiree Bee [id number] for [place] [address] [address], [place] [address] MCH (RBC) [Entitic mass] 31.7 pg High 27.0-31.0 [facility] Comment on above: Performed By: #### 5 7022-6 ####[place] [address] [address]Medical Director - Desiree Bee [id number] for [place] [address], [place] [address] MCHC (RBC) [Mass/Vol] 35.7 g/dL Normal 32.0-36.0 [facility] Comment on above: Performed By: #### 5 7022-6 ####[facility], [place] [address]Ktfgpiw Director - Desiree Bee [id number] for [facility], [place] [address] MCV (RBC) [Entitic vol] 88.8 fL Normal 80.0-100.0 [facility] Comment on above: Performed By: #### 5 7022-6 ####[facility], [place] [address]Iqhbgsv Director - Desiree Bee [id number] for [place] [address], [place] [address] Metamyelocytes/100 WBC (Bld) 0 % Normal 0-1 [facility] Comment on above: Performed By: #### 5 7022-6 ####[facility], [place] [address]Hqedrrh Director - Desiree Bee [id number] for [place] [address], [place] [address] MICROCYTES Normal NONE SEEN [facility] Comment on above: Performed By: #### 5 7022-6 ####[place] [address], [place] [address]Jqpsqey Director - Desiree Bee [id number] for [place] [address], [place] [address] Monocytes (Bld) [#/Vol] 0.2 10*3/uL Normal 0.1-0.6 [facility] Comment on above: Performed By: #### 5 7022-6 ####[place] [address], [place] [address]Uqrswpm Director - Desiree Bee [id number] for [place] [address], [place] [address] Monocytes/100 WBC (Bld) 6 % Normal 0-8 [facility] Comment on above: Performed By: #### 5 7022-6 ####[facility], [place] [address]Mvxdjif Director - Desiree Bee [id number] for [facility] [place], [place] [address] Myelocytes/100 WBC (Bld) 0 % Normal [facility] Comment on above: Performed By: #### 5 7022-6 ####[facility], [place] [address]Jhzasur Director - Desiree Bee [id number] for [facility], [place] [address] Neutrophils (Bld) [#/Vol] 2.3 10*3/uL Normal 1.4-6.5 [facility] Comment on above: Performed By: #### 5 7022-6 ####[facility], [place] [address]Oqnsopm Director - Desiree Bee [id number] for [facility] [place], [place] [address] Nucleated RBC/100 WBC (Bld) [Ratio] Normal 0-5 [facility] Comment on above: Performed By: #### 5 7022-6 ####[facility], [place] [address]Temyabk Director - Desiree Bee [id number] for [facility] [place], [place] [address] OVALOCYTES Normal NONE SEEN [facility] Comment on above: Performed By: #### 5 7022-6 ####[facility], [place] [address]Ywkxyvh Director - Desiree Bee [id number] for [facility] [place], [place] [address] PAPPENHEIMER BODIES Normal NONE SEEN [facility] Comment on above: Performed By: #### 5 7022-6 ####[facility], [place] [address]Isqyzpu Director - Desiree Bee [id number] for [facility], [place] [address] PLASMA CELLS Normal NONE SEEN [facility] Comment on above: Performed By: #### 5 7022-6 ####[facility], [place] [address]Jmvwadv Director - Desiree Bee [id number] for [facility], [place] [address] PLATELET CLUMPS Normal NONE SEEN [facility] Comment on above: Performed By: #### 5 7022-6 ####[facility], [place] [address]Wkshfzu Director - Desiree Bee [id number] for [facility], [place] [address] Platelet mean volume (Bld) [Entitic vol] 10.5 fL Normal 9.0-13.0 [facility] Comment on above: Performed By: #### 5 7022-6 ####[facility], [place] [address]Mfcrcbj Director - Desiree Bee [id number] for [facility], [place] [address] PLATELET SATELLISM Normal NONE SEEN [facility] Comment on above: Performed By: #### 5 7022-6 ####[facility], [place] [address]Cikseah Director - Desiree Bee [id number] for [facility], [place] [address] Platelets (Bld) [#/Vol] 127 10*3/uL Low 130-400 [facility] Comment on above: Performed By: #### 5 7022-6 ####[facility], [place] [address]Jvennzu Director - Desiree Bee [id number] for [facility], [place] [address] POLYCHROMASIA Normal NONE SEEN [facility] Comment on above: Performed By: #### 5 7022-6 ####[facility], [place] [address]Csewdva Director - Desiree Bee [id number] for [facility], [place] [address] Promyelocytes/100 WBC (Bld) 0 % Normal [facility] Comment on above: Performed By: #### 5 7022-6 ####[facility], [place] [address]Gkzjyiw Director - Desiree Bee [id number] for [facility], [place] [address] RBC (Bld) [#/Vol] 5.11 10*6/uL Normal 4.00-6.30 [facility] Comment on above: Performed By: #### 5 7022-6 ####[facility], [place] [address]Fhamyag Director - Desiree Bee [id number] for [facility], [place] [address] ROULEAUX Normal NONE SEEN [facility] Comment on above: Performed By: #### 5 7022-6 ####[facility], [place] [address]Dzyulwm Director - Desiree Bee [id number] for [facility], [place] [address] SCHISTOCYTES Normal NONE SEEN [facility] Comment on above: Performed By: #### 5 7022-6 ####[facility], [place] [address]Kpjemmu Director - Desireeannette CheekrellJOSSUE [id number] for [facility], [place] [address] Segmented neutrophils/100 WBC (Bld) 83 % High 50-70 [facility] Comment on above: Performed By: #### 5 7022-6 ####[facility], [place] [address]Oxpscyc Director - Desireeannette CheekrellCLJOSUE [id number] for [facility] [place], [place] [address] SICKLE CELLS Normal NONE SEEN [facility] Comment on above: Performed By: #### 5 7022-6 ####[facility], [place] [address]Wtuiagq Director - Desiree FarrellCLJOSUE [id number] for [facility] [place], [place] [address] SMUDGE CELLS Normal NONE SEEN [facility] Comment on above: Performed By: #### 5 7022-6 ####[facility], [place] [address]Vcnwwit Director - Desireeannette CheekrellCLJOSUE [id number] for [facility] [place], [place] [address] SPHEROCYTES Normal NONE SEEN [facility] Comment on above: Performed By: #### 5 7022-6 ####[facility], [place] [address]Obkdgmo Director - Desireeannette CheekrellJOSSUE [id number] for [facility] [place], [place] [address] STOMATOCYTES Normal NONE SEEN [facility] Comment on above: Performed By: #### 5 7022-6 ####[facility], [place] [address]Npwrgcs Director - Desiree FarrellCLJOSUE [id number] for [facility] [place], [place] [address] TARGET CELLS Normal NONE SEEN [facility] Comment on above: Performed By: #### 5 7022-6 ####[facility], [place] [address]Auvehgo Director - Desiree FarrellCLJOSUE [id number] for [facility] [place], [place] [address] TEAR DROP CELLS Normal NONE SEEN [facility] Comment on above: Performed By: #### 5 7022-6 ####[facility], [place] [address]Lajkctn Director - Desiree Bee [id number] for [facility] [place], [place] [address] TOXIC GRANULATION Normal NONE SEEN [facility] Comment on above: Performed By: #### 5 7022-6 ####[facility] [address]Medical Director - Desiree Bee [id number] for [facility] [place], [place] [address] VACUOLES Normal NONE SEEN [facility] Comment on above: Performed By: #### 5 7022-6 ####[facility]cal Director - Desiree Bee [id number] for [facility] [place], [place] [address] WBC (Bld) [#/Vol] 2.80 10*3/uL Low 4.80-10.80 [facility] Comment on above: Performed By: #### 5 7022-6 ####[facility]cal Director - Desiree Bee [id number] for [place] [address] [place], [place] [address] CORONAVIRUS ABBOTTon 021 HMOLE TESTING PERFORMED BY MOLECULAR METHOD Normal [facility] Comment on above: Performed By: #### C OVABOT ####[facility] Streetcal Director - Desiree Bee [id number] HPCRA TEST PERFORMED USING AUGUSTINE ID NOW Normal [facility] Comment on above: Performed By: #### C OVABOT ####[facility] Streetcal Director - Desiree Bee [id number] SARS-CoV-2 (COVID-19) RNA BONY+probe Ql (Unsp spec) Detected Abnormal NOT DETECTED [facility] Comment on above: Performed By: #### C OVABOT ####[facility], [place] [address]Jzezlav Director - Desireeannette MalikJOSSUE [id number] CT ABDOMEN AND PELVIS WITHOU T CONTRASTon 10-26-2020 CT ABDOMEN AND PELVIS WITHOUT CONTRAST EXAMINATION: CT ABDOMEN AND PELVIS WITHOUT CONTRAST, 10/26/2020 5:02 PM EDT HISTORY: Pain. COMPARISON: None. TECHNIQUE: CT scan of the abdomen and pelvis was performed without IV contrast. CT dose reduction technique was used, including Automated Exposure Control. FINDINGS: There are small bilateral pleural effusions with associated atelectasis. There is a prominent hiatal hernia. The patient is status post median sternotomy. There are degenerative changes of the spine. 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 There is a 1 cm left hepatic lobe cyst. The spleen and pancreas are unremarkable. There is mild thickening of the left adrenal gland. Cholelithiasis is noted. No hydronephrosis or obstructive uropathy. There are numerous bilateral hypodense renal structures which are indeterminate (measuring up to 2.5 cm on the right and 3.5 cm on the left). Bilateral nonobstructing renal calculi are noted including a 6 mm right renal pelvic calculus. The bladder is relatively collapsed. The prostate is enlarged and protrudes into the posterior aspect of the bladder. The aorta demonstrates atherosclerotic calcification. No abdominal/pelvic lymphadenopathy is present. There are fluid-filled, dilated small bowel loops with surrounding interloop mesenteric edema. Small bowel loops more distally are collapsed. Small pelvic free fluid is noted. IMPRESSION: Findings most consistent with small bowel obstruction with transition point likely within the left hemiabdomen. Mild interloop edema and pelvic free fluid are noted. Several bilateral hypodense renal structures which are indeterminate, some of which may represent cysts however others are nonspecific and for which underlying solid lesion/neoplasm cannot be excluded. Further evaluation with nonemergent follow-up contrast-enhanced MRI abdomen, renal protocol, is advised. Significant prostatomegaly for which correlation with PSA is recommended. Normal [facility] Comprehensive metabolic 2000 panelon 10-26-2020 Albumin [Mass/Vol] 3.5 g/dL Normal 3.4-5.0 [facility] Comment on above: Performed By: #### 2 4323-8, 3040-3 #### [facility] [address] [place] [address] Medical Technologist Microbiology - Desiree MARCUM [id number] Performed By: #### 2 4323-8 #### [facility] [address] [place] [address] Medical Technologist Microbiology - Desiree GARCIAIA [id number] ALP [Catalytic activity/Vol] 82 U/L Normal 50-136 [facility] Comment on above: Performed By: #### 2 4323-8, 3040-3 #### [facility] [address] [place] [address] Medical Technologist Microbiology - Desiree MARCUM [id number] Performed By: #### 2 4323-8 #### [place] [address] [place] [address] Medical Technologist Microbiology - Desiree GARCIAIA [id number] ALT [Catalytic activity/Vol] 28 U/L Normal 16-63 [facility] Comment on above: Performed By: #### 2 4323-8, 3040-3 #### [facility] [address] [place] [address] Medical Technologist Microbiology - Desiree MARCUM [id number] Performed By: #### 2 4323-8 #### [facility] [address] [place] [address] Medical Technologist Microbiology - Desiree MARCUM [id number] Anion gap [Moles/Vol] 6.0 mmol/L Normal <=15.0 [facility] Comment on above: Performed By: #### 2 4323-8, 3040-3 #### [facility] [address] [place] [address] Medical Technologist Microbiology - Desiree MARCUM [id number] Performed By: #### 2 4323-8 #### [facility] [address] [place] [address] Medical Technologist Microbiology - Desiree MARCUM [id number] AST [Catalytic activity/Vol] 30 U/L Normal 15-37 [facility] Comment on above: Performed By: #### 2 4323-8, 0-3 #### [facility] [address] [place] [address] Medical Technologist Microbiology - Desiree GARCIAIA [id number] Performed By: #### 2 4323-8 #### [facility] [address] [place] [address] Medical Technologist Microbiology - Desiree GARCIAIA [id number] Bilirubin [Mass/Vol] 0.5 mg/dL Normal 0.2-1.0 [facility] Comment on above: Performed By: #### 2 4323-8, 0-3 #### [facility] [address] [place] [address] Medical Technologist Microbiology - Desiree GARCIAIA [id number] Performed By: #### 2 4323-8 #### [place] [address] [place] [address] Medical Technologist Microbiology - Desiree GARCIAIA [id number] Calcium [Mass/Vol] 8.7 mg/dL Normal 8.5-10.1 [facility] Comment on above: Performed By: #### 2 4323-8, 0-3 #### [place] [address] [place] [address] Medical Technologist Microbiology - Desiree GARCIAIA [id number] Performed By: #### 2 4323-8 #### [facility] [address] [place] [address] Medical Technologist Microbiology - Desiree GARCIAIA [id number] Chloride [Moles/Vol] 106 mmol/L Normal 98-107 [facility] Comment on above: Performed By: #### 2 4323-8, 0-3 #### [facility] [address] [place] [address] Medical Technologist Microbiology - Desiree GARCIAIA [id number] Performed By: #### 2 4323-8 #### [facility] [address] [place] [address] Medical Technologist Microbiology - Desiree GARCIAIA [id number] CO2 [Moles/Vol] 24 mmol/L Normal 21-32 [facility] Comment on above: Performed By: #### 2 4323-8, 3040-3 #### [facility] [address] [place] [address] Medical Technologist Microbiology - Desiree GARCIAIA [id number] Performed By: #### 2 4323-8 #### [facility] [address] [place] [address] Medical Technologist Microbiology - Desiree GARCIAIA [id number] Creatinine [Mass/Vol] 1.09 mg/dL Normal 0.67-1.17 [facility] Comment on above: Performed By: #### 2 4323-8, 0-3 #### [facility] [address] [place] [address] Medical Technologist Microbiology - Desiree GARCIAIA [id number] Performed By: #### 2 4323-8 #### [facility] [address] [place] [address] Medical Technologist Microbiology - Desiree MARCUM [id number] GFR/1.73 sq M.predicted MDRD (S/P/Bld) [Vol rate/Area] mL/min/{1.73_m2} Normal >=59 [facility] Comment on above: Performed By: #### 2 4323-8, 0-3 #### [facility] [address] [place] [address] Medical Technologist Microbiology - Desiree GARCIAIA [id number] Performed By: #### 2 4323-8 #### [facility] [address] [place] [address] Medical Technologist Microbiology - Desiree MARCUM [id number] Glucose [Mass/Vol] 128 mg/dL High 74-106 [facility] Comment on above: Performed By: #### 2 4323-8, 3040-3 #### [facility] [address] [place] [address] Medical Technologist Microbiology - Desiree MARCUM [id number] Performed By: #### 2 4323-8 #### [facility] [address] [place] [address] Medical Technologist Microbiology - Desiree MARCUM [id number] HGFR GLOMERULAR FILTRATIO N RATE INTERPRETATION~The eGFR is calculated using the MDRD equation.~This equation has been validated in patients with chronic kidney disease;~however, it underestimates the GFR in healthy patients with GFR's over 60 mL/min.~The equation is not valid in children under the age of 18.~NOTE: Criteria for Chronic Kidney Disease:~ ~1. Kidney damage for at least three months, as defined~by structural or functional abnormalities of the kidney,~with or without decreased glomerular filtration rate, manifested by either:~* Pathological abnormalities or~* Markers of Kidney damage, including abnormalities in~the composition of the blood or urine or abnormalities in imaging tests.~ ~2. GFR <60 mL/min/1.73 m squared for at least three months, with or without kidney damage.~ Normal [facility] Comment on above: Performed By: #### 2 4323-8, 0-3 #### [facility] [address] [place] [address] Medical Technologist Microbiology - Desiree MARCUM [id number] Performed By: #### 2 4323-8 #### [facility] [address] [place] [address] Medical Technologist Microbiology - Desiree MARCUM [id number] Potassium [Moles/Vol] 3.8 mmol/L Normal 3.5-5.1 [facility] Comment on above: Performed By: #### 2 4323-8, 3040-3 #### [facility] [address] [place] [address] Medical Technologist Microbiology - Desiree MARCUM [id number] Performed By: #### 2 4323-8 #### [facility] [address] [place] [address] Medical Technologist Microbiology - Desiree MARCUM [id number] Protein [Mass/Vol] 7.0 g/dL Normal 6.4-8.2 [facility] Comment on above: Performed By: #### 2 4323-8, 3040-3 #### [facility] [address] [place] [address] Medical Technologist Microbiology - Desiree MARCUM [id number] Performed By: #### 2 4323-8 #### [facility] [address] [place] [address] Medical Technologist Microbiology - Desiree MARCUM [id number] Sodium [Moles/Vol] 136 mmol/L Normal 136-145 [facility] Comment on above: Performed By: #### 2 4323-8, 3040-3 #### [facility] [address] [place] [address] Medical Technologist Microbiology - Desiree MARCUM [id number] Performed By: #### 2 4323-8 #### [facility] [address] [place] [address] Medical Technologist Microbiology - Desiree MARCUM [id number] Urea nitrogen [Mass/Vol] 24 mg/dL High - [facility] Comment on above: Performed By: #### 2 4323-8, 3040-3 #### [facility] [address] [place] [address] Medical Technologist Microbiology - Desiree MARCUM [id number] Performed By: #### 2 4323-8 #### [facility] [address] [place] [address] Medical Technologist Microbiology - Desiree MARCUM [id number] LACTATEon 10-26-2020 Lactate [Moles/Vol] 1.4 mmol/L Normal 0.4-2.0 [facility] Comment on above: Performed By: #### 2 524-7 ####[facility] [address]Medical Director - Desiree Bee [id number] Lactate [Moles/Vol] 1.3 mmol/L Normal 0.4-2.0 [facility] Comment on above: Performed By: #### 2 524-7 ####[facility], [place] [address]Mxbnwbe Director - Desiree Bee [id number] LIPASEon 10-26-2020 Lipase [Catalytic activity/Vol] 128 U/L Normal 73-393 [facility] Comment on above: Performed By: #### 2 4323-8, 3040-3 #### [facility] [address] [place], [place] [address] Medical Technologist Microbiology - Desiree MARCUM [id number] 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 Anion gap 9 mmol/L Invalid Interpretation Code [facility] Work Phone: [phone] Anion gap molar conc 9 mmol/L [facility] Work Phone: [phone] Calcium mass conc 8.9 mg/dL Invalid Interpretation Code [facility] Work Phone: [phone] Chloride molar conc 108 mmol/L High [facility] Work Phone: [phone] Cholesterol in HDL mass conc 53 mg/dL Invalid Interpretation Code [facility] Work Phone: [phone] Cholesterol in LDL mass conc 52 mg/dL Invalid Interpretation Code [facility] Work Phone: [phone] Cholesterol mass conc 117 mg/dL Invalid Interpretation Code [facility] Work Phone: [phone] CO2 24.0 mmol/L Invalid Interpretation Code [facility] Work Phone: [phone] CO2 ppres (BldV) 24.0 mmol/L [facility] Work Phone: [phone] Creatinine mass conc 1.08 mg/dL Invalid Interpretation Code [facility] Work Phone: [phone] Glucose 73 mg/dL Invalid Interpretation Code [facility] Work Phone: [phone] Glucose mass conc 73 mg/dL [facility] Work Phone: [phone] Lipoprotein.pre-beta mass conc 12 mg/dL Invalid Interpretation Code [facility] Work Phone: [phone] Potassium molar conc 3.8 mmol/L Invalid Interpretation Code [facility] Work Phone: [phone] Sodium molar conc 141 mmol/L Invalid Interpretation Code [facility] Work Phone: [phone] Triglyceride mass conc 61 mg/dL Invalid Interpretation Code [facility] Work Phone: [phone] Urea nitrogen mass conc 20 mg/dL High [facility] Work Phone: [phone] Urea nitrogen/Creatinine mass ratio 18.5 mg/mg Invalid Interpretation Code [facility] Work Phone: [phone] Office Visiton 08-21-2016 Dietary management education, guidance, and counseling (procedure) yes Invalid Interpretation Code [facility] Work Phone: [phone] Documentation of current medications (procedure) Done Invalid Interpretation Code [facility] Work Phone: [phone] Fall risk assessment No Invalid Interpretation Code [facility] Work Phone: [phone] Protein mass conc Done [facility] Work Phone: [phone] Office Visiton 02-09-2016 Protein mass conc Done [facility] Work Phone: [phone] 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 06-07-2015 Cholesterol in HDL mass conc 45 mg/dL [facility] Work Phone: [phone] Cholesterol in LDL mass conc 51 mg/dL [facility] Work Phone: [phone] Cholesterol mass conc 116 mg/dL [facility] Work Phone: [phone] Triglyceride mass conc 98 mg/dL [facility] Work Phone: [phone] Office Visiton 06-07-2015 Tobacco smoking status NHIS Never smoker [facility] Work Phone: [phone] Tobacco use [facility] Never smoker Invalid Interpretation Code [facility] Work Phone: [phone] 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 PROBABLY NORMAL Invalid Interpretation Code [facility] Work Phone: [phone] GE use only - for [employer] import when terms are not otherwise specified 439 ms Invalid Interpretation Code [facility] Work Phone: [phone] Interpretation Sinus Bradycardia -R SR(V1) -nondiagnostic. PROBABLY NORMAL [facility] Work Phone: [phone] P [place] 33 deg [facility] Work Phone: [phone] P wave axis, electrocardiogram 33 deg Invalid Interpretation Code [facility] Work Phone: [phone] Interval 150 ms [facility] Work Phone: [phone] MA interval, electrocardiogram 150 ms Invalid Interpretation Code [facility] Work Phone: [phone] Pulse (Heart Rate) 58 /min Invalid Interpretation Code [facility] Work Phone: [phone] QRS axis, electrocardiogram 3 deg Invalid Interpretation Code [facility] Work Phone: [phone] QRS Duration 92 ms [facility] Work Phone: [phone] QRS duration, electrocardiogram 92 ms Invalid Interpretation Code [facility] Work Phone: [phone] QT Interval new path ms [facility] Work Phone: [phone] QT interval, electrocardiogram new path ms Invalid Interpretation Code [facility] Work Phone: [phone] QTc Tello 439 ms [facility] Work Phone: [phone] T [place] 37 deg [facility] Work Phone: [phone] T wave axis, electrocardiogram 37 deg Invalid Interpretation Code [facility] Work Phone: [phone] 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 Albumin mass conc 4.4 g/dL Invalid Interpretation Code [facility] Work Phone: [phone] Alkaline phosphatase (ALP) 86 U/L Invalid Interpretation Code [facility] Work Phone: [phone] ALP enzyme act/vol (Bld) 86 U/L [facility] Work Phone: [phone] ALT enzyme act/vol 33 U/L Invalid Interpretation Code [facility] Work Phone: [phone] Anion gap molar conc 5 mmol/L [facility] Work Phone: [phone] AST enzyme act/vol 29 U/L Invalid Interpretation Code [facility] Work Phone: [phone] Bilirubin mass conc 0.70 mg/dL Invalid Interpretation Code [facility] Work Phone: [phone] Calcium mass conc 9.0 mg/dL [facility] Work Phone: [phone] Chloride molar conc 107 mmol/L [facility] Work Phone: [phone] CO2 ppres (BldV) 25.0 mmol/L [facility] Work Phone: [phone] Creatinine mass conc 1.2 mg/dL [facility] Work Phone: [phone] Globulin 3.3 g/dL Invalid Interpretation Code [facility] Work Phone: [phone] Globulin mass conc (S) 3.3 g/dL [facility] Work Phone: [phone] Glucose mass conc 88 mg/dL [facility] Work Phone: [phone] Lipoprotein.pre-beta mass conc 16 mg/dL [facility] Work Phone: [phone] Potassium molar conc 4.0 mmol/L [facility] Work Phone: [phone] Protein mass conc 7.7 g/dL Invalid Interpretation Code [facility] Work Phone: [phone] Sodium molar conc 137 mmol/L [facility] Work Phone: [phone] Urea nitrogen mass conc 20 mg/dL High [facility] Work Phone: [phone] Urea nitrogen/Creatinine mass ratio 16.7 mg/mg [facility] Work Phone: [phone] Hemoglobin A1c/Hemoglobin.total mass fraction (Bld) 5.2 % Invalid Interpretation Code [facility] Work Phone: [phone] Office Visit: MMMon 03-06-19 15 cardiac risk group C Invalid Interpretation Code [facility] Work Phone: [phone] General cardiovascular disease 10Y risk [#] Tj.Tenzin'Jules N/A Invalid Interpretation Code [facility] Work Phone: [phone]) Tobacco smoking status NHIS Never Invalid Interpretation Code [facility] Work Phone: [phone] 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 11-06-2013 Erythrocytes (RBC) 4.86 10*6/uL Invalid Interpretation Code [facility] Work Phone: [phone] Hematocrit (HCT) 40.4 % Invalid Interpretation Code [facility] Work Phone: [phone] Hematocrit Volume Fraction (Bld) 40.4 % [facility] Work Phone: [phone] Hemoglobin mass conc (Bld) 13.8 g/dL Invalid Interpretation Code [facility] Work Phone: [phone] MCH 28.4 pg Invalid Interpretation Code [facility] Work Phone: [phone] MCH Entitic mass (RBC) 28.4 pg [facility] Work Phone: [phone] MCHC 34.2 g/dL Invalid Interpretation Code [facility] Work Phone: [phone] MCHC mass conc (RBC) 34.2 g/dL [facility] Work Phone: [phone] MCV 83.1 fL Invalid Interpretation Code [facility] Work Phone: [phone] MCV Entitic volume (RBC) 83.1 fL [facility] Work Phone: [phone] Platelets 255 10*3/mm3 Invalid Interpretation Code [facility] Work Phone: [phone] Platelets #/vol (Bld) 255 10*3/mm3 [facility] Work Phone: [phone] RBC #/vol (Bld) 4.86 10*6/uL [facility] Work Phone: [phone] WBC #/vol (Bld) 5.3 10*3/uL [facility] Work Phone: [phone] WBC (Leukocytes) 5.3 10*3/uL Invalid Interpretation Code [facility] Work Phone: [phone] Replaced Document: LIVERon 0 07-26-2012 Bilirubin.direct mass conc 0.21 mg/dL Normal 0.00-0.30 [facility] Work Phone: [phone] Replaced Document: [employer] E CG Observationson 07-26-2012 Pulse (Heart Rate) 448 ms Invalid Interpretation Code [facility] Work Phone: [phone] Replaced Document: [id number] T4 mass conc 10.4 ug/dL Normal 4.5-12.1 [facility] Work Phone: [phone] Replaced Document: TSHon Thyrotropin Qn 2.92 u[iU]/mL Normal 0.358-3.74 [facility] Work Phone: [phone] Lab Report: MG - copy to sla byon 04-26-2011 Magnesium mass conc 1.9 mg/dL [facility] Work [facility]: [phone] Lab Report: TROP -copy to sl abyon 04-26-2011 Troponin I.cardiac mass conc ng/mL Normal <0.06 [facility] Work Phone: [phone] Lab Report: PSAon 03-15-2010 prostate specific antigen (PSA) screening 2.0 ng/mL Normal 0.0-4.0 [facility] Work Phone: [phone] Protein mass conc 2.0 ng/mL Normal 0.0-4.0 [facility] Work Phone: [phone] Vital Signs Date Time Vital Sign Value Performing Clinician Facility 09-25-2024 08:37-0400 Body height 162.[address] Zack Ceballos MD Work Phone: [facility] 09-25-2024 08:37-0400 Body mass index (BMI) [Ratio] 24.9 kg/m2 Dr. Zack Ceballos MD Work Phone: [facility] 09-25-2024 08:37-0400 Body weight 65.[address] Zack Ceballos MD Work Phone: [facility] 09-25-2024 08:37-0400 Diastolic blood pressure 75 mm[Hg] Dr. Zack Ceballos MD Work Phone: [facility] 09-25-2024 08:37-0400 Heart rate 71 /min Dr. Zack Ceballos MD Work Phone: [facility] 09-25-2024 08:37-0400 Respiratory rate 16 /min Dr. Zack Ceballos MD Work Phone: [facility] 09-25-2024 08:37-0400 Systolic blood pressure 143 mm[Hg] Dr. Zack Ceballos MD Work Phone: [facility] 07-01-2024 08:39-0400 Diastolic blood pressure 89 mm[Hg] Kaykay Do MD Work Phone: [facility] 07-01-2024 08:39-0400 Heart rate 64 /min Kaykay Do MD Work Phone: [facility] 07-01-2024 08:39-0400 SaO2% (BldA) [Mass fraction] 96 % Kaykay Do MD Work Phone: [facility] 07-01-2024 08:39-0400 Systolic blood pressure 164 mm[Hg] Kaykay oD MD Work Phone: [facility] 06-25-2023 11:28-0400 Diastolic blood pressure 74 mm[Hg] Kaykay Do MD Work Phone: [facility] 06-25-2023 11:28-0400 Heart rate 59 /min Kaykay Do MD Work Phone: [facility] 06-25-2023 11:28-0400 SaO2% (BldA) [Mass fraction] 97 % Kaykay Do MD Work Phone: [facility] 06-25-2023 11:28-0400 Systolic blood pressure 148 mm[Hg] Kaykay Do MD Work Phone: [facility] 12-25-2022 10:12-0400 Diastolic blood pressure 83 mm[Hg] Kaykay Do MD Work Phone: [facility] 12-25-2022 10:12-0400 Heart rate 67 /min Kaykay Do MD Work Phone: [facility] 12-25-2022 10:12-0400 SaO2% (BldA) [Mass fraction] 98 % Kaykay Do MD Work Phone: [facility] 12-25-2022 10:12-0400 Systolic blood pressure 138 mm[Hg] Kaykay Do MD Work Phone: [facility] 12-06-2022 13:50-0400 Body height 160.[address] Zack Ceballos Work Phone: [facility] 12-06-2022 13:48-0400 Body mass index (BMI) [Ratio] 27.6 kg/m2 Dr. Zack Ceballos Work Phone: [facility] 12-06-2022 13:48-0400 Body weight 70.[address] Zack Ceballos Work Phone: [facility] 12-06-2022 13:48-0400 Diastolic blood pressure 72 mm[Hg] Dr. Zack Ceballos Work Phone: [facility] 12-06-2022 13:48-0400 Heart rate 61 /min Dr. Zack Ceballos Work Phone: [facility] 12-06-2022 13:48-0400 Respiratory rate 18 /min Dr. Zack Ceballos Work Phone: [facility] 12-06-2022 13:48-0400 SaO2% (BldA) [Mass fraction] 92 % Dr. Zack Ceballos Work Phone: [facility] 12-06-2022 13:48-0400 Systolic blood pressure 128 mm[Hg] Dr. Zack Ceballos Work Phone: [facility] 10-19-2022 11:12-0400 Diastolic blood pressure 82 mm[Hg] Kaykay Do MD Work Phone: [facility] 10-19-2022 11:12-0400 Heart rate 58 /min Kaykay Do MD Work Phone: [facility] 10-19-2022 11:12-0400 SaO2% (BldA) [Mass fraction] 96 % Kaykay Do MD Work Phone: [facility] 10-19-2022 11:12-0400 Systolic blood pressure 158 mm[Hg] Kaykay Do MD Work Phone: [facility] 08-21-2016 15:45-0400 BMI (Body Mass Index) 29.05 kg/m2 Zack Welch MD [facility] Work Phone: 08-21-2016 15:45-0400 BP Diastolic 80 mm[Hg] Zack Welch MD [facility] Work Phone: 08-21-2016 15:45-0400 BP Systolic 136 mm[Hg] Zack Welch MD [facility] Work Phone: 08-21-2016 15:45-0400 Height 160.02 cm Zack Welch MD [facility] Work Phone: 08-21-2016 15:45-0400 Pulse (Heart Rate) 52 /min Zack Welch MD [facility] Work Phone: 08-21-2016 15:45-0400 Respiratory Rate 16 /min Zack Welch MD [facility] Work Phone: 08-21-2016 15:45-0400 Weight 74.39 kg Zack Welch MD [facility] Work Phone: 02-09-2016 15:58-0500 BMI (Body Mass Index) 30.11 kg/m2 Harumi DeFinjustine [facility] Work Phone: 02-09-2016 15:58-0500 BP Diastolic 78 mm[Hg] Harumi DeFinis [facility] Work Phone: 02-09-2016 15:58-0500 BP Systolic 142 mm[Hg] Harumi DeFinis [facility] Work Phone: 02-09-2016 15:58-0500 BSA (Body Surface Area) 1.81 m2 Harumi DeFinis [facility] Work Phone: 02-09-2016 15:58-0500 Pulse (Heart Rate) 56 /min Harumi DeFinis [facility] Work Phone: 02-09-2016 15:58-0500 Respiratory Rate 14 /min Harumi DeFinis [facility] Work Phone: 02-09-2016 15:58-0500 Weight 77.11 kg Fabi Price [facility] Work Phone: 05-14-2014 16:01-0400 Heart rate 58 /min Fabi Price [facility] Work Phone: 09-03-2013 16:52-0400 Height 160.02 cm Fabi Price [facility] Work Phone: 07-26-2012 12:16-0400 Heart rate 448 ms Fabi Price [facility] Work Phone: 08-24-2011 10:52-0400 Body Temperature 98.5 [degF] [facility] Work Phone: 08-24-2011 10:52-0400 Pulse Oximetry 97 % [facility] Work Phone: Encounters Encounter Date Encounter Type Care Provider Facility Start: 10-03-2024 End: 10-03-[address] Zcak Ceballos MD Work Phone: [facility] Start: 10-03-2024 End: 10-03-[address] Irving Osuna MD -[facility] Work Phone: Start: 09-25-2024 End: 09-25-2024 Patient encounter procedure Alden Wellington PATTERN WEAVER- -[facility] Work Phone: Start: 09-25-2024 End: 09-25-[address] Zack Ceballos MD Work Phone: -[facility] Start: 09-25-2024 End: 09-25-2024 ambulatory Alden Wellington NP Facility:[facility] Start: 09-15-2024 End: 09-15-[address] Zack Ceballos MD Work Phone: -[facility] Start: 09-15-2024 End: 09-15-[address] Irving Osuna MD -[facility] Work Phone: Start: 07-04-2024 End: 07-04-2024 ambulatory Irving Osuna Facility:[facility] Start: 07-04-2024 End: 07-04-[address] Irving Osuna MD -[facility] Work Phone: Start: 07-01-2024 End: 07-01-2024 Office outpatient visit 25 minutes Kaykay Do MD Work Phone: [facility] Comment on above: Elevated PSA (Primar y Dx); Abnormal MRI, pelvis; BPH with obstruction/lower urinary tract symptoms; Urinary urgency; Urge incontinence; Microhematuria; Acute cystitis with hematuria Start: 07-01-2024 End: 07-01-[facility] Start: 06-11-2024 End: 06-11-2024 Orders Only Kaykay Do MD Work Phone: [facility] Comment on above: Elevated PSA (Primar y Dx); Abnormal MRI, pelvis Start: 04-04-2024 End: 04-04-2024 ambulatory Irving Osuna Facility:[facility] Start: 04-03-2024 End: 04-03-2024 ambulatory Zack Ceballos Facility:[facility] Start: 03-04-2024 End: 03-04-2024 ambulatory [facility] Facility:[facility] Start: 01-11-2024 End: 01-11-2024 ambulatory Zack [facility] Facility:[facility] Start: 01-04-2024 End: 01-04-2024 ambulatory Zack Ceballos Facility:[facility] Start: 12-08-2023 End: 12-08-2023 Emergency department patient visit Zack Ceballos Facility:[facility] Start: 11-17-2023 End: 11-17-2023 ambulatory [facility] Facility:[facility] Start: 09-19-2023 End: 09-23-2023 ambulatory KAYKAY DO [facility] Start: 06-25-2023 End: 06-25-2023 Office outpatient visit 40 minutes Kaykay Do MD Work Phone: [facility] Comment on above: Elevated PSA (Primar y Dx); Abnormal MRI, pelvis; BPH with obstruction/lower urinary tract symptoms; Urinary urgency; Urge incontinence; Microhematuria Start: 06-18-2023 End: 06-22-2023 ambulatory ZACK NATARAJAN CEBALLOS [facility] Start: 04-13-2023 End: 04-13-[address] Zack Ceballos Work Phone: [facility] Work Phone: Start: 04-13-2023 End: 04-13-[address] Zack Ceballos Work Phone: [facility] Start: 03-01-2023 End: 03-05-2023 ambulatory ZACK NATARAJAN CEBALLOS [facility] Start: 01-05-2023 End: 01-05-[address] Zack Ceballos Work Phone: [facility] Work Phone: Start: 01-01-2023 Non-patient / Non-visit Dr. Susannah Ceballos Work Phone: [facility] Start: 01-01-2023 End: 01-01-[address] Zack Ceballos Work Phone: [facility] Work Phone: Start: 01-01-2023 End: 01-01-[address] [facility] Work [facility]: Start: 12-25-2022 End: 12-25-2022 Office outpatient visit 40 minutes Kaykay Do MD Work Phone: [facility] Comment on above: Elevated PSA (Primar y Dx); Abnormal MRI, pelvis; BPH with obstruction/lower urinary tract symptoms; Urinary urgency; Urge incontinence; Microhematuria; Acute cystitis with hematuria Start: 12-12-2022 End: 12-13-2022 ambulatory ZACK CEBALLOS [facility] Start: 12-12-2022 End: 12-13-2022 ambulatory ZACK CEBALLOS [facility] Start: 12-06-2022 End: 12-06-[address] Zack Ceballos Work Phone: [facility] Work Phone: Start: 10-19-2022 End: 10-23-2022 ambulatory ZACK CEBALLOS [facility] Start: 10-19-2022 End: 10-19-2022 Office outpatient new 45 minutes Kaykay Do MD Work Phone: [facility] Comment on above: Elevated PSA (Primar y Dx); BPH with obstruction/lower urinary tract symptoms; Urinary urgency; Urge incontinence; Acute cystitis with hematuria; Microhematuria Start: 08-31-2022 End: 08-31-[address] Zack Ceballos Work Phone: [facility] Work Phone: Start: 08-31-2022 End: 08-31-[address] Zack Ceballos Work Phone: [facility] Start: 06-16-2022 End: 06-16-[address] Zack Ceballos Work Phone: [facility] Work Phone: Start: 10-26-2020 End: 11-01-2020 Evaluation and management of inpatient ZACK Leyva Facility:[facility] Procedures Date Procedure Procedure Detail Performing Clinician Start: 07-01-2024 Culture bacterial quanttative colony count urine Kaykay Do MD Work Phone: Start: 07-01-2024 Urnls dip stick/tablet rgnt auto w/o microscopy Kaykay Do MD Work Phone: Start: 07-01-2024 MEASURE POST VOID RESIDUAL Kaykay hawthorne MD Work Phone: Start: 06-26-2024 PSA screening ZACK CEBALLOS Comment on above: Order Comment: Prior to urology followup appointment Result Comment: Per the National Comprehensive Cancer Network (NCCN) Guidelines: . PSA> 3.0 ng/ml is positive regardless of age . PSA normal values are based upon a patient with a normal Digital Rectal Exam (TADEO). A TADEO suspicious for cancer at any PSA level is an indication for biopsy. . Any serum PSA level in a patient previously treated for prostate cancer should be interpreted with caution. Assay performed by [employer], Electrochemiluminescence Immunoassay. Patient results determined by assays using different instrumentation may not be comparable. Performed By: #### [id number] #### [address] [place], [place] [address] Gerald Maynard M.D. [id number] Start: 09-19-2023 PSA screening ZACK CEBALLOS Comment on above: Order Comment: To be completed December 04. Result Comment: Per the National Comprehensive Cancer Network (NCCN) Guidelines: . PSA> 3.0 ng/ml is positive regardless of age . PSA normal values are based upon a patient with a normal Digital Rectal Exam (TADEO). A TADEO suspicious for cancer at any PSA level is an indication for biopsy. . Any serum PSA level in a patient previously treated for prostate cancer should be interpreted with caution. Assay performed by [employer], Electrochemiluminescence Immunoassay. Patient results determined by assays using different instrumentation may not be comparable. Performed By: #### [id number] #### [address] [place], [place] [address] Gerald Maynard M.D. [id number] Start: 06-25-2023 Urnls dip stick/tablet rgnt non-auto w/o micrscp Kaykay Do MD Work Phone: Start: 06-25-2023 MEASURE POST VOID RESIDUAL Kaykay hawthorne MD Work Phone: Start: 12-25-2022 Culture bacterial quanttative colony count urine Kaykay Do MD Work Phone: Start: 12-25-2022 Urnls dip stick/tablet rgnt auto w/o microscopy Kaykay Do MD Work Phone: Start: 12-25-2022 MEASURE POST VOID RESIDUAL Kaykay hawthorne MD Work Phone: Start: 10-19-2022 Urnls dip stick/tablet rgnt auto w/o microscopy Kaykay oD MD Work Phone: Start: 10-19-2022 MEASURE POST VOID RESIDUAL Kaykay hawthorne MD Work Phone: Start: 10-19-2022 Culture bacterial quanttative colony count urine Kaykay Do MD Work Phone: Start: 08-21-2016 End: 08-21-2016 Dietary management education, guidance, and counseling Zack Welch MD Start: 08-21-2016 End: 08-21-2016 Follow Up Appt 9 months Zack Welch MD Start: 08-21-2016 End: 08-21-2016 PFM Zack Welch MD Start: 02-09-2016 End: 02-09-2016 Dietary management education, guidance, and counseling Fabi Price Start: 02-09-2016 End: 02-09-2016 Follow Up Appt 9 months Zack Welch MD Start: 02-09-2016 End: 02-09-2016 PFM Zack Welch MD Start: 06-07-2015 End: 06-07-2015 Follow Up Appt 6 months Zack Welch MD Start: 06-07-2015 End: 06-07-2015 PFM Zack Welch MD Start: 12-11-2014 End: 12-12-2014 Documentation of current medications Zack Welch MD Start: 12-11-2014 End: 12-11-2014 Follow Up Appt 6 months Zack Welch MD Start: 12-11-2014 End: 12-11-2014 PFM Zack Welch MD Start: 05-14-2014 End: 05-15-2014 Electrocardiogram, complete Zack foster MD Start: 05-14-2014 End: 05-15-2014 Follow Up Appt 6 months Zack Welch MD Start: 05-14-2014 End: 05-15-2014 MMM Zack Welch MD Start: 03-06-2014 End: 03-06-2014 Follow Up Appt 6 months Stephanie Rivera PA-C Work Phone: Start: 03-06-2014 End: 03-06-2014 PFM Stephanie Rivera PA-C Work Phone: Start: 11-19-2013 End: 11-19-2013 Follow Up Appt 6 months Zack Welch MD Start: 11-19-2013 End: 11-19-2013 PFM Zack Welch MD Start: 09-03-2013 End: 02-10-2014 Follow Up Appt 6 months Zack Welch MD Start: 09-03-2013 End: 02-10-2014 MMM Zack Welch MD Start: 08-01-2012 End: 01-16-2013 Chest x-ray Zack Welch MD Start: 07-26-2012 End: 08-08-2012 *BMP Zack Welch MD Start: 07-26-2012 End: 08-08-2012 *CBC with Differential Zack Welch MD Start: 07-26-2012 End: 08-08-2012 *Hepatic Function Panel Zack Welch MD Start: 07-26-2012 End: 08-01-2012 Chest x-ray Zack Welch MD Start: 07-26-2012 End: 01-16-2013 Echocardiography Zack Welch MD Start: 07-26-2012 End: 07-26-2012 Electrocardiogram, complete Zack foster MD Start: 07-26-2012 End: 07-26-2012 Follow Up Appt 6 months Zack Welch MD Start: 07-26-2012 End: 08-08-2012 Lipid panel [AGGREGATE] Zack Welch MD Start: 07-26-2012 End: 07-26-2012 MMM Zack Welch MD Start: 07-26-2012 End: 01-16-2013 Nuclear stress test -exercise Zack huang MD Start: 07-26-2012 End: 08-08-2012 Thyroid stimulating hormone (TSH) Zack Welch MD Start: 07-26-2012 End: 08-08-2012 Thyroxine (T4) Zack Welch MD Start: 07-03-2012 End: 01-16-2013 *Hepatic Function Panel Zack Welch MD Start: 07-03-2012 End: 01-16-2013 Lipid panel [AGGREGATE] Zack Welch MD Start: 01-18-2012 End: 01-19-2012 *Hepatic Function Panel Zack Welch MD Start: 01-18-2012 End: 01-18-2012 Follow Up Appt 6 months Zack Welch MD Start: 01-18-2012 End: 01-19-2012 Lipid panel [AGGREGATE] Zack Welch MD Start: 10-10-2011 End: 01-19-2012 *Hepatic Function Panel Zack Welch MD Start: 10-10-2011 End: 01-19-2012 Lipid panel [AGGREGATE] Zack Welch MD Start: 09-07-2011 End: 01-16-2013 24 hour holter monitor Zack Welch MD Start: 08-24-2011 End: 07-12-2012 HbA1c Kwabena York MD Start: 04-10-2011 End: 04-11-2011 *Hepatic Function Panel Zack Welch MD Start: 04-10-2011 End: 04-10-2011 Follow Up Appt 6 months Zack Welch MD Start: 04-10-2011 End: 04-11-2011 Lipid panel [AGGREGATE] Zack Welch MD Start: 09-12-2010 End: 05-08-2011 HbA1c Kwabena York MD Start: 09-12-2010 End: 05-08-2011 Hemoglobin glycosylated a1c Kwabena schmitt MD Start: 03-15-2010 Microalbumin [Mass/volume] in Urine by Test strip Kaykay Do MD Work Phone: Start: 03-15-2010 End: 03-15-2010 HbA1c Kwabena York MD Start: 03-15-2010 End: 03-15-2010 Hemoglobin glycosylated a1c Kwabena schmitt MD Start: 03-15-2010 End: 03-15-2010 PSA screening Kwabena York MD Start: 03-15-2010 End: 03-15-2010 Urine albumin semiquantitative Kwabena York MD Start: 03-15-2010 End: 03-15-2010 Urine, microalbumin Kwabena York MD Start: 11-29-2009 End: 11-30-2009 Lipid panel Kwabena York MD Start: 08-25-2009 End: 09-17-2009 HbA1c Kwabena York MD Start: 08-25-2009 End: 09-17-2009 Hemoglobin glycosylated a1c Kwabena schmitt MD Start: 07-03-2009 History of coronary artery bypass grafting History of coronary artery bypass graft x 3 Dr. Zack Ceballos Work Phone: Comment on above: CABG x3 - HUANG to LAD, long patch angiop lasty, SVG to DX, SVG to OM branch of CX - 07/29/09 Coronary artery bypass graft COR ONARY ARTERY BYPASS GRAFT, HX OF Harumi DeFinis History of coronary artery bypass grafting Hx of CABG Dr. Zack Ceballos Work Phone: Comment on above: CABG x3 with HUANG to LAD, long patch ang ioplasty, SVG to DX, SVG to OM branch of CX - 07/29/09 History of percutane ous transluminal coronary angioplasty H/O percutaneous transluminal coronary angioplasty Dr. Zack Ceballos Work Phone: Plan of Treatment Date Care Activity Detail Author Start: 07-01-2025 End: 07-01-2025 Patient encounter procedure 07/01/2025 8:30 AM EDT Office Visit [facility] [address] [place] [address] Kaykay Do MD [address] [place] [address] [facility] Start: 11-03-2024 Influenza vaccination [facility] Start: 11-03-2024 End: 03-04-2025 Prostate specific Ag [Mass/volume] in Serum or Plasma PSA Monitor Lab Routine Elevated PSA Abnormal MRI, pelvis Expected: 11/03/2024, Expires: 03/04/2025 [facility] Work Phone: Comment on above: Expected: 11/03/2024 , Expires: 03/04/2025 Start: 10-22-2024 ambulatory Ambulatory Facility:[facility] Start: 06-24-2024 End: 06-24-2024 Patient encounter procedure 06/24/2024 2:45 PM EDT Office Visit [facility] [address] [place] [address] Kaykay Do MD [address] [place] [address] [facility] Start: 06-11-2024 End: 10-11-2024 Prostate specific Ag [Mass/volume] in Serum or Plasma PSA Monitor Lab Routine Elevated PSA Abnormal MRI, pelvis Expected: 06/11/2024, Expires: 10/11/2024 [facility] Work Phone: Comment on above: Expected: 06/11/2024 , Expires: 10/11/2024 Start: 11-04-2023 COVID-19 Vaccine () COVID-19 Vaccine () [facility] Start: 11-04-2023 Influenza vaccination Influenza Vacc ine (#1) [facility] Start: 06-25-2023 End: 06-25-2023 Patient encounter procedure 06/25/2023 11:00 AM EDT Office Visit [facility] [address] [place] [id number] Kaykay Do MD [facility] [place] [address] [facility] Start: 12-25-2022 End: 06-26-2023 Prostate specific Ag [Mass/volume] in Serum or Plasma PSA Monitor Lab Routine Elevated PSA Abnormal MRI, pelvis Expected: 12/25/2022, Expires: 06/26/2023 [facility] Work Phone: Comment on above: Expected: 12/25/2022 , Expires: 06/26/2023 Start: 12-25-2022 End: 12-25-2022 Patient encounter procedure 12/25/2022 10:00 AM EDT Office Visit [facility] [address] [place] [id number] Kaykay Do MD [address] [place] [address] [facility] Start: 11-03-2022 Influenza vaccination Sequenti al Influenza Vaccine (#1) [facility] Start: 05-21-2017 End: 05-21-2017 Appointment Appointment [facility] Work Phone: Start: 2017 Respiratory Syncytia l Virus Immunization: Risk, 60-74 Risk, or 75+ (1 - 1-dose 75+ series) Respiratory Syncytial Virus Immunization: Risk, 60-74 Risk, or 75+ (1 - 1-dose 75+ series) [facility] Start: 08-21-2016 End: 08-21-2016 Appointment Appointment [facility] Work Phone: Start: 08-21-2016 End: 08-21-2016 Follow Up Appt 9 months Follow Up Appt 9 months [facility] Work Phone: Start: 08-21-2016 End: 08-21-2016 PFM PFM [facility] Work Phone: Start: 02-09-2016 End: 02-09-2016 Follow Up Appt 9 months Follow Up Appt 9 months [facility] Work Phone: Start: 02-09-2016 End: 02-09-2016 PFM PFM [facility] Work Phone: Start: 06-07-2015 End: 06-07-2015 Follow Up Appt 6 months Follow Up Appt 6 months [facility] Work Phone: Start: 06-07-2015 End: 06-07-2015 PFM PFM [facility] Work Phone: Start: 12-11-2014 End: 12-11-2014 Follow Up Appt 6 months Follow Up Appt 6 months [facility] Work Phone: Start: 12-11-2014 End: 12-11-2014 Follow Up Appt Other Follow Up Appt Other [facility] Work Phone: Start: 12-11-2014 End: 12-11-2014 PFM PFM [facility] Work Phone: Start: 05-14-2014 End: 05-15-2014 Electrocardiogram, complete EKG (In office) [facility] Work Phone: Start: 05-14-2014 End: 05-15-2014 Follow Up Appt 6 months Follow Up Appt 6 months [facility] Work Phone: Start: 05-14-2014 End: 05-15-2014 MMM MMM [facility] Work Phone: Start: 05-14-2014 End: 05-15-2014 Nuclear stress test -Lexiscan Nuclear stress test -Lexiscan [facility] Work Phone: Start: 03-06-2014 End: 03-06-2014 Follow Up Appt 6 months Follow Up Appt 6 months [facility] Work Phone: Start: 03-06-2014 End: 03-06-2014 PFM PFM [facility] Work Phone: Start: 11-19-2013 End: 11-19-2013 Follow Up Appt 6 months Follow Up Appt 6 months [facility] Work Phone: Start: 11-19-2013 End: 11-19-2013 PFM PFM [facility] Work Phone: Start: 09-03-2013 End: 02-10-2014 Follow Up Appt 6 months Follow Up Appt 6 months [facility] Work Phone: Start: 09-03-2013 End: 09-03-2013 Follow Up Appt Other Follow Up Appt Other [facility] Work Phone: Start: 09-03-2013 End: 02-10-2014 MMM MMM [facility] Work Phone: Start: 01-03-2013 End: 08-08-2012 *Hepatic Function Panel *Hepatic Function Panel [facility] Work Phone: Start: 01-03-2013 End: 08-08-2012 Lipid panel [AGGREGATE] *Lipid Profile CC PCP [facility] Work Phone: Start: 08-01-2012 End: 01-16-2013 Chest x-ray X-Ray, Chest, PA & Lateral [facility] Work Phone: Start: 07-26-2012 End: 08-08-2012 *BMP *BMP [facility] Work Phone: Start: 07-26-2012 End: 08-08-2012 *CBC with Differential *CBC with Differential [facility] Work Phone: Start: 07-26-2012 End: 08-08-2012 *Hepatic Function Panel *Hepatic Function Panel [facility] Work Phone: Start: 07-26-2012 End: 08-01-2012 Chest x-ray X-Ray, Chest, PA & Lateral [facility] Work Phone: Start: 07-26-2012 End: 07-26-2012 Echocardiography Echocardiogram (complete) [facility] Work Phone: Start: 07-26-2012 End: 07-26-2012 Electrocardiogram, complete EKG (In office) [facility] Work Phone: Start: 07-26-2012 End: 07-26-2012 Follow Up Appt 6 months Follow Up Appt 6 months [facility] Work Phone: Start: 07-26-2012 End: 08-08-2012 Lipid panel [AGGREGATE] *Lipid Profile CC PCP [facility] Work Phone: Start: 07-26-2012 End: 07-26-2012 MMM MMM [facility] Work Phone: Start: 07-26-2012 End: 07-26-2012 Nuclear stress test -exercise Nuclear stress test -exercise [facility] Work Phone: Start: 07-26-2012 End: 08-08-2012 Thyroid stimulating hormone (TSH) *TSH [facility] Work Phone: Start: 07-26-2012 End: 08-08-2012 Thyroxine (T4) *T4 (Total) [facility] Work Phone: Start: 07-03-2012 End: 01-16-2013 *Hepatic Function Panel *Hepatic Function Panel [facility] Work Phone: Start: 07-03-2012 End: 01-16-2013 Lipid panel [AGGREGATE] *Lipid Profile [facility] Work Phone: Start: 2012 Hemoglobin A1c measurement A1C [facility] Start: 01-18-2012 End: 01-19-2012 *Hepatic Function Panel *Hepatic Function Panel [facility] Work Phone: Start: 01-18-2012 End: 01-18-2012 Follow Up Appt 6 months Follow Up Appt 6 months [facility] Work Phone: Start: 01-18-2012 End: 01-19-2012 Lipid panel [AGGREGATE] *Lipid Profile [facility] Work Phone: Start: 10-10-2011 End: 01-19-2012 *Hepatic Function Panel *Hepatic Function Panel [facility] Work Phone: Start: 10-10-2011 End: 01-19-2012 Lipid panel [AGGREGATE] *Lipid Profile [facility] Work Phone: Start: 09-07-2011 End: 09-08-2011 24 hour holter monitor 24 hour holter monitor [facility] Work Phone: Start: 08-24-2011 End: 07-12-2012 HbA1c *HgA1C [facility] Work Phone: Start: 04-10-2011 End: 04-11-2011 *Hepatic Function Panel *Hepatic Function Panel [facility] Work Phone: Start: 04-10-2011 End: 04-10-2011 Follow Up Appt 6 months Follow Up Appt 6 months [facility] Work Phone: Start: 04-10-2011 End: 04-11-2011 Lipid panel [AGGREGATE] *Lipid Profile [facility] Work Phone: Start: 03-15-2011 Hemoglobin A1c measurement A1C [facility] Start: 03-15-2011 Urine screening for protein Urine Microalbumin [facility] Start: 09-12-2010 End: 05-08-2011 HbA1c *HgA1C [facility] Work Phone: Start: 03-15-2010 End: 03-15-2010 *PSA, Annual Screening *PSA, Annual Screening [facility] Work Phone: Start: 03-15-2010 End: 03-15-2010 HbA1c *HgA1C [facility] Work Phone: Start: 03-15-2010 End: 03-15-2010 Urine, microalbumin Urine, Microalbumin [facility] Work Phone: Start: 11-29-2009 End: 11-30-2009 Lipid panel *Lipid Profile [facility] Work Phone: Start: 11-29-2009 End: 11-30-2009 Protein mass conc *Lipid Profile [facility] Work Phone: Start: 08-25-2009 End: 09-17-2009 HbA1c *HgA1C [facility] Work Phone: Start: 2007 Fall risk assessment Falls Risk Asse ssment [facility] Start: 02-24-1992 Administration of he rpes zoster vaccine Zoster Vaccines (1 of 2) [facility] Start: 1961 Administration of he rpes zoster vaccine Zoster Vaccines (1 of 2) [facility] Start: 1961 Pneumococcal Vaccine : Age 50+ (1 of 2 - PCV) Pneumococcal Vaccine: Age 50+ (1 of 2 - PCV) [facility] Start: 1954 Depression screening using PHQ-9 (Patient Health Questionnaire 9) score [facility] Start: 02-24-1952 Diabetic foot examination [facility] Start: 02-24-1952 eGFR Diabetes eGFR Diabetes [facility] Start: 02-24-1952 Glaucoma screening Diabetic Eye Exam [facility] Start: 02-24-1952 Urine screening for protein [facility] Start: 02-24-1948 Pneumococcal Vaccine : Age 65+ (1 - PCV) Pneumococcal Vaccine: Age 65+ (1 - PCV) [facility] Start: 02-24-1948 Pneumococcal Vaccine : Age 65+ (1 of 2 - PCV) Pneumococcal Vaccine: Age 65+ (1 of 2 - PCV) [facility] Start: 1947 COVID-19 Vaccine (#1) COVID-19 Vacci ne (#1) [facility] Start: 1945 History and physical examination, annual for health maintenance Wellness Visit [facility] Start: 1945 Medicare Wellness Visit Medicare Wel lness Visit [facility] Start: 1942 Tetanus vaccination Tetanus: Every 1 0yrs [facility] Payers Date Payer Category Payer Self-pay [id number] 2022 Medicare MMO MANAGED MEDI CARE MMO MANAGED MEDICARE HMO [id number] 2022-Present [phone] [address] [place] [address] [id number] 2021 Medicare HMO MMO MANAGED MEDI CARE HMO [id number] 2008 Medicaid [id number] 2007 Medicare [id number] 1959 Medicare [id number] 1942 Unknown [id number] 1942 Unknown [id number] [id number] 1942 Unknown [id number] 2.16.840.1.596416.3.579.2.900 1942 Unknown [id number] 2.16.840.1.001669.3.579.2.900 1942 Unknown [id number] 2.16.840.1.722236.3.579.2.903 1942 Unknown [id number] 2.16.840.1.791913.3.579.2.903 1942 Unknown [id number] 2.16.840.1.821504.3.579.2.903 1942 Unknown [id number] 2.16.840.1.494035.3.579.2.903 Unknown [id number] 2.16.840.1.619796.3.579.2.462 Unknown [id number] 2.16.840.1.143707.3.579.2.462 Unknown [id number] 2.840.1.278373.3.579.2.462 Unknown [id number] 2.16.840.1.628275.3.579.2.462 Unknown [id number] 2.16.840.1.123298.3.579.2.462 Unknown [id number] 2.16.840.1.175039.3.579.2.462 Unknown [id number] 2.16840.1.394066.3.579.2.462 Unknown [id number] 2.16.840.1.414164.3.579.2.462 Unknown [id number] 2.16.840.1.192031.3.579.2.462 Unknown [id number] 2.16.840.1.946253.3.579.2.462 Unknown [id number] 2.16.840.1.400828.3.579.2.462 Unknown [id number] 2.16.840.1.278251.3.579.2.462 Unknown [id number] 2.16.840.1.402557.3.579.2.462 Unknown [id number] [id number]2 Social History Date Type Detail Facility Start: 11-21-2021 End: 12-06-2022 Tobacco smoking status NHIS Unknown if ever smoked [facility] Start: 05-17-2018 Non-smoker [facility] Start: 1940 Sex Assigned At Male [facility] Start: 10-19-2022 End: 12-08-2023 Tobacco smoking status NHIS Never smoked tobacco [facility] Start: 10-19-2022 Tobacco use and exposure Smokeless tobacco non-user [facility] Start: 10-19-2022 End: 09-10-2024 Alcohol intake Lifetime non-drinker (finding) [facility] Start: 10-19-2022 End: 09-10-2024 History of Social function [facility] Start: 10-19-2022 End: 09-10-2024 Tobacco use panel [facility] Start: 10-03-2022 Gender identity Identifies as male gender (finding) [facility] Start: 10-03-2022 Sexual orientation Heterosexual (finding) [facility] Medical Equipment Procedure Code Equipment Code Equipment Origin al Text Equipment Identifier Dates GLUCOSE TEST STRIPS GLUCOSE TEST STRIPS [id number] Start: 03-24-2010 ([id number]) Endocardial paci ng lead ()[id number])C [id number] FDA Start: 04-11-2021 ([id number]) Endocardial paci ng lead ()[id number])C [id number] FDA Start: 04-11-2021 ([id number]) Dual-chamber implantable pacemaker, rate-responsive ()[id number] FDA Start: 04-11-2021 [employer]urity Mri Pacemaker [id number] Start: 04-11-2021/5804/11/2021 [id number] Start : 04-11-2021/5204/11/2021 [id number] Start : 04-11-2021 Clinical Notes 04-05-2021 to 09-25-2024 Note Date & Type Note Facility 09-25-2024 Evaluation note Diagnosis Onset Date Resolution Atrial flutter acute September 25, 2024 8:35am NSVT (nonsustained ventricular tachycardia) acute September 252024 8:35am 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 September 25, 2024 8:35am Essential (primary) hypertension chronic September 25, 2024 8:35am 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, chronic September 25, 2024 8:35am Pure hypercholesterolemia chronic September 25, 2024 8:35am [facility] Work Phone: 1(359) 451-838104-29-2025 [facility] [place] Establ[facility] Patient / Followup Visit Patient Name: Hanane Diggs Encounter Date: 07/01/24 MR #: [id number] : 1940 Physicians: Zack Ceballos MD (Family) Chief Complaint/Reason for Visit: 1 year followup, PSA prior. History of Present Illness: 84 y.o. male with history of elevated PSA, abnormal prostate MRI, BPH, OAB, microhematuria. 10/19/2022 Initially referred & established with [facility], seen by me. 08/31/2022 PSA 10.6 Routine screening by PCP. No prior prostate cancer screening to his recollection. No prior TADEO to his recollection. Mild LUTS for years which he relates to BPH for which he takes OTC saw palmetto which he varies the dose based on symptoms. 1 prior UTI / prostatitis years ago, thinks he may have seen a urologist but not sure. No Hx stones. No GH. Rare small volume UUI / rare small volume post void dribbling. IPSS 9 / QoL 2 / no meds / not interested in intervention. HA - declined to answer. FHx Father d.47 from complications of scleroderma; prior history of possible anorectal cancer. Mother d.83 from cerebral hemorrhage ? Trauma vs. Aneurysm; had Alzheimer dementia / possible fall. 1 brother - no Hx prostate cancer to his knowledge UA trace intact blood, trace LE / UCx neg PVR 28cc Plan: bladder training, ok to use OTC / alternative medicine, repeat PSA then MRI if remains elevated, f/u 2-3 months. 10/19/2022 PSA 10.40 12/12/2022 MRI - volume 143.81cc - PIRADS 4 lesion in the left posteromedial peripheral zone of the prostate mid gland. - Three PIRADS 3 lesions in the transition zone. 12/25/22 Followup. - He's doing some sort of alternative medicine / homeopathic / naturopathic protocol for prostate issues & says his symptoms have improved. IPSS 6 / QoL 2 / no meds He reports longstanding (>20 years) history of scrotal nodule, unchanged, does not cause any discomfort or associated symptoms, evaluated previously by another physician & has been unchanged; declines examination today. TADEO declined. UA trace intact RBC, large LE; microscopy 23 RBC, 11 WBC, small LE, rare bacteria. UCx no growth. PVR 0cc Plan: declines prostate biopsy; wants to watch PSA; repeat in ~3 mo; bladder training; f/u 6mo. 03/01/2023 PSA 9.46 06/18/2023 PSA 8.33 06/25/23 Followup. - No new issues in interim. - Voiding well. - No flank pain or GH. - Thinks his homeopathic prostate protocol was a great benefit to him & not interest in prostate biopsy at this time. TADEO declined. UA small RBC, small LE; PVR 12 cc. Plan: Desires continued PSA surveillance and declines biopsy, observation of BPH/LUTS/OAB, okay to continue OTC/homeopathic prostate supplements if desired, observation of microhematuria & recheck at follow-up in 1 year with PSA surveillance in the interim. 09/19/2023 PSA 8.24 06/26/2024 PSA 9.69 07/01/24 Followup. Mild LUTS remain stable. No new issues or concerns. No hematuria, dysuria, flank pain. IPSS 6 / QoL 2 / no meds / no interest in intervention. History: The past medical, past surgical, family, and social histories were reviewed with the patient, and any changes were reconciled in the patient's chart. Past Medical History: Diagnosis Date Bradycardia Coronary artery disease Elevated PSA Hypertension Past Surgical History: Procedure Laterality Date CARDIAC SURGERY 03/05/2009 triple bypass HERNIA REPAIR Bilateral PACEMAKER INSERTION 2021 Family History Problem Relation Age of Onset No Known Problems Mother No Known Problems Father No Known Problems Sister No Known Problems Brother Social History [1] Allergies: I have reviewed the patient's allergies. Patient has no known allergies. Home Medications: Outpatient Medications as of 07/01/2024 Medication Sig amLODIPine (NORVASC) 10 MG tablet Take 1 (one) tablet (10 mg total) by mouth daily . apixaban 5 mg Tab Take by mouth . ascorbic acid, vitamin C, 500 mg cap Take by mouth . aspirin 81 MG EC tablet Take by mouth . atorvastatin (LIPITOR) 80 MG tablet Take 1 (one) tablet (80 mg total) by mouth daily . cholecalciferol, vitamin D3, 1,000 unit tablet Take 25 mcg by mouth . coenzyme Q10 200 mg capsule Take 200 mg by mouth daily . famotidine (PEPCID) 20 MG tablet isosorbide mononitrate (IMDUR) 30 MG 24 hr tablet TAKE 1 TABLET BY MOUTH ONCE DAILY IN THE MORNING SWALLOW WHOLE WITH GLASS OF WATER, DO NOT CRUSH/CHEW/DISSOLVE/CUT/BREAK levocarnitine tartrate (CARNITINE, TARTRATE, ORAL) Take by mouth . lisinopriL (PRINIVIL,ZESTRIL) 20 MG tablet Take 1 (one) tablet (20 mg total) by mouth daily . min17/nettle/pumpkin/saw palme (PROSTATE THERAPY ORAL) Take by mouth . pyridoxine, vitamin B6, (vitamin B-6) 100 MG tablet Take 1 (one) tablet (100 mg total) by mouth daily . saw palmetto 160 mg cap Take 160 mg by mouth . zinc acetate 25 mg (zinc) (more content not included)...[facility] 07-01-2024 History of Present illness Narrative* Kaykay Do MD - 07/01/2024 8:22 AM EDT [facility] [place] Established Patient / Followup Visit Patient Name: Hanane Diggs Encounter Date: 07/01/24 MR #: [id number] : 1940 Physicians: Zack Ceballos MD (Family) Chief Complaint/Reason for Visit: 1 year followup, PSA prior. History of Present Illness: 84 y.o. male with history of elevated PSA, abnormal prostate MRI, BPH, OAB, microhematuria. 10/19/2022 Initially referred & established with [facility], seen by me. 08/31/2022 PSA 10.6 Routine screening by PCP. No prior prostate cancer screening to his recollection. No prior TADEO to his recollection. Mild LUTS for years which he relates to BPH for which he takes OTC saw palmetto which he varies thedose based on symptoms. 1 prior UTI / prostatitis years ago, thinks he may have seen a urologist but not sure. No Hx stones. No GH. Rare small volume UUI / rare small volume post void dribbling. IPSS 9 / QoL 2 / no meds / not interested in intervention. HA - declined to answer. FHx Father d.47 from complications of scleroderma; prior history of possible anorectal cancer. Mother d.83 from cerebral hemorrhage ? Trauma vs. Aneurysm; had Alzheimer dementia / possible fall. 1 brother - no Hx prostate cancer to his knowledge UA trace intact blood, trace LE / UCx neg PVR 28cc Plan: bladder training, ok to use OTC / alternative medicine, repeat PSA then MRI if remains elevated, f/u 2-3 months. 10/19/2022 PSA 10.40 12/12/2022 MRI - volume 143.81cc - PIRADS 4 lesion in the left posteromedial peripheral zone of the prostate mid gland. - Three PIRADS 3 lesions in the transition zone. 12/25/22 Followup. - He's doing some sort of alternative medicine / homeopathic / naturopathic protocol for prostate issues & says his symptoms have improved. IPSS 6 / QoL 2 / no meds He reports longstanding (>20 years) history of scrotal nodule, unchanged, does not cause any discomfort or associated symptoms, evaluated previously by another physician & has been unchanged; declines examination today. TADEO declined. UA trace intact RBC, large LE; microscopy 23 RBC, 11 WBC, small LE, rare bacteria. UCx no growth. PVR 0cc Plan: declines prostate biopsy; wants to watch PSA; repeat in ~3 mo; bladder training; f/u 6mo. 03/01/2023 PSA 9.46 06/18/2023 PSA 8.33 06/25/23 Followup. - No new issues in interim. - Voiding well. - No flank pain or GH. - Thinks his homeopathic prostate protocol was a great benefit to him & not interest in prostate biopsy at this time. TADEO declined. UA small RBC, small LE; PVR 12 cc. Plan: Desires continued PSA surveillance and declines biopsy, observation of BPH/LUTS/OAB, okay to continue OTC/homeopathic prostate supplements if desired, observation of microhematuria & recheck at follow-up in 1 year with PSA surveillance in the interim. 09/19/2023 PSA 8.24 06/26/2024 PSA 9.69 07/01/24 Followup. Mild LUTS remain stable. No new issues or concerns. No hematuria, dysuria, flank pain. IPSS 6 / QoL 2 / no meds / no interest in intervention. History: The past medical, past surgical, family, and social histories were reviewed with the patient, and any changes were reconciled in the patient's chart. Past Medical History: Diagnosis Date Bradycardia Coronary artery disease Elevated PSA Hypertension Past Surgical History: Procedure Laterality Date CARDIAC SURGERY 03/05/2009 triple bypass HERNIA REPAIR Bilateral PACEMAKER INSERTION 2021 Family History Problem Relation Age of Onset No Known Problems Mother No Known Problems Father No Known Problems Sister No Known Problems Brother Social History [1] Allergies: I have reviewed the patient's allergies. Patient has no known allergies. Home Medications: Outpatient Medications as of 07/01/2024 Medication Sig amLODIPine (NORVASC) 10 MG tablet Take 1 (one) tablet (10 mg total) by mouth daily . apixaban 5 mg Tab Take by mouth . ascorbic acid, vitamin C, 500 mg cap Take by mouth . aspirin 81 MG EC tablet Take by mouth . atorvastatin (LIPITOR) 80 MG tablet Take 1 (one) tablet (80 mg total) by mouth daily . cholecalciferol, vitamin D3, 1,000 unit tablet Take 25 mcg by mouth . coenzyme Q10 200 mg capsule Take 200 mg by mouth daily . famotidine (PEPCID) 20 MG tablet isosorbide mononitrate (IMDUR) 30 MG 24 hr tablet TAKE 1 TABLET BY MOUTH ONCE DAILY IN THE MORNING SWALLOW WHOLE WITH GLASS OF WATER, DO NOT CRUSH/CHEW/DISSOLVE/CUT/BREAK levocarnitine tartrate (CARNITINE, TARTRATE, ORAL) Take by mouth . lisinopriL (PRINIVIL,ZESTRIL) 20 MG tablet Take 1 (one) tablet (20 mg total) by mouth daily . min17/nettle/pumpkin/saw palme (PROSTATE THERAPY ORAL) Take by mouth . pyridoxine, vitamin B6, (vitamin B-6) 100 MG tablet Take 1 (one) tablet (100 mg total) by mouth daily . saw palmetto 160 mg cap Take 160 mg by mouth . zinc acetate 25 mg (zinc) cap Take by mouth . Review of Systems: The following system(s) were reviewed and pertinent findings noted: Review of Systems Constitutional: Negative for activity change, chills, fever and unexpected weight change. Gastrointestinal: Negative for abdominal pain, diarrhea, nausea and vomiting. Objective: Vital Signs: BP (!) 164/89 Pulse 64 SpO2 96% Physical Exam Vitals reviewed. Constitutional: General: He is not in acute distress. Appearance: He is not diaphoretic. Pulmonary: Effort: Pulmonary effort is normal. No respiratory distress. Abdominal: General: There is no distension. Palpations: Abdomen is soft. Tenderness: There is no abdominal tenderness. Genitourinary: Comments: TADEO declined. Neurological: General: No focal deficit present. Mental Status: He is alert and oriented to person, place, and time. Psychiatric: Mood and Affect: Mood normal. Behavior: Behavior normal. Laboratory Results Reviewed: PSA Date Value Ref Range Status 06/26/2024 9.69 (H) 0.00 - 3.00 ng/mL Final Comment: Per the National Comprehensive Cancer Network (NCCN) Guidelines: . PSA> 3.0 ng/ml is positive regardless of age . PSA normal values are based upon a patient with a normal Digital Rectal Exam (TADEO). A TADEO suspicious for cancer at any PSA level is an indication for biopsy. . Any serum PSA level in a patient previously treated for prostate cancer should be interpreted with caution. Assay performed by [employer], Electrochemiluminescence Immunoassay. Patient results determined by assays using different instrumentation may not be comparable. 09/19/2023 8.24 (H) 0.00 - 3.00 ng/mL Final Comment: Per the National Comprehensive Cancer Network (NCCN) Guidelines: . PSA> 3.0 ng/ml is positive regardless of age . PSA normal values are based upon a patient with a normal Digital Rectal Exam (TADEO). A TADEO suspicious for cancer at any PSA level is an indication for biopsy. . Any serum PSA level in a patient previously treated for prostate cancer should be interpreted with caution. Assay performed by [employer], Electrochemiluminescence Immunoassay. Patient results determined by assays using different instrumentation may not be comparable. 06/18/2023 8.33 (H) 0.00 - 3.00 ng/mL Final Comment: Per the National Comprehensive Cancer Network (NCCN) Guidelines: . PSA> 3.0 ng/ml is positive regardless of age . PSA normal values are based upon a patient with a normal Digital Rectal Exam (TADEO). A TADEO suspicious for cancer at any PSA level is an indication for biopsy. . Any serum PSA level in a patient previously treated for prostate cancer should be interpreted with caution. Assay performed by [employer], Electrochemiluminescence Immunoassay. Patient results determined by assays using different instrumentation may not be comparable. 03/01/2023 9.46 (H) 0.00 - 3.00 ng/mL Final 10/19/2022 10.40 (H) 0.00 - 3.00 ng/mL Final No results found for: TESTOSTERONE, E2 No results found for: WBC, HGB, HCT, MCV, PLT Lab Results Component Value Date CREATININE 1.3 12/12/2022 Recent Results (from the past 24 hours) Measure post void residual Collection Time: 07/01/24 8:42 AM Result Value Ref Range Measure Post Void Residual 0 POC Urinalysis Dipstick, Auto Collection Time: 07/01/24 8:47 AM Result Value Ref Range Glucose, UA Negative Normal, Negative mg/dL Bilirubin, UA Negative Negative Ketones, UA Trace (A) Negative mg/dL Spec Grav, UA 1.025 1.005 - 1.025 Blood, UA Moderate (A) Negative pH, UA 5.5 5.0 - 7.0 Protein, UA 100 (A) Negative mg/dL Urobilinogen, UA 0.2 <2.0, 0.2, Normal, Negative, 1.0, 2.0, <1.0 mg/dL Nitrite, UA Negative Negative Leukocyte Esterase, UA Trace (A) Negative Imaging Reviewed: No relevant new / interval imaging. Assessment: Hanane Diggs is a 84 y.o. y/o male Diagnoses and all orders for this visit: Elevated PSA - PSA Monitor; Future Abnormal MRI, pelvis - PSA Monitor; Future BPH with obstruction/lower urinary tract symptoms - POC Urinalysis Dipstick, Auto - Measure post void residual Urinary urgency Urge incontinence Microhematuria - POC Urinalysis Dipstick, Auto Acute cystitis with hematuria - Urine Aerobic Culture; Future - Urine Aerobic Culture - UA today shows moderate RBC, trace LE, negative nitrite. Send culture. - PVR today by bladder scan: 0 cc - Discussed indications for PSA screening & possible etiologies of PSA elevation including prostate cancer, BPH, UTI, pelvic trauma. - Discussed management options including continued annual screening, repeat PSA today or in short interval, TADEO, prostate MRI, prostate biopsy, urine / serum genetic and/or biomarker tests. - Discussed risks/benefits/alternatives to these options. - Discussed biopsy techniques including transrectal versus transperineal, as well as anesthetic techniques including local anesthesia, oral benzodiazepine sedation, MAC, general anesthesia. - Specifically discussed risks of biopsy including infection, bleeding, pain, anesthetic risks, need for additional testing depending on results. - Discussed that transrectal biopsy in office can be completed sooner, is typically cheaper, is generally well-tolerated & carries a 5-6% risk of infection, compared to transperineal biopsy in ORwhich requires more time for scheduling, is typically more expensive & carries a 0.1% risk of infection but requires general anesthesia with associated risks. - Discussed BPH & associated LUTS, risks/benefits/alternatives to medical management options for symptoms. - Discussed side effects of alpha blockers including but not limited to dizziness / lightheadedness/ orthostasis, rhinitis, retrograde ejaculation, floppy iris syndrome. - Discussed side effects of 5aRI including but not limited to decreased libido, ED, ejaculatory dysfunction, gynecomastia. - Discussed the role of additional medical management options including PDE5i, anticholinergics, beta3 agonists based on response to first line medications and/or specific symptomatic scenarios. - Discussed potential additional diagnostic evaluation including CT/US imaging, TRUS for prostate volume, cystoscopy (urethral & bladder neck obstruction, median lobe evaluation, bladder sequelaeof longstanding obstruction including trabeculations, diverticula, stones), cystometrics / urodynamics for bladder function - Discussed potential progression / complications of BPH & associated indications for outlet procedures including recurrent UTI, persistent urinary retention, bladder stones, recurrent / refractory hematuria, upper tract deterioration, LUTS refractory to medical management. - Discussed urgency / frequency / urge incontinence & risks/benefits/alternatives to managementoptions. - Discussed the first line treatments including behavioral / dietary modifications, bladder diet / avoiding bladder irritants, double voiding, timed voiding, bladder diary. - Discussed the second line treatments including anticholinergics & beta-3 agonists. - Discussed the third line treatments including sacral neuromodulation & intravesical onabotulinum toxin A injections. - Discussed constipation & how it relates to & typically exacerbates frequency / urgency symptoms. Recommended OTC Miralax 1-2x daily until having at least one soft bowel movement daily. Offered prescription for this if needed. - Discussed potential additional diagnostic evaluation including cystoscopy & urodynamics. - Discussed that in men, these symptoms are often the classic storage symptoms attributed to BPH & that treatment with an alpha alejandra often produces significant improvement in both storage & obstructive/voiding symptoms in these patients. - Discussed rationale for hematuria workup. - Discussed that hematuria workup does not always identify the exact etiology but is intended to specifically evaluate the upper & lower urinary tracts for treatable anatomical sources including urologic malignancies & stones. - Discussed risks/benefits/alternatives to options for upper tract imaging including CT urogram, renal ultrasound, MR urography, retrograde pyelography. - Discussed risks/benefits/alternatives to lower tract evaluation with cystourethroscopy with discussion of options including office procedure with local anesthesia, which is preferred & cost effective, versus procedure in operating room with MAC or general anesthesia, which is more costly but may be preferred option for patients unable to tolerate office procedure. - Discussed signs & symptoms of acute urinary tract infections, the most common of which is acute cystitis. - Discussed the treatment of acute uncomplicated UTI which is typically 5-7 days of culture-specific antibiotics. - Discussed that due to the prevalence of antimicrobial resistance, it is not recommended to initiate antibiotics prior to culture results. - Discussed risks/benefits/alternatives for medications both OTC & prescriptions for symptomatic relief while awaiting culture results, including but not limited to Tylenol, NSAIDs, phenazopyridine / Azo products, urethral lidocaine, anticholinergics, beta3 agonists. - Explained that myself or a member of the office will reach out if cultures are positive with instructions for starting appropriate antibiotics. Plan: Send urine culture. Declines prostate biopsy or urine genomics testing; prefers continued PSA surveillance every 6 months. Bladder training; timed and double voiding. Otherwise observation of BPH/LUTS/OAB; symptoms not significantly bothersome. Follow-up in 1 year with PSA every 6 months prior. Return to care in interim with any issues, concerns, worsening or new symptoms. - Patient expressed understanding of the above discussion. All questions answered. Assessment Detail: The total time spent for this visit was 30 minutes. Greater than 50% of the time was spent in counseling and coordination of care regarding elevated PSA, abnormal prostate MRI, BPH, OAB, UTI, follow-up plan. I am managing Hanane Diggs for complex chronic condition(s) serving as the focal point for the patient's care for consistency and continuity over time. Kaykay Do MD [facility] 07/01/24 8:23 AM [1] Social History Socioeconomic History Marital status: Tobacco Use Smoking status: Never Smokeless tobacco: Never Vaping Use Vaping status: Never Used Substance and Sexual Activity Alcohol use: Never Drug use: Never documented in this [id number] History of Present illness Narrative* Kaykay Do MD - 06/25/2023 12:18 PM EDT [facility]rology [place] Established Patient / Followup Visit Patient Name: Hanane Diggs Admit Date: MR #: [id number] : 1940 Physicians: Zack Ceballos MD (Family) Chief Complaint/Reason for Visit: 6mo f/u, PSA prior History of Present Illness: 83 y.o. male with history of elevated PSA, BPH, OAB, hematuria. 10/19/2022 Initially referred & established with [facility], seen by me. 08/31/2022 PSA 10.6 Routine screening by PCP. No prior prostate cancer screening to his recollection. No prior TADEO to his recollection. Mild LUTS for years which he relates to BPH for which he takes OTC saw palmetto which he varies thedose based on symptoms. 1 prior UTI / prostatitis years ago, thinks he may have seen a urologist but not sure. No Hx stones. No GH. Rare small volume UUI / rare small volume post void dribbling. IPSS 9 / QoL 2 / no meds / not interested in intervention. HA - declined to answer. FHx Father d.47 from complications of scleroderma; prior history of possible anorectal cancer. Mother d.83 from cerebral hemorrhage ? Trauma vs. Aneurysm; had Alzheimer dementia / possible fall. 1 brother - no Hx prostate cancer to his knowledge UA trace intact blood, trace LE / UCx neg PVR 28cc Plan: bladder training, ok to use OTC / alternative medicine, repeat PSA then MRI if remains elevated, f/u 2-3 months. 10/19/2022 PSA 10.40 12/12/2022 MRI - volume 143.81cc - PIRADS 4 lesion in the left posteromedial peripheral zone of the prostate mid gland. - Three PIRADS 3 lesions in the transition zone. 12/25/22 Followup. - He's doing some sort of alternative medicine / homeopathic / naturopathic protocol for prostate issues & says his symptoms have improved. IPSS 6 / QoL 2 / no meds He reports longstanding (>20 years) history of scrotal nodule, unchanged, does not cause any discomfort or associated symptoms, evaluated previously by another physician & has been unchanged; declines examination today. TADEO declined. UA trace intact RBC, large LE; microscopy 23 RBC, 11 WBC, small LE, rare bacteria. UCx no growth. PVR 0cc Plan: declines prostate biopsy; wants to watch PSA; repeat in ~3 mo; bladder training; f/u 6mo. 03/01/2023 PSA 9.46 06/18/2023 PSA 8.33 06/25/23 Followup. - No new issues in interim. - Voiding well. - No flank pain or GH. - Thinks his homeopathic prostate protocol was a great benefit to him & not interest in prostate biopsy at this time. History: Past Medical History: Diagnosis Date Bradycardia Coronary artery disease Elevated PSA Hypertension Past Surgical History: Procedure Laterality Date CARDIAC SURGERY 03/05/2009 triple bypass HERNIA REPAIR Bilateral PACEMAKER INSERTION 2021 Family History Problem Relation Age of Onset No Known Problems Mother No Known Problems Father No Known Problems Sister No Known Problems Brother Social History Socioeconomic History Marital status: Tobacco Use Smoking status: Never Smokeless tobacco: Never Vaping Use Vaping Use: Never used Substance and Sexual Activity Alcohol use: Never Drug use: Never Allergies: I have reviewed the patient's allergies. Patient has no known allergies. Home Medications: Outpatient Medications as of 06/25/2023 Medication Sig amLODIPine (NORVASC) 10 MG tablet Take 1 (one) tablet (10 mg total) by mouth daily . apixaban 5 mg Tab Take by mouth . ascorbic acid, vitamin C, 500 mg cap Take by mouth . aspirin 81 MG EC tablet Take by mouth . atorvastatin (LIPITOR) 80 MG tablet Take 1 (one) tablet (80 mg total) by mouth daily . cholecalciferol, vitamin D3, 1,000 unit tablet Take 25 mcg by mouth . coenzyme Q10 200 mg capsule Take 200 mg by mouth daily . famotidine (PEPCID) 20 MG tablet isosorbide mononitrate (IMDUR) 30 MG 24 hr tablet TAKE 1 TABLET BY MOUTH ONCE DAILY IN THE MORNING SWALLOW WHOLE WITH GLASS OF WATER, DO NOT CRUSH/CHEW/DISSOLVE/CUT/BREAK levocarnitine tartrate (CARNITINE, TARTRATE, ORAL) Take by mouth . lisinopriL (PRINIVIL,ZESTRIL) 20 MG tablet Take 1 (one) tablet (20 mg total) by mouth daily . min17/nettle/pumpkin/saw palme (PROSTATE THERAPY ORAL) Take by mouth . pyridoxine, vitamin B6, (vitamin B-6) 100 MG tablet Take 1 (one) tablet (100 mg total) by mouth daily . saw palmetto 160 mg cap Take 160 mg by mouth . zinc acetate 25 mg (zinc) cap Take by mouth . Review of Systems: The following system(s) were reviewed and pertinent findings noted: Review of Systems Constitutional: Negative for activity change, chills, fever and unexpected weight change. Gastrointestinal: Negative for abdominal pain, diarrhea, nausea and vomiting. Objective: Vital Signs: BP (!) 148/74 (BP Location: Right arm, Patient Position: Sitting) Pulse (!) 59 SpO2 97% Physical Exam Vitals reviewed. Constitutional: General: He is not in acute distress. Appearance: He is not diaphoretic. Pulmonary: Effort: Pulmonary effort is normal. No respiratory distress. Abdominal: General: There is no distension. Palpations: Abdomen is soft. Tenderness: There is no abdominal tenderness. Genitourinary: Comments: TADEO declined Neurological: General: No focal deficit present. Mental Status: He is alert and oriented to person, place, and time. Psychiatric: Mood and Affect: Mood normal. Behavior: Behavior normal. Laboratory Results Reviewed: PSA Date Value Ref Range Status 06/18/2023 8.33 (H) 0.00 - 3.00 ng/mL Final Comment: Per the National Comprehensive Cancer Network (NCCN) Guidelines: . PSA> 3.0 ng/ml is positive regardless of age . PSA normal values are based upon a patient with a normal Digital Rectal Exam (TADEO). A TADEO suspicious for cancer at any PSA level is an indication for biopsy. . Any serum PSA level in a patient previously treated for prostate cancer should be interpreted with caution. Assay performed by [employer], Electrochemiluminescence Immunoassay. Patient results determined by assays using different instrumentation may not be comparable. 03/01/2023 9.46 (H) 0.00 - 3.00 ng/mL Final 10/19/2022 10.40 (H) 0.00 - 3.00 ng/mL Final No results found for: TESTOSTERONE, E2 No results found for: WBC, HGB, HCT, MCV, PLT Lab Results Component Value Date CREATININE 1.3 12/12/2022 Recent Results (from the past 24 hour(s)) Measure post void residual Collection Time: 06/25/23 11:30 AM Result Value Ref Range Measure Post Void Residual 12 POC Urinalysis Dipstick Collection Time: 06/25/23 11:44 AM Result Value Ref Range Spec Grav, UA 1.030 (A) 1.005 - 1.025 pH, UA 5.5 5.0 - 7.0 Protein, UA 100 (A) Negative mg/dL Glucose, UA Negative Normal, Negative mg/dL Ketones, UA Negative Negative mg/dL Bilirubin, UA Negative Negative Urobilinogen, UA 0.2 <2.0, 0.2, Normal, Negative, 1.0, 2.0, <1.0 mg/dL Blood, UA Small (A) Negative Nitrite, UA Negative Negative Leukocyte Esterase, UA Small (A) Negative Imaging Reviewed: No new imaging. Assessment: Hanane Diggs is a 83 y.o. y/o male Diagnoses and all orders for this visit: Elevated PSA - POC Urinalysis Dipstick - Measure post void residual Abnormal MRI, pelvis BPH with obstruction/lower urinary tract symptoms - POC Urinalysis Dipstick - Measure post void residual Urinary urgency Urge incontinence Microhematuria - POC Urinalysis Dipstick - Measure post void residual - UA today shows small RBC, small LE, neg nitrite. No further workup today. - PVR today by bladder scan: 12 cc - Discussed indications for PSA screening & possible etiologies of PSA elevation including prostate cancer, BPH, UTI, pelvic trauma. - Discussed management options including continued annual screening, repeat PSA today or in short interval, TADEO, prostate MRI, prostate biopsy, urine / serum genetic and/or biomarker tests. - Discussed risks/benefits/alternatives to these options. - Discussed biopsy techniques including transrectal versus transperineal, as well as anesthetic techniques including local anesthesia, oral benzodiazepine sedation, MAC, general anesthesia. - Specifically discussed risks of biopsy including infection, bleeding, pain, anesthetic risks, need for additional testing depending on results. - Discussed that transrectal biopsy in office can be completed sooner, is typically cheaper, is generally well-tolerated & carries a 5-6% risk of infection, compared to transperineal biopsy in ORwhich requires more time for scheduling, is typically more expensive & carries a 0.1% risk of infection but requires general anesthesia with associated risks. - Discussed BPH & associated LUTS, risks/benefits/alternatives to medical management options for symptoms. - Discussed side effects of alpha blockers including but not limited to dizziness / lightheadedness/ orthostasis, rhinitis, retrograde ejaculation, floppy iris syndrome. - Discussed side effects of 5aRI including but not limited to decreased libido, ED, ejaculatory dysfunction, gynecomastia. - Discussed the role of additional medical management options including PDE5i, anticholinergics, beta3 agonists based on response to first line medications and/or specific symptomatic scenarios. - Discussed potential additional diagnostic evaluation including CT/US imaging, TRUS for prostate volume, cystoscopy (urethral & bladder neck obstruction, median lobe evaluation, bladder sequelaeof longstanding obstruction including trabeculations, diverticula, stones), cystometrics / urodynamics for bladder function - Discussed potential progression / complications of BPH & associated indications for outlet procedures including recurrent UTI, persistent urinary retention, bladder stones, recurrent / refractory hematuria, upper tract deterioration, LUTS refractory to medical management. - Discussed urgency / frequency / urge incontinence & risks/benefits/alternatives to managementoptions. - Discussed the first line treatments including behavioral / dietary modifications, bladder diet / avoiding bladder irritants, double voiding, timed voiding, bladder diary. - Discussed the second line treatments including anticholinergics & beta-3 agonists. - Discussed the third line treatments including sacral neuromodulation & intravesical onabotulinum toxin A injections. - Discussed constipation & how it relates to & typically exacerbates frequency / urgency symptoms. Recommended OTC Miralax 1-2x daily until having at least one soft bowel movement daily. Offered prescription for this if needed. - Discussed potential additional diagnostic evaluation including cystoscopy & urodynamics. - Discussed that in men, these symptoms are often the classic storage symptoms attributed to BPH & that treatment with an alpha alejandra often produces significant improvement in both storage & obstructive/voiding symptoms in these patients. - Discussed rationale for hematuria workup. - Discussed that hematuria workup does not always identify the exact etiology but is intended to specifically evaluate the upper & lower urinary tracts for treatable anatomical sources including urologic malignancies & stones. - Discussed risks/benefits/alternatives to options for upper tract imaging including CT urogram, renal ultrasound, MR urography, retrograde pyelography. - Discussed risks/benefits/alternatives to lower tract evaluation with cystourethroscopy with discussion of options including office procedure with local anesthesia, which is preferred & cost effective, versus procedure in operating room with MAC or general anesthesia, which is more costly but may be preferred option for patients unable to tolerate office procedure. - Discussed risks/benefits/alternatives to over the counter dietary supplements for issues including prostate health, sexual health, urinary symptoms, UTI, urolithiasis. - Discussed that overall evidence is lacking to provide recommendations for any of the above conditions & their associated supplements. - Discussed the lack of production standards & oversight associated with dietary supplements. - Discussed that if patient is willing to accept potential risks & the costs of supplements & feels that the supplements are improving symptoms, I have no issue with a patient continuing to take these supplements. Plan: - Discussed elevated PSA & abnormal prostate MRI; PSA is decreasing & he is not interested in biopsy despite recommendations; agreeable to continued PSA surveillance; repeat in 3-6 mo & thereafter to be determined based on trend. - Observation of BPH / LUTS / OAB; minimal bother currently. - Ok to continue OTCs for prostate health. - Observation of microhematuria; recheck @ followup. - F/u ~ 1 year / possibly sooner based on subsequent PSA results; RTC in interim if issues / concerns / worsening or new symptoms. - Patient expressed understanding of the above discussion. All questions answered. Assessment Detail: The total time spent for this visit was 45 minutes. Greater than 50% of the time was spent in counseling and coordination of care regarding elevated PSA, prostate cancer, BPH, OAB, hematuria, followup plan. Kaykay Do MD [facility] - Urology 12:19 PM 06/25/23 documented in this [id number] History of Present illness Narrative* Kaykay Do MD - 12/25/2022 10:08 AM EDT [facility] - [facility] [place] Established Patient / Followup Visit Patient Name: Hanane Diggs Admit Date: MR #: [id number] : 1940 Physicians: Zack Ceballos MD (Family) Chief Complaint/Reason for Visit: elevated PSA, BPH, OAB, hematuria History of Present Illness: 82 y.o. male with history of elevated PSA, BPH, OAB, hematuria. 10/19/2022 Initially referred & established with [facility], seen by me. 08/31/2022 PSA 10.6 Routine screening by PCP. No prior prostate cancer screening to his recollection. No prior TADEO to his recollection. Mild LUTS for years which he relates to BPH for which he takes OTC saw pamellao which he varies thedose based on symptoms. 1 prior UTI / prostatitis years ago, thinks he may have seen a urologist but not sure. No Hx stones. No GH. Rare small volume UUI / rare small volume post void dribbling. IPSS 9 / QoL 2 / no meds / not interested in intervention. HA - declined to answer. FHx Father d.47 from complications of scleroderma; prior history of possible anorectal cancer. Mother d.83 from cerebral hemorrhage ? Trauma vs. Aneurysm; had Alzheimer dementia / possible fall. 1 brother - no Hx prostate cancer to his knowledge UA trace intact blood, trace LE / UCx neg PVR 28cc Plan: bladder training, ok to use OTC / alternative medicine, repeat PSA then MRI if remains elevated, f/u 2-3 months. 10/19/2022 PSA 10.40 12/12/2022 MRI - volume 143.81cc - PIRADS 4 lesion in the left posteromedial peripheral zone of the prostate mid gland. - Three PIRADS 3 lesions in the transition zone. 12/25/22 Followup. - He's doing some sort of alternative medicine / homeopathic / naturopathic protocol for ? Prostateissues & says his symptoms have improved. IPSS 6 / QoL 2 / no meds He reports longstanding (>20 years) history of scrotal nodule, unchanged, does not cause any discomfort or associated symptoms, evaluated previously by another physician & has been unchanged; declines examination today. History: Past Medical History: Diagnosis Date Bradycardia Coronary artery disease Elevated PSA Hypertension Past Surgical History: Procedure Laterality Date CARDIAC SURGERY 03/05/2009 triple bypass HERNIA REPAIR Bilateral PACEMAKER INSERTION 2021 Family History Problem Relation Age of Onset No Known Problems Mother No Known Problems Father No Known Problems Sister No Known Problems Brother Social History Socioeconomic History Marital status: Tobacco Use Smoking status: Never Smokeless tobacco: Never Vaping Use Vaping Use: Never used Substance and Sexual Activity Alcohol use: Never Drug use: Never Allergies: I have reviewed the patient's allergies. Patient has no known allergies. Home Medications: Outpatient Medications as of 12/25/2022 Medication Sig amLODIPine (NORVASC) 10 MG tablet Take 1 (one) tablet (10 mg total) by mouth daily . apixaban 5 mg Tab Take by mouth . ascorbic acid, vitamin C, 500 mg cap Take by mouth . aspirin 81 MG EC tablet Take by mouth . atorvastatin (LIPITOR) 80 MG tablet Take 1 (one) tablet (80 mg total) by mouth daily . cholecalciferol, vitamin D3, 1,000 unit tablet Take 25 mcg by mouth . coenzyme Q10 200 mg capsule Take 200 mg by mouth daily . famotidine (PEPCID) 20 MG tablet isosorbide mononitrate (IMDUR) 30 MG 24 hr tablet TAKE 1 TABLET BY MOUTH ONCE DAILY IN THE MORNING SWALLOW WHOLE WITH GLASS OF WATER, DO NOT CRUSH/CHEW/DISSOLVE/CUT/BREAK levocarnitine tartrate (CARNITINE, TARTRATE, ORAL) Take by mouth . lisinopriL (PRINIVIL,ZESTRIL) 20 MG tablet Take 1 (one) tablet (20 mg total) by mouth daily . min17/nettle/pumpkin/saw palme (PROSTATE THERAPY ORAL) Take by mouth . pyridoxine, vitamin B6, (vitamin B-6) 100 MG tablet Take 1 (one) tablet (100 mg total) by mouth daily . saw palmetto 160 mg cap Take 160 mg by mouth . zinc acetate 25 mg (zinc) cap Take by mouth . Review of Systems: The following system(s) were reviewed and pertinent findings noted: Review of Systems Constitutional: Negative for activity change, chills, fever and unexpected weight change. Gastrointestinal: Negative for abdominal pain, diarrhea, nausea and vomiting. Objective: Vital Signs: BP 138/83 Pulse 67 SpO2 98% Physical Exam Vitals reviewed. Constitutional: General: He is not in acute distress. Appearance: He is not diaphoretic. Pulmonary: Effort: Pulmonary effort is normal. No respiratory distress. Abdominal: General: There is no distension. Palpations: Abdomen is soft. Tenderness: There is no abdominal tenderness. Genitourinary: Comments: TADEO declined Neurological: General: No focal deficit present. Mental Status: He is alert and oriented to person, place, and time. Psychiatric: Mood and Affect: Mood normal. Behavior: Behavior normal. Laboratory Results Reviewed: PSA Date Value Ref Range Status 10/19/2022 10.40 (H) 0.00 - 3.00 ng/mL Final No results found for: TESTOSTERONE, E2 No results found for: WBC, HGB, HCT, MCV, PLT Lab Results Component Value Date CREATININE 1.3 12/12/2022 Recent Results (from the past 24 hour(s)) Measure post void residual Collection Time: 12/25/22 10:21 AM Result Value Ref Range Measure Post Void Residual 0 POC Urinalysis Dipstick, Auto Collection Time: 12/25/22 10:46 AM Result Value Ref Range Glucose, UA Negative Normal, Negative mg/dL Bilirubin, UA Negative Negative Ketones, UA Trace (A) Negative mg/dL Spec Grav, UA 1.030 (A) 1.005 - 1.025 Blood, UA Trace-intact (A) Negative pH, UA 5.5 5.0 - 7.0 Protein, UA 100 (A) Negative mg/dL Urobilinogen, UA 0.2 <2.0, 0.2, Normal, Negative, 1.0, 2.0, <1.0 mg/dL Nitrite, UA Negative Negative Leukocyte Esterase, UA Large (A) Negative Imaging Reviewed: XR MR Clear Result Date: 12/12/2022 EXAMINATION: XR FOR MRI CLEARANCE HISTORY: Cardiac pacemaker AP chest, 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 Chest x-ray performed for pacemaker identification purposes. Lungs are grossly clear. [employer] Workstation ID: [id number] MR Prostate With And Without Contrast Result Date: 12/12/2022 EXAMINATION: MR PROSTATE WITH AND WITHOUT CONTRAST HISTORY: ORDERING SYSTEM PROVIDED HISTORY: MRI for prostate fusion biopsy - 3T magnet with dynacad, TECHNOLOGIST PROVIDED HISTORY: Illness/Other Reason for exam: MRI for prostate fusion biopsy - 3T magnet with dynacad Encounter Type: Ongoing Additional signs and symptoms: none ORDERING SYSTEM PROVIDED DIAGNOSIS CODES: R97.20 Elevated PSA COMPARISON: None TECHNIQUE: Multiplanar T2 weighted sequences, axial T1 weighted sequence, diffusion-weighted imaging with ADC map, and dynamic contrast enhanced imaging was included for evaluation of the prostate. CONTRAST: GADOTERATE MEGLUMINE 0.5 MMOL/ML (376.9 MG/ML) INTRAVENOUS SOLUTION - 14 mL, FINDINGS: Prostate measures 5.4 x 5.9 x 6.9 cm (ap x tr x cc). There are multiple circumscribed encapsulated nodules within the enlarged transition zone consistent with benign prostatic hyperplasia (PI-RADS2). Lesion 1 Location: Left paramedian anterior transition zone of the prostate mid gland (series 5001, image 15, series 4001, image 12, series 26030, image 14). T2: Mild hypointensity, not cysts completely circumscribed, up to 7 mm (3/5) DWI: Moderate diffusion restriction (4/5) Enhancement: + PI-RADS: 3 Lesion 2 Location: Extreme prostate base at the midline (series 5001, image 3) T2: Mild hypointensity, not circumscribed, up to 1.1 cm (3/5) DWI: Moderate diffusion restriction (4/5) Enhancement: + PI-RADS: 3 Lesion 3 Location: Right transition zone of the prostate mid gland (series 5001, image 19, series 9001, image 17) T2: 1.1 cm mild hypointensity, not completely circumscribed (3/5) DWI: Moderate diffusion restriction (4/5) Enhancement: + PI-RADS: 3 Lesion 4: Location: Left posteromedial peripheral zone of the prostate mid gland (series 5001, image 16) T2: Mild hypointensity, 4 mm (4/5) DWI: Mild diffusion restriction (3/5) Enhancement: - PI-RADS: 4 No seminal vesicle mass. Normalurinary bladder. No suspicious pelvic or inguinal adenopathy. No suspicious osseous lesions. PIRADS 4 lesion in the left posteromedial peripheral zone of the prostate mid gland. Three PIRADS 3lesions in the transition zone. Benign prostatic hyperplasia (PI-RADS 2). Workstation ID: [id number] Assessment: Hanane Diggs is a 82 y.o. y/o male Diagnoses and all orders for this visit: Elevated PSA - POC Urinalysis Dipstick, Auto - Measure post void residual - PSA Monitor; Future Abnormal MRI, pelvis - PSA Monitor; Future BPH with obstruction/lower urinary tract symptoms Urinary urgency Urge incontinence Microhematuria - Urinalysis Acute cystitis with hematuria - Urine Aerobic Culture; Future - Urine Aerobic Culture - UA today shows trace intact RBC, large LE, neg nitrite. Send micro & culture. - PVR today by bladder scan: 0 cc - Discussed indications for PSA screening & possible etiologies of PSA elevation including prostate cancer, BPH, UTI, pelvic trauma. - Discussed management options including continued annual screening, repeat PSA today or in short interval, TADEO, prostate MRI, prostate biopsy, urine / serum genetic and/or biomarker tests. - Discussed risks/benefits/alternatives to these options. - Discussed biopsy techniques including transrectal versus transperineal, as well as anesthetic techniques including local anesthesia, oral benzodiazepine sedation, MAC, general anesthesia. - Specifically discussed risks of biopsy including infection, bleeding, pain, anesthetic risks, need for additional testing depending on results. - Discussed that transrectal biopsy in office can be completed sooner, is typically cheaper, is generally well-tolerated & carries a 5-6% risk of infection, compared to transperineal biopsy in ORwhich requires more time for scheduling, is typically more expensive & carries a 0.1% risk of infection but requires general anesthesia with associated risks. - Discussed prostate cancer including population data regarding progression & prognosis. - Reviewed NCCN prostate cancer guidelines including review & explanation of Margarita score & Margarita grade groups, TNM staging & prostate cancer risk stratification. - Discussed additional workup for staging & risk stratification including various imaging testswhen indicated (prostate MRI, CT abdomen/pelvis, Chest X- ray or CT chest, PSMA PET scan, Bone Scan). - Briefly discussed the variety of available adjunct tests including various genomic & biomarker evaluations. - Discussed generalized recommendations for treatment options based on risk group. - Discussed the importance of balancing considerations of patient quality of life & appropriatetreatment options. - Discussed active surveillance protocols including PSA surveillance q3-6 months, MRI every 1-2 years, confirmation biopsy within 1 year of diagnosis, periodic restaging biopsy with frequency dependent on risk stratification & PSA trends & MRI findings. - Discussed active treatment options including a broad overview of surgery (robotic radical prostatectomy), radiation therapy & androgen deprivation therapy. - Discussed potential side effects & the risks/benefits/alternatives to the treatment options, with focus on continence & sexual health. - Briefly discussed less common / alternative treatment options including HIFU & cryoablation. - Discussed the role of referral for evaluation by specialty services including urologic oncology, radiation oncology, medical oncology & medical genetics. - Discussed the option of observation / expectant management without active treatment or active surveillance. - Discussed BPH & associated LUTS, risks/benefits/alternatives to medical management options for symptoms. - Discussed side effects of alpha blockers including but not limited to dizziness / lightheadedness/ orthostasis, rhinitis, retrograde ejaculation, floppy iris syndrome. - Discussed side effects of 5aRI including but not limited to decreased libido, ED, ejaculatory dysfunction, gynecomastia. - Discussed the role of additional medical management options including PDE5i, anticholinergics, beta3 agonists based on response to first line medications and/or specific symptomatic scenarios. - Discussed potential additional diagnostic evaluation including CT/US imaging, TRUS for prostate volume, cystoscopy (urethral & bladder neck obstruction, median lobe evaluation, bladder sequelaeof longstanding obstruction including trabeculations, diverticula, stones), cystometrics / urodynamics for bladder function - Discussed potential progression / complications of BPH & associated indications for outlet procedures including recurrent UTI, persistent urinary retention, bladder stones, recurrent / refractory hematuria, upper tract deterioration, LUTS refractory to medical management. - Discussed urgency / frequency / urge incontinence & risks/benefits/alternatives to managementoptions. - Discussed the first line treatments including behavioral / dietary modifications, bladder diet / avoiding bladder irritants, double voiding, timed voiding, bladder diary. - Discussed the second line treatments including anticholinergics & beta-3 agonists. - Discussed the third line treatments including sacral neuromodulation & intravesical onabotulinum toxin A injections. - Discussed constipation & how it relates to & typically exacerbates frequency / urgency symptoms. Recommended OTC Miralax 1-2x daily until having at least one soft bowel movement daily. Offered prescription for this if needed. - Discussed potential additional diagnostic evaluation including cystoscopy & urodynamics. - Discussed that in men, these symptoms are often the classic storage symptoms attributed to BPH & that treatment with an alpha alejandra often produces significant improvement in both storage & obstructive/voiding symptoms in these patients. - Discussed rationale for hematuria workup. - Discussed that hematuria workup does not always identify the exact etiology but is intended to specifically evaluate the upper & lower urinary tracts for treatable anatomical sources including urologic malignancies & stones. - Discussed risks/benefits/alternatives to options for upper tract imaging including CT urogram, renal ultrasound, MR urography, retrograde pyelography. - Discussed risks/benefits/alternatives to lower tract evaluation with cystourethroscopy with discussion of options including office procedure with local anesthesia, which is preferred & cost effective, versus procedure in operating room with MAC or general anesthesia, which is more costly but may be preferred option for patients unable to tolerate office procedure. Plan: - Patient declines prostate biopsy but still wants to watch PSA; he's interested to see if any change after his homeopathic protocol is complete. Repeat PSA in ~3mo. - Urine microscopy. - Urine culture. - Bladder training / timed & double voiding. - F/u ~ 6mo to reassess, sooner if issues / concerns / worsening or new symptoms. - Patient expressed understanding of the above discussion. All questions answered. Assessment Detail: The total time spent for this visit was 50 minutes. Greater than 50% of the time was spent in counseling and coordination of care regarding elevated PSA, prostate cancer, BPH, OAB, microhematuria, UTI, followup plan. Kaykay Do MD [facility] 10:08 AM 12/25/22 documented in this [id number] History of Present illness Narrative* Kaykay Do MD - 10/19/2022 10:57 AM EDT [facility] Patient / Consultation Patient Name: Hanane Diggs Admit Date: MR #: [id number] : 1940 Physicians: Zack Ceballos MD (Family); Zack Ceballos MD (Referring) Chief Complaint/Reason for Visit: elevated PSA History of Present Illness: 82 y.o. male referred for elevated PSA. 08/31/2022 PSA 10.6 Routine screening by PCP. No prior prostate cancer screening to his recollection. No prior TADEO to his recollection. He's had mild LUTS for years which he relates to BPH for which he takes OTC saw palmetto which he varies the dose based on symptoms. 1 prior UTI / prostatitis years ago, thinks he may have seen a urologist but not sure. No Hx stones. No GH. Rare small volume UUI / rare small volume post void dribbling. IPSS 9 / QoL 2 / no meds / not interested in intervention. HA - declined to answer. FHx Father d.47 from complications of scleroderma; prior history of possible anorectal cancer. Mother d.83 from cerebral hemorrhage ? Trauma vs. Aneurysm; had Alzheimer dementia / possible fall. 1 brother - no Hx prostate cancer to his knowledge Record Review: - I reviewed patient's records from PCP Zack Ceballos MD. History: Past Medical History: Diagnosis Date Bradycardia Coronary artery disease Elevated PSA Hypertension Past Surgical History: Procedure Laterality Date CARDIAC SURGERY 03/05/2009 triple bypass HERNIA REPAIR Bilateral PACEMAKER INSERTION 2021 Family History Problem Relation Age of Onset No Known Problems Mother No Known Problems Father No Known Problems Sister No Known Problems Brother Social History Socioeconomic History Marital status: Tobacco Use Smoking status: Never Smokeless tobacco: Never Vaping Use Vaping Use: Never used Substance and Sexual Activity Alcohol use: Never Drug use: Never Allergies: I have reviewed the patient's allergies. Patient has no known allergies. Home Medications: Outpatient Medications as of 10/19/2022 Medication Sig ascorbic acid, vitamin C, 500 mg cap Take by mouth . aspirin 81 MG EC tablet Take by mouth . cholecalciferol, vitamin D3, 1,000 unit tablet Take 25 mcg by mouth . saw palmetto 160 mg cap Take 160 mg by mouth . zinc acetate 25 mg (zinc) cap Take by mouth . amLODIPine (NORVASC) 10 MG tablet Take 1 (one) tablet (10 mg total) by mouth daily . apixaban 5 mg Tab Take by mouth . atorvastatin (LIPITOR) 80 MG tablet Take 1 (one) tablet (80 mg total) by mouth daily . famotidine (PEPCID) 20 MG tablet isosorbide mononitrate (IMDUR) 30 MG 24 hr tablet TAKE 1 TABLET BY MOUTH ONCE DAILY IN THE MORNING SWALLOW WHOLE WITH GLASS OF WATER, DO NOT CRUSH/CHEW/DISSOLVE/CUT/BREAK lisinopriL (PRINIVIL,ZESTRIL) 20 MG tablet Take 1 (one) tablet (20 mg total) by mouth daily . pyridoxine, vitamin B6, (vitamin B-6) 100 MG tablet Take 1 (one) tablet (100 mg total) by mouth daily . Review of Systems: The following system(s) were reviewed and pertinent findings noted: Review of Systems Constitutional: Negative for activity change, chills, fever and unexpected weight change. Gastrointestinal: Negative for abdominal pain, diarrhea, nausea and vomiting. Objective: Vital Signs: BP (!) 158/82 (BP Location: Left arm, Patient Position: Sitting) Pulse (!) 58 SpO2 96% Physical Exam Vitals reviewed. Constitutional: General: He is not in acute distress. Appearance: He is not diaphoretic. Pulmonary: Effort: Pulmonary effort is normal. No respiratory distress. Abdominal: General: There is no distension. Palpations: Abdomen is soft. Tenderness: There is no abdominal tenderness. Genitourinary: Comments: TADEO declined today by patient after discussion Neurological: General: No focal deficit present. Mental Status: He is alert and oriented to person, place, and time. Psychiatric: Mood and Affect: Mood normal. Behavior: Behavior normal. Laboratory Results Reviewed: No results found for: PSASCRN, PSA, PSAFREE No results found for: TESTOSTERONE, E2 No results found for: WBC, HGB, HCT, MCV, PLT No results found for: GLUCOSE, CALCIUM, NA, K, CL, BUN, CREATININE POC Urinalysis Dipstick, Auto Order: [id number] Status: Final result Visible to patient: No (inaccessible in MyChart) Dx: Elevated PSA 0 Result Notes Component Ref Range & Units Glucose, UA Normal, Negative mg/dL Negative Bilirubin, UA Negative Negative Ketones, UA Negative mg/dL Negative Spec Grav, UA 1.005 - 1.025 1.030 Abnormal Blood, UA Negative Trace-intact Abnormal pH, UA 5.0 - 7.0 6.0 Protein, UA Negative mg/dL 100 Abnormal Urobilinogen, UA <2.0, 0.2, Normal, Negative, 1.0, 2.0, <1.0 mg/dL 0.2 Nitrite, UA Negative Negative Leukocyte Esterase, UA Negative Trace Abnormal Specimen Collected: 10/19/22 12:22 Last Resulted: 10/19/22 12:22 Measure post void residual Order: [id number] Status: Final result Visible to patient: No (inaccessible in MyChart) Dx: Elevated PSA 0 Result Notes Component Measure Post Void Residual 28 Last Resulted: 10/19/22 12:21 International Prostate Symptom Score (IPSS) Date: 10/19/22 Over the last month: 1. How often have you had a sensation of not emptying your bladder completely after you finish urinating? 1 - Less than 1 time in 5 2. How often have you had to urinate again less than two hours after you finished urinating? 1 - Less than 1 time in 5 3. How often have you found you stopped and started again several times when you urinated? 1 - Lessthan 1 time in 5 4. How difficult have you found it to postpone urination? 1 - Less than 1 time in 5 5. How often have you had a weak urinary stream? 1 - Less than 1 time in 5 6. How often have you had to push or strain to begin urination? 1 - Less than 1 time in 5 7. How many times did you most typically get up to urinate from the time you went to bed until the time you got up in the morning? 3 - 3 times Total score: - 9 0-7 - Mildly symptomatic 8-19 - Moderately symptomatic 20-35 - Severely symptomatic Bother / Quality of Life: 8. If you were to spend the rest of your life with your urinary condition just the way it is now, how would you feel about that? 2 - Mostly Satisfied Additional Questions: 9a. Have you tried medications to help your symptoms? 9b. Did these medications help your symptoms? (1-10; 1 - no relief, 10 - complete relief) No N/A 10. Would you be interested in learning about a minimally invasive option that could allow you to avoid or discontinue enlarged prostate medications? No Trends: N/a Sexual Health Inventory for Men (HA) Date: 10/19/22 Patient declined to answer. Imaging Reviewed: No relevant imaging. Assessment: Hanane Diggs is a 82 y.o. y/o male Diagnoses and all orders for this visit: Elevated PSA - POC Urinalysis Dipstick, Auto - Measure post void residual - PSA Monitor; Future BPH with obstruction/lower urinary tract symptoms Urinary urgency Urge incontinence Acute cystitis with hematuria - Urine Aerobic Culture; Future - Urine Aerobic Culture Microhematuria - UA today shows trace intact RBC, trace LE, neg nitrite. Send culture. - PVR today by bladder scan: 28 cc - Discussed indications for PSA screening & possible etiologies of PSA elevation including prostate cancer, BPH, UTI, pelvic trauma. - Discussed management options including continued annual screening, repeat PSA today or in short interval, TADEO, prostate MRI, prostate biopsy, urine / serum genetic and/or biomarker tests. - Discussed risks/benefits/alternatives to these options. - Discussed biopsy techniques including transrectal versus transperineal, as well as anesthetic techniques including local anesthesia, oral benzodiazepine sedation, MAC, general anesthesia. - Specifically discussed risks of biopsy including infection, bleeding, pain, anesthetic risks, need for additional testing depending on results. - Discussed that transrectal biopsy in office can be completed sooner, is typically cheaper, is generally well-tolerated & carries a 5-6% risk of infection, compared to transperineal biopsy in [place] requires more time for scheduling, is typically more expensive & carries a 0.1% risk of infection but requires general anesthesia with associated risks. - Discussed signs & symptoms of acute urinary tract infections, the most common of which is acute cystitis. - Discussed the treatment of acute uncomplicated UTI which is typically 5-7 days of culture-specific antibiotics. - Discussed that due to the prevalence of antimicrobial resistance, it is not recommended to initiate antibiotics prior to culture results. - Discussed risks/benefits/alternatives for medications both OTC & prescriptions for symptomatic relief while awaiting culture results, including but not limited to Tylenol, NSAIDs, phenazopyridine / Azo products, urethral lidocaine, anticholinergics, beta3 agonists. - Explained that myself or a member of the office will reach out if cultures are positive with instructions for starting appropriate antibiotics. - Discussed BPH & associated LUTS, risks/benefits/alternatives to medical management options for symptoms. - Discussed side effects of alpha blockers including but not limited to dizziness / lightheadedness/ orthostasis, rhinitis, retrograde ejaculation, floppy iris syndrome. - Discussed side effects of 5aRI including but not limited to decreased libido, ED, ejaculatory dysfunction, gynecomastia. - Discussed the role of additional medical management options including PDE5i, anticholinergics, beta3 agonists based on response to first line medications and/or specific symptomatic scenarios. - Discussed potential additional diagnostic evaluation including CT/US imaging, TRUS for prostate volume, cystoscopy (urethral & bladder neck obstruction, median lobe evaluation, bladder sequelaeof longstanding obstruction including trabeculations, diverticula, stones), cystometrics / urodynamics for bladder function - Discussed potential progression / complications of BPH & associated indications for outlet procedures including recurrent UTI, persistent urinary retention, bladder stones, recurrent / refractory hematuria, upper tract deterioration, LUTS refractory to medical management. - Discussed urgency / frequency / urge incontinence & risks/benefits/alternatives to managementoptions. - Discussed the first line treatments including behavioral / dietary modifications, bladder diet / avoiding bladder irritants, double voiding, timed voiding, bladder diary. - Discussed the second line treatments including anticholinergics & beta-3 agonists. - Discussed the third line treatments including sacral neuromodulation & intravesical onabotulinum toxin A injections. - Discussed constipation & how it relates to & typically exacerbates frequency / urgency symptoms. Recommended OTC Miralax 1-2x daily until having at least one soft bowel movement daily. Offered prescription for this if needed. - Discussed potential additional diagnostic evaluation including cystoscopy & urodynamics. - Discussed that in men, these symptoms are often the classic storage symptoms attributed to BPH & that treatment with an alpha alejandra often produces significant improvement in both storage & obstructive/voiding symptoms in these patients. - Discussed rationale for hematuria workup. - Discussed that hematuria workup does not always identify the exact etiology but is intended to specifically evaluate the upper & lower urinary tracts for treatable anatomical sources including urologic malignancies & stones. - Discussed risks/benefits/alternatives to options for upper tract imaging including CT urogram, renal ultrasound, MR urography, retrograde pyelography. - Discussed risks/benefits/alternatives to lower tract evaluation with cystourethroscopy with discussion of options including office procedure with local anesthesia, which is preferred & cost effective, versus procedure in operating room with MAC or general anesthesia, which is more costly but may be preferred option for patients unable to tolerate office procedure. - Discussed risks/benefits/alternatives to over the counter dietary supplements for issues including prostate health, sexual health, urinary symptoms, UTI, urolithiasis. - Discussed that overall evidence is lacking to provide recommendations for any of the above conditions & their associated supplements. - Discussed the lack of production standards & oversight associated with dietary supplements. - Discussed that if patient is willing to accept potential risks & the costs of supplements & feels that the supplements are improving symptoms, I have no issue with a patient continuing to take these supplements. Plan: - Patient is interested in further evaluation of his elevated PSA & wants additional testing. Start with repeat PSA today. If it continues to be elevated, he would like to get prostate MRI for further evaluation prior to making a decision on biopsy. - Ok to continue OTC prostate health supplements. - Bladder training / timed & double voiding. - Send urine culture. - Observation of microhematuria; repeat UA at future visits. - F/u ~ 1-2mo once MRI completed (if indicated) to reassess, sooner if issues / concerns / worsening or new symptoms. - Patient expressed understanding of the above discussion. All questions answered. Assessment Detail: The total time spent for this visit was 50 minutes. Greater than 50% of the time was spent in counseling and coordination of care regarding PSA, hematuria, UTI, followup plan. Kaykay Do MD [facility] - Urology 10:57 AM 10/19/22 documented in this [id number] Evaluation note* Diagnosis Onset Date Resolution Status Atrial flutter acute AV block, 2nd degree acute 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, [facility] Work Phone: Evaluation note* Diagnosis Elevated PSA- Primary Elevated prostate specific antigen (PSA) BPH with obstruction/lower urinary tract symptoms Urinary urgency Urgency of urination Urge incontinence Acute cystitis with hematuria Microhematuria [facility] Diagnosis Onset Date Resolution Status Atrial flutter acute AV block, 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 Essential (primary) hypertension chronic 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, chronic Pure hypercholesterolemia [facility] Work Phone: Evaluation note* Diagnosis Elevated PSA- Primary Elevated prostate specific antigen (PSA) Abnormal MRI, pelvis BPH with obstruction/lower urinary tract symptoms Urinary urgency Urgency of urination Urge incontinence Microhematuria Acute cystitis with hematuria [facility] information [facility] Work Phone: Evaluation note* Diagnosis Elevated PSA- Primary Elevated prostate specific antigen (PSA) Abnormal MRI, pelvis BPH with obstruction/lower urinary tract symptoms Urinary urgency Urgency of urination Urge incontinence Microhematuria [facility]* Diagnosis Elevated PSA- Primary Elevated prostate specific antigen (PSA) Abnormal MRI, pelvis [facility]* Diagnosis Elevated PSA- Primary Elevated prostate specific antigen (PSA) Abnormal MRI, pelvis BPH with obstruction/lower urinary tract symptoms Urinary urgency Urgency of urination Urge incontinence Microhematuria Acute cystitis with hematuria [facility]* Diagnosis Onset Date Resolution Status Admit Date Atrial flutter acute September 25, 2024 8:35am 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 * Prostate Cancer Screening ([facility]) * Prostate Cancer ([facility]) * Prostate Biopsy ([facility]) * PSA (Prostate-Specific Antigen) Test ([facility]) * Hematuria ([facility]) * UTI (Urinary Tract Infection): Male ([facility]) * BPH (Benign Prostatic Hyperplasia) (Cymro) documented in this encounterOhioHealthInstructions* Attachments The following attachments cannot be sent through Care Everywhere. * PSA (Prostate-Specific Antigen) Test ([facility]) * Prostate Cancer Screening ([facility]) * BPH (Benign Prostatic Hyperplasia) ([facility]ym[facility]) * Prostate Cancer ([facility]) * Prostate Biopsy ([facility]ym[facility]) * Hematuria (Cymro) documented in this encounterOhioHealthInstructions* Attachments The following attachments cannot be sent through Care Everywhere. * PSA (Prostate-Specific Antigen) Test ([facility]) * Prostate Biopsy ([facility]) * Prostate Cancer Screening ([facility]) * Prostate Cancer ([facility]) * BPH (Benign Prostatic Hyperplasia) ([facility]ymro) * Hematuria ([facility]) * Bladder: Training ([facility]) * Bladder Diet ([facility]ym[facility]) documented in this encounterOhioHealthInstructions* Attachments The following attachments cannot be sent through Care Everywhere. * PSA (Prostate-Specific Antigen) Test ([facility]) * Prostate Biopsy ([facility]) * Prostate Cancer Screening ([facility]) * Prostate Cancer ([facility]) * BPH (Benign Prostatic Hyperplasia) ([facility]ym[facility]) * Bladder Diet (Cymro) * Bladder: Training ([facility]ymro) * Hematuria ([facility]ym[facility]) * UTI (Urinary Tract Infection): Male (Cymro) documented in this encounterOhioHealthReason for referral (narrative)No reason for referral information availableGibson [facility] Services Work Phone: Summary Purpose Family History No Family History Records Found Relationship Condition Age at Onset Recorded Date/T ho brother Coronary artery disease Unknown brother Hypertension Unknown mother Hypertension Unknown father Cardiac disease Unknown Advance Directives No Advanced Directives Records Found Advance Directive Response Recorded Date/ Time Advance Directives Yes April 11, 2021 12:57pm Living Will Yes April 11 12:57pm Power of Medical Policy Specialist Yes April 11, 2021 12:57pm Advance Directive Response Recorded Date/ Time Advance Directives Yes April 11, 2021 11:57am Living Will Yes April 11 11:57am Power of Medical Policy Specialist Yes April 11, 2021 11:57am Advance Directive Response Recorded Date/ Time Advance Directives Yes April 11, 2021 12:57pm Chief Complaint and Reason for Visit Chief Complaint 3 mos remote PPM f/u Reason for Visit Atrial flutter AV block, 2nd degree Presence of permanent cardiac pacemaker Chief Complaint 1 Y FU Atherosclerosis of coronary artery bypass graft(s) Reason for Visit Atrial flutter AV block, 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 Essential (primary) hypertension Presence of permanent cardiac pacemaker Pure hypercholesterolemia Chief Complaint Atherosclerosis of c oronary artery bypass graft(s) Pacer Check Remote Chief Complaint Admit Date Pacer Check Remote July 04, 2024 11:43a m Pacer Check Remote September 15, 2024 2:00 am Chief Complaint Admit Date Pacer Check Remote July 04, 2024 11:43a m Pacer Check Remote September 15, 2024 2:00 am Questions about testing, see clinical no debo September 25, 2024 8:35am Reason for Visit Admit Date Atrial flutter September 25, 2024 8:35 am Atherosclerosis of coronary artery bypass graft(s) without angina pectoris September 25, 2024 8:35am Essential (primary) hypertension September 252024 8:35am Presence of permanent cardiac pacemaker September 25, 2024 8:35am Pure hypercholesterolemia September 25 8:35am Reason for Visit Admit Date Atrial flutter September 25, 2024 8:35 am NSVT (nonsustained ventricular tachycard ia) September 25, 2024 8:35am Atherosclerosis of coronary artery bypass graft(s) without angina pectoris September 25, 2024 8:35am Essential (primary) hypertension September 252024 8:35am Presence of permanent cardiac pacemaker September 25, 2024 8:35am Pure hypercholesterolemia September 25 8:35am Chief Complaint Admit Date Pacer Check Remote July 04, 2024 11:43a m Pacer Check Remote September 15, 2024 2:00 am Questions about testing, see clinical no debo September 25, 2024 8:35am Pacer Check Remote October 03, 2024 2:0 0am Additional Source Comments (unrecognized sect ion and content) No Status Records FoundNo Status Records FoundNo Status Records FoundNo Status Records FoundNo Status Records FoundNo Status Records FoundNo Status Records Found INFORMATION SOURCE (unrecogn ized section and content) DATE CREATED AUTHOR 11/01/2020 [facility] DATE CREATED AUTHOR AUTHOR'S ORGANIZ ATION 12/18/2020 [facility] DATE CREATED AUTHOR AUTHOR'S ORGANIZ ATION 12/25/2022 [facility] DATE CREATED AUTHOR AUTHOR'S ORGANIZ ATION 09/23/2023 [facility] DATE CREATED AUTHOR AUTHOR'S ORGANIZ ATION 07/08/2024 [facility] DATE CREATED AUTHOR AUTHOR'S ORGANIZ ATION 09/14/2024 [facility] DATE CREATED AUTHOR AUTHOR'S ORGANIZ ATION 10/19/[address] [facility] Care Teams (unrecognized sec tion and content) Team Status: Active Member Role Status Dates Dr. Zack Ceballos MD Family Provider Active Dr. Zack Ceballos MD Primary Care Provider Active Team Status: Inactive Member Role Status Dates Dr. Zack Ceballos MD Primary Care Provider, Referring Provider Active Renata Waite Attending Provider Active Team Status: Inactive Member Role Status Dates Dr. Zack Ceballos MD Primary Care Provider, Attending Provider Active Glove Pairer Relationship Specialty Start Date End Date Zack Ceballos MD [address] [place] [address] PCP - General Family Medicine 10/03/22 Team Status: Inactive Member Role Status Dates Dr. Zack Ceballos MD Primary Care Provider, Referring Provider Active Stephanie DAVALOS, PA Attending Provider Active Team Status: Active Member Role Status Dates Dr. Zack Ceballos MD Primary Care Provider Active Dr. Irving Osuna MD Attending Provider Active Team Status: Inactive Member Role Status Dates Dr. Zack Ceballos MD Primary Care Provider Active Stephanie DAVALOS, PA Attending Provider, Referr ing Provider Active Glove Pairer Relationship Specialty Start Date End Date Zack Ceballos MD [address] [place] [address] PCP - General Family Medicine 10/03/22 Team Status: Inactive Member Role Status Dates Dr. Zack Ceballos MD Primary Care Provider Active Dr. Irving Osuna MD Attending Provider Active Glove Pairer Relationship Specialty Start Date End Date Zack Ceballos MD [address] [place] [address] PCP - General Family Medicine 10/03/22 Glove Pairer Relationship Specialty Start Date End Date Zack Ceballos MD [address] [place] [address] PCP - General Family Medicine 10/03/22 Glove Pairer Relationship Specialty Start Date End Date Zack Ceballos MD [address] [place] [address] PCP - General Family Medicine 10/03/22 Team Status: Active Member Role/Relationship Status Dates Dr. Zack Ceballos MD Family Provider Active Dr. Zack Ceballos MD Primary Care Provider Active Team Status: Inactive Member Role/Relationship Status Dates Dr. Zack Ceballos MD Primary Care Provider Active Start: July 04, 2024 End: July 04, 2024 Dr. Irving Osuna MD Attending Provider Active S tart: July 04, 2024 End: July 04, 2024 Team Status: Inactive Member Role/Relationship Status Dates Dr. Zack Ceballos MD Primary Care Provider Active Start: September 15, 2024 End: September 15, 2024 Dr. Irving Osuna MD Attending Provider Active S tart: September 15, 2024 End: September 15, 2024 Team Status: Inactive Member Role/Relationship Status Dates Dr. Zack Ceballos MD Primary Care Provider Active Start: September 25, 2024 End: September 25, 2024 Dr. Zack Ceballos MD Referring Provider Active Start: September 25, 2024 End: September 25, 2024 Alden Wellington PATTERN WEAVER, PATTERN WEAVER-C Attending Provider Active S tart: September 25, 2024 End: September 25, 2024 Team Status: Active Member Role/Relationship Status Dates Dr. Zack Ceballos MD Primary Care Provider Active Team Status: Inactive Member Role/Relationship Status Dates Dr. Zack Ceballos MD Primary Care Provider Active Start: September 25, 2024 End: September 25, 2024 Alden Wellington PATTERN WEAVER, PATTERN WEAVER-C Attending Provider Active S tart: September 25, 2024 End: September 25, 2024 Alden Wellington PATTERN WEAVER, PATTERN WEAVER-C Referring Provider Active S tart: September 25, 2024 End: September 25, 2024 Team Status: Inactive Member Role/Relationship Status Dates Dr. Zack Ceballos MD Primary Care Provider Active Start: October 03, 2024 End: October 03, 2024 Dr. Irivng Osuna MD Attending Provider Active S tart: October 03, 2024 End: October 03, 2024 Goals (unrecognized section and content) Goals may be documented in a n alternate sectionGoals may be documented in an alternate sectionGoals may be documented in an alternate sectionGoals may be documented in an alternate sectionGoals may be documented in an alternate sectionGoals may be documented in an alternate sectionGoals may be documented in an alternate section Reason for Visit (unrecogniz ed section and content) Reason Comments Elevated PSA Reason Comments MRI results Reason Comments 6 months follow up elevated PSA Reason Comments 1 year follow up FOR RECORDS PERTAINING TO PATIENTS WHO ARE OR HAVE BEEN ENROLLED IN A CHEMICAL DEPENDENCY/SUBSTANCEABUSE PROGRAM, SOME INFORMATION MAY BE OMITTED. This clinical summary was aggregated from multiple sources. Caution should be exercised in using it in the provision of clinical care. This summary normalizes information from multiple sources, and as a consequence, information in this document may materially change the coding, format and clinical context of patient data. In addition, data may be omitted in some cases. CLINICAL DECISIONS SHOULD BE BASED ON THE PRIMARY CLINICAL RECORDS. [employer] provides no warranty or guarantee of the accuracy or completeness of information in this document.
--- NOTE | 2024-10-22 18:23 | STRESSREP ---
Stress Test Report Pharmacologic myocardial perfusion stress test. 84-year-old man with a history of coronary artery disease status post bypass surgery Resting EKG demonstrates sinus rhythm with a rate of 54 bpm. Left bundle branch block is noted. Resting blood pressure is 142/72 mmHg. 0.4 mg of regadenoson was infused per usual protocol followed by rapid intravenous saline flush injection. Continuous EKG monitoring was performed. The maximum heart rate was 68 bpm which was 49% of max impacted heart rate the maximum workload was 1 metabolic equivalent. At rest there were no ST or T wave changes noted to suggest ischemia and at peak infusion nonspecific ST changes were noted which did not meet the criteria for ischemia. No clinical angina is noted. The final blood pressure was 120/60 mmHg. Myocardial perfusion protocol. 11 point mCi of technetium 99m sestamibi was injected at rest. 0.4 mg of regadenoson was infused per usual protocol. At peak infusion 33.3 mCi of technetium 99m sestamibi was injected stress images were obtained stress and rest images were reconstructed and compared in the short axis vertical long and horizontal long axis. Perfusion SPECT analysis: Review of the stress images demonstrate normal uptake of tracer noted in all areas of the myocardium. There is mild reduction of perfusion noted in the apex. The resting images similar demonstrated normal uptake of tracer noted in all areas of the myocardium. Mild reduction of perfusion is also noted at the apex. No obvious reversibility is noted suggest ischemia. No areas of reversibility are noted to suggest ischemia and no previous infarct is noted. Conclusion: Normal pharmacologic myocardial perfusion stress test.
== END | disposition home or self-care (01) ==
PROVIDERS: PCP Family Medicine; Referring Provider Nurse Practitioner Family; Visit Provider Nurse Practitioner Family
DX: I25.810 Atherosclerosis of coronary artery bypass graft(s) without angina pectoris (principal); E11.9 Type 2 diabetes mellitus without complications; I10 Essential (primary) hypertension; Z95.1 Presence of aortocoronary bypass graft; Z95.5 Presence of coronary angioplasty implant and graft
CPT/HCPCS: 78452; 93017; A9500; A4216; J2785